=== PATIENT | male | born 1965 | race Two or more races ===

== ENCOUNTER 2020-05-10 09:08 | Outpatient (REF) | payer MEDICAID, SELFPAY ==
--- NOTE | 2020-05-10 | US_ITS ---
EXAMINATION: US COMPLETE ABDOMEN WITH LIVER ELASTOGRAPHY CLINICAL INFORMATION: Chronic hepatitis C COMPARISON: Ultrasound abdomen 09/09/2018, CT abdomen and pelvis 04/15/2014 TECHNIQUE: Real-time imaging of the abdominal viscera. Noninvasive ultrasound liver fibrosis assessment is performed using Andrew ElastPQ point quantification shear wave elastography (pSWE) with a 5 MHz transducer. Multiple elastography samples are obtained. FINDINGS: PANCREAS: The pancreas is normal in size and contour and echogenicity. No pancreatic ductal distention. ABDOMINAL AORTA: The proximal, middle, and distal aortic segments are normal in caliber. INFERIOR VENA CAVA: Visualized portions are normal. LIVER: The liver is normal in size. There is subtle nodular contour suggested. The hepatic parenchymal echogenicity is normal. There is no focal hepatic parenchymal lesion. No intrahepatic ductal dilatation. The right lobe measures 14.8 cm in length. The left lobe measures 11.1 cm in length. Doppler shows portal flow towards the liver. Shear wave elastography provides a median stiffness of 1.33 m/s (reference: normal median stiffness is 0.81 - 1.22 m/s). The IQR/median stiffness to assess sampling precision is 0.14 (reference: optimal IQR/median stiffness is under 0.3). GALLBLADDER: Normal. The gallbladder is physiologically distended without evidence of stones, sludge, polyps, wall thickening or pericholecystic fluid. COMMON BILE DUCT: Normal in caliber measuring 0.4 cm in diameter. RIGHT KIDNEY: Normal. No hydronephrosis. No renal calculi or focal parenchymal lesions. The kidney measures 11.6 cm in maximum dimension. LEFT KIDNEY: Normal. No hydronephrosis. No renal calculi or focal parenchymal lesions. The kidney measures 12.7 cm in maximum dimension. SPLEEN: Normal. The spleen measures 10.5 cm in maximum dimension. FREE FLUID: None. IMPRESSION: 1. Liver normal in size and homogeneous. No focal hepatic parenchymal lesion. 2. Suspect subtle nodular contour liver surface. Liver elastography measurements are consistent with a minimal risk for clinically significant liver fibrosis (METAVIR Stage F0-F1). 3. Portal flow towards the liver. Spleen normal in size. No ascites.
== END 2020-05-10 09:09 | disposition home or self-care (01) ==
LOC: HO.US 09:08
PROVIDERS: Visit Provider Student in an Organized Health Care Education/Training Program
DX: B18.2 Chronic viral hepatitis C (principal)
CPT/HCPCS: 76705; 76981

== ENCOUNTER 2020-05-22 08:56 | Outpatient (REF) | payer MEDICAID, SELFPAY ==
[2020-05-22 09:56] LABS: MANUAL DIFF FLAG NO
[2020-05-22 10:09] LABS: Basophils Percent Auto 0.2 % (0-2); Eosinophils Absolute Auto 0.1 X10*3/uL (0.0-0.4); Eosinophils Percent Auto 1.6 % (0-4); Hematocrit 45.6 % (42-52); Hemoglobin 14.8 g/dl (14.0-18.0); Imm Gran Abs Auto 0.01 X10*3/uL (0.00-0.03); Imm Gran Pct Auto 0.2 % (0.0-0.4); Lymphocytes Absolute Auto 2.1 X10*3/uL (1.2-4.9); Lymphocytes Percent Auto 48.3 % (20-40); Mean Corpuscular HGB Conc 32.5 g/dl (31.0-36.0); Mean Corpuscular Hemoglobin 27.1 pg (27.0-33.0); Mean Corpuscular Volume 83.4 fL (80-98); Monocytes Absolute Auto 0.4 X10*3/uL (0.1-1.2); Monocytes Percent Auto 8.2 % (2-11); Neutrophils Absolute Auto 1.8 X10*3/uL (2.0-8.3); Neutrophils Percent Auto 41.5 % (45-73); Platelet Count 165 X10*3/uL (160-400); Red Blood Count 5.47 X10*6/uL (4.60-5.80); Red Cell Distribution Width 13.8 % (11.0-16.0); White Blood Count 4.3 X10*3/uL (4.8-10.8)
[2020-05-22 10:19] LABS: INTERNATIONAL NORM RATIO 1.1 (0.9-1.1); Prothrombin Time 12.5 SEC (10.8-13.0)
[2020-05-22 10:38] LABS: Alanine Aminotransferase 93 U/L (0-40); Albumin Level 4.6 g/dL (3.5-5.0); Alkaline Phosphatase 85 U/L (39-117); Anion Gap 16 (12-20); Aspartate Amino Transferase 50 U/L (5-37); Bilirubin Total 0.7 mg/dL (0.0-1.0); Blood Urea Nitrogen 14 mg/dL (9-16); Calcium 9.3 mg/dL (8.4-10.2); Carbon Dioxide 22 mmol/L (22-29); Chloride 107 mmol/L (96-108); Estimated Glomerular Filt Rate > 60; Glucose Random 96 mg/dL (60-115); Potassium 4.2 mmol/l (3.3-5.1); Sodium 141 mmol/L (135-145); Total Protein 8.2 g/dL (6.5-8.0)
[2020-05-23 08:31] LABS: Hepatitis A Antibody IgG REACTIVE (Nonreactive); ~Hepatitis A Antibody IgG 10.46 S/CO (0.00-0.99)
[2020-05-23 08:45] LABS: HBsAGNum1 0.15 S/CO (0.00-0.99); HIV AB/AG Nonreactive (Nonreactive); HIV Num 1 0.13 S/CO (0.00-0.99); Hepatitis B Surface Antigen Negative (Negative)
[2020-05-23 09:22] LABS: ~HepC Num1 20.19 S/CO (0.00-0.79); ~Hepatitis C Antibody Reactive (Nonreactive)
[2020-05-23 11:02] LABS: HBS Num1 9.35 mIU/mL (0-7.99)
[2020-05-23 11:19] LABS: HBS Num2 9.35 mIU/mL (0-7.99); HBS Num3 9.01 mIU/mL (0-7.99); ~Hepatitis B Surface Antibody GRAYZONE (Nonreactive)
[2020-05-23 12:12] LABS: Hepatitis B Core Antibody Reactive (Nonreactive)
[2020-05-26 10:26] LABS: Hepatitis B Core Antibody IgM NON-REACTIVE (NON-REACTIVE)
[2020-05-26 15:27] LABS: FIB-ALT 79 U/L (9-46); FIB-Alpha-2-Macroglobulin 376 mg/dL (106-279); FIB-Apolipoprotein A1 123 mg/dL (94-176); FIB-GGT 28 U/L (3-95); FIB-Haptoglobin <8 mg/dL (43-212); FIB-Total Bilirubin 0.5 mg/dL (0.2-1.2); Liver Fibrosis Score 0.87; Liver Fibrosis Stage F4; Nec Inflam Act Grade A3; Nec Inflam Act Score 0.68
== END 2020-05-22 08:57 | disposition home or self-care (01) ==
LOC: HO.LAB 08:56
PROVIDERS: PCP Student in an Organized Health Care Education/Training Program; Visit Provider Student in an Organized Health Care Education/Training Program
DX: B18.2 Chronic viral hepatitis C (principal)
CPT/HCPCS: 36415; 80053; 81596; 85025; 85610; 86704; 86705; 86706; 86708; 86803; 87340; 87389; 87522

== ENCOUNTER 2020-07-10 08:56 | Outpatient (REF) | payer MEDICAID, SELFPAY ==
[2020-07-10 09:35] LABS: MANUAL DIFF FLAG NO
[2020-07-10 09:36] LABS: Basophils Percent Auto 0.2 % (0-2); Eosinophils Absolute Auto 0.1 X10*3/uL (0.0-0.4); Eosinophils Percent Auto 1.4 % (0-4); Hematocrit 41.5 % (42-52); Hemoglobin 13.8 g/dl (14.0-18.0); Imm Gran Abs Auto 0.01 X10*3/uL (0.00-0.03); Imm Gran Pct Auto 0.2 % (0.0-0.4); Lymphocytes Absolute Auto 2.2 X10*3/uL (1.2-4.9); Lymphocytes Percent Auto 51.9 % (20-40); Mean Corpuscular HGB Conc 33.3 g/dl (31.0-36.0); Mean Corpuscular Volume 81.2 fL (80-98); Monocytes Absolute Auto 0.4 X10*3/uL (0.1-1.2); Monocytes Percent Auto 8.6 % (2-11); Neutrophils Absolute Auto 1.6 X10*3/uL (2.0-8.3); Neutrophils Percent Auto 37.7 % (45-73); Platelet Count 164 X10*3/uL (160-400); Red Blood Count 5.11 X10*6/uL (4.60-5.80); Red Cell Distribution Width 13.9 % (11.0-16.0); White Blood Count 4.3 X10*3/uL (4.8-10.8)
[2020-07-10 09:42] LABS: INTERNATIONAL NORM RATIO 1.1 (0.9-1.1); Prothrombin Time 12.9 SEC (10.8-13.0)
[2020-07-10 10:08] LABS: Alanine Aminotransferase 125 U/L (0-40); Albumin Level 4.4 g/dL (3.5-5.0); Alkaline Phosphatase 98 U/L (39-117); Anion Gap 10 (12-20); Aspartate Amino Transferase 52 U/L (5-37); Bilirubin Total 0.6 mg/dL (0.0-1.0); Blood Urea Nitrogen 14 mg/dL (9-16); Calcium 9.3 mg/dL (8.4-10.2); Carbon Dioxide 28 mmol/L (22-29); Chloride 108 mmol/L (96-108); Estimated Glomerular Filt Rate > 60; Glucose Random 99 mg/dL (60-115); Potassium 4.4 mmol/l (3.3-5.1); Sodium 142 mmol/L (135-145); Total Protein 7.6 g/dL (6.5-8.0)
[2020-07-10 10:26] LABS: HIV AB/AG Nonreactive (Nonreactive); HIV Num 1 0.06 S/CO (0.00-0.99); Hepatitis B Surface Antigen Negative (Negative)
[2020-07-10 11:39] LABS: HBc Num1 11.16 S/CO (0.00-0.79)
[2020-07-10 11:41] LABS: HBS Num1 8.51 mIU/mL (0-7.99); HBc Num3 11.16 S/CO; Hepatitis B Core Antibody Reactive (Nonreactive)
[2020-07-10 11:42] LABS: HBS Num2 8.51 mIU/mL (0-7.99); HBS Num3 8.62 mIU/mL (0-7.99); ~Hepatitis B Surface Antibody GRAYZONE (Nonreactive)
[2020-07-11 09:21] LABS: Hepatitis A Antibody IgG REACTIVE (Nonreactive); ~Hepatitis A Antibody IgG 10.84 S/CO (0.00-0.99)
[2020-07-11 20:12] LABS: Hepatitis B Core Antibody IgM NON-REACTIVE (NON-REACTIVE)
[2020-07-14 00:42] LABS: FIB-ALT 109 U/L (9-46); FIB-Alpha-2-Macroglobulin 373 mg/dL (106-279); FIB-Apolipoprotein A1 125 mg/dL (94-176); FIB-GGT 33 U/L (3-95); FIB-Haptoglobin 8 mg/dL (43-212); FIB-Total Bilirubin 0.5 mg/dL (0.2-1.2); Liver Fibrosis Score 0.88; Liver Fibrosis Stage F4; Nec Inflam Act Grade A3; Nec Inflam Act Score 0.79
== END 2020-07-10 08:57 | disposition home or self-care (01) ==
LOC: HO.LAB 08:56
PROVIDERS: Visit Provider Student in an Organized Health Care Education/Training Program
DX: B18.2 Chronic viral hepatitis C (principal)
CPT/HCPCS: 36415; 80053; 81596; 85025; 85610; 86704; 86705; 86706; 86708; 87340; 87389; 87522

== ENCOUNTER → 2020-10-18 09:11 | Outpatient (BNVA) | payer MEDICAID, SELFPAY | PROVIDERS: PCP Student in an Organized Health Care Education/Training Program; Visit Provider Nurse Practitioner ==

== ENCOUNTER → 2020-11-29 09:19 | Outpatient (BNVA) | payer MEDICAID, SELFPAY | PROVIDERS: PCP Student in an Organized Health Care Education/Training Program; Visit Provider Nurse Practitioner ==

== ENCOUNTER 2020-11-30 08:22 | Outpatient (REF) | payer MEDICAID, SELFPAY ==
[2020-11-30 09:57] LABS: Alanine Aminotransferase 23 U/L (0-40); Albumin Level 4.3 g/dL (3.5-5.0); Alkaline Phosphatase 72 U/L (39-117); Anion Gap 12 (12-20); Aspartate Amino Transferase 19 U/L (5-37); Bilirubin Total 0.7 mg/dL (0.0-1.0); Blood Urea Nitrogen 13 mg/dL (9-16); Calcium 9.5 mg/dL (8.4-10.2); Carbon Dioxide 25 mmol/L (22-29); Chloride 109 mmol/L (96-108); Cholesterol 153 mg/dL; Estimated Glomerular Filt Rate > 60; Glucose Fasting 93 mg/dL (60-99); HDL Cholesterol 31 mg/dL; LDL Cholesterol Calculated 83 mg/dl; Potassium 3.7 mmol/L (3.3-5.1); Sodium 142 mmol/L (135-145); Total Protein 7.6 g/dL (6.5-8.0); Triglycerides 199 mg/dL
== END 2020-11-30 08:23 | disposition home or self-care (01) ==
LOC: HO.LAB 08:22
PROVIDERS: PCP Student in an Organized Health Care Education/Training Program; Visit Provider Nurse Practitioner
DX: B18.2 Chronic viral hepatitis C (principal); K74.60 Unspecified cirrhosis of liver; E78.00 Pure hypercholesterolemia, unspecified
CPT/HCPCS: 36415; 80053; 80061

== ENCOUNTER 2021-01-24 07:04 | Day surgery (SDC) | payer MEDICAID, SELFPAY ==
[2021-01-24 07:21] VITALS: BMI 28.1
[2021-01-24 07:25] VITALS: BP 128/77; PULSE 59; RESP 16; TEMP 36.4; O2SAT 97
--- NOTE | 2021-01-24 07:37 | P.CONAN_ITS ---
COUNTS INCLUDE 234 BEDS AT THE [facility] Active Problems Active Problems: All Active Problems (Updated 01/18/21 @ 12:46 by Jolie rivers) Chronic hepatitis C (Acute) Cirrhosis (Acute) HTN (hypertension), benign (Acute) High cholesterol (Acute) Past Medical History Medical History Asthma Cirrhosis Elevated cholesterol Hepatitis C History of ETOH abuse HTN (hypertension) On anticoagulant therapy Family History Family History Family/Other HTN (hypertension) Asthma Diabetes Surgical History Surgical History Hx of colonoscopy Social History Social History Household Members: None Alcohol intake: former Year quit: 10+ Patient Tobacco Use Status: Never used Tobacco Are you DNR?: No Advance Directives: No Advance Directives Information Provided: Yes Current occupational status: disabled Meds Allergies Allergy/AdvReac Type Severity Reaction Status Date / Time No Known Allergies Allergy Verified 01/24/21 07:17 Home Medications Medication Instructions Recorded Confirmed Last Taken Type albuterol sulfate [ProAir HFA] 2 puff INHALATION QID 01/18/21 01/18/21 01/24/21 05:00 History cetirizine 1 tab PO QAM 01/18/21 01/18/21 Unknown History dabigatran etexilate [Pradaxa] 1 cap PO BID 01/18/21 01/18/21 01/21/21 History ferrous sulfate [FeroSul] 1 tab PO QAM 01/18/21 01/18/21 Unknown History fluticasone propionate 1 - 2 spray INTRANASAL DAILY PRN 01/18/21 01/18/21 Unknown History fluticasone propionate [Flovent 2 puff INHALATION BID 01/18/21 01/18/21 Unknown History HFA] folic acid 1 tab PO QAM 01/18/21 01/18/21 Unknown History hydroxyzine HCl 2 tab PO BEDTIME 01/18/21 01/18/21 Unknown History levetiracetam 1 tab PO 01/18/21 Unknown History lisinopril 1 tab PO QAM 01/18/21 01/18/21 Unknown History multivitamin 1 tab PO QAM 01/18/21 01/18/21 Unknown History omeprazole 1 cap PO QAM 01/18/21 01/18/21 Unknown History simvastatin 1 tab PO QPM 01/18/21 01/18/21 Unknown History thiamine HCl (vitamin B1) 1 tab PO QAM 01/18/21 01/18/21 Unknown History topiramate 1 tab PO BEDTIME 01/18/21 01/18/21 Unknown History Exam Exam Date and Time: January 24, 2021 0737 Height,Weight and Vital Signs: Height 5 ft 7 in Weight 180 lb Airway Mallampati Class: I TM Dist: >3cm Neck ROM: Full Denture: Upper Loose/Missing/Broken Teeth: No Heart: RRRNL Assessment and Plan Assessment Anesthesia Assessment: Anesthesia Plan Discussed and Chart Reviewed Final Anesthetic Review NPO: Yes ASA Class: III Final Preanesthetic Review: No Changes in Pt Med Stat, Meds/Allgs Chart Reviewed, Consent Obtained/Reviewed and Anes Risks/Benef Reviewed Patient Risk: Low Procedure Risk: Low Anesthetic Plan Anesthetic Plan: MAC: Disposition: Standard PACU
[2021-01-24] MEDS: Lactated Ringers 1,000 ML 50 ML IVCONT (07:51)
--- NOTE | 2021-01-24 09:08 | MHC.SHP ---
Pre-Procedural Eval Section A Date of Service: 01/24/21 Section B Chief Complaint: Cirrhosis of Liver Relevant Family History (Specify if Yes): No Relevant Social History: None Present Medications: see Short Stay Collaborative assessment Medical History: Significant History (Asthma Cirrhosis Elevated cholesterol Hepatitis C History of ETOH abuse HTN (hypertension) On anticoagulant therapy) History of Previous Operations: Relevant previous surgery/procedure and date(s) (hx of colonoscopy) Allergies: Allergies Allergy/AdvReac Type Severity Reaction Status Date / Time No Known Allergies Allergy Verified 01/24/21 07:17 Review of Systems Sugical H&P ROS: Negative: Constitution, Cardiovascular, Respiratory, Neurological, Psychiatric, Hem-Onc, Allergic/Immunologic, Gastrointestinal, Genitourinary, Musculoskeletal, Integumentary, Endocrine and Eyes/Ears/Nose/Throat Exam Surgical H&P Exam: Normal: HEENT, Normal: Heart, Normal: Lungs, Normal: Extremities, Normal: Abdomen, Normal: Skin and Normal: Neurological Plan Diagnosis/Plan: Unchanged I have reviewed the history and physical and performed a pertinent physical examination on my patient. No changes have occurred unless specified.
--- NOTE | 2021-01-24 09:52 | P.BOP_ITS ---
Brief Operative Note Date of Service: 01/24/21 Pre-op diagnosis: screening for varices Post-op diagnosis: same Procedure: see op note Surgeon: Bryson Manrique MD Anesthesia: MAC Was an Medical Staff Assistant used for this Procedure?: No Estimated blood loss (mL): 0 Condition: stable Disposition: PACU
--- NOTE | 2021-01-24 09:53 | W.PM.OPN ---
Operative Note Operative Note Date of Service: 01/24/21 Narrative: Procedure Description: EGD FLEXIBLE TRANSORAL UPPER GASTROINTESTINAL ENDOSCOPY UPPER ENDOSCOPY Consent: Indications for the procedure and potential complications of bleeding, perforation, reaction to medications and missed diagnosis were discussed with the patient and informed consent was obtained. Instrument: Olympus GIF H 190 J mid size upper endoscope Monitoring: Vital signs and clinical assessment, continuous EKG monitoring, Pulse oximetry, Carbon Dioxide monitoring and blood pressure monitoring were done throughout the procedure. Procedure: The patient was placed in the left lateral decubitis position and pre-procedure medications were administered and a bite block was placed. The endoscope was inserted into the mouth and advanced under direct vision to the third part of duodenum. A careful inspection was made as the upper endoscope was withdrawn including a retroflexed examination of the proximal stomach; Findings and interventions are described below. Findings: Larynx:normal Esophagus: GE junction at 40 cm, diaphragm hiatus at 40 cm, no varices, mild esophagitis with islands of salmon pink tissue suspicious for barretts, bx taken Stomach: Patchy gastric erythema. Biopsies were obtained. Grade 2 flap valve on retroflexed examination of the cardia. 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
[2021-01-24 10:00] VITALS: BP 111/72; PULSE 52; RESP 16; TEMP 36.6; O2SAT 97
[2021-01-24 10:15] VITALS: BP 108/78; PULSE 46; RESP 16; TEMP 36.6; O2SAT 100
[2021-01-24 10:29] VITALS: BP 127/75; PULSE 45; RESP 16; TEMP 36.6; O2SAT 100
== END 2021-01-24 11:30 | disposition home or self-care (01) ==
PROVIDERS: PCP Student in an Organized Health Care Education/Training Program; Visit Provider Internal Medicine Gastroenterology
PROC: 0DJ08ZZ Inspection of Upper Intestinal Tract, Via Natural or Artificial Opening Endoscopic (ICD-10-PCS; CPT 43235; principal; 2021-01-24 09:10)
DX: K74.60 Unspecified cirrhosis of liver (principal); F10.10 Alcohol abuse, uncomplicated; K29.50 Unspecified chronic gastritis without bleeding; K20.80 Other esophagitis without bleeding; K44.9 Diaphragmatic hernia without obstruction or gangrene; J45.909 Unspecified asthma, uncomplicated; E78.00 Pure hypercholesterolemia, unspecified; B19.20 Unspecified viral hepatitis C without hepatic coma; I10 Essential (primary) hypertension; Z79.01 Long term (current) use of anticoagulants; Z79.51 Long term (current) use of inhaled steroids; Z79.899 Other long term (current) drug therapy
CPT/HCPCS: 43239; 88305; 88342

== ENCOUNTER → 2021-02-04 14:22 | Outpatient (BNVA) | payer MEDICAID, SELFPAY | PROVIDERS: Visit Provider Nurse Practitioner ==

== ENCOUNTER 2021-05-17 09:27 | Inpatient (IN) | payer MEDICAID, SELFPAY ==
--- NOTE | ~2021-05-17 | CT_ITS ---
EXAMINATION: CT ABDOMEN AND PELVIS WITH CONTRAST CLINICAL INFORMATION: Abdominal pain. Past medical history of cirrhosis. COMPARISON: Ultrasound of May 10, [address] scan of April 15, 2014 TECHNIQUE: Multidetector volumetric images were obtained from the superior aspect of the liver through the pubic symphysis following administration 85 mL of Omnipaque 350 intravenous contrast. Sagittal and coronal reformatted images were obtained on the technologist's workstation. Oral contrast: No This CT examination was performed using dose optimization techniques as appropriate, variously including the following: *Automated exposure control *Adjustment of mA and/or kV according to patient size (this includes techniques or standardized protocols for targeted exams where dose is matched to indication/reason for exam; i.e. extremities or head) *Use of iterative reconstruction technique DLP: 531 mGy-cm FINDINGS: LUNG BASES: There is basilar dependent atelectasis present. Heart normal size. No pericardial effusion or pleural effusion identified. LIVER, GALLBLADDER, AND BILIARY TREE: The liver has a nodular contour with the appearance of cirrhosis. No focal masses appreciated. No intrahepatic bile duct dilatation is seen. The gallbladder is unremarkable with no evidence of radiopaque gallstones, gallbladder wall thickening, or obvious pericholecystic inflammatory changes. PANCREAS: Unremarkable. SPLEEN: Unremarkable. ADRENAL GLANDS: Unremarkable. KIDNEYS AND URETERS: The kidneys are normal in size, shape, and attenuation. No hydronephrosis, hydroureter, or calculi seen. No perinephric stranding. BLADDER: Unremarkable. GASTROINTESTINAL TRACT: No dilated loops of large or small bowel are evident. No free air or free fluid. There is moderate sigmoid diverticular disease but without definite acute diverticulitis. The appendix is visualized and appears unremarkable. ABDOMINAL WALL: No significant hernia is appreciated. LYMPH NODES: There is a 1 cm celiac axis lymph node present. No other regions of lymphadenopathy appreciated. VASCULAR: Unremarkable. PELVIC VISCERA: No suspicious pelvic mass identified. OSSEOUS STRUCTURES: No suspicious destructive bony lesions. CT/CT abdomen pelvis w con IMPRESSION: Findings suggestive of hepatic cirrhosis without focal mass. No evidence of obstructive uropathy. No evidence of ileus or obstruction.
[2021-05-17 09:43] VITALS: BP 122/84; PULSE 68; RESP 16; TEMP 36.1; O2SAT 98; BMI 27.3
--- NOTE | 2021-05-17 11:12 | ECG_ITS ---
Test Reason : abdominal pain Blood Pressure : / mmHG Vent. Rate : 045 BPM Atrial Rate : 045 BPM P-R Int : 146 ms QRS Dur : 098 ms QT Int : 462 ms P-R-T Axes : 041 010 015 degrees QTc Int : 399 ms Sinus bradycardia Otherwise normal ECG When compared with ECG of 14-APR-2018 21:25, No significant change was found Referred By: Reji Burnett Electronically Signed By:JULIENNE SWANN MD
[2021-05-17] MEDS: Magnesium Hydrox/Alum Hydrox 30 ML ORAL.SUSP PO (11:35)
[2021-05-17] MEDS: Famotidine/PF 20 MG/2 ML VIAL IVPUSH (11:35)
[2021-05-17] MEDS: Lidocaine HCl Viscous 2 % 15 ML SOLUTION MUCOUS MEM (11:35)
[2021-05-17 11:36] LABS: MANUAL DIFF FLAG NO
[2021-05-17 11:46] LABS: Basophils Percent Auto 0.2 % (0-2); Eosinophils Percent Auto 0.8 % (0-4); Hemoglobin 14.5 g/dl (14.0-18.0); Lymphocytes Absolute Auto 2.4 X10*3/uL (1.2-4.9); Lymphocytes Percent Auto 50.5 % (20-40); Mean Corpuscular HGB Conc 33.7 g/dl (31.0-36.0); Mean Corpuscular Volume 80.1 fL (80-98); Mean Platelet Volume 11.4 fL (9.4-12.4); Monocytes Absolute Auto 0.3 X10*3/uL (0.1-1.2); Monocytes Percent Auto 6.6 % (2-11); Neutrophils Percent Auto 41.9 % (45-73); Platelet Count 132 X10*3/uL (160-400); Red Blood Count 5.37 X10*6/uL (4.60-5.80); White Blood Count 4.7 X10*3/uL (4.8-10.8)
[2021-05-17 11:47] LABS: INTERNATIONAL NORM RATIO 1.1 (0.9-1.1); Prothrombin Time 12.5 SEC (9.9-13.0)
[2021-05-17 11:50] LABS: Partial Thromboplastin Time 40.3 SEC (24.1-38.0)
--- NOTE | 2021-05-17 11:52 | ED_ITS ---
HPI - Abdominal Pain General Chief Complaint: Abdominal Pain Stated Complaint: leg & abd pain Time Seen by Provider: 05/17/21 10:45 Source: patient Mode of arrival: ambulatory Limitations: no limitations History of Present Illness HPI narrative: 52-year-old male history of cirrhosis, hepatitis-C, and high blood pressure presents to ED for 4 days of abdominal pain and also 6 days of lower extremity cramping pain. Patient denies any nausea vomiting. Patient states no chest pain or shortness of breath. Patient denies recent trauma to lower extremity, redness, swelling, calf min, ecchymosis, hotness, or coldness. Patient denies any rectal bleeding or vomiting blood. Related Data Home Medications Medication Instructions Recorded Confirmed albuterol sulfate 90 mcg/actuation 2 puff INHALATION QID PRN 01/18/21 05/17/21 aerosol inhaler (ProAir HFA) cetirizine 10 mg tablet 1 tab PO QAM 01/18/21 05/17/21 dabigatran etexilate 75 mg capsule 1 cap PO BID 01/18/21 05/17/21 (Pradaxa) ferrous sulfate 325 mg (65 mg 1 tab PO QAM 01/18/21 05/17/21 iron) tablet (FeroSul) fluticasone propionate 110 2 puff INHALATION BID 01/18/21 05/17/21 mcg/actuation HFA aerosol inhaler (Flovent HFA) fluticasone propionate 50 1 - 2 spray INTRANASAL DAILY PRN 01/18/21 05/17/21 mcg/actuation nasal spray,suspension folic acid 1 mg tablet 1 tab PO QAM 01/18/21 05/17/21 hydroxyzine HCl 50 mg tablet 2 tab PO BEDTIME 01/18/21 05/17/21 levetiracetam 500 mg tablet 1 tab PO BID 01/18/21 05/17/21 lisinopril 10 mg tablet 1 tab PO QAM 01/18/21 05/17/21 multivitamin 1 tab PO QAM 01/18/21 05/17/21 omeprazole 40 mg capsule,delayed 1 cap PO QAM 01/18/21 05/17/21 release simvastatin 10 mg tablet 1 tab PO QPM 01/18/21 05/17/21 thiamine HCl (vitamin B1) 100 mg 1 tab PO QAM 01/18/21 05/17/21 tablet topiramate 50 mg tablet 1 tab PO BEDTIME 01/18/21 05/17/21 carbamide peroxide 6.5 % ear drops 5 drp OTIC (EARS) BID 05/17/21 05/17/21 (Ear Drops (carbamide peroxide)) Allergies Allergy/AdvReac Type Severity Reaction Status Date / Time No Known Allergies Allergy Verified 01/24/21 07:17 Review of Systems Review of Systems Yes all other systems are reviewed and are negative Constitutional: Reports as per HPI and Reports no additional constitutional complaints Eyes: Reports as per HPI and Reports no additional eye complaints Reports system reviewed and no additional complaints, except as documented and Reports as per HPI Cardiovascular: Reports as per HPI and Reports no additional cardiovascular complaints Respiratory: Reports as per HPI and Reports no additional respiratory complaints Gastrointestinal: Reports as per HPI, Reports no additional gastrointestinal complaints and Reports abdominal pain (Abdominal pain) Genitourinary: Reports no additional male genitourinary complaints and Reports difficulty with ejaculations Musculoskeletal: Reports no additional musculoskeletal complaints and Reports limited range of motion Comments: Lower extremity cramping Reports system reviewed and no additional complaints, except as documented and Reports as per HPI Psychiatric: Reports no additional psychiatric complaints and Reports as per HPI Physical Exam Vital Signs: Vital Signs: Last Vital Signs Temp 97 F 05/17/21 09:43 Pulse 68 05/17/21 09:43 Resp 16 05/17/21 09:43 BP 122/84 05/17/21 09:43 Pulse Ox 98 05/17/21 09:43 Body Mass Index 27.3 Const: General: cooperative, healthy appearing, comfortable, no acute distress, well developed, alert, awake and Physically active Orientation/consciousness: patient oriented x3 HENMT: Head: Yes normal to inspection, Yes No palpable skull fracture present, Yes normocephalic, Yes atraumatic and Yes abrasion Eyes: General: appearance normal, both eyes and all related structures Neck: Neck: Yes normal visual inspection, Yes full ROM, Yes no lymphadenopathy, Yes no meningeal signs, Yes trachea midline, Yes supple and No tender Chest: Chest palpation & inspection: normal inspection of the chest and normal palpation of entire chest wall Resp: Effort & Inspection: normal respiratory effort and able to speak in co mplete sentences Cardio: Jugular venous distension: no JVD Heart sounds: S1 normal heart sound present and S2 normal heart sound present GI: Inspection: Yes normal to inspection and No abdominal wall ecchymosis Palpation (GI): Soft to palpation, not firm, Tenderness to palpation present (GI) (Diffuse), no guarding and not rigid : General: No CVA tenderness and Yes no CVA tenderness Back/Spine/Pelvis: Back: no CVA tenderness, No CVA tenderness and No back tenderness Skin: General skin exam: no rashes or lesions noted and elasticity normal Neuro: General: patient oriented x3, gait normal, no meningeal signs and CN's II-XI intact bilaterally Cranial nerves: Yes CN's II-XII intact bilaterally Extrem: Other: Bilateral lower extremity negative for any swelling, redness, ecchymosis, calf pain, skin tightness, landing hotness, coldness, or deformity. Bilateral lower extremity motor/nose/vascular exam intact General: Yes normal to inspection and Yes full ROM Psych: Appearance: grossly normal, well kempt and not disheveled Course Course Course Narrative: Patient have EKG, abdominal CT scan, and labs ordered Reevaluation(s) Reevaluation #1: EKG negative STEMI. Abdominal CT scan came negative for any acute etiology. labs are at baseline except CPK. CPK over 3000. Patient denies having trauma. Troponin negative. Patient to be admitted for rhabdomyolysis. Time: 17:55 MDM - Abdominal Pain MDM Narrative Medical decision making narrative: Rhabdomyolysis Lab Data Result diagrams: 05/17/21 11:32 05/17/21 11:32 Labs: Lab Results 05/17/21 05/17/21 05/17/21 Range/Units 11:32 11:32 11:32 WBC 4.7 L (4.8-10.8) X10*3/uL RBC 5.37 (4.60-5.80) X10*6/uL Hgb 14.5 (14.0-18.0) g/dl Hct 43.0 (42-52) % MCV 80.1 (80-98) fL MCH 27.0 (27.0-33.0) pg MCHC 33.7 (31.0-36.0) g/dl RDW 14.0 (11.0-16.0) % Plt Count 132 L (160-400) X10*3/uL MPV 11.4 (9.4-12.4) fL Immature Gran % (Auto) 0.0 (0.0-0.4) % Neut % (Auto) 41.9 L (45-73) % Lymph % (Auto) 50.5 H (20-40) % [place] % (Auto) 6.6 (2-11) % Eos % (Auto) 0.8 (0-4) % Baso % (Auto) 0.2 (0-2) % Lymph # (Auto) 2.4 (1.2-4.9) X10*3/uL [place] # (Auto) 0.3 (0.1-1.2) X10*3/uL Eos # (Auto) 0.0 (0.0-0.4) X10*3/uL Baso # (Auto) 0.0 (0.0-0.2) X10*3/uL Abs Immat Gran (auto) 0.00 (0.00-0.03) X10*3/uL Absolute Neuts (auto) 2.0 (2.0-8.3) X10*3/uL Absolute Nucleated RBC 0.000 (0.0-0.012) X10*3/uL Nucleated RBC % (auto) 0.0 (0.0-0.2) /100WBC PT 12.5 (9.9-13.0) SEC INR 1.1 (0.9-1.1) APTT 40.3 H (24.1-38.0) SEC Sodium 140 (135-145) mmol/L Potassium 4.6 D (3.3-5.1) mmol/L Chloride 109 H (96-108) mmol/L Carbon Dioxide 25 (22-29) mmol/L Anion Gap 11 L (12-20) BUN 9 (9-16) mg/dL Creatinine 0.95 (0.5-1.4) mg/dL Estim Creat Clear Calc 90.8 Estimated GFR > 60 Random Glucose 92 (60-115) mg/dL Calcium 9.5 (8.4-10.2) mg/dL Magnesium 2.1 (1.6-2.6) mg/dL Total Bilirubin 0.6 (0.0-1.0) mg/dL Direct Bilirubin 0.2 (0.0-0.5) mg/dL AST 55 H (5-37) U/L ALT 28 (0-40) U/L Alkaline Phosphatase 77 (39-117) U/L Total Creatine Kinase 3644 H (38-174) U/L Troponin I High Sens (<3.5-35.0) ng/L Total Protein 7.4 (6.5-8.0) g/dL Albumin 4.3 (3.5-5.0) g/dL Lipase 40 (8-78) U/L TSH 0.78 (0.32-4.0) uIU/mL 05/17/21 Range/Units 11:32 WBC (4.8-10.8) X10*3/uL RBC (4.60-5.80) X10*6/uL Hgb (14.0-18.0) g/dl Hct (42-52) % MCV (80-98) fL MCH (27.0-33.0) pg MCHC (31.0-36.0) g/dl RDW (11.0-16.0) % Plt Count (160-400) X10*3/uL MPV (9.4-12.4) fL Immature Gran % (Auto) (0.0-0.4) % Neut % (Auto) (45-73) % Lymph % (Auto) (20-40) % Living[place] % (Auto) (2-11) % Eos % (Auto) (0-4) % Baso % (Auto) (0-2) % Lymph # (Auto) (1.2-4.9) X10*3/uL [place] # (Auto) (0.1-1.2) X10*3/uL Eos # (Auto) (0.0-0.4) X10*3/uL Baso # (Auto) (0.0-0.2) X10*3/uL Abs Immat Gran (auto) (0.00-0.03) X10*3/uL Absolute Neuts (auto) (2.0-8.3) X10*3/uL Absolute Nucleated RBC (0.0-0.012) X10*3/uL Nucleated RBC % (auto) (0.0-0.2) /100WBC PT (9.9-13.0) SEC INR (0.9-1.1) APTT (24.1-38.0) SEC Sodium (135-145) mmol/L Potassium (3.3-5.1) mmol/L Chloride (96-108) mmol/L Carbon Dioxide (22-29) mmol/L Anion Gap (12-20) BUN (9-16) mg/dL Creatinine (0.5-1.4) mg/dL Estim Creat Clear Calc Estimated GFR Random Glucose (60-115) mg/dL Calcium (8.4-10.2) mg/dL Magnesium (1.6-2.6) mg/dL Total Bilirubin (0.0-1.0) mg/dL Direct Bilirubin (0.0-0.5) mg/dL AST (5-37) U/L ALT (0-40) U/L Alkaline Phosphatase (39-117) U/L Total Creatine Kinase (38-174) U/L Troponin I High Sens < 3.5 (<3.5-35.0) ng/L Total Protein (6.5-8.0) g/dL Albumin (3.5-5.0) g/dL Lipase (8-78) U/L TSH (0.32-4.0) uIU/mL ECG Data Interpretation: Sinus bradycardia. Meticulous 45. [place] interval 146. QRS 98. QTC 399. Negative STEMI Discharge Plan Discharge Clinical Impression: Rhabdomyolysis Patient Disposition: Admitted As Inpatient [facility] Past Medical History Medical History Asthma Cirrhosis Elevated cholesterol Hepatitis C History of ETOH abuse HTN (hypertension) On anticoagulant therapy Surgical History History of esophagogastroduodenoscopy (EGD) Hx of colonoscopy Family History Family History Family/Other HTN (hypertension) Asthma Diabetes Social History Social History Household Members: None Alcohol intake: never Patient Tobacco Use Status: Never used Tobacco Use of substances other than those prescribed or required for medical reasons: No Advance Directives: No service: No Current occupational status: unemployed and disabled
[2021-05-17 11:58] LABS: Troponin-I High Sensitivity < 3.5 ng/L (<3.5-35.0)
[2021-05-17 12:21] LABS: Alanine Aminotransferase 28 U/L (0-40); Albumin Level 4.3 g/dL (3.5-5.0); Alkaline Phosphatase 77 U/L (39-117); Anion Gap 11 (12-20); Aspartate Amino Transferase 55 U/L (5-37); Bilirubin Direct 0.2 mg/dL (0.0-0.5); Bilirubin Total 0.6 mg/dL (0.0-1.0); Blood Urea Nitrogen 9 mg/dL (9-16); Calcium 9.5 mg/dL (8.4-10.2); Carbon Dioxide 25 mmol/L (22-29); Chloride 109 mmol/L (96-108); Creatinine Clr Calc Pharmacy 90.8; Estimated Glomerular Filt Rate > 60; Glucose Random 92 mg/dL (60-115); Lipase 40 U/L (8-78); Magnesium 2.1 mg/dL (1.6-2.6); Potassium 4.6 mmol/L (3.3-5.1); Sodium 140 mmol/L (135-145); Total Protein 7.4 g/dL (6.5-8.0)
[2021-05-17] MEDS: 0.9 % Sodium Chloride 1,000 ML 999 ML IV (12:40)
[2021-05-17] MEDS: iohexoL 350 MG/ML 100 ML INFUS..BTL IV (13:07)
--- NOTE | 2021-05-17 14:52 | PHA.MEDREC ---
Pharmacy Consult ? Medication Reconciliation Pharmacy has completed the medication reconciliation. There are no remarkable issues for provider's attention. Patient was able to verify his inhalers and the eye drops. Reports he takes all medication from his [facility]. Called [facility] to confirm medications in the [facility]. Karlene Buck, BonyD
--- NOTE | 2021-05-17 15:30 | P.HPHOSP_ITS ---
History of Present Illness Date of Service: 05/17/21 Attending physician on admission: Meenu Rivera Chief Complaint: abd pain cramping 55 y/o M came to the hospital because having abdominal pain and cramping, abdominal pain is nonspecific right and left both side, 5/10 intensity, gets be tter with coffee with milk and walking, also small amount of stools but not significant diarrhea. Denies any nausea or vomiting. Also has leg cramping similar way. He said he was walking 10 miles on and off from last 2 weeks and was not eating or drinking well. Denies any recent travel sick contacts or any new medication use. Denies any new complaint of chest pain or shortness of breath or fever or chills or nausea or vomiting Denies any cough Denies any weakness or numbness. Asthma Cirrhosis Elevated cholesterol Hepatitis C History of ETOH abuse HTN (hypertension) On anticoagulant therapy Review of Systems Review of Systems: As above. Yes all other systems are reviewed and are negat irasema [facility] Medical History Asthma Cirrhosis Elevated cholesterol Hepatitis C History of ETOH abuse HTN (hypertension) On anticoagulant therapy Family History Family/Other HTN (hypertension) Asthma Diabetes Pertinent family history: Multiple family members has history of liver disease due to alcohol use. Surgical History History of esophagogastroduodenoscopy (EGD) Hx of colonoscopy Social History Household Members: None Alcohol intake: never Patient Tobacco Use Status: Never used Tobacco Use of substances other than those prescribed or required for medical reasons: No Advance Directives: No Current occupational status: disabled Meds Allergies Allergy/AdvReac Type Severity Reaction Status Date / Time No Known Allergies Allergy Verified 01/24/21 07:17 Active Medications: Current Medications Albuterol Sulfate (Albuterol Sulfate 90 Mcg 8 Gm Inhaler) 2 puff INHALE QID PRN PRN Reason: Wheezing Carbamide Peroxide (Carbamide Peroxide 6.5% Otic 15 Ml Drpbtl) 5 drop EAR-BOTH BID ELISE Dabigatran (Dabigatran Etexilate Mesylate 75 Mg Capsule) 75 mg PO BID ELISE Fluticasone Propionate (Fluticasone Propionate Nasal 16 Gm [place]) 1 - 2 spray NOSTRIL-B DAILY PRN PRN Reason: Nasal Congestion Folic Acid (Folic Acid 1 Mg Tablet) 1 mg PO QAM [facility] Hydroxyzine HCl (Hydroxyzine Hcl 50 Mg Tablet) 100 mg PO BEDTIME [facility] Lactated Ringer's (Lr) 1,000 mls @ 100 mls/hr IVCONT .Q10H [facility] Levetiracetam (Levetiracetam 500 Mg Tablet) 500 mg PO BID [facility] Lisinopril (Lisinopril 10 Mg Tablet) 10 mg PO QAM [facility]; Protocol Loratadine (Loratadine 10 Mg Tablet) 10 mg PO QAM [facility] Multivitamins/Vitamin C (Multivitamin Tablet) 1 tab PO QAM [facility] Non-Formulary Medication (Ferrous Sulfate [Ferosul]) 1 tab PO QAM [facility] Non-Formulary Medication (Fluticasone Propionate [Flovent Hfa]) 2 puff INHALE BID [facility] Omeprazole (Omeprazole 40 Mg Capsule.Dr) 40 mg PO QAM [facility] Pharmacy Consult (Consult Rx Perform Med Rec) 1 each MISCELLANE ONCE PRN PRN Reason: Consult order Sodium Chloride (0.9 % Sodium Chloride Flush 3 Ml Syringe) 3 ml IVFLUSH QSHIFT [facility] Thiamine HCl (Thiamine Hcl 100 Mg Tablet) 100 mg PO QAM [facility] Topiramate (Topiramate 25 Mg Tablet) 50 mg PO BEDTIME [facility] Home Medications Medication Instructions Recorded Confirmed Last Taken Type albuterol sulfate 90 mcg/actuation 2 puff INHALATION QID PRN 01/18/21 05/17/21 01/24/21 05:00 History aerosol inhaler (ProAir HFA) cetirizine 10 mg tablet 1 tab PO QAM 01/18/21 05/17/21 05/17/21 History dabigatran etexilate 75 mg capsule 1 cap PO BID 01/18/21 05/17/21 05/17/21 History (Pradaxa) ferrous sulfate 325 mg (65 mg 1 tab PO QAM 01/18/21 05/17/21 05/17/21 History iron) tablet (FeroSul) fluticasone propionate 110 2 puff INHALATION BID 01/18/21 05/17/21 05/17/21 History mcg/actuation HFA aerosol inhaler (Flovent HFA) fluticasone propionate 50 1 - 2 spray INTRANASAL DAILY PRN 01/18/21 05/17/21 05/17/21 History mcg/actuation nasal spray,suspension folic acid 1 mg tablet 1 tab PO QAM 01/18/21 05/17/21 05/17/21 History hydroxyzine HCl 50 mg tablet 2 tab PO BEDTIME 01/18/21 05/17/21 05/16/21 History levetiracetam 500 mg tablet 1 tab PO BID 01/18/21 05/17/21 05/17/21 History lisinopril 10 mg tablet 1 tab PO QAM 01/18/21 05/17/21 05/17/21 History multivitamin 1 tab PO QAM 01/18/21 05/17/21 05/17/21 History omeprazole 40 mg capsule,delayed 1 cap PO QAM 01/18/21 05/17/21 05/17/21 History release simvastatin 10 mg tablet 1 tab PO QPM 01/18/21 05/17/21 05/16/21 History thiamine HCl (vitamin B1) 100 mg 1 tab PO QAM 01/18/21 05/17/21 05/17/21 History tablet topiramate 50 mg tablet 1 tab PO BEDTIME 01/18/21 05/17/21 05/16/21 History carbamide peroxide 6.5 % ear drops 5 drp OTIC (EARS) BID 05/17/21 05/17/21 05/17/21 History (Ear Drops (carbamide peroxide)) Physical Exam Vital Signs and Narrative: Vital Signs: Last Vital Signs Temp 97 F 05/17/21 09:43 Pulse 68 05/17/21 09:43 Resp 16 05/17/21 09:43 BP 122/84 05/17/21 09:43 Pulse Ox 98 05/17/21 09:43 Body Mass Index 27.3 Physical exam: Appearance: Alert.? Oriented X3.? not in distress.? Eyes: Pupils equal, round and reactive to light.? Sclera nonicteric.? ENT: Pharynx normal.? Moist mucous membranes. cvs: rrr, [id number] , no murmur res: clear to auscultation ,no rhonchii or wheezing abd: no rebound or guarding ,nonspecific abd pain right/left both sides , bs present. ext pulses present , no cyanosis ,Gait well balanced well coordinated. neuro: axo3 , nonfocal. Results Labs CBC and Chem 7: 05/17/21 11:32 05/17/21 11:32 Labs: Laboratory Results - last 24 hr 05/17/21 05/17/21 05/17/21 11:32 11:32 11:32 MCV 80.1 MCH 27.0 MCHC 33.7 RDW 14.0 Plt Count 132 L MPV 11.4 Immature Gran % (Auto) 0.0 Neut % (Auto) 41.9 L Lymph % (Auto) 50.5 H [place] % (Auto) 6.6 Eos % (Auto) 0.8 Baso % (Auto) 0.2 Lymph # (Auto) 2.4 [place] # (Auto) 0.3 Eos # (Auto) 0.0 Baso # (Auto) 0.0 Abs Immat Gran (auto) 0.00 Absolute Neuts (auto) 2.0 Absolute Nucleated RBC 0.000 Nucleated RBC % (auto) 0.0 PT 12.5 INR 1.1 APTT 40.3 H Anion Gap 11 L Estim Creat Clear Calc 90.8 Estimated GFR > 60 Random Glucose 92 Calcium 9.5 Magnesium 2.1 Total Bilirubin 0.6 Direct Bilirubin 0.2 AST 55 H ALT 28 Alkaline Phosphatase 77 Total Creatine Kinase 3644 H Troponin I High Sens Total Protein 7.4 Albumin 4.3 Lipase 40 05/17/21 11:32 MCV MCH MCHC RDW Plt Count MPV Immature Gran % (Auto) Neut % (Auto) Lymph % (Auto) [place] % (Auto) Eos % (Auto) Baso % (Auto) Lymph # (Auto) [place] # (Auto) Eos # (Auto) Baso # (Auto) Abs Immat Gran (auto) Absolute Neuts (auto) Absolute Nucleated RBC Nucleated RBC % (auto) PT INR APTT Anion Gap Estim Creat Clear Calc Estimated GFR Random Glucose Calcium Magnesium Total Bilirubin Direct Bilirubin AST ALT Alkaline Phosphatase Total Creatine Kinase Troponin I High Sens < 3.5 Total Protein Albumin Lipase Imaging Radiologist's Impressions: Impressions Abdomen/Pelvis CT 05/17/21 12:39 IMPRESSION: Findings suggestive of hepatic cirrhosis without focal mass. No evidence of obstructive uropathy. No evidence of ileus or obstruction. Assessment and Plan (1) Cirrhosis: Status: Acute (2) HTN (hypertension), benign: Status: Acute (3) Rhabdomyolysis: Status: Acute 1. Rhabdomyolysis/ abd the and leg cramping: Lab imaging and EKG personally reviewed and interpreted. mild elevated ast wbc ch. low ekg -mild bradycardia Probably related to prolonged walking and dehydration,? Statin might be contributing. tele for bradycardia german bmp, cpk , tsh levels Given IV fluid, hold statin. 2.htn : Blood pressure acceptable range, hold lisinopril. 3. Asthma: Continue albuterol, fluticasone. 4. History of a alcohol cirrhosis, continue thiamine and folic acid. also has hpeatitis c hx follows up with GI Dr Manrique 5. abd pain /crampin: multifactorial poor oral inatke /prolonged walking with hydration bowel rest , cleear liquid diet stool studies 6. question of irregular heart rythem vs blood clot : he said he has both but unclear where he had clot , also says he has irregular heart rythem, he says his pcp given him pradaxa. 7.dvt prophylax: continue pradaxa. Patient management patient in detail length -including rhabdomyolysis and p.o. intake, code status-patient understand and in code status-full code, time spent 70 minutes. Quality Stroke Does the patient have a stroke diagnosis?: No VTE Prior VTE?: No VTE Risk Level:: Medical - moderate - high VTE Device Contraindication: N/A - Device Ordered VTE Drug Contraindication: N/A - Med Ordered
[2021-05-17 16:12] LABS: Thyroid Stimulating Hormone 0.78 uIU/mL (0.32-4.0)
[2021-05-17] MEDS: Morphine Sulfate 2 MG/ML CARTRIDGE 1 MG IVPUSH (16:39)
[2021-05-17] MEDS: Lactated Ringers 1,000 ML 100 ML IVCONT (16:39)
--- NOTE | 2021-05-17 17:46 | MHC.CM.PN ---
CM met with admitted pt with bed assignment 350. 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 IMM not needed. No HCP. Education provided and pt declined at this time. Contacts are Pastor Red ([phone]) and Abena Willoughby ([place]) ([phone]). Pt lives alone. Uses no DME or services. Feels safe. 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 Pt fully vaccinated with Moderna 11/15 and 12/13/20. D/C plan is home without services. Pt will work with PCP to complete paperwork for MESSAGE BROKER DEVELOPER. Pt states [place] [facility] CM to follow for d/c needs.
[2021-05-17 19:03] VITALS: BP 127/75; PULSE 53; RESP 13; TEMP 36.7; O2SAT 98
[2021-05-17] MEDS: levETIRAcetam 500 MG TABLET PO (20:41)
[2021-05-17] MEDS: Topiramate 25 MG TABLET 50 MG PO (20:41)
[2021-05-17] MEDS: hydrOXYzine HCL 50 MG TABLET 100 MG PO (20:41)
[2021-05-17 20:52] LABS: Appearance Urine CLEAR; Color Urine YELLOW; Glucose Urine UA NEG (NEG); Leukocyte Esterase Urine NEG (NEG); Nitrite Urine NEG (NEG); PH 6.5 (5.0-8.0); Urine Blood NEG (NEG); Urine Ketones NEG (NEG); Urine Protein NEG (NEG-TRACE)
[2021-05-17 21:02] LABS: COVID-19 Test Negative (Negative); IDNOW Serial# 9DD0AD1C
[2021-05-17 21:03] LABS: Amphetamine Screen Urine Not Detected (Not Detect); Barbiturates, Urine Not Detected (Not Detect); Benzodiazepines Screen Urine Not Detected (Not Detect); Cannabinoid Screen Urine Not Detected (Not Detect); Cocaine Screen Urine Not Detected (Not Detect); Fentanyl, urine Not Detected (Not Detect); Opiate Screen Urine POSITIVE (Not Detect); Phencyclidine Screen Urine Not Detected (Not Detect)
[2021-05-17 21:27] VITALS: BP 131/94; PULSE 57; RESP 17; TEMP 36.4; O2SAT 99
[2021-05-17 21:38] VITALS: BMI 28.3
[2021-05-18] VITALS (8 sets, daily range): BP systolic 108–138; BP diastolic 58–76; PULSE 42–76; RESP 16–19; TEMP 36.3–36.9; O2SAT 94–99
[2021-05-18] MEDS: Lactated Ringers 1,000 ML 100 ML IVCONT (00:28)
--- NOTE | 2021-05-18 03:29 | MHC.PIE ---
0111 p; p 42 tele shows sinus mary. note; pt asleep in bed i; dr lozoya notified e; will cont to monitor
[2021-05-18] MEDS: Omeprazole 40 MG CAPSULE.DR PO (05:23)
[2021-05-18 06:14] LABS: Hemoglobin 13.7 g/dl (14.0-18.0); PLT CLUMP 1
[2021-05-18 06:16] LABS: Hematocrit 41.5 % (42-52); Mean Corpuscular Hemoglobin 26.6 pg (27.0-33.0); Mean Corpuscular Volume 80.4 fL (80-98); Mean Platelet Volume 11.3 fL (9.4-12.4); Platelet Count 121 X10*3/uL (160-400); Red Blood Count 5.16 X10*6/uL (4.60-5.80); White Blood Count 5.3 X10*3/uL (4.8-10.8)
[2021-05-18 07:21] LABS: Anion Gap 9 (12-20); Blood Urea Nitrogen 10 mg/dL (9-16); Calcium 9.3 mg/dL (8.4-10.2); Carbon Dioxide 27 mmol/L (22-29); Chloride 107 mmol/L (96-108); Creatinine Clr Calc Pharmacy 99.5; Estimated Glomerular Filt Rate > 60; Glucose Random 91 mg/dL (60-115); Potassium 4.4 mmol/L (3.3-5.1); Sodium 139 mmol/L (135-145)
[2021-05-18 08:04] LABS: VBG Base Excess -2.6 mmol/L; VBG HCO3 23 mmol/L (22-26); VBG pCO2 44 mmHg; VBG pH 7.32 (7.32-7.43); VBG pO2 53 mmHg
[2021-05-18 08:07] LABS: Venous Blood Gas Refer to POC result
--- NOTE | 2021-05-18 08:48 | P.PNIM_ITS ---
Subjective Subjective Date of Service: 05/18/21 Interval History: ulceratice colitis flare Review of Systems Denies any new complaint of chest pain or shortness of breath or fever or chills or nausea or vomiting Denies any cough Denies any weakness or numbness. abdominal discomfort improving Physical Exam Vital Signs: Vital Signs: Last Vital Signs Temp 98.4 F 05/18/21 07:01 Pulse 50 05/18/21 07:01 Resp 18 05/18/21 07:01 BP 129/66 05/18/21 07:01 Pulse Ox 99 05/18/21 07:01 Body Mass Index 28.3 physical exam: Appearance: Alert.? Oriented X3.? not in distress.? Eyes: Pupils equal, round and reactive to light.? Sclera nonicteric.? ENT: Pharynx normal.? Moist mucous membranes. cvs: rrr, [id number] , no murmur res: clear to auscultation ,no rhonchii or wheezing abd: no rebound or guarding , , bs present. ext pulses present , no cyanosis ,Gait well balanced well coordinated. neuro: axo3 , nonfocal. Objective Data Active Medications Albuterol Sulfate (Albuterol Sulfate 90 Mcg 8 Gm Inhaler) 2 puff INHALE QID PRN PRN Reason: Wheezing Carbamide Peroxide (Carbamide Peroxide 6.5% Otic 15 Ml Drpbtl) 5 drop EAR-BOTH BID [facility] Last Admin: 05/17/21 22:07 Dose: Not Given Documented by: HELENA Non-Admin Reason: Med Not Available Dabigatran (Dabigatran Etexilate Mesylate 75 Mg Capsule) 75 mg PO BID [facility] Last Admin: 05/17/21 21:31 Dose: 75 mg Documented by: HELENA Ferrous Sulfate (Ferrous Sulfate 324 Mg Tablet.Dr) 324 mg PO DAILY [facility] Fluticasone Propionate (Fluticasone Propionate 100 Mcg Blst.W.Dev) 2 puff INHALE RBID [facility] Fluticasone Propionate (Fluticasone Propionate Nasal 16 Gm [place]) 1 - 2 spray NOSTRIL-B DAILY PRN PRN Reason: Nasal Congestion Folic Acid (Folic Acid 1 Mg Tablet) 1 mg PO DAILY [facility] Hydroxyzine HCl (Hydroxyzine Hcl 50 Mg Tablet) 100 mg PO BEDTIME [facility] Last Admin: 05/17/21 20:41 Dose: 100 mg Documented by: CECE Lactated Ringer's (Lr) 1,000 mls @ 200 mls/hr IVCONT .Q5H [facility] Last Admin: 05/18/21 00:28 Dose: 100 mls/hr Documented by: HELENA Levetiracetam (Levetiracetam 500 Mg Tablet) 500 mg PO BID [facility] Last Admin: 05/17/21 20:41 Dose: 500 mg Documented by: CECE Loratadine (Loratadine 10 Mg Tablet) 10 mg PO DAILY [facility] Morphine Sulfate (Morphine Sulfate 2 Mg/Ml Cartridge) 1 mg IVPUSH Q4H PRN; Protocol PRN Reason: Pain, Severe (Pain Scale 7-10) Multivitamins/Vitamin C (Multivitamin Tablet) 1 tab PO DAILY [facility] Omeprazole (Omeprazole 40 Mg Capsule.Dr) 40 mg PO DAILY@0630 [facility] Last Admin: 05/18/21 05:23 Dose: 40 mg Documented by: HELENA Pharmacy Consult (Consult Rx Perform Med Rec) 1 each MISCELLANE ONCE PRN PRN Reason: Consult order Sodium Chloride (0.9 % Sodium Chloride Flush 3 Ml Syringe) 3 ml IVFLUSH QSHIFT [facility] Last Admin: 05/18/21 00:31 Dose: Not Given Documented by: HELENA Non-Admin Reason: IV Running Thiamine HCl (Thiamine Hcl 100 Mg Tablet) 100 mg PO DAILY [facility] Topiramate (Topiramate 25 Mg Tablet) 50 mg PO BEDTIME [facility] Last Admin: 05/17/21 20:41 Dose: 50 mg Documented by: CECE Labs CBC & Chem 7: 05/18/21 05:44 05/18/21 05:44 Labs: Laboratory Results - last 24 hr 05/17/21 05/17/21 05/17/21 11:32 11:32 11:32 MCV 80.1 MCH 27.0 MCHC 33.7 RDW 14.0 Plt Count 132 L MPV 11.4 Immature Gran % (Auto) 0.0 Neut % (Auto) 41.9 L Lymph % (Auto) 50.5 H [place] % (Auto) 6.6 Eos % (Auto) 0.8 Baso % (Auto) 0.2 Lymph # (Auto) 2.4 [place] # (Auto) 0.3 Eos # (Auto) 0.0 Baso # (Auto) 0.0 Abs Immat Gran (auto) 0.00 Absolute Neuts (auto) 2.0 Absolute Nucleated RBC 0.000 Nucleated RBC % (auto) 0.0 PT 12.5 INR 1.1 APTT 40.3 H VBG pH VBG pCO2 VBG pO2 VBG HCO3 VBG O2 Saturation VBG Base Excess Anion Gap 11 L Estim Creat Clear Calc 90.8 Estimated GFR > 60 Random Glucose 92 Calcium 9.5 Magnesium 2.1 Total Bilirubin 0.6 Direct Bilirubin 0.2 AST 55 H ALT 28 Alkaline Phosphatase 77 Total Creatine Kinase 3644 H Troponin I High Sens Total Protein 7.4 Albumin 4.3 Lipase 40 TSH 0.78 Urine Color Urine Appearance Urine pH Ur Specific [place] Urine Protein Urine Glucose (UA) Urine Ketones Urine Blood Urine Nitrite Ur Leukocyte Esterase Urine Opiates Screen Urine Fentanyl Screen Ur Barbiturates Screen Ur Phencyclidine Scrn Ur Amphetamines Screen U Benzodiazepines Scrn Urine Cocaine Screen U Marijuana (THC) Screen COVID-19 (KATINA) COVID-19 [employer] 05/17/21 05/17/21 05/17/21 11:32 20:38 20:43 MCV MCH MCHC RDW Plt Count MPV Immature Gran % (Auto) Neut % (Auto) Lymph % (Auto) [place] % (Auto) Eos % (Auto) Baso % (Auto) Lymph # (Auto) [place] # (Auto) Eos # (Auto) Baso # (Auto) Abs Immat Gran (auto) Absolute Neuts (auto) Absolute Nucleated RBC Nucleated RBC % (auto) PT INR APTT VBG pH VBG pCO2 VBG pO2 VBG HCO3 VBG O2 Saturation VBG Base Excess Anion Gap Estim Creat Clear Calc Estimated GFR Random Glucose Calcium Magnesium Total Bilirubin Direct Bilirubin AST ALT Alkaline Phosphatase Total Creatine Kinase Troponin I High Sens < 3.5 Total Protein Albumin Lipase TSH Urine Color YELLOW Urine Appearance CLEAR Urine pH 6.5 Ur Specific [place] 1.010 Urine Protein NEG Urine Glucose (UA) NEG Urine Ketones NEG Urine Blood NEG Urine Nitrite NEG Ur Leukocyte Esterase NEG Urine Opiates Screen Urine Fentanyl Screen Ur Barbiturates Screen Ur Phencyclidine Scrn Ur Amphetamines Screen U Benzodiazepines Scrn Urine Cocaine Screen U Marijuana (THC) Screen COVID-19 (KATINA) Negative COVID-19 [employer] Com See Note 05/17/21 05/18/2105/18/21 20:43 05:44 05:44 MCV 80.4 MCH 26.6 L MCHC 33.0 RDW 14.0 Plt Count 121 L MPV 11.3 Immature Gran % (Auto) Neut % (Auto) Lymph % (Auto) [place] % (Auto) Eos % (Auto) Baso % (Auto) Lymph # (Auto) [place] # (Auto) Eos # (Auto) Baso # (Auto) Abs Immat Gran (auto) Absolute Neuts (auto) Absolute Nucleated RBC 0.000 Nucleated RBC % (auto) 0.0 PT INR APTT VBG pH VBG pCO2 VBG pO2 VBG HCO3 VBG O2 Saturation VBG Base Excess Anion Gap 9 L Estim Creat Clear Calc 99.5 Estimated GFR > 60 Random Glucose 91 Calcium 9.3 Magnesium Total Bilirubin Direct Bilirubin AST ALT Alkaline Phosphatase Total Creatine Kinase 6365 H D Troponin I High Sens Total Protein Albumin Lipase TSH Urine Color Urine Appearance Urine pH Ur Specific [place] Urine Protein Urine Glucose (UA) Urine Ketones Urine Blood Urine Nitrite Ur Leukocyte Esterase Urine Opiates Screen POSITIVE H Urine Fentanyl Screen Not Detected Ur Barbiturates Screen Not Detected Ur Phencyclidine Scrn Not Detected Ur Amphetamines Screen Not Detected U Benzodiazepines Scrn Not Detected Urine Cocaine Screen Not Detected U Marijuana (THC) Screen Not Detected COVID-19 (KATINA) COVID-19 Clin Com 05/18/21 07:58 MCV MCH MCHC RDW Plt Count MPV Immature Gran % (Auto) Neut % (Auto) Lymph % (Auto) [place] % (Auto) Eos % (Auto) Baso % (Auto) Lymph # (Auto) [place] # (Auto) Eos # (Auto) Baso # (Auto) Abs Immat Gran (auto) Absolute Neuts (auto) Absolute Nucleated RBC Nucleated RBC % (auto) PT INR APTT VBG pH 7.32 VBG pCO2 44 VBG pO2 53 VBG HCO3 23 VBG O2 Saturation 81.0 VBG Base Excess -2.6 Anion Gap Estim Creat Clear Calc Estimated GFR Random Glucose Calcium Magnesium Total Bilirubin Direct Bilirubin AST ALT Alkaline Phosphatase Total Creatine Kinase Troponin I High Sens Total Protein Albumin Lipase TSH Urine Color Urine Appearance Urine pH Ur Specific [place] Urine Protein Urine Glucose (UA) Urine Ketones Urine Blood Urine Nitrite Ur Leukocyte Esterase Urine Opiates Screen Urine Fentanyl Screen Ur Barbiturates Screen Ur Phencyclidine Scrn Ur Amphetamines Screen U Benzodiazepines Scrn Urine Cocaine Screen U Marijuana (THC) Screen COVID-19 (KATINA) COVID-19 Clin Com Assessment and Plan (1) Rhabdomyolysis: Status: Acute (2) Cirrhosis: Status: Acute (3) HTN (hypertension), benign: Status: Acute Assessment and Plan: 1. Rhabdomyolysis/ abd the and leg cramping: Lab imaging and EKG personally reviewed and interpreted. mild elevated ast wbc ch. low ekg -mild bradycardia , improving Probably related to prolonged walking and dehydration,?? Statin might be contributing. renal function seems improving, cpk worsening in 6000's range , tsh levels seems normal Given IV fluid, may need bicarb since worsening rhabdo , nephro eval , hold statin. need close monitering bmp , electrolytes 2.htn :? Blood pressure acceptable range, hold lisinopril. 3. Asthma:? Continue albuterol, fluticasone.? 4. History of a alcohol cirrhosis, continue thiamine and folic acid. also has hpeatitis c hx follows up with GI Dr Manrique 5. abd pain /crampin: multifactorial poor oral inatke /prolonged walking with hydration bowel rest , advanc diet stool studies when sample available. 6. question of irregular heart rythem vs blood clot : he said he has both but unclear where he had clot , also says he has irregular heart rythem, he says his pcp given him pradaxa. 7.dvt prophylax: continue pradaxa. Quality Stroke Does the patient have a stroke diagnosis?: No VTE Prior VTE?: No VTE Risk Level:: Medical - moderate - high VTE Device Contraindication: N/A - Device Ordered VTE Drug Contraindication: N/A - Med Ordered
[2021-05-18] MEDS: levETIRAcetam 500 MG TABLET PO ×2 (11:02→19:47)
[2021-05-18] MEDS: 0.9 % Sodium Chloride Flush 3 ML SYRINGE IVFLUSH (11:03)
[2021-05-18] MEDS: Multivitamin TABLET 1 TAB PO (11:03)
[2021-05-18] MEDS: Fluticasone Propionate Nasal 16 GM SPRAY NOSTRIL-B (11:03)
[2021-05-18] MEDS: Thiamine HCL 100 MG TABLET PO (11:03)
[2021-05-18] MEDS: Ferrous Sulfate 324 MG TABLET.DR PO (11:03)
[2021-05-18] MEDS: Loratadine 10 MG TABLET PO (11:03)
[2021-05-18] MEDS: Folic Acid 1 MG TABLET PO (11:03)
[2021-05-18] MEDS: Carbamide Peroxide 6.5% Otic 15 ML DRPBTL 5 DROP EAR-BOTH (11:07)
[2021-05-18] MEDS: Sodium Bicarbonate 8.4% 150 MEQ in Dextrose 5 % 850 ML 200 MEQ IV (11:08)
--- NOTE | 2021-05-18 13:35 | P.CONNP_ITS ---
History of Present Illness Reason for Consult Consult date: 05/18/21 Reason for consult: Rhabdomyolysis Chief Complaint Chief complaint: rhabdomyolysis History of Present Illness Narrative: 55 year old male presented to the hospital due to abdominal pain and cramping. He also had been having leg cramping. He was walking 10 miles on and off from last 2 weeks and was not eating or drinking well. Denies any recent t ravel sick contacts or any new medication/drug use. Denied chest pain , shortness of breath? , fever , chills , nausea , vomiting, cough or any weakness. He has been on statins. He was found to have Rhabdomyolysis. He was admitted for further management. Nephrology has been consulted to assist in his clinical care during his current hospital stay. Review of Systems Review of Systems Yes all other systems are reviewed and are negative PMFSH Past Medical History Medical History Asthma Cirrhosis Elevated cholesterol Hepatitis C History of ETOH abuse HTN (hypertension) On anticoagulant therapy Family History Family History Family/Other HTN (hypertension) Asthma Diabetes Family history: reviewed and not pertinent Surgical History Surgical History History of esophagogastroduodenoscopy (EGD) Hx of colonoscopy Social History Social History Household Members: None Alcohol intake: never Patient Tobacco Use Status: Never used Tobacco service: No Current occupational status: unemployed and disabled Meds Allergies Allergy/AdvReac Type Severity Reaction Status Date / Time No Known Allergies Allergy Verified 01/24/21 07:17 Active Medications: Current Medications Albuterol Sulfate (Albuterol Sulfate 90 Mcg 8 Gm Inhaler) 2 puff INHALE QID PRN PRN Reason: Wheezing Carbamide Peroxide (Carbamide Peroxide 6.5% Otic 15 Ml Drpbtl) 5 drop EAR-BOTH BID [facility] Last Admin: 05/18/21 11:07 Dose: 5 drop Documented by: Dabigatran (Dabigatran Etexilate Mesylate 75 Mg Capsule) 75 mg PO BID [facility] Last Admin: 05/18/21 11:02 Dose: 75 mg Documented by: Ferrous Sulfate (Ferrous Sulfate 324 Mg Tablet.Dr) 324 mg PO DAILY [facility] Last Admin: 05/18/21 11:03 Dose: 324 mg Documented by: Fluticasone Propionate (Fluticasone Propionate 100 Mcg Blst.W.Dev) 2 puff INHALE RBID [facility] Last Admin: 05/18/21 11:14 Dose: Not Given Documented by: Fluticasone Propionate (Fluticasone Propionate Nasal 16 Gm [place]) 1 - 2 spray NOSTRIL-B DAILY PRN PRN Reason: Nasal Congestion Last Admin: 05/18/21 11:03 Dose: 1 spray Documented by: Folic Acid (Folic Acid 1 Mg Tablet) 1 mg PO DAILY [facility] Last Admin: 05/18/21 11:03 Dose: 1 mg Documented by: Hydroxyzine HCl (Hydroxyzine Hcl 50 Mg Tablet) 100 mg PO BEDTIME [facility] Last Admin: 05/17/21 20:41 Dose: 100 mg Documented by: Sodium Bicarbonate 150 meq/ (Dextrose) 1,000 mls @ 200 mls/hr IV .Q5H [facility] Last Admin: 05/18/21 11:08 Dose: 200 mls/hr Documented by: Levetiracetam (Levetiracetam 500 Mg Tablet) 500 mg PO BID [facility] Last Admin: 05/18/21 11:02 Dose: 500 mg Documented by: Loratadine (Loratadine 10 Mg Tablet) 10 mg PO DAILY [facility] Last Admin: 05/18/21 11:03 Dose: 10 mg Documented by: Morphine Sulfate (Morphine Sulfate 2 Mg/Ml Cartridge) 1 mg IVPUSH Q4H PRN; Protocol PRN Reason: Pain, Severe (Pain Scale 7-10) Multivitamins/Vitamin C (Multivitamin Tablet) 1 tab PO DAILY [facility] Last Admin: 05/18/21 11:03 Dose: 1 tab Documented by: Omeprazole (Omeprazole 40 Mg Capsule.) 40 mg PO DAILY@0630 [facility] Last Admin: 05/18/21 05:23 Dose: 40 mg Documented by: Pharmacy Consult (Consult Rx Perform Med Rec) 1 each MISCELLANE ONCE PRN PRN Reason: Consult order Sodium Chloride (0.9 % Sodium Chloride Flush 3 Ml Syringe) 3 ml IVFLUSH QSHIFT [facility] Last Admin: 05/18/21 11:03 Dose: 3 ml Documented by: Thiamine HCl (Thiamine Hcl 100 Mg Tablet) 100 mg PO DAILY [facility] Last Admin: 05/18/21 11:03 Dose: 100 mg Documented by: Topiramate (Topiramate 25 Mg Tablet) 50 mg PO BEDTIME [facility] Last Admin: 05/17/21 20:41 Dose: 50 mg Documented by: Home Medications Medication Instructions Recorded Confirmed Last Taken Type albuterol sulfate 90 mcg/actuation 2 puff INHALATION QID PRN 01/18/21 05/17/21 01/24/21 05:00 History aerosol inhaler (ProAir HFA) cetirizine 10 mg tablet 1 tab PO QAM 01/18/21 05/17/21 05/17/21 History dabigatran etexilate 75 mg capsule 1 cap PO BID 01/18/21 05/17/21 05/17/21 History (Pradaxa) ferrous sulfate 325 mg (65 mg 1 tab PO QAM 01/18/21 05/17/21 05/17/21 History iron) tablet (FeroSul) fluticasone propionate 110 2 puff INHALATION BID 01/18/21 05/17/21 05/17/21 History mcg/actuation HFA aerosol inhaler (Flovent HFA) fluticasone propionate 50 1 - 2 spray INTRANASAL DAILY PRN 01/18/21 05/17/21 05/17/21 History mcg/actuation nasal spray,suspension folic acid 1 mg tablet 1 tab PO QAM 01/18/21 05/17/21 05/17/21 History hydroxyzine HCl 50 mg tablet 2 tab PO BEDTIME 01/18/21 05/17/21 05/16/21 History levetiracetam 500 mg tablet 1 tab PO BID 01/18/21 05/17/21 05/17/21 History lisinopril 10 mg tablet 1 tab PO QAM 01/18/21 05/17/21 05/17/21 History multivitamin 1 tab PO QAM 01/18/21 05/17/21 05/17/21 History omeprazole 40 mg capsule,delayed 1 cap PO QAM 01/18/21 05/17/21 05/17/21 History release simvastatin 10 mg tablet 1 tab PO QPM 01/18/21 05/17/21 05/16/21 History thiamine HCl (vitamin B1) 100 mg 1 tab PO QAM 01/18/21 05/17/21 05/17/21 History tablet topiramate 50 mg tablet 1 tab PO BEDTIME 01/18/21 05/17/21 05/16/21 History carbamide peroxide 6.5 % ear drops 5 drp OTIC (EARS) BID 05/17/21 05/17/21 05/17/21 History (Ear Drops (carbamide peroxide)) Physical Exam Vital Signs: Last Vital Signs Temp 98.0 F 05/18/21 11:42 Pulse 59 05/18/21 11:42 Resp 18 05/18/21 11:42 BP 115/59 L 05/18/21 11:42 Pulse Ox 96 05/18/21 11:42 Body Mass Index 28.3 Const General: no acute distress Eyes EOM: EOMs intact bilaterally Neck Neck: Yes supple Resp Auscultation: diminished lung sounds Cardio Jugular venous distension: no JVD Rate: regular rate GI Palpation (GI): Soft to palpation Neuro General: moves all extremities Results Lab Results Result Diagrams: 05/18/21 05:44 05/18/21 05:44 Lab results: Chemistry 05/17/21 05/18/21 11:32 05:44 Sodium 140 139 Potassium 4.6 D 4.4 Carbon Dioxide 25 27 BUN 9 10 Creatinine 0.95 0.88 Calcium 9.5 9.3 Hematology 05/17/21 05/18/21 11:32 05:44 WBC 4.7 L 5.3 Hgb 14.5 13.7 L Plt Count 132 L 121 L Urinalysis 05/17/21 20:43 Urine Color YELLOW Urine Appearance CLEAR Urine pH 6.5 Ur Specific [place] 1.010 Urine Protein NEG Urine Glucose (UA) NEG Urine Ketones NEG Urine Blood NEG Urine Nitrite NEG Ur Leukocyte Esterase NEG Assessment and Plan (1) Rhabdomyolysis: Status: Acute Has normal renal function at baseline Statin on hold. On IV NaHCO3, rate could be reduced to 150/hour Monitor serum K; ACEI on hold. C/W rest of current supportive care Shall monitor lytes, renal functions and CK. Thank you for getting us involved in the care of this gentle man Procedures Date of Service Date of Service: 05/18/21
[2021-05-18] MEDS: Sodium Bicarbonate 8.4% 150 MEQ in Dextrose 5 % 850 ML IV (17:45)
[2021-05-18] MEDS: hydrOXYzine HCL 50 MG TABLET 100 MG PO (19:47)
[2021-05-18] MEDS: Topiramate 25 MG TABLET 50 MG PO (19:49)
[2021-05-18] MEDS: Fluticasone Propionate 100 MCG BLST.W.DEV 2 PUFF INHALE (19:56)
[2021-05-19] VITALS (7 sets, daily range): BP systolic 118–143; BP diastolic 60–81; PULSE 50–58; RESP 16–19; TEMP 36.1–36.9; O2SAT 95–97
[2021-05-19] MEDS: Sodium Bicarbonate 8.4% 150 MEQ in Dextrose 5 % 850 ML IV ×2 (00:23→06:31)
[2021-05-19] MEDS: Acetaminophen 325 MG TABLET 650 MG PO ×3 (05:23→21:44)
[2021-05-19] MEDS: Omeprazole 40 MG CAPSULE.DR PO (05:23)
[2021-05-19] MEDS: Loratadine 10 MG TABLET PO (08:15)
[2021-05-19] MEDS: Carbamide Peroxide 6.5% Otic 15 ML DRPBTL 5 DROP EAR-BOTH (08:15)
[2021-05-19] MEDS: Multivitamin TABLET 1 TAB PO (08:15)
[2021-05-19] MEDS: Folic Acid 1 MG TABLET PO (08:15)
[2021-05-19] MEDS: levETIRAcetam 500 MG TABLET PO ×2 (08:15→20:56)
[2021-05-19] MEDS: Thiamine HCL 100 MG TABLET PO (08:15)
[2021-05-19] MEDS: Ferrous Sulfate 324 MG TABLET.DR PO (08:15)
[2021-05-19 08:25] LABS: Anion Gap 11 (12-20); Blood Urea Nitrogen 8 mg/dL (9-16); Calcium 8.8 mg/dL (8.4-10.2); Carbon Dioxide 27 mmol/L (22-29); Chloride 105 mmol/L (96-108); Estimated Glomerular Filt Rate > 60; Glucose Random 118 mg/dL (60-115); Potassium 3.6 mmol/L (3.3-5.1); Sodium 139 mmol/L (135-145)
--- NOTE | 2021-05-19 11:01 | HO.PM.IMPN ---
Subjective Subjective Date of Service: 05/19/21 Interval History: Rhabdomyolysis Review of Systems Abdominal pain seems to be resolved. Denies any nausea or vomiting Denies any chest pain or shortness of breath or abdominal pain or fever chills Physical Exam Vital Signs: Vital Signs: Last Vital Signs Temp 97.0 F 05/19/21 07:48 Pulse 50 05/19/21 07:48 Resp 18 05/19/21 07:48 BP 128/62 05/19/21 07:48 Pulse Ox 96 05/19/21 07:48 Body Mass Index 28.3 Physical exam: Appearance: Alert.? Oriented X3.? not in distress.? Eyes: Pupils equal, round and reactive to light.? Sclera nonicteric.? ENT: Pharynx normal.? Moist mucous membranes. cvs: rrr, [id number] , no murmur res: clear to auscultation ,no rhonchii or wheezing abd: no rebound or guarding ,nt, bs present. ext pulses present , no cyanosis ,Gait well balanced well coordinated. neuro: axo3 , nonfocal. Objective Data Active Medications Acetaminophen (Acetaminophen 325 Mg Tablet) 650 mg PO Q6H PRN PRN Reason: Pain, Mild (Pain Scale 1-3) Last Admin: 05/19/21 05:23 Dose: 650 mg Documented by: HELENA Albuterol Sulfate (Albuterol Sulfate 90 Mcg 8 Gm Inhaler) 2 puff INHALE QID PRN PRN Reason: Wheezing Carbamide Peroxide (Carbamide Peroxide 6.5% Otic 15 Ml Drpbtl) 5 drop EAR-BOTH BID [facility] Last Admin: 05/19/21 08:15 Dose: 5 drop Documented by: JOVITA Dabigatran (Dabigatran Etexilate Mesylate 75 Mg Capsule) 75 mg PO BID [facility] Last Admin: 05/19/21 08:15 Dose: 75 mg Documented by: JOVITA Ferrous Sulfate (Ferrous Sulfate 324 Mg Tablet.Dr) 324 mg PO DAILY [facility] Last Admin: 05/19/21 08:15 Dose: 324 mg Documented by: JOVITA Fluticasone Propionate (Fluticasone Propionate 100 Mcg Blst.W.Dev) 2 puff INHALE RBID [facility] Last Admin: 05/19/21 07:55 Dose: Not Given Documented by: SANDRA Non-Admin Reason: Patient Refused Fluticasone Propionate (Fluticasone Propionate Nasal 16 Gm [place]) 1 - 2 spray NOSTRIL-B DAILY PRN PRN Reason: Nasal Congestion Last Admin: 05/18/21 11:03 Dose: 1 spray Documented by: EFRAIN Folic Acid (Folic Acid 1 Mg Tablet) 1 mg PO DAILY [facility] Last Admin: 05/19/21 08:15 Dose: 1 mg Documented by: JOVITA Hydroxyzine HCl (Hydroxyzine Hcl 50 Mg Tablet) 100 mg PO BEDTIME [facility] Last Admin: 05/18/21 19:47 Dose: 100 mg Documented by: HELENA Sodium Bicarbonate 150 meq/ (Dextrose) 1,000 mls @ 150 mls/hr IV .Q6H40M [facility] Last Admin: 05/19/21 06:31 Dose: 150 mls/hr Documented by: HELENA Levetiracetam (Levetiracetam 500 Mg Tablet) 500 mg PO BID [facility] Last Admin: 05/19/21 08:15 Dose: 500 mg Documented by: JOVITA Loratadine (Loratadine 10 Mg Tablet) 10 mg PO DAILY [facility] Last Admin: 05/19/21 08:15 Dose: 10 mg Documented by: JOVITA Morphine Sulfate (Morphine Sulfate 2 Mg/Ml Cartridge) 1 mg IVPUSH Q4H PRN; Protocol PRN Reason: Pain, Severe (Pain Scale 7-10) Multivitamins/Vitamin C (Multivitamin Tablet) 1 tab PO DAILY [facility] Last Admin: 05/19/21 08:15 Dose: 1 tab Documented by: JOVITA Omeprazole (Omeprazole 40 Mg Capsule.Dr) 40 mg PO DAILY@0630 [facility] Last Admin: 05/19/21 05:23 Dose: 40 mg Documented by: HELENA Pharmacy Consult (Consult Rx Perform Med Rec) 1 each MISCELLANE ONCE PRN PRN Reason: Consult order Sodium Chloride (0.9 % Sodium Chloride Flush 3 Ml Syringe) 3 ml IVFLUSH QSHIFT [facility] Last Admin: 05/19/21 07:43 Dose: Not Given Documented by: JOVITA Non-Admin Reason: IV Running Thiamine HCl (Thiamine Hcl 100 Mg Tablet) 100 mg PO DAILY [facility] Last Admin: 05/19/21 08:15 Dose: 100 mg Documented by: JOVITA Topiramate (Topiramate 25 Mg Tablet) 50 mg PO BEDTIME [facility] Last Admin: 05/18/21 19:49 Dose: 50 mg Documented by: HELENA Labs CBC & Chem 7: 05/18/21 05:44 05/19/21 07:15 Labs: Laboratory Results - last 24 hr 05/19/21 07:15 Anion Gap 11 L Estim Creat Clear Calc 103.0 Estimated GFR > 60 Random Glucose 118 H Calcium 8.8 Total Creatine Kinase 5460 H Assessment and Plan (1) Rhabdomyolysis: Status: Acute Assessment and Plan: 1. Rhabdomyolysis/ abd the and leg cramping: Lab imaging and EKG personally reviewed and interpreted. mild elevated ast wbc ch. low ekg -mild bradycardia , improving Probably related to prolonged walking and dehydration,?? Statin might be contributing. renal function seems improving, cpk trending down in 5460''s range , tsh levels seems normal Given IV fluid, on bicarb since worsening rhabdo , nephro eval-noted , hold statin. need close monitering bmp , electrolytes 2.htn :? Blood pressure acceptable range, hold lisinopril. 3. Asthma:? Continue albuterol, fluticasone.? 4. History of a alcohol cirrhosis, continue thiamine and folic acid. also has hpeatitis c hx follows up with GI Dr Manrique 5. abd pain /crampin: multifactorial poor oral inatke /prolonged walking with hydration seems improved , no episode of any diarrahae in the hospital. bowel rest , advanc diet bad the 6. question of irregular heart rythem vs blood clot : he said he has both but unclear where he had clot , also says he has irregular heart rythem, he says his pcp given him pradaxa. 7.dvt prophylax: continue pradaxa. Quality Stroke Does the patient have a stroke diagnosis?: No VTE Prior VTE?: No VTE Risk Level:: Medical - moderate - high VTE Device Contraindication: N/A - Device Ordered VTE Drug Contraindication: N/A - Med Ordered
[2021-05-19 12:00] LABS: Leukocytes Stool Qualitative NEGATIVE (NEGATIVE)
--- NOTE | 2021-05-19 14:03 | PM.PNNEP ---
Subjective Subjective Date of Service: 05/19/21 Interval history: Events noted. All recent data reviewed Physical Exam Vital Signs: Vital Signs: Last Vital Signs Temp 97.1 F 05/19/21 11:54 Pulse 58 05/19/21 11:54 Resp 18 05/19/21 11:54 BP 128/71 05/19/21 11:54 Pulse Ox 97 05/19/21 11:54 Body Mass Index 28.3 Const: General: no acute distress Eyes: EOM: EOMs intact bilaterally Neck: Neck: Yes supple Resp: Auscultation: diminished lung sounds Cardio: Jugular venous distension: no JVD Rate: regular rate GI: Palpation (GI): Soft to palpation Neuro: General: moves all extremities Objective Data Labs CBC & Chem 7: 05/18/21 05:44 05/19/21 07:15 Labs: Laboratory Results - last 24 hr 05/19/21 05/19/21 07:15 10:00 Sodium 139 Potassium 3.6 Chloride 105 Carbon Dioxide 27 Anion Gap 11 L BUN 8 L Creatinine 0.85 Estim Creat Clear Calc 103.0 Estimated GFR > 60 Random Glucose 118 H Calcium 8.8 Total Creatine Kinase 5460 H Stool Leukocytes, Qual NEGATIVE Procedures Date of Service Date of Service: 05/19/21 Assessment & Plan Assessment and plan (1) Rhabdomyolysis: Status: Acute Assessment and Plan: Renal functions stable Urine output good Hemodynamics stable Could switch NaHCO3 to NS @ 150/hr Likely could be D/Jhon home tomorrow Time Spent With Patient Time: Total time spent is greater than 50% in coordination of care (as documented) at patient's floor/unit and/or counseling patient: Progress Note: Quality Stroke Does the patient have a stroke diagnosis?: No
[2021-05-19] MEDS: 0.9 % Sodium Chloride 1,000 ML 150 ML IVCONT ×2 (15:35→23:05)
[2021-05-19] MEDS: 0.9 % Sodium Chloride Flush 3 ML SYRINGE IVFLUSH (15:35)
[2021-05-19] MEDS: Fluticasone Propionate 100 MCG BLST.W.DEV 2 PUFF INHALE (20:03)
[2021-05-19] MEDS: hydrOXYzine HCL 50 MG TABLET 100 MG PO (20:55)
[2021-05-19] MEDS: Topiramate 25 MG TABLET 50 MG PO (20:56)
[2021-05-20] VITALS (7 sets, daily range): BP systolic 125–158; BP diastolic 64–87; PULSE 48–69; RESP 14–18; TEMP 35.8–37; O2SAT 94–100
[2021-05-20] MEDS: Omeprazole 40 MG CAPSULE.DR PO (05:25)
[2021-05-20] MEDS: 0.9 % Sodium Chloride 1,000 ML 150 ML IVCONT ×3 (05:25→23:33)
[2021-05-20 06:48] LABS: Anion Gap 8 (12-20); Blood Urea Nitrogen 10 mg/dL (9-16); Carbon Dioxide 26 mmol/L (22-29); Chloride 111 mmol/L (96-108); Creatinine Clr Calc Pharmacy 99.5; Estimated Glomerular Filt Rate > 60; Glucose Random 91 mg/dL (60-115); Potassium 4.2 mmol/L (3.3-5.1); Sodium 141 mmol/L (135-145)
[2021-05-20] MEDS: Multivitamin TABLET 1 TAB PO (07:34)
[2021-05-20] MEDS: Loratadine 10 MG TABLET PO (07:34)
[2021-05-20] MEDS: Thiamine HCL 100 MG TABLET PO (07:34)
[2021-05-20] MEDS: Folic Acid 1 MG TABLET PO (07:34)
[2021-05-20] MEDS: Ferrous Sulfate 324 MG TABLET.DR PO (07:34)
[2021-05-20] MEDS: levETIRAcetam 500 MG TABLET PO ×2 (07:34→22:01)
[2021-05-20] MEDS: 0.9 % Sodium Chloride Flush 3 ML SYRINGE IVFLUSH ×2 (07:35→22:02)
[2021-05-20 08:29] LABS: Alanine Aminotransferase 39 U/L (0-40); Albumin Level 3.6 g/dL (3.5-5.0); Alkaline Phosphatase 64 U/L (39-117); Aspartate Amino Transferase 69 U/L (5-37); Bilirubin Direct 0.2 mg/dL (0.0-0.5); Bilirubin Total 0.5 mg/dL (0.0-1.0); Total Protein 6.2 g/dL (6.5-8.0)
--- NOTE | 2021-05-20 09:26 | HO.PM.IMPN ---
Subjective Subjective Date of Service: 05/20/21 Interval History: Rhabdomyolysis as Review of Systems Abdominal pain seems to be resolved. Denies any nausea or vomitingor chest pain or shortness of breath or abdominal pain or fever chills Physical Exam Vital Signs: Vital Signs: Last Vital Signs Temp 97.2 F 05/20/21 07:34 Pulse 50 05/20/21 07:34 Resp 18 05/20/21 07:34 BP 125/64 05/20/21 07:34 Pulse Ox 98 05/20/21 07:34 Body Mass Index 28.3 Appearance: Alert.? Oriented X3.? not in distress.? Eyes: Pupils equal, round and reactive to light.? Sclera nonicteric.? ENT: Pharynx normal.? Moist mucous membranes. cvs: rrr, [id number] , no murmur res: clear to auscultation ,no rhonchii or wheezing abd: no rebound or guarding ,nt, bs present. ext pulses present , no cyanosis ,Gait well balanced well coordinated. neuro: axo3 , nonfocal. Objective Data Active Medications Acetaminophen (Acetaminophen 325 Mg Tablet) 650 mg PO Q6H PRN PRN Reason: Pain, Mild (Pain Scale 1-3) Last Admin: 05/19/21 21:44 Dose: 650 mg Documented by: MARTHA Albuterol Sulfate (Albuterol Sulfate 90 Mcg 8 Gm Inhaler) 2 puff INHALE QID PRN PRN Reason: Wheezing Carbamide Peroxide (Carbamide Peroxide 6.5% Otic 15 Ml Drpbtl) 5 drop EAR-BOTH BID [facility] Last Admin: 05/19/21 20:57 Dose: Not Given Documented by: MARTHA Non-Admin Reason: Patient Refused Dabigatran (Dabigatran Etexilate Mesylate 75 Mg Capsule) 75 mg PO BID [facility] Last Admin: 05/20/21 07:34 Dose: 75 mg Documented by: CATHY Ferrous Sulfate (Ferrous Sulfate 324 Mg Tablet.Dr) 324 mg PO DAILY [facility] Last Admin: 05/20/21 07:34 Dose: 324 mg Documented by: CATHY Fluticasone Propionate (Fluticasone Propionate 100 Mcg Blst.W.Dev) 2 puff INHALE RBID [facility] Last Admin: 05/20/21 07:48 Dose: Not Given Documented by: CATHY Non-Admin Reason: Patient Refused Fluticasone Propionate (Fluticasone Propionate Nasal 16 Gm [place]) 1 - 2 spray NOSTRIL-B DAILY PRN PRN Reason: Nasal Congestion Last Admin: 05/18/21 11:03 Dose: 1 spray Documented by: EFRAIN Folic Acid (Folic Acid 1 Mg Tablet) 1 mg PO DAILY [facility] Last Admin: 05/20/21 07:34 Dose: 1 mg Documented by: CATHY Hydroxyzine HCl (Hydroxyzine Hcl 50 Mg Tablet) 100 mg PO BEDTIME [facility] Last Admin: 05/19/21 20:55 Dose: 100 mg Documented by: MARTHA Sodium Chloride (Ns) 1,000 mls @ 150 mls/hr IVCONT .Q6H40M [facility] Last Admin: 05/20/21 05:25 Dose: 150 mls/hr Documented by: ROSETTA Levetiracetam (Levetiracetam 500 Mg Tablet) 500 mg PO BID [facility] Last Admin: 05/20/21 07:34 Dose: 500 mg Documented by: CATHY Loratadine (Loratadine 10 Mg Tablet) 10 mg PO DAILY [facility] Last Admin: 05/20/21 07:34 Dose: 10 mg Documented by: CATHY Morphine Sulfate (Morphine Sulfate 2 Mg/Ml Cartridge) 1 mg IVPUSH Q4H PRN; Protocol PRN Reason: Pain, Severe (Pain Scale 7-10) Multivitamins/Vitamin C (Multivitamin Tablet) 1 tab PO DAILY [facility] Last Admin: 05/20/21 07:34 Dose: 1 tab Documented by: CATHY Omeprazole (Omeprazole 40 Mg Capsule.Dr) 40 mg PO DAILY@0630 [facility] Last Admin: 05/20/21 05:25 Dose: 40 mg Documented by: ROSETTA Pharmacy Consult (Consult Rx Perform Med Rec) 1 each MISCELLANE ONCE PRN PRN Reason: Consult order Sodium Chloride (0.9 % Sodium Chloride Flush 3 Ml Syringe) 3 ml IVFLUSH QSHIFT [facility] Last Admin: 05/20/21 07:35 Dose: 3 ml Documented by: CATHY Thiamine HCl (Thiamine Hcl 100 Mg Tablet) 100 mg PO DAILY [facility] Last Admin: 05/20/21 07:34 Dose: 100 mg Documented by: CATHY Topiramate (Topiramate 25 Mg Tablet) 50 mg PO BEDTIME [facility] Last Admin: 05/19/21 20:56 Dose: 50 mg Documented by: MARTHA Labs CBC & Chem 7: 05/18/21 05:44 05/20/21 05:14 Labs: Laboratory Results - last 24 hr 05/19/21 05/19/21 05/20/21 10:00 10:00 05:14 Anion Gap 8 L Estim Creat Clear Calc 99.5 Estimated GFR > 60 Random Glucose 91 Calcium 9.0 Total Bilirubin 0.5 Direct Bilirubin 0.2 AST 69 H ALT 39 Alkaline Phosphatase 64 Total Creatine Kinase 4539 H Total Protein 6.2 L Albumin 3.6 Stool Leukocytes, Qual NEGATIVE C. difficile Tox B Gene TNP Assessment and Plan (1) Rhabdomyolysis: Status: Acute (2) Cirrhosis: Status: Acute Assessment and Plan: 1. Rhabdomyolysis/ abd the and leg cramping: Lab imaging and EKG personally reviewed and interpreted. mild elevated ast wbc ch. low ekg -mild bradycardia , improving Probably related to prolonged walking and dehydration,?? Statin might be contributing. renal function seems improving, cpk trending down in [phone]''s range , tsh levels seems normal Given IV fluid, on? bicarb since worsening rhabdo , nephro eval-noted , hold statin. need close monitering bmp , electrolytes 2.htn :? Blood pressure acceptable range, hold lisinopril. 3. Asthma:? Continue albuterol, fluticasone.? 4. History of a alcohol cirrhosis, continue thiamine and folic acid. also has hpeatitis c hx follows up with GI Dr Manrique 5. abd pain /crampin: multifactorial poor oral inatke /prolonged walking with hydration seems improved , no episode of any diarrahae in the hospital. bowel rest , advanc diet bad the 6. question of irregular heart rythem vs blood clot : he said he has both but unclear where he had clot , also says he has irregular heart rythem, he says his pcp given him pradaxa. will try to get information from pcp dr lawrence. 7.dvt prophylax: continue pradaxa. Quality Stroke Does the patient have a stroke diagnosis?: No VTE Prior VTE?: No VTE Risk Level:: Medical - moderate - high VTE Device Contraindication: N/A - Device Ordered VTE Drug Contraindication: N/A - Med Ordered
--- NOTE | 2021-05-20 11:59 | PM.PNNEP ---
Subjective Subjective Date of Service: 05/20/21 Interval history: Rhabdomyolysis as Physical Exam Vital Signs: Vital Signs: Last Vital Signs Temp 97.2 F 05/20/21 11:46 Pulse 69 05/20/21 11:46 Resp 18 05/20/21 11:46 BP 143/87 H 05/20/21 11:46 Pulse Ox 97 05/20/21 11:46 Body Mass Index 28.3 Const: General: no acute distress Eyes: EOM: EOMs intact bilaterally Neck: Neck: Yes supple Resp: Auscultation: diminished lung sounds Cardio: Jugular venous distension: no JVD Rate: regular rate GI: Palpation (GI): Soft to palpation Neuro: General: moves all extremities Objective Data Labs CBC & Chem 7: 05/18/21 05:44 05/20/21 05:14 Labs: Laboratory Results - last 24 hr 05/19/21 05/19/21 05/20/21 10:00 10:00 05:14 Sodium 141 Potassium 4.2 Chloride 111 H Carbon Dioxide 26 Anion Gap 8 L BUN 10 Creatinine 0.88 Estim Creat Clear Calc 99.5 Estimated GFR > 60 Random Glucose 91 Calcium 9.0 Total Bilirubin 0.5 Direct Bilirubin 0.2 AST 69 H ALT 39 Alkaline Phosphatase 64 Total Creatine Kinase 4539 H Total Protein 6.2 L Albumin 3.6 Stool Leukocytes, Qual NEGATIVE C. difficile Tox B Gene TNP Microbiology Microbiology Results: Microbiology 05/19/21 10:00 Stool Stool Culture - Preliminary Normal so far. Procedures Date of Service Date of Service: 05/20/21 Assessment & Plan Assessment and plan (1) Rhabdomyolysis: Start date: 05/20/21 Start time: 12:00 Status: Acute Assessment and Plan: Rhabdo with grad decr CPK on IVF and no evidence of CULLEN REC: d/c IVF and if CPK same or better tonorrow then d/c home; avoid NSAIDS, statins Time Spent With Patient Time: Total time spent is greater than 50% in coordination of care (as documented) at patient's floor/unit and/or counseling patient: Progress Note: Quality Stroke Does the patient have a stroke diagnosis?: No
[2021-05-20] MEDS: Fluticasone Propionate 100 MCG BLST.W.DEV 2 PUFF INHALE (20:19)
[2021-05-20] MEDS: Topiramate 25 MG TABLET 50 MG PO (22:01)
[2021-05-20] MEDS: hydrOXYzine HCL 50 MG TABLET 100 MG PO (22:01)
[2021-05-21 04:00] VITALS: BP 121/68; PULSE 50; RESP 14; TEMP 36.3; O2SAT 98
[2021-05-21] MEDS: Omeprazole 40 MG CAPSULE.DR PO (05:25)
[2021-05-21] MEDS: 0.9 % Sodium Chloride 1,000 ML 150 ML IVCONT (05:25)
[2021-05-21 05:56] LABS: Alanine Aminotransferase 40 U/L (0-40); Albumin Level 3.7 g/dL (3.5-5.0); Alkaline Phosphatase 78 U/L (39-117); Anion Gap 8 (12-20); Aspartate Amino Transferase 58 U/L (5-37); Bilirubin Direct 0.2 mg/dL (0.0-0.5); Bilirubin Total 0.4 mg/dL (0.0-1.0); Blood Urea Nitrogen 10 mg/dL (9-16); Calcium 9.1 mg/dL (8.4-10.2); Carbon Dioxide 25 mmol/L (22-29); Chloride 113 mmol/L (96-108); Creatinine Clr Calc Pharmacy 101.8; Estimated Glomerular Filt Rate > 60; Glucose Random 92 mg/dL (60-115); Potassium 4.3 mmol/L (3.3-5.1); Sodium 142 mmol/L (135-145); Total Protein 6.5 g/dL (6.5-8.0)
[2021-05-21 07:41] VITALS: BP 148/85; PULSE 53; RESP 18; TEMP 36.4; O2SAT 99
[2021-05-21] MEDS: Fluticasone Propionate 100 MCG BLST.W.DEV 2 PUFF INHALE (07:53)
[2021-05-21 07:55] VITALS: PULSE 59; O2SAT 99
[2021-05-21] MEDS: Thiamine HCL 100 MG TABLET PO (08:48)
[2021-05-21] MEDS: Multivitamin TABLET 1 TAB PO (08:49)
[2021-05-21] MEDS: Loratadine 10 MG TABLET PO (08:49)
[2021-05-21] MEDS: levETIRAcetam 500 MG TABLET PO (08:49)
[2021-05-21] MEDS: Folic Acid 1 MG TABLET PO (08:50)
[2021-05-21] MEDS: Ferrous Sulfate 324 MG TABLET.DR PO (08:50)
--- NOTE | 2021-05-21 10:45 | PC.NURSE ---
Skin assessment completed today. Patient has no skin issues or open areas at this time.
--- NOTE | 2021-05-21 11:11 | MHC.CM.PN ---
PATIENT IS DISCHARGED HOME - SELF CARE. RN AWARE OF PLAN
[2021-05-21 11:54] VITALS: BP 146/86; PULSE 61; RESP 18; TEMP 35.9; O2SAT 98
--- NOTE | 2021-05-21 13:58 | PM.DS ---
DS: Providers Provider Date of Service: 05/21/21 Date of admission: 05/17/21 15:21 Primary care physician: Isabella Tony MD Consults: 05/18/21 07:23 Consult to Nephrology Routine Consulting Provider: Edgar Hannah Reason for consultation: rhabomylysis worsening Has provider been notified: No DS: Diagnosis Discharge Diagnosis (1) Rhabdomyolysis: Status: Acute DS: Summary Hospital Course Hospital Course: History of presenting illness Chief Complaint: abd pain cramping 55 y/o M came to the hospital because having abdominal pain and cramping, abdominal pain is nonspecific right and left both side, 5/10 intensity, gets better with coffee with milk and walking, also small amount of stools but not significant diarrhea. Denies any nausea or vomiting. Also has leg cramping similar way. He said he was walking 10 miles on and off from last 2 weeks and was not eating or drinking well. Denies any recent travel sick contacts or any new medication use. Denies any new complaint of chest pain or shortness of breath? or fever or chills or nausea or vomiting Denies any cough Denies any weakness or numbness. Hospital course 55-year-old gentleman with past medical history of asthma, hypertension and cirrhosis presented to [facility] with a diagnosis of abdominal pain cramping as well as leg pain and cramping patient diagnosed to have acute rhabdomyolysis, patient also noted to have mildly elevated AST, patient treated with IV fluids, his renal function remains stable CPK trending down, since patient symptoms of abdominal pain and leg cramping has resolved and he is tolerating by mouth intake therefore he is being discharged home and recommended to limit strenuous activity, he has been continued on all home medications except recommended to hold statins for 1 week, Recommend outpatient BMP and CPK in 1 week time. Time Spent with Patient Time attestation: Total time spent providing and/or coordinating discharge services: Discharge coordination time: Greater than 30 minutes Quality: Stroke Does the patient have a stroke diagnosis?: No Physical Exam Vital Signs: Vital Signs: Last Vital Signs Temp 96.7 F L 05/21/21 11:54 Pulse 61 05/21/21 11:54 Resp 18 05/21/21 11:54 BP 146/86 H 05/21/21 11:54 Pulse Ox 98 05/21/21 11:54 Body Mass Index 28.3 General resting comfortably in no acute distress, alert oriented x3 Neck is supple no JVD. CVS regular rate rhythm, Respiratory lungs clear to auscultation, no respiratory distress, no wheeze, no rhonchi. Gastrointestinal abdomen soft, nontender, bowel sounds audible,no guarding , no rigidity. Extremities no edema. Neuro nonfocal ,speech clear. Skin no rash Psych appropriate affect DS: Data Data Completed and Pending Labs on day of discharge: Laboratory Results - last 24 hr 05/21/21 05:15 Sodium 142 Potassium 4.3 Chloride 113 H Carbon Dioxide 25 Anion Gap 8 L BUN 10 Creatinine 0.86 Estim Creat Clear Calc 101.8 Estimated GFR > 60 Random Glucose 92 Calcium 9.1 Total Bilirubin 0.4 Direct Bilirubin 0.2 AST 58 H ALT 40 Alkaline Phosphatase 78 D Total Creatine Kinase 2893 H D Total Protein 6.5 Albumin 3.7 Preliminary micro results at discharge 05/19/21 10:00 Stool Culture - Preliminary Stool Normal so far. Discharge Plan Discharge Patient Disposition: Home, Self-Care Discharge Diagnosis: Acute rhabdomyolysis Referrals: Isabella Tony MD [Primary Care Provider] - 1 Week Discharge Medications: Continued multivitamin Tablet 1 tab PO QAM RF: 0 cetirizine 10 mg tablet 1 tab PO QAM RF: 0 levetiracetam 500 mg tablet 1 tab PO BID RF: 0 thiamine HCl (vitamin B1) 100 mg tablet 1 tab PO QAM RF: 0 hydroxyzine HCl 50 mg tablet 2 tab PO BEDTIME RF: 0 omeprazole 40 mg capsule,delayed release(DR/EC) 1 cap PO QAM RF: 0 ferrous sulfate [FeroSul] 325 mg (65 mg iron) tablet 1 tab PO QAM RF: 0 lisinopril 10 mg tablet 1 tab PO QAM RF: 0 folic acid 1 mg tablet 1 tab PO QAM RF: 0 albuterol sulfate [ProAir HFA] 90 mcg/actuation HFA aerosol inhaler 2 puff inhalation QID PRN (Reason: Wheezing) RF: 0 fluticasone propionate 50 mcg/actuation spray,suspension 1 - 2 spray intranasal DAILY PRN (Reason: Nasal Congestion) RF: 0 Flovent HFA 110 mcg/actuation HFA aerosol inhaler 2 puff inhalation BID RF: 0 topiramate 50 mg tablet 1 tab PO BEDTIME RF: 0 Pradaxa 75 mg capsule 1 cap PO BID RF: 0 carbamide peroxide [Ear Drops (carbamide peroxide)] 6.5 % drops 5 drp otic (ears) BID RF: 0 Held simvastatin 10 mg tablet 1 tab PO QPM RF: 0 Hold Instructions: Resume on 05/28/21. Discharge Orders: Discharge Order (Routine); Ordered 05/21/21 Ordered By: Hill Small Diet: low fat, low cholesterol Activity on Discharge: As tolerated Stand Alone Forms: Patient Portal Discharge page Care Plan Goals: rhabdomyolysis drink plenty of fluids avoid prolong walks /stop walking if develop leg cramps Health Concerns: take all medicines as prescribed hold simvastatin for 1 week Plan of Treatment: follow up with pcp Assessment: as above Discharge Date/Time: 05/21/21 12:05
== END 2021-05-21 12:05 | disposition home or self-care (01) | DRG 280 ==
LOC: HO.ED 11:04 → HO.EDOVER 16:07 → HO.S3 16:16
PROVIDERS: Physician Assistant; Admitting Provider Internal Medicine; Emergency Provider Emergency Medicine; PCP Student in an Organized Health Care Education/Training Program; Visit Provider Hospitalist
DX: K70.30 Alcoholic cirrhosis of liver without ascites (principal); R00.1 Bradycardia, unspecified; M62.82 Rhabdomyolysis; I10 Essential (primary) hypertension; J45.909 Unspecified asthma, uncomplicated; Z20.822 Contact with and (suspected) exposure to COVID-19; Z23 Encounter for immunization; Z86.19 Personal history of other infectious and parasitic diseases; Z79.51 Long term (current) use of inhaled steroids; Z79.899 Other long term (current) drug therapy
CPT/HCPCS: 36415; 74177; 80048; 80053; 80076; 80307; 81003; 82248; 82550; 82803; 83690; 83735; 84443; 84484; 85025; 85027; 85610; 85730; 87045; 87046; 87493; 87635; 89055; 90686; 93005; 96361; 96374; 99285; J2270; Q9967

== ENCOUNTER → 2021-10-15 12:16 | Outpatient (BNVA) | payer MEDICAID, SELFPAY | PROVIDERS: PCP Student in an Organized Health Care Education/Training Program; Visit Provider Nurse Practitioner | DX: Z12.11 Encounter for screening for malignant neoplasm of colon (principal); K74.60 Unspecified cirrhosis of liver; I10 Essential (primary) hypertension; B18.2 Chronic viral hepatitis C; Z79.01 Long term (current) use of anticoagulants | CPT/HCPCS: 99212 ==

== ENCOUNTER 2022-03-11 07:35 | Day surgery (SDC) | payer MEDICAID, SELFPAY ==
--- NOTE | 2022-03-10 09:54 | HO.ANESPROP2 ---
HPI - Anesthesia Eval Consult details Narrative: 56yo M for Colonoscopy ETOH cirrhosis, no paracentesis on record s/p EGD 01/2021 with MAC (no varices noted) ? pradaxa PMFSH Active Problems Active Problems: All Active Problems (Updated 03/04/22 @ 14:32 by Jolie Vargas, RN) Chronic hepatitis C (Acute) High cholesterol (Acute) Rhabdomyolysis (Acute) Colon cancer screening (Acute) HTN (hypertension) (Acute) Cirrhosis (Acute) Asthma (Acute) On anticoagulant therapy (Acute) Past Medical History Medical History (Updated 03/04/22 @ 14:32 by Jolie Vargas, RN) Asthma Cirrhosis Elevated cholesterol Hepatitis C History of ETOH abuse HTN (hypertension) On anticoagulant therapy Family History Family History Family/Other HTN (hypertension) Asthma Diabetes Surgical History Surgical History History of esophagogastroduodenoscopy (EGD) Hx of colonoscopy Social History Social History Household Members: None Alcohol intake: never Patient Tobacco Use Status: Never used Tobacco service: No Current occupational status: unemployed and disabled Meds Allergies Allergy/AdvReac Type Severity Reaction Status Date / Time No Known Allergies Allergy Verified 03/04/22 14:30 Home Medications Medication Instructions Recorded Confirmed Last Taken Type albuterol sulfate 90 mcg/actuation 2 puff inhalation QID PRN Wheezing 01/18/21 03/04/22 01/24/21 05:00 History aerosol inhaler (ProAir HFA) cetirizine 10 mg tablet 1 tab PO QAM 01/18/21 03/04/22 05/17/21 History dabigatran etexilate 75 mg capsule 1 cap PO BID 01/18/21 03/04/22 05/17/21 History (Pradaxa) ferrous sulfate 325 mg (65 mg 1 tab PO QAM 01/18/21 03/04/22 05/17/21 History iron) tablet (FeroSul) fluticasone propionate 110 2 puff inhalation BID 01/18/21 03/04/22 05/17/21 History mcg/actuation HFA aerosol inhaler (Flovent HFA) fluticasone propionate 50 1 - 2 spray intranasal DAILY PRN 01/18/21 03/04/22 05/17/21 History mcg/actuation nasal Nasal Congestion spray,suspension folic acid 1 mg tablet 1 tab PO QAM 01/18/21 03/04/22 05/17/21 History hydroxyzine HCl 50 mg tablet 2 tab PO BEDTIME 01/18/21 03/04/22 05/16/21 History levetiracetam 500 mg tablet 1 tab PO BID 01/18/21 03/04/22 05/17/21 History lisinopril 10 mg tablet 1 tab PO QAM 01/18/21 03/04/22 05/17/21 History multivitamin 1 tab PO QAM 01/18/21 03/04/22 05/17/21 History omeprazole 40 mg capsule,delayed 1 cap PO QAM 01/18/21 03/04/22 05/17/21 History release simvastatin 10 mg tablet 1 tab PO QPM 01/18/21 05/17/21 05/16/21 History thiamine HCl (vitamin B1) 100 mg 1 tab PO QAM 01/18/21 03/04/22 05/17/21 History tablet topiramate 50 mg tablet 1 tab PO BEDTIME 01/18/21 03/04/22 05/16/21 History carbamide peroxide 6.5 % ear drops 5 drp otic (ears) BID 05/17/21 03/04/22 05/17/21 History (Ear Drops (carbamide peroxide)) Exam Exam Date and Time: March 10, 2022 0954 Narrative Narrative: EKG 04/2021 Vent. Rate : 045 BPM ? ? Atrial Rate : 045 BPM ?? P-R Int : 146 ms? QRS Dur : 098 ms ? ? QT Int : 462 ms ? ? ? P-R-T Axes : 041 010 015 degrees ?? QTc Int : 399 ms ? Sinus bradycardia Otherwise normal ECG When compared with ECG of 14-APR-2018 21:25, No significant change was found CT abdomen pelvis w con 04/2021 IMPRESSION: Findings suggestive of hepatic cirrhosis without focal mass. ? No evidence of obstructive uropathy. ? No evidence of ileus or obstruction.? Assessment and Plan Assessment Anesthesia Assessment: Chart Reviewed
--- NOTE | 2022-03-11 08:15 | PC.NURSE ---
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 also on pradaxa. explained the importance of the prep. sent home via hospital van.
== END 2022-03-11 18:03 | disposition home or self-care (01) ==
LOC: HO.SSS 07:36
PROVIDERS: PCP Student in an Organized Health Care Education/Training Program; Visit Provider Internal Medicine Gastroenterology
DX: Z12.11 Encounter for screening for malignant neoplasm of colon (principal); Z53.8 Procedure and treatment not carried out for other reasons; Z91.19 Patient's noncompliance with other medical treatment and regimen

== ENCOUNTER 2022-05-29 11:23 | Outpatient (REF) | payer MEDICAID, SELFPAY ==
--- NOTE | ~2022-05-29 | XR_ITS ---
EXAMINATION: XR ABDOMEN KUB CLINICAL INDICATION: Abdominal pain COMPARISON: Previous CT of the abdomen and pelvis April 2021 TECHNIQUE: AP view of the abdomen. FINDINGS: The bowel gas pattern is normal with no evidence of ileus or obstruction. No unusual soft tissue calcifications are noted. There are degenerative changes of the spine and right hip joint. XR/XR KUB IMPRESSION: Unremarkable examination.
== END 2022-05-29 11:24 | disposition home or self-care (01) ==
LOC: HO.XRAY 11:23
PROVIDERS: PCP Student in an Organized Health Care Education/Training Program; Visit Provider Internal Medicine
DX: R10.9 Unspecified abdominal pain (principal)
CPT/HCPCS: 74018

== ENCOUNTER 2022-09-03 08:31 | Outpatient (REF) | payer MEDICAID, SELFPAY ==
--- NOTE | ~2022-09-03 | MR_ITS ---
EXAMINATION: MR BRAIN WITHOUT CONTRAST CLINICAL INFORMATION: Dizziness. Gait disturbance. COMPARISON: CT head from 11/13/2017. TECHNIQUE: MRI of the brain was obtained using routine sequences without contrast. FINDINGS: No focal restricted diffusion is demonstrated to suggest acute or subacute cerebral ischemia. No evidence of acute hemorrhagic products on heme-sensitive imaging. Scattered periventricular and deep white matter T2 FLAIR hyperintensities consistent with mild underlying microangiopathy. Chronic region of encephalomalacia within the parasagittal aspect of the left frontoparietal lobes with hemosiderin staining. Proportional prominence of the ventricles and sulcal spaces without evidence of obstructive hydrocephalus. No abnormal mass effect. No midline shift. Normal appearance of the pituitary gland. Normal positioning of the cerebellar tonsils. Normal arterial and venous vascular flow voids are present. Normal, homogeneous marrow signal. Mild mucosal thickening of the paranasal sinuses. No signal abnormalities within the mastoids. No overt loss of normal T2 signal within the visualized labyrinthine structures. MR/MR head/brain wo con IMPRESSION: 1. No acute intracranial abnormalities. 2. Chronic region of encephalomalacia within the parasagittal aspect of the left frontoparietal lobes. Mild underlying microangiopathy and generalized cerebral volume loss.
== END 2022-09-03 08:32 | disposition home or self-care (01) ==
LOC: HO.MRI 08:31
PROVIDERS: Visit Provider Student in an Organized Health Care Education/Training Program
DX: G40.909 Epilepsy, unspecified, not intractable, without status epilepticus (principal); R26.9 Unspecified abnormalities of gait and mobility
CPT/HCPCS: 70551

== ENCOUNTER 2023-03-06 10:10 | Outpatient (REF) | payer MEDICAID, SELFPAY ==
[2023-03-06 15:40] LABS: Prostate Specific Antigen 1.82 ng/mL (<0.05-4.0)
== END 2023-03-06 10:11 | disposition home or self-care (01) ==
LOC: HO.CHCLDS 10:10
PROVIDERS: Visit Provider Student in an Organized Health Care Education/Training Program
DX: N52.9 Male erectile dysfunction, unspecified (principal)
CPT/HCPCS: 36415; 84153

== ENCOUNTER 2023-04-21 06:50 | Day surgery (SDC) | payer MEDICAID, SELFPAY ==
--- NOTE | 2023-04-20 10:59 | HO.ANESPROP2 ---
Documented by User: Charlotte Wang NP 04/20/23 11:03 HPI - Anesthesia Eval Consult details Narrative: 57yo M for Colonoscopy Pradaxa for ?? hx CVA Hep C / ETOH cirrhosis PMFSH Active Problems Active Problems: All Active Problems (Updated 03/11/22 @ 07:52 by Atiya Mills RN) Colon cancer screening (Acute) Rhabdomyolysis (Acute) High cholesterol (Acute) Chronic hepatitis C (Acute) HTN (hypertension) (Acute) Cirrhosis (Acute) Asthma (Acute) On anticoagulant therapy (Acute) Past Medical History Medical History History of blood clot in brain On anticoagulant therapy Elevated cholesterol HTN (hypertension) Hepatitis C History of ETOH abuse Asthma Cirrhosis Family History Family History Family/Other HTN (hypertension) Asthma Diabetes Surgical History Surgical History History of esophagogastroduodenoscopy (EGD) Hx of colonoscopy Social History Social History Household Members: None Alcohol intake: never Patient Tobacco Use Status: Never used Tobacco Advance Directives: No Advance Directives Information Provided: Yes service: No Current occupational status: unemployed and disabled Meds Allergies Allergy/AdvReac Type Severity Reaction Status Date / Time No Known Allergies Allergy Verified 03/04/22 14:30 Home Medications Medication Instructions Recorded Confirmed Last Taken Type albuterol sulfate 90 mcg/actuation 2 puff inhalation QID PRN Wheezing 01/18/21 03/04/22 01/24/21 05:00 History aerosol inhaler (ProAir HFA) cetirizine 10 mg tablet 1 tab PO QAM 01/18/21 03/04/22 05/17/21 History dabigatran etexilate 75 mg capsule 1 cap PO BID 01/18/21 03/04/22 05/17/21 History (Pradaxa) ferrous sulfate 325 mg (65 mg 1 tab PO QAM 01/18/21 03/04/22 05/17/21 History iron) tablet (FeroSul) fluticasone propionate 110 2 puff inhalation BID 01/18/21 03/04/22 05/17/21 History mcg/actuation HFA aerosol inhaler (Flovent HFA) fluticasone propionate 50 1 - 2 spray intranasal DAILY PRN 01/18/21 03/04/22 05/17/21 History mcg/actuation nasal Nasal Congestion spray,suspension folic acid 1 mg tablet 1 tab PO QAM 01/18/21 03/04/22 05/17/21 History hydroxyzine HCl 50 mg tablet 2 tab PO BEDTIME 01/18/21 03/04/22 05/16/21 History levetiracetam 500 mg tablet 1 tab PO BID 01/18/21 03/04/22 05/17/21 History lisinopril 10 mg tablet 1 tab PO QAM 01/18/21 03/04/22 05/17/21 History multivitamin 1 tab PO QAM 01/18/21 03/04/22 05/17/21 History omeprazole 40 mg capsule,delayed 1 cap PO QAM 01/18/21 03/04/22 05/17/21 History release simvastatin 10 mg tablet 1 tab PO QPM 01/18/21 05/17/21 05/16/21 History thiamine HCl (vitamin B1) 100 mg 1 tab PO QAM 01/18/21 03/04/22 05/17/21 History tablet topiramate 50 mg tablet 1 tab PO BEDTIME 01/18/21 03/04/22 05/16/21 History carbamide peroxide 6.5 % ear drops 5 drp otic (ears) BID 05/17/21 03/04/22 05/17/21 History (Ear Drops (carbamide peroxide)) Exam Exam Date and Time: April 20, 2023 105 Assessment and Plan Assessment Anesthesia Assessment: Chart Reviewed Documented by User: Suellen Coats MD 04/21/23 08:35 PMFSH Past Medical History Medical History History of blood clot in brain On anticoagulant therapy Elevated cholesterol HTN (hypertension) Hepatitis C History of ETOH abuse Asthma Cirrhosis Family History Family History Family/Other HTN (hypertension) Asthma Diabetes Family history of problems with anesthesia: No Surgical History Surgical History History of esophagogastroduodenoscopy (EGD) Hx of colonoscopy History of Problems with Anesthesia: No Social History Social History Household Members: None Alcohol intake: never Patient Tobacco Use Status: Never used Tobacco Advance Directives: No Advance Directives Information Provided: Yes service: No Current occupational status: unemployed and disabled Meds Allergies Allergy/AdvReac Type Severity Reaction Status Date / Time No Known Allergies Allergy Verified 03/04/22 14:30 Home Medications Medication Instructions Recorded Confirmed Last Taken Type albuterol sulfate 90 mcg/actuation 2 puff inhalation QID PRN Wheezing 01/18/21 03/04/22 01/24/21 05:00 History aerosol inhaler (ProAir HFA) cetirizine 10 mg tablet 1 tab PO QAM 01/18/21 03/04/22 05/17/21 History dabigatran etexilate 75 mg capsule 1 cap PO BID 01/18/21 03/04/22 05/17/21 History (Pradaxa) ferrous sulfate 325 mg (65 mg 1 tab PO QAM 01/18/21 03/04/22 05/17/21 History iron) tablet (FeroSul) fluticasone propionate 110 2 puff inhalation BID 01/18/21 03/04/22 05/17/21 History mcg/actuation HFA aerosol inhaler (Flovent HFA) fluticasone propionate 50 1 - 2 spray intranasal DAILY PRN 01/18/21 03/04/22 05/17/21 History mcg/actuation nasal Nasal Congestion spray,suspension folic acid 1 mg tablet 1 tab PO QAM 01/18/21 03/04/22 05/17/21 History hydroxyzine HCl 50 mg tablet 2 tab PO BEDTIME 01/18/21 03/04/22 05/16/21 History levetiracetam 500 mg tablet 1 tab PO BID 01/18/21 03/04/22 05/17/21 History lisinopril 10 mg tablet 1 tab PO QAM 01/18/21 03/04/22 05/17/21 History multivitamin 1 tab PO QAM 01/18/21 03/04/22 05/17/21 History omeprazole 40 mg capsule,delayed 1 cap PO QAM 01/18/21 03/04/22 05/17/21 History release simvastatin 10 mg tablet 1 tab PO QPM 01/18/21 05/17/21 05/16/21 History thiamine HCl (vitamin B1) 100 mg 1 tab PO QAM 01/18/21 03/04/22 05/17/21 History tablet topiramate 50 mg tablet 1 tab PO BEDTIME 01/18/21 03/04/22 05/16/21 History carbamide peroxide 6.5 % ear drops 5 drp otic (ears) BID 05/17/21 03/04/22 05/17/21 History (Ear Drops (carbamide peroxide)) Exam Airway Mallampati Class: II TM Dist: >3cm Neck ROM: Full Denture: Upper Heart: rrr Lungs: cta Assessment and Plan Assessment Anesthesia Assessment: Anesthesia Plan Discussed Final Anesthetic Review Family History of Problems with Anesthesia: No History of Problems with Anesthesia: No NPO: Yes ASA Class: III Final Preanesthetic Review: No Changes in Pt Med Stat, Meds/Allgs Chart Reviewed, Consent Obtained/Reviewed and Anes Risks/Benef Reviewed Patient Risk: Intermediate Procedure Risk: Low (pt states sober for 7 yrs) Anesthetic Plan Anesthetic Plan: MAC: Disposition: Standard PACU
[2023-04-21 08:29] VITALS: BP 127/60; PULSE 59; RESP 18; TEMP 36.1; O2SAT 99; BMI 28.2
[2023-04-21 08:50] LABS: Hematocrit 40.7 % (42.0-52.0); Hemoglobin 13.8 g/dl (14.0-18.0); Mean Corpuscular HGB Conc 33.9 g/dl (31.0-36.0); Mean Corpuscular Hemoglobin 26.8 pg (27.0-33.0); Mean Corpuscular Volume 79.2 fL (80.0-98.0); Mean Platelet Volume 11.5 fL (9.4-12.4); Platelet Count 123 X10*3/uL (160-400); Red Blood Count 5.14 X10*6/uL (4.60-5.80); Red Cell Distribution Width 13.9 % (11.0-16.0); White Blood Count 4.5 X10*3/uL (4.8-10.8)
--- NOTE | 2023-04-21 09:04 | MHC.SHP ---
Pre-Procedural Eval Section A Date of Service: 04/21/23 Section B Chief Complaint: Encounter for screening for malignant neoplasm Relevant Family History (Specify if Yes): No Relevant Social History: None Present Medications: see Short Stay Collaborative assessment Medical History: Significant History (History of blood clot in brain On anticoagulant therapy Elevated cholesterol HTN (hypertension) Hepatitis C History of ETOH abuse Asthma Cirrhosis) History of Previous Operations: Relevant previous surgery/procedure and date(s) (EGD,colo) Allergies: Allergies Allergy/AdvReac Type Severity Reaction Status Date / Time No Known Allergies Allergy Verified 03/04/22 14:30 Review of Systems Sugical H&P ROS: Negative: Constitution, Cardiovascular, Respiratory, Neurological, Psychiatric, Hem-Onc, Allergic/Immunologic, Gastrointestinal, Genitourinary, Musculoskeletal, Integumentary, Endocrine and Eyes/Ears/Nose/Throat Exam Surgical H&P Exam: Normal: HEENT, Normal: Heart, Normal: Lungs, Normal: Extremities, Normal: Abdomen, Normal: Skin and Normal: Neurological Plan Diagnosis/Plan: Unchanged I have reviewed the history and physical and performed a pertinent physical examination on my patient. No changes have occurred unless specified. Time Spent With Patient Time: Total time managing care of this patient today ____ minutes.
[2023-04-21 09:05] LABS: Alanine Aminotransferase 19 U/L (0-40); Albumin Level 4.2 g/dL (3.5-5.0); Alkaline Phosphatase 67 U/L (39-117); Anion Gap 13 (12-20); Aspartate Amino Transferase 20 U/L (5-37); Bilirubin Total 0.7 mg/dL (0.0-1.0); Blood Urea Nitrogen 10 mg/dL (9-16); Calcium 9.2 mg/dL (8.4-10.2); Carbon Dioxide 22 mmol/L (22-29); Chloride 112 mmol/L (96-108); Creatinine Clr Calc Pharmacy 102.8; Estimated Glomerular Filt Rate > 60; Glucose Fasting 102 mg/dL (60-99); Potassium 3.8 mmol/L (3.3-5.1); Sodium 143 mmol/L (135-145); Total Protein 7.2 g/dL (6.5-8.0)
--- NOTE | 2023-04-21 09:06 | P.OP_ITS ---
Operative Note Operative Note Date of Service: 04/21/23 Narrative: Operative Information Procedure Description: Colonoscopy Indication: screening Anesthesia: MAC COLONOSCOPY Instrument: Olympus variable stiffness pediatric scope 190L Colonoscopy Monitoring: Vital signs and clinical assessment, continuous EKG monitoring, Pulse oximetry, Carbon Dioxide monitoring and blood pressure monitoring were done throughout the procedure. Colon withdrawal time was 8 minutes. Procedure: The patient was placed in the left lateral decubitis position and pre-procedure medications were administered. After a digital rectal examination of the ano-rectum, the video colonoscope was inserted into the rectum and advanced through the colon to the cecum/TI. The colonoscope was slowly withdrawn in a retrograde panoramic fashion and the colon mucosa was carefully examined including a retroflexed view of the rectum. Findings and interventions are described below. Procedure Difficulty: easy Findings: Terminal Ileum-normal Cecum: 6-7 mm sessile polyp removed with cold forceps Ascending Colon: normal Transverse Colon -normal Descending Colon:normal Sigmoid Colon: moderate diverticulosis Rectum: Retroflexion with small internal hemorrhoids, grade I Anorectum - normal Colon preparation: Wittmann Bowel Preparation Scale Right colon; 2 Transverse colon: 2 Left colon; 2 (0 = Unprepared colon segment with mucosa not seen due to solid stool that cannot be cleared. 1 = Portion of mucosa of the colon segment seen, but other areas of the colon segment not well seen due to staining, residual stool and/or opaque liquid. 2 = Minor amount of residual staining, small fragments of stool and/or opaque liquid, but mucosa of colon segment seen well. 3 = Entire mucosa of colon segment seen well with no residual staining, small fragments of stool or opaque liquid) Impression and Post Procedure Diagnosis: polyp internal hemorrhoids diverticular disease Plan: High fiber diet leaflet Avoid straining at stool, epsom salts and sitz bath, anusol supps or cream Repeat Colonoscopy in 5-7 years due to polyp or earlier if clinically indicated Above findings were reviewed with the patient and relevant handouts were provided if indicated.
[2023-04-21 09:46] VITALS: BP 123/76; PULSE 66; RESP 16; TEMP 36.2; O2SAT 100
[2023-04-21 10:00] VITALS: BP 121/73; PULSE 50; RESP 16; O2SAT 100
[2023-04-21 10:15] VITALS: BP 130/74; PULSE 58; RESP 16; TEMP 36.3; O2SAT 96
== END 2023-04-21 10:26 | disposition home or self-care (01) ==
PROVIDERS: Nurse Practitioner; PCP Student in an Organized Health Care Education/Training Program; Visit Provider Internal Medicine Gastroenterology
PROC: 0DJD8ZZ Inspection of Lower Intestinal Tract, Via Natural or Artificial Opening Endoscopic (ICD-10-PCS; CPT 45378; principal; 2023-04-21 09:20)
DX: Z12.11 Encounter for screening for malignant neoplasm of colon (principal); K63.5 Polyp of colon; K57.30 Diverticulosis of large intestine without perforation or abscess without bleeding; K64.0 First degree hemorrhoids; K74.60 Unspecified cirrhosis of liver; I10 Essential (primary) hypertension; E78.00 Pure hypercholesterolemia, unspecified; J45.909 Unspecified asthma, uncomplicated; Z86.718 Personal history of other venous thrombosis and embolism; Z79.01 Long term (current) use of anticoagulants; F10.11 Alcohol abuse, in remission; Z79.51 Long term (current) use of inhaled steroids; Z79.899 Other long term (current) drug therapy
CPT/HCPCS: 45380; 36415; 80053; 85027; 88305

== ENCOUNTER → 2023-04-21 06:50 | Outpatient (BNV) | payer MEDICAID, SELFPAY | PROVIDERS: PCP Student in an Organized Health Care Education/Training Program; Visit Provider Internal Medicine Gastroenterology | DX: Z12.11 Encounter for screening for malignant neoplasm of colon (principal); D12.0 Benign neoplasm of cecum; K57.30 Diverticulosis of large intestine without perforation or abscess without bleeding; K64.0 First degree hemorrhoids | CPT/HCPCS: 45380 ==

== ENCOUNTER 2023-05-05 11:56 | Outpatient (AMB) | payer MEDICAID, SELFPAY ==
--- NOTE | 2023-05-05 12:16 | MHC.OFFVIS ---
Intake Vital Signs 05/05/23 12:21 Height 5 ft 7 in Weight 179 lb 0.246 oz BMI 28.0 BP 124/86 Blood Pressure Location Lt brachial Position Sitting Pulse 75 Intake Visit Reasons: S/p maia Manrique Intake Note: Patient presents to in office visit today in follow up of colonoscopy. Patient underwent colonoscopy on 04/21/[address] Manrique. CC: Patient reports doing well, denies other GI symptoms. 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 This will be his first colonoscopy. He denies any bowel or upper GI problems. There are no prior problems with anesthesia or sedation. He has Hep C that was treated by [facility], no other ID problems. He is unsure if he in on any anticoagulants therapy as this is listed in his chart -? he is not well acquainted with his medicines. He gets his medicines at [facility] We will attempt to call them to verify and see if he is on any anticoagulation therapy. He has asthma that is well controlled, he denies any cardiac problems. There is no known FHX of CRC or polyps. (2) Chronic hepatitis C: ?Comment: Treated by [facility] ?Code(s): B18.2 - Chronic viral hepatitis C (3) Cirrhosis: ?Comment: Being treated by [facility] currently on and anti-viral ?Code(s): K74.60 - Unspecified cirrhosis of liver (4) On anticoagulant therapy: ?Comment: ??? unable to verify via patient aeb ?Code(s): Z79.01 - buttermaker continuous churn (current) use of anticoagulants (5) HTN (hypertension): ?Code(s): I10 - Essential (primary) hypertension ? ? ? Medications: New peg 3350-electroly bradnan 236-22.74-6.74 -5.86 gram (Golyt loren) ?? until feca l effluent is rahat r; do not exceed a total volume of 2 ,000 mL 240 mL? PO Q10M 1 day 4,000 mL 0RF E Z12.11 - Encounter for screening for malignant neoplas m of colon ? COLONOSCOPY 04/21/23 Findings: Terminal Ileum-normal Cecum: 6-7 mm sessile polyp removed with cold forceps Ascending Colon: normal Transverse Colon -normal Descending Colon:normal Sigmoid Colon: moderate diverticulosis Rectum: Retroflexion with small internal hemorrhoids, grade I Anorectum - normal Impression and Post Procedure Diagnosis: polyp internal hemorrhoids diverticular disease Plan: High fiber diet leaflet Avoid straining at stool, epsom salts and sitz bath, anusol supps or cream Repeat Colonoscopy in 5-7 years due to polyp or earlier if clinically indicated BIOPSY ? Received: 04/21/23 Diagnosis Colon, cecal polyp: Consistent with hyperplastic polyp. TODAY'S VISIT American #Elio LIve The procedure should be repeated in 10 years since the polyp was hyperplastic. The procedure was well tolerated. The results were explained and the patient is agreeable to the follow-up interval as stated. The bowel pattern has returned to normal. Education was provided to tell any 1st degree relatives about their findings to be sure that they are screened by age 45. Educated that they will be put on a recall list when it is time for their repeat scope but should they move out of state or away from the hospital they will need to remember along with their primary to repeat the procedure in a timely fashion to avoid any adverse complications. He has had a tickle in the back of his throat helped with menthol cough drops, and has a productive cough with yellow sputum. He has had a low grade measured fevers at night. He has asthma and has been using his inhalers quite a lot. He is UTD on his COVID vaccines. He is encouraged to see his PCP and he says he is going there now to be seen, so I will leave further work up to them. prn. [facility] Medical History History of blood clot in brain On anticoagulant therapy Elevated cholesterol HTN (hypertension) Hepatitis C History of ETOH abuse Asthma Cirrhosis Surgical History History of esophagogastroduodenoscopy (EGD) Hx of colonoscopy Family History Family/Other HTN (hypertension) Asthma Diabetes Social History Household Members: None Alcohol intake: never Patient Tobacco Use Status: Never used Tobacco service: No Current occupational status: unemployed and disabled Review of Systems Const Denies fatigue, Reports fever(s), Reports malaise, Denies night sweats, Denies poor appetite and Denies weight loss ENT Reports Normal hearing present, Denies dysphagia, Denies odynophagia, Reports post nasal drip, Reports sore throat, Denies throat swelling and Denies tongue swelling Card Reports no additional complaints Resp Reports cough GI Denies abdominal pain, Denies melena, Denies bloating, Denies hematochezia, Denies constipation, Denies GI cramping, Denies dysphagia, Denies excessive flatus, Denies early satiety, Denies heartburn, Denies diarrhea, Denies nausea, Denies odynophagia, Denies vomiting and Denies hematemesis Skin/Breast Denies pruritus, Denies lesions, Denies rash and Denies jaundice Neuro Reports Normal hearing present and Denies Abnormal speech present Endo Denies fatigue Aller/Immun Denies throat swelling and Denies tongue swelling Physical Exam Vital Signs: Last Vital Signs Pulse 75 05/05/23 12:21 BP 124/86 05/05/23 12:21 BMI result Body Mass Index 28.0 Const General: cooperative, no acute distress, well developed and well groomed Nutritional Appearance: average body habitus and well nourished Orientation/consciousness: oriented to person, oriented to place and oriented to time Limitations: language barrier HEENT Head: Yes normocephalic and Yes atraumatic Eyes General: appearance normal, both eyes and all related structures Pupils: Equal, round and reactive pupils present Neck Neck: Yes normal visual inspection and Yes no lymphadenopathy Thyroid: Thyroid normal Resp Effort & Inspection: normal respiratory effort, able to speak in complete sentences and Actively coughing Quality: productive Auscultation: rhonchi (clears with cough) left lower Cardio Rate: regular rate Rhythm: regular rhythm Heart sounds: Normal, physiologic split S2 sound present Peripheral pulses: radial pulses present and posterior tibial pulses present GI Inspection: No distended and No Abdominal panniculus present Palpation (GI): Soft to palpation, nontender, no guarding, not rigid and No hepatosplenomegaly present Percussion: Yes normal to percussion Auscultation: normal bowel sounds Rectal Exam - Male: Yes deferred Skin General skin exam: no rashes or lesions noted, turgor normal, skin not dry, no jaundice, No spider nevi and no striae Rashes: no rashes Nails: normal Neuro General: oriented to person, oriented to place and oriented to time Cranial nerves: Yes Equal, round and reactive pupils present and Yes Normal hearing present Speech: No Abnormal speech present Extrem General: Yes normal to inspection, No clubbing, No cyanosis and No edema Psych Appearance: grossly normal and well kempt Mental Status: mental status grossly normal Speech and movement: Normal speech and movement present Affect: normal affect Attitude: cooperative Thought process: Normal thought process present and not confabulating Thought content: Normal thought content present Insight: Limited insight present (Psych) Judgement: Limited judgement present (Psych) Assessment & Plan Assessment & Plan (1) Colon cancer screening: Comment: 2022= hyperplastic polyp repeat in 10 years Code(s): Z12.11 - Encounter for screening for malignant neoplasm of colon Plan: American #Elio LIve The procedure should be repeated in 10 years since the polyp was hyperplastic. The procedure was well tolerated. The results were explained and the patient is agreeable to the follow-up interval as stated. The bowel pattern has returned to normal. Education was provided to tell any 1st degree relatives about their findings to be sure that they are screened by age 45. Educated that they will be put on a recall list when it is time for their repeat scope but should they move out of state or away from the hospital they will need to remember along with their primary to repeat the procedure in a timely fashion to avoid any adverse complications. He has had a tickle in the back of his throat helped with menthol cough drops, and has a productive cough with yellow sputum. He has had a low grade measured fevers at night. He has asthma and has been using his inhalers quite a lot. He is UTD on his COVID vaccines. He is encouraged to see his PCP and he says he is going there now to be seen, so I will leave further work up to them. prn. Coding Level of Care Code Est Pt Level 3 (48471) Diagnoses Colon cancer screening Z12.11
[2023-05-05 12:21] VITALS: BP 124/86; PULSE 75; BMI 28.0
== END 2023-05-05 13:04 | disposition home or self-care (01) ==
PROVIDERS: PCP Student in an Organized Health Care Education/Training Program; Visit Provider Nurse Practitioner
DX: Z12.11 Encounter for screening for malignant neoplasm of colon (principal); Z01.818 Encounter for other preprocedural examination
CPT/HCPCS: 99213

== ENCOUNTER → 2023-05-05 11:56 | Outpatient (BNVA) | payer MEDICAID, SELFPAY | PROVIDERS: PCP Student in an Organized Health Care Education/Training Program; Visit Provider Nurse Practitioner | DX: K57.30 Diverticulosis of large intestine without perforation or abscess without bleeding (principal); K63.5 Polyp of colon; K64.0 First degree hemorrhoids; Z98.890 Other specified postprocedural states | CPT/HCPCS: 99212 ==

== ENCOUNTER 2023-10-14 11:34 | Outpatient (REF) | payer MEDICAID, SELFPAY ==
[2023-10-14 14:54] LABS: Alanine Aminotransferase 21 U/L (0-40); Albumin Level 4.6 g/dL (3.5-5.0); Alkaline Phosphatase 69 U/L (39-117); Anion Gap 13 (12-20); Aspartate Amino Transferase 31 U/L (5-37); Bilirubin Direct 0.3 mg/dL (0.0-0.5); Bilirubin Total 0.9 mg/dL (0.0-1.0); Blood Urea Nitrogen 14 mg/dL (9-16); Calcium 9.5 mg/dL (8.4-10.2); Carbon Dioxide 23 mmol/L (22-29); Chloride 110 mmol/L (96-108); Cholesterol 128 mg/dL (<200); Estimated Glomerular Filt Rate > 60; Glucose Random 91 mg/dL (60-115); HDL Cholesterol 34 mg/dL (>40); LDL Cholesterol Calculated 63 mg/dL (<100); Potassium 4.9 mmol/L (3.3-5.1); Sodium 141 mmol/L (135-145); Total Protein 8.3 g/dL (6.5-8.0); Triglycerides 157 mg/dL (<150)
== END 2023-10-14 11:35 | disposition home or self-care (01) ==
LOC: HO.CHCLDS 11:34
PROVIDERS: Visit Provider Student in an Organized Health Care Education/Training Program
DX: I10 Essential (primary) hypertension (principal)
CPT/HCPCS: 36415; 80048; 80061; 80076

== ENCOUNTER 2024-02-09 08:01 | Outpatient (REF) | payer MEDICAID, SELFPAY ==
[2024-02-09 14:32] LABS: Alanine Aminotransferase 19 U/L (0-40); Albumin Level 4.4 g/dL (3.5-5.0); Alkaline Phosphatase 68 U/L (39-117); Anion Gap 13 (12-20); Aspartate Amino Transferase 20 U/L (5-37); Bilirubin Direct 0.2 mg/dL (0.0-0.5); Bilirubin Total 0.6 mg/dL (0.0-1.0); Blood Urea Nitrogen 10 mg/dL (9-16); Calcium 9.2 mg/dL (8.4-10.2); Carbon Dioxide 22 mmol/L (22-29); Chloride 109 mmol/L (96-108); Cholesterol 133 mg/dL (<200); Estimated Glomerular Filt Rate > 60; Glucose Random 90 mg/dL (60-115); HDL Cholesterol 28 mg/dL (>40); LDL Cholesterol Calculated 28 mg/dL (<100); Potassium 3.9 mmol/L (3.3-5.1); Sodium 140 mmol/L (135-145); Total Protein 7.4 g/dL (6.5-8.0); Triglycerides 386 mg/dL (<150)
== END 2024-02-09 08:02 | disposition home or self-care (01) ==
LOC: HO.CHCLDS 08:01
PROVIDERS: Visit Provider Student in an Organized Health Care Education/Training Program
DX: I10 Essential (primary) hypertension (principal); G40.909 Epilepsy, unspecified, not intractable, without status epilepticus
CPT/HCPCS: 36415; 80048; 80061; 80076

== ENCOUNTER 2024-03-31 14:53 | Emergency (ER) | payer MEDICAID, SELFPAY ==
--- NOTE | ~2024-03-31 | XR_ITS ---
EXAMINATION: XR CHEST CLINICAL INFORMATION: Chest pain COMPARISON: Chest x-ray April 14, 2018 TECHNIQUE: 2 views of the chest were obtained. FINDINGS: No significant abnormality is noted involving the heart, lungs, mediastinum, bony thorax or soft tissues. XR/XR chest 2V IMPRESSION: Unremarkable examination. Electronically signed by: Terrell Veliz MD 03/31/2024 03:47 PM EDT RP
--- NOTE | 2024-03-31 14:58 | ECG_ITS ---
Test Reason : cp Blood Pressure : / mmHG Vent. Rate : 054 BPM Atrial Rate : 054 BPM P-R Int : 148 ms QRS Dur : 088 ms QT Int : 430 ms P-R-T Axes : 020 -04 -19 degrees QTc Int : 407 ms Sinus bradycardia Inferior infarct , age undetermined Abnormal ECG When compared with ECG of 17-MAY-2021 13:10, Inferior infarct is now Present T wave inversion now evident in Inferior leads Referred By: Iwona Yuan Electronically Signed By:GOYO BEAR
[2024-03-31 15:02] VITALS: BP 127/60; BP 143/80; PULSE 56; PULSE 60; RESP 16; TEMP 36.8; O2SAT 98; O2SAT 99; BMI 28.7
[2024-03-31 15:57] LABS: MANUAL DIFF FLAG NO
[2024-03-31 16:10] LABS: Basophils Percent Auto 0.4 % (0-2); Eosinophils Percent Auto 0.8 % (0-4); Hematocrit 40.7 % (42.0-52.0); Hemoglobin 13.6 g/dl (14.0-18.0); Imm Gran Abs Auto 0.01 X10*3/uL (0.00-0.03); Imm Gran Pct Auto 0.2 % (0.0-0.4); Lymphocytes Absolute Auto 2.4 X10*3/uL (1.2-4.9); Lymphocytes Percent Auto 48.6 % (20-40); Mean Corpuscular HGB Conc 33.4 g/dl (31.0-36.0); Mean Corpuscular Hemoglobin 26.7 pg (27.0-33.0); Mean Corpuscular Volume 79.8 fL (80.0-98.0); Mean Platelet Volume 11.3 fL (9.4-12.4); Monocytes Absolute Auto 0.4 X10*3/uL (0.1-1.2); Monocytes Percent Auto 7.3 % (2-11); Neutrophils Absolute Auto 2.1 x10*3/uL (2.0-8.3); Neutrophils Percent Auto 42.7 % (45-73); Platelet Count 127 X10*3/uL (160-400); Red Cell Distribution Width 13.8 % (11.0-16.0); White Blood Count 4.9 X10*3/uL (4.8-10.8)
[2024-03-31 16:23] LABS: Alanine Aminotransferase 17 U/L (0-40); Albumin Level 4.3 g/dL (3.5-5.0); Alkaline Phosphatase 72 U/L (39-117); Anion Gap 12 (12-20); Aspartate Amino Transferase 21 U/L (5-37); Bilirubin Total 0.7 mg/dL (0.0-1.0); Blood Urea Nitrogen 13 mg/dL (9-16); Calcium 9.3 mg/dL (8.4-10.2); Carbon Dioxide 21 mmol/L (22-29); Chloride 114 mmol/L (96-108); Creatinine Clr Calc Pharmacy 107.5; Estimated Glomerular Filt Rate > 60; Glucose Random 92 mg/dL (60-115); Magnesium 2.3 mg/dL (1.6-2.6); Potassium 3.9 mmol/L (3.3-5.1); Sodium 143 mmol/L (135-145); Total Protein 7.2 g/dL (6.5-8.0)
[2024-03-31 16:25] LABS: Troponin-I High Sensitivity 24.7 ng/L (<3.5-35.0)
[2024-03-31 16:36] LABS: Influenza A PCR NEGATIVE (Negative); Influenza B PCR NEGATIVE (Negative); Resp Syncy Virus RNA Qual PCR NEGATIVE (Negative); SARS COV2 PCR INHOUSE NEGATIVE (Negative)
[2024-03-31 17:01] LABS: INTERNATIONAL NORM RATIO 1.1 (0.9-1.1); Prothrombin Time 13.4 SEC (11.1-13.3)
[2024-03-31 17:28] VITALS: BP 132/79; PULSE 50; RESP 17; TEMP 36.7; O2SAT 100
[2024-03-31 18:08] LABS: B Type Natriuretic Peptide 11 pg/mL (<100)
--- NOTE | 2024-03-31 19:05 | PC.NURSE ---
report received from Rebecca Moore RN, assume care of pt at this time
--- NOTE | 2024-03-31 19:08 | ECG_ITS ---
Test Reason : repeat Blood Pressure : / mmHG Vent. Rate : 047 BPM Atrial Rate : 047 BPM P-R Int : 152 ms QRS Dur : 098 ms QT Int : 454 ms P-R-T Axes : 034 -04 002 degrees QTc Int : 401 ms Sinus bradycardia Otherwise normal ECG When compared with ECG of 31-MAR-2024 15:12, Criteria for Inferior infarct are no longer Present Referred By: Iwona Yuan Electronically Signed By:GOYO BEAR
--- NOTE | 2024-03-31 19:09 | ED.CHESTPAIN ---
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 Patient states that he does not have pain at rest but when he gets up to walk or does any strenuous activities he develops burning substernal chest pain. Associated shortness of breath. Denies nausea or vomiting. Reports episodes last 10-15 minutes at a time and resolve with rest. Denies recent medication changes. Saw PCP today who referred patient to ED for symptoms and gave ASA prior to arrival. Denies fever cough. Denies palpitations. MD complaint: chest pain Pertinent past history: asthma and other Onset (ago): month(s) Timing of current episode: episodic Prior episodes: Yes Onset: during exertion Pain location: substernal Pain radiation: none Quality: burning Relieving factors: rest Exacerbating factors: exertion Associated symptoms: dyspnea Treatment prior to arrival: aspirin Related Data Home Medications ?Medication ?Instructions ?Recorded ?Confirmed albuterol sulfate 90 mcg/actuation 2 puff inhalation QID PRN Wheezing 01/18/21 03/04/22 aerosol inhaler (ProAir HFA) cetirizine 10 mg tablet 1 tab PO QAM 01/18/21 03/04/22 dabigatran etexilate 75 mg capsule 1 cap PO BID 01/18/21 03/04/22 (Pradaxa) ferrous sulfate 325 mg (65 mg 1 tab PO QAM 01/18/21 03/04/22 iron) tablet (FeroSul) fluticasone propionate 110 2 puff inhalation BID 01/18/21 03/04/22 mcg/actuation HFA aerosol inhaler (Flovent HFA) fluticasone propionate 50 1 - 2 spray intranasal DAILY PRN 01/18/21 03/04/22 mcg/actuation nasal Nasal Congestion spray,suspension folic acid 1 mg tablet 1 tab PO QAM 01/18/21 03/04/22 hydroxyzine HCl 50 mg tablet 2 tab PO BEDTIME 01/18/21 03/04/22 levetiracetam 500 mg tablet 1 tab PO BID 01/18/21 03/04/22 lisinopril 10 mg tablet 1 tab PO QAM 01/18/21 03/04/22 multivitamin 1 tab PO QAM 01/18/21 03/04/22 omeprazole 40 mg capsule,delayed 1 cap PO QAM 01/18/21 03/04/22 release simvastatin 10 mg tablet 1 tab PO QPM 01/18/21 05/17/21 thiamine HCl (vitamin B1) 100 mg 1 tab PO QAM 01/18/21 03/04/22 tablet topiramate 50 mg tablet 1 tab PO BEDTIME 01/18/21 03/04/22 cholecalciferol (vitamin D3) 125 125 mcg PO QWEEK 05/05/23 mcg (5,000 unit) capsule Allergies Allergy/AdvReac Type Severity Reaction Status Date / Time No Known Allergies Allergy Verified 03/31/24 15:04 Review of Systems Review of Systems: As per HPI Yes all other systems are reviewed and are negative Constitutional: Constitutional: Reports as per HPI PMFSH Past Medical History Medical History History of blood clot in brain On anticoagulant therapy Elevated cholesterol HTN (hypertension) Hepatitis C History of ETOH abuse Asthma Cirrhosis Surgical History History of esophagogastroduodenoscopy (EGD) Hx of colonoscopy Family History Family History Family/Other HTN (hypertension) Asthma Diabetes Social History Social History Household Members: None Alcohol intake: never Patient Tobacco Use Status: Never used Tobacco Smoked in Last 30 Days: No Use of substances other than those prescribed or required for medical reasons: No Advance Directives: No Advance Directives Information Provided: No Do you have a plan to hurt others: No Plan service: No Current occupational status: unemployed and disabled Physical Exam Vital Signs: Vital Signs: Last Vital Signs Temp 98.1 F 03/31/24 17:28 Pulse 50 03/31/24 17:28 Resp 17 03/31/24 17:28 BP 132/79 03/31/24 17:28 Pulse Ox 100 03/31/24 17:28 O2 Del Method Room Air 03/31/24 17:28 BMI result Body Mass Index 28.7 Vital signs have been reviewed and appear to be correct. Blood pressure normal. Heart rate bradycardic. Respiratory rate normal. Temperature normal. Oxygen saturation normal. Const: General: cooperative, healthy appearing and no acute distress Orientation/consciousness: oriented to person, oriented to place, oriented to time and patient oriented x3 Limitations: no limitations HEENT: Head: Yes normocephalic and Yes atraumatic Ears: external ears normal General nose exam: Normal external nose present Face and sinus: Yes face symmetric Mouth: oropharynx normal and moist mucous membranes Throat: Yes uvula midline Eyes: Pupils: Equal, round and reactive pupils present Neck: Neck: Yes normal visual inspection and Yes supple Resp: Effort & Inspection: normal respiratory effort and able to speak in complete sentences Auscultation: clear to auscultation bilaterally Cardio: Rate: regular rate Rhythm: regular rhythm Heart sounds: S1 normal heart sound present and S2 normal heart sound present GI: Palpation (GI): Soft to palpation and nontender Auscultation: normoactive bowel sounds : General: Yes no CVA tenderness Back/Spine/Pelvis: Back: no CVA tenderness Skin: General skin exam: elasticity normal and turgor normal Neuro: General: oriented to person, oriented to place, oriented to time, patient oriented x3, moves all extremities, no focal motor deficits and CN's II-XI intact bilaterally Cranial nerves: Yes Equal, round and reactive pupils present Cognition (Neuro): normal cognition Extrem: General: Yes full ROM, Yes no pedal edema and Yes no calf tenderness Psych: Mental Status: mental status grossly normal Affect: normal affect Thought process: Normal thought process present Medical Decision Making Medical Decision Making MDM Narrative: Patient is a 58-year-old Ghanaian-speaking male with history of HTN, hepatitis-C, asthma, cirrhosis, elevated cholesterol, history of alcohol abuse has been sober for several years presenting to the emergency department with complaint of intermittent chest pain for the past 2 months. On exam patient is awake, A+Ox3, bradycardic at 50bpm, VS otherwise WNL, afebrile, normal neurological exam without focal deficits, physical exam findings as above. Given reported symptoms and physical exam findings, initial differential includes ACS/NSTEMI, unstable angina, GERD, musculoskeletal pain. Less likely pneumonia, pneumothorax. Unlikely PE, Wells score 0. Do not suspect aortic dissection, esophageal rupture, tamponade, endocarditis or pericarditis. Labs notable for no leukocytosis, mild chronic appearing anemia, troponin of 24.7, will repeat. X-ray chest notable for no evidence of pneumonia or pneumothorax. My interpretation is in agreement with the radiologist's interpretation. Repeat troponin downtrending. HEART score of 5. Case discussed with Dr. Bowers who feels patient is stable for outpatient follow up and does not require admission. Patient has been pain free throughout ED stay. Results and plan discussed with patient and all questions answered. Will refer to cardiology for further evaluation of symptoms. Return precautions discussed at bedside. Patient verbalized understanding of and agreement with plan. In-person feller hand utilized. Differential Diagnosis Differential Diagnoses: The differential diagnosis associated with the presentation includes As per [facility] Admission/Observation Consideration of admission/observation: Escalation of care including admission/observation considered Patient would have been admitted to the hospital had their work up had any findings where hospital admission was appropriate and their clinical presentation warranted hospital admission. Consult Healthcare Provider Management of the patient was discussed with: Doll Surgeon (Dr. Bowers, cardiology) Lab Data [facility] Lab Attestation statement: I reviewed the patient's lab results. As per [facility] 03/31/24 15:51 03/31/24 15:52 Labs: Lab Results 03/31/24 03/31/24 03/31/24 Range/Units 15:51 15:52 16:34 WBC 4.9 (4.8-10.8) X10*3/uL RBC 5.10 (4.60-5.80) X10*6/uL Hgb 13.6 L (14.0-18.0) g/dl Hct 40.7 L (42.0-52.0) % MCV 79.8 L (80.0-98.0) fL MCH 26.7 L (27.0-33.0) pg MCHC 33.4 (31.0-36.0) g/dl RDW 13.8 (11.0-16.0) % Plt Count 127 L (160-400) X10*3/uL MPV 11.3 (9.4-12.4) fL Immature Gran % (Auto) 0.2 (0.0-0.4) % Neut % (Auto) 42.7 L (45-73) % Lymph % (Auto) 48.6 H (20-40) % Angelina % (Auto) 7.3 (2-11) % Eos % (Auto) 0.8 (0-4) % Baso % (Auto) 0.4 (0-2) % Lymph # (Auto) 2.4 (1.2-4.9) X10*3/uL Angelina # (Auto) 0.4 (0.1-1.2) X10*3/uL Eos # (Auto) 0.0 (0.0-0.4) X10*3/uL Baso # (Auto) 0.0 (0.0-0.2) X10*3/uL Abs Immat Gran (auto) 0.01 (0.00-0.03) X10*3/uL Absolute Neuts (auto) 2.1 (2.0-8.3) x10*3/uL Absolute Nucleated RBC 0.000 (0.0-0.012) X10*3/uL Nucleated RBC % (auto) 0.0 (0.0-0.2) /100WBC PT 13.4 H (11.1-13.3) SEC INR 1.1 (0.9-1.1) Sodium 143 (135-145) mmol/L Potassium 3.9 (3.3-5.1) mmol/L Chloride 114 H (96-108) mmol/L Carbon Dioxide 21 L (22-29) mmol/L Anion Gap 12 (12-20) BUN 13 (9-16) mg/dL Creatinine 0.79 (0.5-1.4) mg/dL Estim Creat Clear Calc 107.5 Estimated GFR > 60 Random Glucose 92 (60-115) mg/dL Calcium 9.3 (8.4-10.2) mg/dL Magnesium 2.3 (1.6-2.6) mg/dL Total Bilirubin 0.7 (0.0-1.0) mg/dL AST 21 (5-37) U/L ALT 17 (0-40) U/L Alkaline Phosphatase 72 (39-117) U/L Troponin I High Sens 24.7 (<3.5-35.0) ng/L B-Natriuretic Peptide 11 (<100) pg/mL Total Protein 7.2 (6.5-8.0) g/dL Albumin 4.3 (3.5-5.0) g/dL Influenza Type A (PCR) NEGATIVE (Negative) Influenza Type B (PCR) NEGATIVE (Negative) RSV RNA Qual (PCR) NEGATIVE (Negative) SARS-CoV-2 RNA (RT-PCR) NEGATIVE (Negative) 03/31/24 Range/Units 19:37 WBC (4.8-10.8) X10*3/uL RBC (4.60-5.80) X10*6/uL Hgb (14.0-18.0) g/dl Hct (42.0-52.0) % MCV (80.0-98.0) fL MCH (27.0-33.0) pg MCHC (31.0-36.0) g/dl RDW (11.0-16.0) % Plt Count (160-400) X10*3/uL MPV (9.4-12.4) fL Immature Gran % (Auto) (0.0-0.4) % Neut % (Auto) (45-73) % Lymph % (Auto) (20-40) % Angelina % (Auto) (2-11) % Eos % (Auto) (0-4) % Baso % (Auto) (0-2) % Lymph # (Auto) (1.2-4.9) X10*3/uL Angelina # (Auto) (0.1-1.2) X10*3/uL Eos # (Auto) (0.0-0.4) X10*3/uL Baso # (Auto) (0.0-0.2) X10*3/uL Abs Immat Gran (auto) (0.00-0.03) X10*3/uL Absolute Neuts (auto) (2.0-8.3) x10*3/uL Absolute Nucleated RBC (0.0-0.012) X10*3/uL Nucleated RBC % (auto) (0.0-0.2) /100WBC PT (11.1-13.3) SEC INR (0.9-1.1) Sodium (135-145) mmol/L Potassium (3.3-5.1) mmol/L Chloride (96-108) mmol/L Carbon Dioxide (22-29) mmol/L Anion Gap (12-20) BUN (9-16) mg/dL Creatinine (0.5-1.4) mg/dL Estim Creat Clear Calc Estimated GFR Random Glucose (60-115) mg/dL Calcium (8.4-10.2) mg/dL Magnesium (1.6-2.6) mg/dL Total Bilirubin (0.0-1.0) mg/dL AST (5-37) U/L ALT (0-40) U/L Alkaline Phosphatase (39-117) U/L Troponin I High Sens 21.2 (<3.5-35.0) ng/L B-Natriuretic Peptide (<100) pg/mL Total Protein (6.5-8.0) g/dL Albumin (3.5-5.0) g/dL Influenza Type A (PCR) (Negative) Influenza Type B (PCR) (Negative) RSV RNA Qual (PCR) (Negative) SARS-CoV-2 RNA (RT-PCR) (Negative) Independent Interpretation I performed an independent interpretation of an: EKG (Initial-sinus bradycardia, rate 55bpm, normal [place] interval and QTc, repeat sinus bradycardia, rate 47bpm, normal pr interval and QTc ) and Plain X-Ray Interpretation: No evidence of pneumonia, pneumothorax on cxr Radiology Impression Discussion of test interpretation with radiology: I have reviewed the radiologist's reading. Radiologist Impression: XR/XR chest 2V IMPRESSION: Unremarkable examination. External Record Review External record reviewed: Inpatient record, Office record and Outpatient record Chronic Conditions Patient?s care impacted by: Hypertension and Other Scores Heart Score History: -1- moderately suspicious ECG: -1- non specific repolarization disturbance Age: -1- >45 - <65 Risk factory: -1- 1 or 2 risk factors Troponin: -1- >1 - <3x normal limit Score: 5 Risk: 16.6% Discharge Plan Discharge Clinical Impression: Chest pain Patient Disposition: Home, Self-Care Instructions: Chest Pain (DC) Additional Instructions: You were evaluated in the emergency department today for chest pain. Your evaluation has shown no signs of medical conditions requiring emergent intervention at this time, however we recommend that you follow-up with your primary care physician as soon as possible. We are referring you to a manager data center for further evaluation of your symptoms. Call their office to schedule an appointment, they will not call you. Return to the emergency department if you experience worsening or uncontrolled chest pain, shortness of breath, lightheadedness, feeling faint, loss of consciousness, nausea, vomiting, or any other concerning symptoms. Prescriptions: No Action multivitamin Tablet 1 tab PO QAM cetirizine 10 mg tablet 1 tab PO QAM levetiracetam 500 mg tablet 1 tab PO BID simvastatin 10 mg tablet 1 tab PO QPM thiamine HCl (vitamin B1) 100 mg tablet 1 tab PO QAM hydroxyzine HCl 50 mg tablet 2 tab PO BEDTIME omeprazole 40 mg capsule,delayed release(DR/EC) 1 cap PO QAM ferrous sulfate [FeroSul] 325 mg (65 mg iron) tablet 1 tab PO QAM lisinopril 10 mg tablet 1 tab PO QAM folic acid 1 mg tablet 1 tab PO QAM albuterol sulfate [ProAir HFA] 90 mcg/actuation HFA aerosol inhaler 2 puff inhalation QID PRN (Reason: Wheezing) fluticasone propionate 50 mcg/actuation spray,suspension 1 - 2 spray intranasal DAILY PRN (Reason: Nasal Congestion) fluticasone propionate [Flovent HFA] 110 mcg/actuation HFA aerosol inhaler 2 puff inhalation BID topiramate 50 mg tablet 1 tab PO BEDTIME dabigatran etexilate [Pradaxa] 75 mg capsule 1 cap PO BID cholecalciferol (vitamin D3) 125 mcg (5,000 unit) capsule 125 mcg PO QWEEK Referrals: Eleno Bowers MD [Physician] - Print Language: Ghanaian
[2024-03-31 20:00] VITALS: BP 137/81; PULSE 48; RESP 13; TEMP 36.6; O2SAT 99
[2024-03-31 20:10] LABS: Troponin-I High Sensitivity 21.2 ng/L (<3.5-35.0)
[2024-03-31 20:58] VITALS: BP 137/81; PULSE 48; RESP 13; TEMP 36.6; O2SAT 99
== END 2024-03-31 20:58 | disposition home or self-care (01) ==
PROVIDERS: Registered Nurse Emergency; Emergency Provider Emergency Medicine; PCP Student in an Organized Health Care Education/Training Program
DX: R07.9 Chest pain, unspecified (principal); R06.02 Shortness of breath; Z03.818 Encounter for observation for suspected exposure to other biological agents ruled out; I10 Essential (primary) hypertension; E78.00 Pure hypercholesterolemia, unspecified; J45.909 Unspecified asthma, uncomplicated; K74.60 Unspecified cirrhosis of liver; B18.2 Chronic viral hepatitis C; Z79.01 Long term (current) use of anticoagulants; Z79.02 Long term (current) use of antithrombotics/antiplatelets; Z79.899 Other long term (current) drug therapy
CPT/HCPCS: 0241U; 36415; 71046; 80053; 83735; 83880; 84484; 85025; 85610; 93005; 99283; 99284

== ENCOUNTER 2024-04-11 11:54 | Outpatient (AMB) | payer MEDICAID, SELFPAY ==
--- NOTE | 2024-04-11 13:20 | A.OFFVIS_ITS ---
Vital Signs 04/11/24 13:21 Height 5 ft 7 in Weight 175 lb 14.862 oz BMI 27.6 BP 100/62 Blood Pressure Location Lt brachial Position Sitting Pulse 61 Pulse Source Pulse Oximeter Intake Visit Reasons: [facility] Ed f/u Drencher Required: Yes Drencher Language: Customer Care Professional Name: noah max [id number] Allergies No Known Allergies Allergy (Verified 04/11/24 13:24) Medication List - Last Reconciled 04/11/24 by Rossi Morales NP-C cetirizine 1 tab PO QAM cholecalciferol (vitamin D3) 125 mcg PO QWEEK dabigatran etexilate (Pradaxa) 1 cap PO BID ferrous sulfate (FeroSul) 1 tab PO QAM fluticasone propionate 110 mcg/actuation (Flovent HFA) 2 puffs inhalation BID folic acid 1 tab PO QAM hydroxyzine HCl 2 tabs PO BEDTIME levetiracetam 1 tab PO BID lisinopril 1 tab PO QAM magnesium gluconate (Mag-G) 27 mg PO multivitamin 1 tab PO QAM omeprazole 1 cap PO QAM simvastatin 1 tab PO QPM thiamine HCl (vitamin B1) 1 tab PO QAM topiramate 1 tab PO BEDTIME HPI HPI [facility] Ed f/u: Details: Trever is a 58-year-old male with past medical history of hypertension, hyperlipidemia, chronic hep C, cirrhosis, prior alcohol abuse, none in many years who was recently seen in the emergency room with report of chest discomfort. He ruled out for ACS and was referred to Cardiology in follow-up. Today he presents for cardiology consult. He reports that he has been getting a squeezing and burning sensation in his mid chest when he walks up hills or stairs for the last 2 months. He states this symptom has gotten worse in the last month and now occurs daily with activity. He says when he gets the discomfort he stops what he is doing and it will gradually go away. At times it will radiate up to his throat and feels hard to breathe. He says last night he was on the couch watching TV and he got his symptom. That was the 1st time he got his discomfort at rest. He has not had any discomfort wake him from sleep. He tells me he has no cardiac history. He was not getting symptoms like this prior to 2 months ago. No shortness of breath with normal ADLs. No PND, orthopnea or edema. No lightheadedness, presyncope, syncope, falls. He tells me that he is on disability because of all his health problems. He does not smoke and again tells me he has not used any alcohol in many years. He says his mother diabetes and heart problems. His father also had diabetes. Patient does not have a known diagnosis of diabetes. He denies any recent bleeding issues. He is not aware of his medications. Certified interpreter and translator used. [facility] Medical History History of blood clot in brain On anticoagulant therapy Elevated cholesterol HTN (hypertension) Hepatitis C History of ETOH abuse Asthma Cirrhosis Surgical History History of esophagogastroduodenoscopy (EGD) Hx of colonoscopy Family History Family/Other HTN (hypertension) Asthma Diabetes Social History Household Members: None Alcohol intake: never Patient Tobacco Use Status: Never used Tobacco service: No Current occupational status: unemployed and disabled Review of Systems Const All systems reviewed & are unremarkable except as noted in HPI and below ENT Denies dizziness Card Reports chest pain, Denies chest pain at rest, Reports chest pain with activity, Denies rapid heart rate, Denies pedal edema, Denies edema, Denies leg edema, Denies lightheadedness, Denies palpitations, Denies dyspnea, Denies dyspnea on exertion and Denies orthopnea Resp Denies cough, Denies dyspnea and Denies dyspnea on exertion GI Denies hematochezia and Denies change in stool character Musc Denies abnormal gait, Denies limited range of motion, Denies muscle cramps, Denies muscle weakness, Denies numbness, Denies radiating pain into limb, Denies stiffness and Denies tingling Neuro Denies abnormal gait, Denies dizziness, Denies numbness and Denies tingling Endo Denies palpitations Physical Exam Vital Signs: Last Vital Signs Pulse 61 04/11/24 13:21 BP 100/62 04/11/24 13:21 BMI result Body Mass Index 27.6 Const General: cooperative, healthy appearing, comfortable and no acute distress Orientation/consciousness: patient oriented x3 Neck Neck: Yes normal visual inspection and Yes no JVD Resp Effort & Inspection: normal respiratory effort Auscultation: clear to auscultation bilaterally, no crackles, no rales, no rhonchi and no wheezes Cardio Jugular venous distension: no JVD Rate: regular rate Rhythm: regular rhythm Heart sounds: S1 normal heart sound present, S2 normal heart sound present, no murmurs and no rubs Neuro General: patient oriented x3 Extrem General: Yes normal to inspection and No no pedal edema Psych Appearance: grossly normal Mental Status: mental status grossly normal Speech and movement: Normal speech and movement present Office Procedures EKG Details: Today, read by me, sinus bradycardia, no acute ST or T-wave abnormalities, rate 48, QTC 371 milliseconds [id number], Complete Assessment & Plan Assessment & Plan (1) Exertional angina: Code(s): I20.89 - Other forms of angina pectoris Category: Medical Plan: Report of exertional chest dicomfort which sounds like typical exertional angina, that is relieved with rest. Discomfort first started 2 months ago and in the last month has increased in frequency, now occurring daily. He had one episode of the discomfort last evening when watching TV. He has not been woken by this symptom. He denies any known cardiac history. Cardiac risks of HTN, HLD. He does have hx of cirrhosis and denies any recent bleeding issues. He recalls having bleeding years ago, when he was drinking alcohol. He has not been drinking for several years. EKG done today shows SB, rate 48, no acute ST/ T wave abn. Will check stat echo to assess for regional WMA. Will plan for cardiac cath to evaluated for obstructive CAD. Will check preprocedure labs including CBC, PT/INR, BMP. Pts med list includes Pradaxa, which he took today (confirmed with interpreter and translator, once he was home and looking at pill bottles). He is unsure why he is on this medication. He denies any history of atrial fibrillation. Cath will be scheduled as soon as able - holding Pradaxa for 3 days prior. Will avoid the use of Beta annette due to sinus bradycardia. Will start on Low dose Amlodipine as antianginal. He is not on statin, likely due to underlying cirrhosis. Instructed on only very light activity and to seek emergency care if he chest pains that wake he him sleep or not relieved with rest. Informed him that his symptom is likely true angina and he is at risk for MS. He states understanding of this. Will reach out to his PCP to get a better understanding of his health history and reason for Pradaxa use. (2) HTN (hypertension): Code(s): I10 - Essential (primary) hypertension Category: Medical Plan: On low side today, prior recent blood pressure was normal. Adding low-dose amlodipine. (3) Chronic hepatitis C: Comment: Treated by [facility] Code(s): B18.2 - Chronic viral hepatitis C Category: Medical Plan: Noted in history. Has been seen by Dr. Manrique (4) Cirrhosis: Comment: Being treated by [facility] currently on and anti-viral Code(s): K74.60 - Unspecified cirrhosis of liver Category: Medical Plan: As above Plan Time spent on chart review, documentation, interview, assessment Orders: Orders Basic Metabolic Panel 04/11/24 I20.89 - Other forms of angina pectoris Prothrombin Time INR 04/11/24 I20.89 - Other forms of angina pectoris Cardiac Cath LT w PCI 04/11/24 I20.89 - Other forms of angina pectoris Complete Blood Count Auto Diff 04/11/24 I20.89 - Other forms of angina pectoris Medications: New amlodipine 2.5 mg PO DAILY 30 tabs 2RF Coding Level of Care Code New Pt Level 5 (66269) Diagnoses Exertional angina I20.89 HTN (hypertension) I10 Chronic hepatitis C B18.2 Cirrhosis K74.60 CPT Codes EKG - CPT: 42176-[id number], Complete ([id number]) Time Spent (min) 50
[2024-04-11 13:21] VITALS: BP 100/62; PULSE 61; BMI 27.6
== END 2024-04-11 14:48 | disposition home or self-care (01) ==
PROVIDERS: PCP Student in an Organized Health Care Education/Training Program; Visit Provider Nurse Practitioner Family
DX: I20.89 Other forms of angina pectoris (principal); R93.1 Abnormal findings on diagnostic imaging of heart and coronary circulation; R00.1 Bradycardia, unspecified
CPT/HCPCS: 93010; 93306; 99205

== ENCOUNTER → 2024-04-11 11:54 | Outpatient (BNVA) | payer MEDICAID, SELFPAY | LOC: CF 14:37 | PROVIDERS: PCP Student in an Organized Health Care Education/Training Program; Visit Provider Nurse Practitioner Family ==

== ENCOUNTER → 2024-04-11 14:34 | Outpatient (REF) | payer MEDICAID, SELFPAY ==
--- NOTE | 2024-04-11 14:48 | CA_ITS ---
Transthoracic Echocardiogram Patient (Last, First, Middle): Trever Ledesma A Gender: Male Date of : 1965 Age: 58 Procedure Date: 04/11/2024 Procedure Type: Transthoracic Echocardiogram Location: OP Height: 170.18 cm Weight: 79.38 kg BSA: 1.91 m2 Heart Rate: 42 bpm BP: 110 / 60 mmHg Polysomnography Technician: BETHEL Referring MD: Rossi Morales PARTS ORDER AND STOCK CLERKIfeomaC Industrial Electrician Journeyman: Adithya Akbar MD Symptoms: I20.89 - Other forms of angina pectoris Study Quality: Adequate ECG Rhythm: Bradycardia Conclusions: - 1. Normal LV ejection fraction of 60 65% with impaired relaxation filling pattern 2. Cardiac valvular Dopplers within normal limits 3. Normal RV systolic pressure Findings Procedure Information Contrast agent, definity, is being given per protocol without apparent complications. Left Ventricle Normal left ventricular size, thickness, and systolic function. The visually estimated ejection fraction is between 60-65%. Spectral Doppler is indicative of an impaired relaxation filling pattern. E/E prime ratio is <8, consistent with normal filling pressures. Evidence suggests grade I (mild) diastolic dysfunction. There is possible basal inferoseptal and inferior hypokinesis. Right Ventricle Normal right ventricular cavity size and systolic function. Atria Both atria are normal in size. Interatrial shunt cannot be excluded. Aortic Valve The aortic valve structure and function is likely normal. Mitral Valve Normal mitral valve structure and function. There is trace mitral valve regurgitation. There is no mitral valve stenosis. Pulmonic Valve The pulmonic valve was not well visualized. Tricuspid Valve Likely normal tricuspid valve structure and function. There is trace tricuspid valve regurgitation. The right ventricular systolic pressure is normal. The right ventricular systolic pressure is 21 mmHg. Normal right atrial pressure. There is no evidence of pulmonary hypertension. Great Vessels All visible segments of the aorta are normal in size. The pulmonary artery was not well visualized. There is no dilatation of the ascending aorta measuring 3.30 cm. Venous The inferior vena cava is normal in size and collapses greater than 50% with inspiration. Pericardium/Pleural There is no evidence of pericardial effusion. Prior Study Comparison No prior study available for comparison. Measurements 2D Linear Measurements IVSd: 1.04 0.6-0.9/0.6-1.0 cm LVIDd: 5.52 3.9-5.3/4.2-5.9 cm LVIDd Index: 2.89 2.4-3.2/2.2-3.1 cm/m2 LVIDs: 3.43 2.0-3.6 cm LVPWd: 1.01 0.7-1.1 cm LA Diam: 3.40 2.7-3.8/3.0-4.0 cm LAIDs Index: 1.78 1.5-2.3 cm/m2 LV Mass: 276.23 67-162/88-224 g LV Mass Index: 144.62 43-95/49-115 g/m2 LVOT Diam: 2.30 3.0+(-)1.3 cm 2D Systolic Function EF 4C: 59.90 >55% EF 2C: 57.80 >55% EF BiP: 60.00 >55% Mitral Valve MV Pk E: 0.63 MV PK A: 0.43 MV Decel Time: 277.00 E/A: 1.40 E'Lateral: 5.44 E'Medial: 7.51 E/E' Med: 8.30 E/E' Lat: 11.50 PHT: 81.00 MVA PHT: 2.72 Decel [place]: 2.26 Aortic Valve AoV Pk Dwight: 1.21 AoV Pk Grad: 6.00 EVELYN: 2.90 LVOT LVOT Pk Dwight: 0.88 LVOT Mn Dwight: 0.53 LVOT VTI: 0.20 LVOT Pk Grad: 3.00 LVOT Mn Grad: 1.00 LVOT Diam: 2.30 LVOT Area: 4.15 Diastolic Function MV Pk E: 0.63 MV Pk A: 0.43 E/A: 1.40 E'Medial: 7.51 E/E' Med: 8.30 E' Laterial: 5.44 E/E' Lat: 11.50 Right Ventricle TAPSE (mm): 20.80 TVS' Dwight: 11.60 Tricuspid Valve TR Pk Dwight: 2.14 TR Pk Grad: 18.00 RA Press: 3.00 RVSP: 21.00 Great Vessels Aorta Sinus of Valsalva: 3.10 2.0-3.5 cm Ao Asc: 3.30 2.1-3.4 cm Pulmonary Veins Pulm Vein S/D 1.40 Pulmonary Valve PV Pk Dwight: 0.62 Peak PV Grad: 2.00 Updated in Other Vendor System with Status of Final Adithya Akbar MD electronically signed on 04/11/2024 3:59:46 PM with status of Final
[2024-04-11 16:33] LABS: MANUAL DIFF FLAG NO
[2024-04-11 18:19] LABS: Basophils Percent Auto 0.2 % (0-2); Eosinophils Absolute Auto 0.1 X10*3/uL (0.0-0.4); Eosinophils Percent Auto 1.6 % (0-4); Hematocrit 40.2 % (42.0-52.0); Hemoglobin 13.3 g/dl (14.0-18.0); Imm Gran Abs Auto 0.01 X10*3/uL (0.00-0.03); Imm Gran Pct Auto 0.2 % (0.0-0.4); Lymphocytes Absolute Auto 2.3 X10*3/uL (1.2-4.9); Lymphocytes Percent Auto 51.3 % (20-40); Mean Corpuscular HGB Conc 33.1 g/dl (31.0-36.0); Mean Corpuscular Hemoglobin 26.7 pg (27.0-33.0); Mean Corpuscular Volume 80.7 fL (80.0-98.0); Mean Platelet Volume 12.5 fL (9.4-12.4); Monocytes Absolute Auto 0.4 X10*3/uL (0.1-1.2); Monocytes Percent Auto 8.9 % (2-11); Neutrophils Absolute Auto 1.7 x10*3/uL (2.0-8.3); Neutrophils Percent Auto 37.8 % (45-73); Platelet Count 133 X10*3/uL (160-400); Red Blood Count 4.98 X10*6/uL (4.60-5.80); Red Cell Distribution Width 13.9 % (11.0-16.0); White Blood Count 4.5 X10*3/uL (4.8-10.8)
[2024-04-11 18:26] LABS: INTERNATIONAL NORM RATIO 1.1 (0.9-1.1); Prothrombin Time 12.8 SEC (11.1-13.3)
[2024-04-11 18:36] LABS: Anion Gap 11 (12-20); Blood Urea Nitrogen 12 mg/dL (9-16); Calcium 9.5 mg/dL (8.4-10.2); Carbon Dioxide 25 mmol/L (22-29); Chloride 112 mmol/L (96-108); Estimated Glomerular Filt Rate > 60; Glucose Random 87 mg/dL (60-115); Potassium 4.2 mmol/L (3.3-5.1); Sodium 144 mmol/L (135-145)
== END ==
LOC: HO.CARD 14:34
PROVIDERS: PCP Student in an Organized Health Care Education/Training Program; Visit Provider Nurse Practitioner Family
DX: I20.89 Other forms of angina pectoris (principal)
CPT/HCPCS: 36415; 80048; 85025; 85610; 93005; 93306; 99212; Q9957

== ENCOUNTER → 2024-04-20 23:59 | Outpatient (BNV) | payer MEDICAID, SELFPAY | PROVIDERS: PCP Student in an Organized Health Care Education/Training Program; Visit Provider Internal Medicine Cardiovascular Disease | DX: I25.110 Atherosclerotic heart disease of native coronary artery with unstable angina pectoris (principal) | CPT/HCPCS: 92928; 92978; 93458; 99152 ==

== ENCOUNTER 2024-05-02 14:45 | Outpatient (AMB) | payer MEDICAID, SELFPAY ==
[2024-05-02 14:48] VITALS: BP 100/60; PULSE 65; BMI 27.8
--- NOTE | 2024-05-02 14:48 | MHC.OFFVIS ---
Vital Signs 05/02/24 14:48 Height 5 ft 7 in Weight 177 lb 11.081 oz BMI 27.8 BP 100/60 Blood Pressure Location Lt brachial Position Sitting Pulse 65 Pulse Source Pulse Oximeter Intake Visit Reasons: f/u post cath Senior Agricultural Assistant Required: Yes Senior Agricultural Assistant Language: Skiver Hand Name: noah summers [id number] Allergies No Known Allergies Allergy (Verified 05/02/24 14:51) Medication List - Last Reconciled 05/02/24 by BENITEZ LassiterC amlodipine 2.5 mg PO DAILY aspirin 81 mg PO DAILY cetirizine 1 tab PO QAM cholecalciferol (vitamin D3) 125 mcg PO QWEEK ferrous sulfate (FeroSul) 1 tab PO QAM fluticasone propionate 110 mcg/actuation (Flovent HFA) 2 puffs inhalation BID folic acid 1 tab PO QAM hydroxyzine HCl 2 tabs PO BEDTIME levetiracetam 1 tab PO BID lisinopril 1 tab PO QAM magnesium gluconate (Mag-G) 27 mg PO multivitamin 1 tab PO QAM naproxen 500 mg PO BID omeprazole 1 cap PO QAM rosuvastatin 40 mg PO BEDTIME simvastatin 1 tab PO QPM thiamine HCl (vitamin B1) 1 tab PO QAM ticagrelor (Brilinta) 90 mg PO BID 90 days topiramate 1 tab PO BEDTIME HPI HPI f/u post cath: Details: Trever is a 58-year-old male with past medical history of hypertension, hyperlipidemia, chronic hep C, cirrhosis who was recently seen in cardiology consultation for report of exertional chest discomfort. His symptom was typical for exertional angina and he underwent cardiac catheterization showing 95% lad stenosis, stent was placed. He now presents for follow-up. Today he reports he is feeling much better since his stent placement. He has not had any recurrent exertional chest discomfort. He reports having a pain in his back on 1 day but that has not reoccurred. He initially did not start on his aspirin and Brilinta as directed. I spoke with him last week and sent his meds to his pharmacy and he now states he is taking them all as directed. No shortness of breath, PND, orthopnea or edema. No lightheadedness, presyncope, syncope. He is feeling some heart palpitations, racing heartbeats at night. Right radial catheterization site is well healed. Certified family welfare social work professor used. [facility] Medical History History of blood clot in brain On anticoagulant therapy Elevated cholesterol HTN (hypertension) Hepatitis C History of ETOH abuse Asthma Cirrhosis Surgical History History of cardiac cath History of esophagogastroduodenoscopy (EGD) Hx of colonoscopy Family History Family/Other HTN (hypertension) Asthma Diabetes Social History Household Members: None Alcohol intake: never Patient Tobacco Use Status: Never used Tobacco service: No Current occupational status: unemployed and disabled Review of Systems Const All systems reviewed & are unremarkable except as noted in HPI and below ENT Denies dizziness Card Denies chest pain, Denies chest pain at rest, Denies chest pain with activity, Reports rapid heart rate, Denies pedal edema, Denies edema, Denies leg edema, Denies lightheadedness, Denies palpitations, Denies dyspnea, Denies dyspnea on exertion and Denies orthopnea Resp Denies cough, Denies dyspnea and Denies dyspnea on exertion GI Denies hematochezia and Denies change in stool character Musc Denies abnormal gait, Denies limited range of motion, Denies muscle cramps, Denies muscle weakness, Denies numbness, Denies radiating pain into limb, Denies stiffness and Denies tingling Neuro Denies abnormal gait, Denies dizziness, Denies numbness and Denies tingling Endo Denies palpitations Physical Exam Vital Signs: Last Vital Signs Pulse 65 05/02/24 14:48 BP 100/60 05/02/24 14:48 BMI result Body Mass Index 27.8 Const General: cooperative, healthy appearing, comfortable and no acute distress Orientation/consciousness: patient oriented x3 Neck Neck: Yes normal visual inspection Resp Effort & Inspection: normal respiratory effort Auscultation: clear to auscultation bilaterally, no crackles, no rales, no rhonchi and no wheezes Cardio Rate: regular rate Rhythm: regular rhythm Heart sounds: S1 normal heart sound present, S2 normal heart sound present, no murmurs and no rubs Neuro General: patient oriented x3 Extrem Other: right radial cath site well healed, easily palpable radial pulse, right hand assessment normal General: Yes normal to inspection Psych Appearance: grossly normal Mental Status: mental status grossly normal Speech and movement: Normal speech and movement present Assessment & Plan Assessment & Plan (1) Exertional angina: Code(s): I20.89 - Other forms of angina pectoris Category: Medical Plan: On last visit he describes symptoms of typical exertional angina. An echocardiogram done that day showed EF 60-65%, normal valves, grade 1 diastolic dysfunction, possible basal inferior septal and inferior hypokinesis. EKG showed no acute ST or T-wave abnormalities. He was set up for cardiac catheterization however we were unable to perform an urgent catheterization as patient was on Pradaxa. It seems he has been taking Pradaxa for approximately the last 10 years due to a history of DVT.- we had him stop Pradaxa and start on daily aspirin as well as amlodipine. He had underlying sinus bradycardia and was unable to be started on beta-annette. He did undergo cardiac catheterization days later on 04/20/2024 showing proximal LAD 95% stenosis, KITTY was placed. Days following discharge Dr. Diamond was notified that patient did not supervisor opening and picking his aspirin and Brilinta from the [facility] pharmacy at time of discharge. I spoke with patient last week and he had no recurrent anginal symptoms. At that time he was instructed to start on aspirin and Brilinta as directed. They were sent to his local pharmacy. Today he reports that he has not had any recurrent chest discomfort since his cardiac catheterization procedure. He is very pleased with how he is feeling. Catheterization results reviewed with him in detail. The importance of risk factor modification and strict med compliance reviewed with him. Will continue on aspirin indefinitely. Continue Brilinta uninterrupted for 1 year. His blood pressure is low at 100/60. Will have him stop amlodipine. Will keep off of beta-annette due to resting heart rate in the 60s. Will have him start cardiac rehab. Instructed to notify this office seek emergency care if he has any recurrent chest discomfort. Cardiology follow-up 3 months, sooner if needed. (2) S/P cardiac catheterization: Comment: 04/20/2024, left main normal, lad proximal 95% stenosis, high risk, angioplasty and KITTY placed, left circumflex normal, RCA normal Code(s): Z98.890 - Other specified postprocedural states Category: Surgical Plan: Right radial catheterization site well healed (3) Coronary atherosclerosis: Code(s): I25.10 - Atherosclerotic heart disease of [place] coronary artery without angina pectoris Category: Medical Plan: As above (4) Stented coronary artery: Code(s): Z95.5 - Presence of coronary angioplasty implant and graft Category: Surgical Plan: As above (5) Palpitation: Code(s): R00.2 - Palpitations Category: Medical Plan: Patient reports having some heart palpitations, mostly in the evenings and night. He says it feels like his heart is speeding up like a race car. He says this is a new symptom for him. Will check a Holter monitor to assess for any arrhythmia. Plan Time spent on chart review, documentation, intravenous assessment Orders: Orders Cardiac Rehab Today I25.10 - Atherosclerotic heart disease of [place] coronary artery without angina pectoris, Z95.5 - Presence of coronary angioplasty implant and graft, Z98.890 - Other specified postprocedural states ECG 3 day holter monitor Today R00.2 - Palpitations Coding Level of Care Code Est Pt Level 4 (47397) Complex EM visit Add On G2211 Diagnoses Exertional angina I20.89 S/P cardiac catheterization Z98.890 Coronary atherosclerosis I25.10 Stented coronary artery Z95.5 Palpitation R00.2 Time Spent (min) 28
== END 2024-05-02 15:23 | disposition home or self-care (01) ==
PROVIDERS: PCP Student in an Organized Health Care Education/Training Program; Visit Provider Nurse Practitioner Family
DX: I20.89 Other forms of angina pectoris (principal); Z98.890 Other specified postprocedural states; I25.10 Atherosclerotic heart disease of native coronary artery without angina pectoris; Z95.5 Presence of coronary angioplasty implant and graft; R00.2 Palpitations
CPT/HCPCS: 99214

== ENCOUNTER → 2024-05-02 14:45 | Outpatient (BNVA) | payer MEDICAID, SELFPAY | PROVIDERS: PCP Student in an Organized Health Care Education/Training Program; Visit Provider Nurse Practitioner Family | DX: I20.89 Other forms of angina pectoris (principal); I10 Essential (primary) hypertension; R00.2 Palpitations; Z98.890 Other specified postprocedural states; Z95.5 Presence of coronary angioplasty implant and graft | CPT/HCPCS: 99212 ==

== ENCOUNTER → 2024-05-23 09:01 | Outpatient (REF) | payer MEDICAID, SELFPAY ==
--- NOTE | 2024-05-23 09:04 | HM_ITS ---
Conclusion: 1. Patient was monitored for total period of 2 days 2. Baseline was normal sinus rhythm with average heart of 66 beats per minute 3. Frequent sinus bradycardia noted with 50% of time heart rate below 60 beats per minute 4. No arrhythmias or significant pauses noted 5. No patient reported events MTDD
== END ==
LOC: HO.CARD 09:01
PROVIDERS: PCP Student in an Organized Health Care Education/Training Program; Visit Provider Nurse Practitioner Family
DX: R00.2 Palpitations (principal)
CPT/HCPCS: 93242

== ENCOUNTER → 2024-05-23 09:04 | Outpatient (BNV) | payer MEDICAID, SELFPAY | PROVIDERS: PCP Student in an Organized Health Care Education/Training Program; Visit Provider Internal Medicine Cardiovascular Disease | DX: R00.1 Bradycardia, unspecified (principal) | CPT/HCPCS: 93244 ==

== ENCOUNTER 2024-12-08 08:17 | Outpatient (REF) | payer MEDICAID, SELFPAY ==
--- OUTSIDE RECORDS SUMMARY | 2024-12-08 08:30 | XMS_ITS | Clinical Summary ---
Author Organization [facility] Facility Address [address] [address] Care Team Providers Care Equipment Service Engineer Name Role Phone Isabella Tony MD Primary Care Provider [phone] Social History Tobacco Use Types Packs/Day Years Used Date Smoking Tobacco: Never Assessed Sex and Gender Information Value Date Recorded Sex Assigned at Not on file Legal Sex Male 10:14 AM EDT Gender Identity Not on file Sexual Orientation Not on file Plan of Treatment Health Maintenance Due Date Last Done Comments Hepatitis B Vaccine (1 of 3 - 19+ 3-dose series) 06/04 Colorectal Cancer Screening: Annual FOBT 2016 Colorectal Cancer Screening: Colonoscopy 2016 Colorectal Cancer Screening: Sigmoidoscopy 2016 Pneumococcal Vaccine: 50+ Years (1 of 1 - PCV) 017 Influenza Vaccine (Season Ended) 2025 [place] [id number] [place] Care Teams Equipment Service Engineer Relationship Specialty Start Date End Date Isabella Tony MD [address] [place] [address] PCP - General Family Medicine 05/20/21
--- OUTSIDE RECORDS SUMMARY | 2024-12-08 08:30 | XMS_ITS | Encounter Summary ---
Author Organization [facility] Address [address] [place] [address] Care Team Providers Care Plant And Equipment Worker Name Role Phone Isabella Tony MD Primary Care Provider [phone] Reason for Visit * Reason Comments Med Refill Encounter Details Date Type Department Care Team ([facility] Contact Info) Description 04/06/2023 Refill [facility] MED & PEDS [address] [place], [place] [phone] Isabella Tony MD [address] [place], [place] [phone] Social History Tobacco Use Types Packs/Day Years Used Date Smoking Tobacco: Never Passive Smoke Exposure: Never Smokeless Tobacco: Never Alcohol Use Standard Drinks/Week Comments Not Currently 0 (1 standard drink = 0.6 oz pur e alcohol) Sex and Gender Information Value Date Recorded Sex Assigned at Male 05/26/2022 10:15 AM EDT Legal Sex Male 10:15 AM EDT Gender Identity Male 05/26/2022 10:15 AM EDT Sexual Orientation Choose not to disclose 2021 10:15 AM EDT documented as of this encounter Plan of Treatment Upcoming Encounters Date Type Department Care Team ([facility] Contact Info) Description 12/08/2024 9:00 AM EDT Office Visit [facility] ADULT DENTAL [address] [place], [place] [phone] Julia Roblero [address] [place], [place] [phone] Arrived documented as of this encounter Visit Diagnoses Not on filedocumented in this encounter Care Teams Plant And Equipment Worker Relationship Specialty Start Date End Date Isabella Tony MD [address] [place] [id number] PCP - General Family Medicine 07/12/12 documented as of this encounter
--- OUTSIDE RECORDS SUMMARY | 2024-12-08 08:30 | XMS_ITS | Clinical Summary ---
Author Organization [employer] Address [address] [facility] [address] [place] [address] Care Team Providers Care Supervisor [employer]ar [employer] Name Role Phone Isabella Tony MD Primary Care Provider Allergies No known active allergies Medications acetaminophen (Tylenol 8 Hour) 650 MG ER tabletIndicatio ns:Pain TAKE ONE TABLET EVERY 8 HOURS NEEDED FOR PAIN OR FOR FEVER 40 tablet 1 07/14/20 22 Active acetaminophen (Tylenol 8 Hour) 650 MG ER tablet take 1 Tablet by oral route every 8 hours as needed for Pain And/Or Fever 04/24/20 22 Active fluticasone (Flonase) 50 MCG/ACT nasal spray INHALE 1 - 2 SPRAYS IN EACH NOSTRIL ONCE DAILY NEEDED 07/03/20 22 Active ibuprofen 400 MG tabletIndicatio ns:Pain in other joint TAKE ONE TABLET EVERY 24 HOURS NEEDED 30 tablet 5 03/31/20 23 Active tadalafil (Cialis) 5 MG tablet TAKE ONE TABLET EVERY MORNING 15 tablet 04/07/20 23 Active albuterol (Ventolin HFA) 108 (90 Base) MCG/ACT inhalerIndicati ons:Mild persistent asthma, unspecified whether complicated INHALE TWO PUFFS EVERY 4 HOURS NEEDED FOR WHEEZING OR SHORTNESS OF BREATH 18 g 1 07/29/19 24 Active Pradaxa 75 MG capsuleIndicati ons: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 30 tablet 11 02/10/20 24 07/17/2 025 Active folic acid (Folvite) 1 MG tabletIndicatio ns:Alcoholism (CMS/HCC) TAKE ONE TABLET EVERY MORNING 90 tablet 2 04/26/20 24 Active lisinopril 5 MG tablet Take 1 tablet (5 mg) by mouth Once per day. 30 tablet 11 06/16/20 24 025 Active sertraline (Zoloft) 25 MG tablet Take 1 tablet (25 mg) by mouth Once per day. 30 tablet 11 06/16/20 24 025 Active Asmanex HFA 200 MCG/ACT aerosol INHALE ONE PUFF TWICE DAILY, RINSE MOUTH AFTER USE 13 g 11 08/02/19 25 Active Vaporizer miscIndications :Upper respiratory tract infection, unspecified type Use at night prn uri 1 each 08/17/19 25 Active omeprazole (PriLOSEC) [address] capsuleIndicati ons:Seizure disorder (CMS/HCC) TAKE ONE CAPSULE EVERY MORNING BEFORE BREAKFAST 90 capsule 1 09/28/19 25 Active topiramate 50 MG tabletIndicatio ns:Seizure disorder (CMS/HCC) TAKE ONE TABLET EVERY NIGHT AT BEDTIME 30 tablet 5 09/28/19 25 Active levETIRAcetam (Keppra) 500 MG tablet TAKE ONE TABLET TWICE DAILY IN THE MORNING AND AT BEDTIME 60 tablet 2 10/26/19 25 Active Magnesium Glycinate 100 MG capsule Take 1 capsule (100 mg) by mouth at bedtime. 30 capsule 11 10/28/19 25 026 Active Mag-G 500 (27 Mg) MG tablet TAKE ONE TABLET TWICE DAILY IN THE MORNING AND AT BEDTIME 60 tablet 11 11/03/19 25 Active Ferrous Sulfate (iron) 325 (65 Fe) MG tabletIndicatio ns:Iron deficiency anemia secondary to inadequate dietary iron intake TAKE ONE TABLET EVERY MORNING 90 tablet 11/03/19 25 Active cetirizine (ZyrTEC) 10 MG tabletIndicatio ns:Seasonal allergies TAKE ONE TABLET EVERY MORNING 90 tablet 11/03/19 25 Active hydrOXYzine HCl (Atarax) 50 MG tabletIndicatio ns:Anxiety TAKE ONE TABLET EVERY NIGHT AT BEDTIME 60 tablet 3 11/24/19 25 Active Multiple Vitamin (Multivitamin) tabletIndicatio ns:Seizure disorder (CMS/HCC) TAKE ONE TABLET EVERY MORNING 90 tablet 1 11/26/19 25 Active thiamine (Vitamin B-1) 100 MG tabletIndicatio ns:Seizure disorder (CMS/HCC) TAKE ONE TABLET EVERY MORNING 90 tablet 1 11/26/19 25 Active cholecalciferol (Vitamin D-3) 125 MCG (5000 UT) capsule TAKE ONE CAPSULE ONCE WEEKLY ON Thursday 12 capsule 12/07/19 25 Active hydrOXYzine HCl (Atarax) 50 MG tabletIndicatio ns:Anxiety Take 1 tablet (50 mg) by mouth every 8 (eight) hours if needed for itching. TAKE ONE TABLET EVERY NIGHT AT BEDTIME 60 tablet 3 03/29/20 24 025 Discontinued thiamine (Vitamin B-1) 100 MG tabletIndicatio ns:Seizure disorder (CMS/HCC) TAKE ONE TABLET EVERY MORNING 90 tablet 1 06/07/20 24 025 Discontinued Multiple Vitamin (Multivitamin) tabletIndicatio ns:Seizure disorder (CMS/HCC) TAKE ONE TABLET EVERY MORNING 90 tablet 1 06/07/20 24 025 Discontinued cholecalciferol (Vitamin D-3) 125 MCG (5000 UT) capsule TAKE ONE CAPSULE ONCE WEEKLY ON Thursday 12 capsule 09/02/19 25 025 Discontinued(Re order (will not trigger notification to Pharmacy)) ibuprofen 600 MG tablet Take 1 tablet (600 mg) by mouth 3 times daily. 90 tablet 10/28/19 25 025 Hospital, Clinic, or Other Facility Administered Medication Ordered Dose Route Frequency Start Date End Date Status aspirin chewable tablet 325 mgIndications:Other chest pain 325 mg PO Once 03/31/2024 Active Active Problems Problem Noted Date Diagnosed Date Alcohol-induced chronic pancreatitis 10/20/2024 Alcoholic cirrhosis of liver 10/20/2024 Portal hypertensive gastropathy (CMS/HCC) 2024 Chronic hepatitis C 10/20/2024 Asthma 10/20/2024 Upper respiratory tract infection 08/17/2024 History of DVT (deep vein thrombosis) 09/19/2022 Alcohol abuse, in remission 09/19/2022 Moderate asthma without complication 08/15/2022 Non-traumatic rhabdomyolysis 08/15/2022 Seizure disorder 08/15/2022 Viral hepatitis C 04/10/2014 Benign essential hypertension 03/20/2014 Hematemesis 03/04/2014 Encounters Date Type Department Care Team Description 12/06/2024 Refill [facility] [address] [place] [address] Isabella Tony MD 12/06/2024 Refill [facility] [address] [place] [address] Isabella Tony MD 11/24/2024 Refill [facility] [address] [place] [address] Isabella Tony MD Seizure disorder ([facility]) 11/22/2024 Refill [facility] [address] [place] [address] Isabella Tony MD Anxiety 11/01/2024 Refill [facility] [address] [place] [address] Macarena Gomez MD Seasonal allergies 11/01/2024 Refill [facility] MED & PEDS [address] [place] [address] Isabella oTny MD Iron deficiency anemia secondary to inadequate dietary iron intake 10/27/2024 9:30 AM EDT Office Visit [facility] MED & PEDS [address] [place] [address] Isabella Tony MD Sebaceous cyst (Primary Dx); Atypical chest pain; Frequent urination; Benign essential hypertension 10/27/2024 Travel 10/23/2024 Refill [facility] MED & PEDS [address] [place] [address] Isabella Tony MD 10/20/2024 10:30 AM EDT Office Visit [facility] ADULT DENTAL [address] [place] [address] Julia Roblero 10/19/2024 Patient Outreach [facility] [address] [place] [address] Isabella Tony MD Pre-visit Planning (SDOH screening negative and Tobacco screening negative) 10/07/2024 Population Health Risk Score [facility] () Department [address] [place] [id number] Provider, Population Health Generic 09/27/2024 9:00 AM EST Office Visit [facility] ADULT DENTAL [address] [place] [address] Julia Roblero 09/25/2024 Refill [facility] MED [facility] PEDS [address] [place] [address] Isabella Tony MD Seizure disorder ([facility]) 09/24/2024 Refill [facility] MED & PED[facility] [address] [place] [address] Isabella Tony MD Seizure disorder ([facility]) from Last 3 Months Immunizations Immunization Administration Dates Next Due Influenza injectable quadriv alent IIV4 with preservative 06/29/2019,05/20/2018,04/30/2017,2015 Influenza injectable quadriv alent preservative free 04/18/2022,05/17/2021 Influenza, Split (incl. mani fied surface antigen) 05/03/2013 Tdap 04/11/2016 Social History Tobacco Use Types Packs/Day Years Used Date Smoking Tobacco: Never Passive Smoke Exposure: Never Smokeless Tobacco: Never Tobacco Cessation:Counseling Given: Not Answered Alcohol Use Standard Drinks/Week Comments Not Currently 0 (1 standard drink = 0.6 oz pur e alcohol) Depression Answer Date Recorded Patient Health Questionnaire-9 Score 8 10/27/2024 Patient Health Questionnaire-9 Score 8 10/27/2024 Last PHQ-9: Questionnaire Data Not on file 0 10/27/2024 Housing Stability Answer Date Recorded What is your housing situation today? I have zenaida browne 10/19/[address] you li ve. Do you have problems with any of the following? None of the above 10/19/2024 Food Insecurity Answer Date Recorded Within the past 12 months, y ou worried that your food would run out before you got money to buy more: Never True 10/19/2024 Within the past 12 months,th e food you bought just didn't last and you didn't have enough money to get more: Never True Transportation Answer Date Recorded In the past 12 months, has l ack of transportation kept you from medical appts, meetings, work or from getting things needed for daily living? No 10/19/2024 Utilities Answer Date Recorded In the past 12 months, has t he electric, gas, oil or water company threatened to shut off services in your home? No 10/19/2024 Depression Answer Date Recorded Patient Health Questionnaire-2 Score 4 10/27/2024 Internet Access Answer Date Recorded Internet Access Q1 Yes 10/19/2024 Internet Access Q2 Not on file 10/19/2024 Sex and Gender Information Value Date Recorded Sex Assigned at Male 05/26/2022 10:15 AM EDT Legal Sex Male 10:15 AM EDT Gender Identity Male 05/26/2022 10:15 AM EDT Sexual Orientation Choose not to disclose 2021 10:15 AM EDT Last Filed Vital Signs Vital Sign Reading Time Taken Comments Blood Pressure 116/74 10/27/2024 9:11 AM EDT Pulse 72 10/27/2024 9:11 AM EDT Temperature 36.1 ??C (97 ??F) 10/27/2024 9:11 AM EDT Respiratory Rate 18 10/27/2024 9:11 AM EDT Oxygen Saturation 99% 08/17/2024 9:06 AM EST Inhaled Oxygen Concentration - - Weight 78 kg (172 lb) 10/27/2024 9:11 AM EDT Height 170.2 cm (5' 7 ) 10/27/2024 9:11 AM EDT Body Mass Index 26.94 10/27/2024 9:11 AM EDT Plan of Treatment Upcoming Encounters Date Type Department Care Team (Late st Contact Info) Description 12/08/2024 9:00 AM EDT Office Visit [facility] ADULT DENTAL [address] [place] [address] Julia Roblero [address] [place] [address] Arrived Health Maintenance Due Date Last Done Comments CT Colonography 1967 Colonoscopy 1967 FIT 1967 FOBT 1967 Sigmoidoscopy 1967 Alcohol/Substance Use Screening 1979 Hepatitis A Vaccines (1 of 2 - Risk 2-dose series) 1986 Hepatitis B Vaccines (1 of 3 - 19+ 3-dose series) 1986 Pneumococcal Vaccine: 50+ Years (1 of 2 - PCV) 1986 Zoster Vaccines (1 of 2) 2017 COVID-19 Vaccine (4 - season) 2024 08/07/2021, 12/13/2020, 11/15/2020 Influenza Vaccine (#1) 2024 , 05/17/2021, 06/29/2019, Additional history exists Dental Oral Exam 10/18/2024 04/19/2024, 12/2017, 04/21/2016 Dental Prophylaxis 10/18/2024 04/19/2024, 0 12/24/2016, 04/25/2016 Dental X-Ray: Bitewings 04/20/2025 04/19/20, 07/30/2023, 01/09/2023, Additional history exists SDOH Screening 10/19/2025 10/19/2024 Depression Screening 10/27/2025 10/27/2024, 10/28/19 Tobacco Screening 10/27/2025 10/27/2024 DTaP/Tdap/Td Vaccines (2 - Td or Tdap) 04/11/2026 04/11/2016 Colorectal Cancer Screening 02/15/2027 FIT DNA/Cologuard 02/15/2027 02/16/2024 Dental X-Ray: Full Mouth 04/20/2027 04/19/2024, 03/28 Lipid Panel 02/08/2029 02/09/2024, 09/25, 08/01/2022, Additional history exists RSV Patients and Patients Aged 60 years or older (1 - 1-dose 75+ series) 2042 HIV Screening Completed 07/10/2020, 06/26, 07/10/2020, Additional history exists HIB Vaccines Aged Out No longer eligi ble based on patient's age to complete this topic HPV Vaccines Aged Out No longer eligi ble based on patient's age to complete this topic IPV Vaccines Aged Out No longer eligi ble based on patient's age to complete this topic Meningococcal B Vaccine Aged Out No l onger eligible based on patient's age to complete this topic Meningococcal Vaccine Aged Out No gus jenny eligible based on patient's age to complete this topic RSV under 20 months Aged Out No longe r eligible based on patient's age to complete this topic Rotavirus Vaccines Aged Out No longer eligible based on patient's age to complete this topic Procedures Procedure Name Priority Date/Time Associated Diagnosis Comments CASE PRESENTATION, DETAILED AND EXTENSIVE TREATMENT PLANNING Routine 10/20/2024 10:30 AM EDT 28 PREFABRICATED POST AND CORE IN ADDITION TO CROWN Routine 10/20/2024 10:30 AM EDT 21 MO RESIN-BASED COMPOSITE - 2 SURF, POSTERIOR Routine 10/20/2024 10:30 AM EDT 22 MID RESIN-BASED COMPOSITE - 3 SURF, ANTERIOR Routine 10/20/2024 10:30 AM EDT CASE PRESENTATION, DETAILED AND EXTENSIVE TREATMENT PLANNING Routine 09/27/2024 9:00 AM EST 12 MO RESIN-BASED COMPOSITE - 2 SURF, POSTERIOR Routine 09/27/2024 9:00 AM EST 4 DO RESIN-BASED COMPOSITE - 2 SURF, POSTERIOR Routine 09/27/2024 9:00 AM EST PROPHYLAXIS - ADULT Routine 04/19/2024 9 :00 AM EDT INTRAORAL - COMPLETE SERIES OF RADIOGRAPHIC IMAGES Routine 04/19/2024 9:00 AM EDT PERIODIC ORAL EVALUATION - ESTABLISHED PATIENT Routine 04/19/2024 9:00 AM EDT LAB COLOGUARD?? COLON CANCER SCREEN Routine 02/16/2024 8:20 AM EDT Encounter for screening for malignant neoplasm of colon LIPID PANEL, STANDARD Routine 02/09/2024 8:07 AM EDT Benign essential hypertension ZZZ HISTORICAL HIV AB/AG Routine 07/10/2020 9:18 AM EST from Last 3 Months or Most Recently Relevant to Health Maintenance Results * Cologuard?? colon cancer screening (02/16/2024 8:20 AM EDT) Cologuard Result Negative Negative 02/22/20 5:40 PM EDT [facility] (CLIA #:[id number]) Comment: NEGATIVE TEST RESULT. A negative Cologuard result indicates a low likelihood that a colorectal cancer (CRC) or advanced adenoma (adenomatous polyps with more advanced pre-malignant features) ??is present. The chance that a person with a negative Cologuard test has a colorectal cancer is less than 1 in 1500 (negative predictive value >99.9%) or has an ??advanced adenoma is less than ??5.3% (negative predictive value 94.7%). These data are based on a prospective cross-sectional study of 10,000 individuals at average risk for colorectal cancer who were screened with both Cologuard and colonoscopy. (Carlos Sam et al, N Engl J Med 2014;370(14):1286- 1297) The normal value (reference range) for this assay is negative. COLOGUARD RE-SCREENING RECOMMENDATION: Periodic colorectal cancer screening is an important part of preventive healthcare for asymptomatic individuals at average risk for colorectal cancer. ??Following a negative Cologuard result, the [place] [employer] and U.S. Multi-Society Task Force screening guidelines recommend a Cologuard re-screening interval of 3 years. References: [place] [employer] Guideline for Colorectal Cancer Screening: https://www.cancer.org/cancer/kspsh-hhfeqe-stkajo/pbjbowefi-ncoymkdqz-vrgrszo/ac s-rec ommendations.html.; Salvador DK, Tania HIGUERA, Parker GarciaK, Colorectal Cancer Screening: Recommendations for Physicians and Patients from the U.S. Multi-Society Task Force on Colorectal Cancer Screening , Am J Gastroenterology 2017; 112:9948-9118. TEST DESCRIPTION: Composite algorithmic analysis of stool DNA-biomarkers with hemoglobin immunoassay. ?? Quantitative values of individual biomarkers are not reportable and are not associated with individual biomarker result reference ranges. Cologuard is intended for colorectal cancer screening of adults of either sex, 45 years or older, who are at average-risk for colorectal cancer (CRC). Cologuard has been approved for use by the U.S. FDA. The performance of Cologuard was established in a cross sectional study of average-risk adults aged 50-84. Cologuard performance in patients ages 45 to 49 years was estimated by sub-group analysis of near-age groups. Colonoscopies performed for a positive result may find as the most clinically significant lesion: colorectal cancer [4.0%], advanced adenoma (including sessile serrated polyps greater than or equal to 1cm diameter) [20%] or non- advanced adenoma [31%]; or no colorectal neoplasia [45%]. These estimates are derived from a prospective cross-sectional screening study of 10,000 individuals at average risk for colorectal cancer who were screened with both Cologuard and colonoscopy. (Carlos Gonzales al, N Engl J Med 2014;370(14):8962-9148.) Cologuard may produce a false negative or false positive result (no colorectal cancer or precancerous polyp present at colonoscopy follow up). A negative Cologuard test result does not guarantee the absence of CRC or advanced adenoma (pre-cancer). The current Cologuard screening interval is every 3 years. ([place] [employer] and U.S. Multi-Society Task Force). Cologuard performance data in a 10,000 patient pivotal study using colonoscopy as the reference method can be accessed at the following location: www.Bubbly/results. Additional description of the Cologuard test process, warnings and precautions can be found at www.DropThoughtrd.Panzura. Stool specimen (specimen) 02/16/2024 8:20 AM EDT 02/17/2024 1:43 PM EDT us Isabella Tony MD LAB MOLECULAR DIAGNOSTICS ORDERA BLES Final Result [facility] (CLIA #:[id number]) [place] [address], * (ABNORMAL) Lipid Panel, Standard (02/09/2024 8:07 AM EDT) Triglycerides 386(H) <150 mg/dL [facility] Comment:Desirable Triglyceri de: less than 150 mg/dLBorderline High Triglyceride 150-199 mg/dLHigh Triglyceride: 200-499 mg/dLVery High Triglyceride: greater than or equal to 5OO mg/dL Cholesterol 133 <200 mg/dL [facility] Comment:Desirable Cholestero l: less than 200 mg/dLBorderline High Cholesterol: 200-239 mg/dLHigh Cholesterol: greater than 239 mg/dL LDL Cholesterol Calculated 28 <100 mg/dL [facility] Comment:Desirable LDL: less than 100 mg/dLNear Optimal/Above Optimal LDL: 110- 129 mg/dLBorderline High LDL: 130-159 mg/dLHigh LDL: 160-189 mg/dLVery High LDL: greater than or equal to 190 mg/dL HDL Cholesterol 28(L) >40 mg/dL [facility] Comment:Desirable HDL: great er than 40 mg/dL Note: This HDL assay may give artificially low results in patients with liver disease. Blood Venous blood specimen / Unknown 02/09/2024 8:07 AM EDT 02/09/2024 1:57 PM EDT Isabella Tony MD LAB BLOOD ORDERABLES Final Resul t Performing Organization Address [facility] Co de Phone Number [facility] [address] [place] [address] [phone] * HIV AB/AG (07/10/2020 9:18 AM EST) [facility] HIV AB/AG Nonreactive Nonreactive [facility] Comment: HIV-1 p24 Ag and/or HIV-1/HIV-2 Ab not detected. ?? A test result that is nonreactive does not exclude the possibility of exposure to or infection with HIV-1 and/or HIV-2. Nonreactive results in this assay for individuals with prior exposure to HIV-1 and/or HIV-2 may be due to antigen and antibody levels that are below the limit of detection of this assay. ?? The [employer] [facility] Technician HIV Ag/Ab Combo assay result and supplemental assay results should be interpreted in conjunction with the patient's clinical presentation, history and other laboratory results. ??If the results are inconsistent with clinical evidence, additional testing is suggested to confirm the result. Hepatitis B Surface Antigen Negative Negative [facility] 07/10/2020 9:18 AM EST Isabella Tony MD HISTORICAL/NON ORDERABLE LABS Fi nal Result Performing Organization Address [facility]/ZIP Co de Phone Number [facility] [address] from Last 3 Months or Most Recently Relevant to Health Maintenance [place] [facility] ST[facility] ADULT * Guarantor: Trever Ledesma Account Type Relation to Patient Date of Phone Billing Address Personal/Family Self [address] Care Teams Supervisor [employer] Relationship Specialty Start Date End Date Isabella Tony MD [address] [place] [id number] PCP - General Family Medicine 07/12/12
--- OUTSIDE RECORDS SUMMARY | 2024-12-08 08:30 | XMS_ITS | Encounter Summary ---
Author Organization [employer] Address [address] [facility] [address] [place] [address] Care Team Providers Care Curb Builder Name Role Phone Isabella Tony MD Primary Care Provider [phone] Encounter Details Date Type Department Care Team (Late st Contact Info) Description 07/14/2022 Orders Only [facility] MED & PEDS [address] [place] [address] Miguelina Arvizu LPN Social History Tobacco Use Types Packs/Day Years [...] Description 12/08/2024 9:00 AM EDT Office Visit [facility] ADULT DENTAL [address] [place] [address] Julia Roblero [address] [place] [address] Arrived documented as of this encounter Visit Diagnoses Not on filedocumented in this encounter Care Teams Curb Builder Relationship Specialty Start Date End Date Isabella Tony MD [address] [place] [address] PCP - General Family Medicine 07/12/12 documented as of this encounter
--- OUTSIDE RECORDS SUMMARY | 2024-12-08 08:30 | XMS_ITS | Encounter Summary ---
Author Organization [employer] Address [address] [facility] [address] [place] [address] Care Team Providers Care Low Pressure Boiler Operator Name Role Phone Isabella Tony MD Primary Care Provider [phone] Encounter Details Date Type Department Care Team ([facility] st Contact Info) Description 08/05/2023 Orders Only [facility]S [address] [place], [place] [id number] Case Carrasco MD [address] [place], [place] [phone] Social History Tobacco Use Types Packs/Day Years Used Date Smoking Tobacco: Never Passive Smoke Exposure: Never Smokeless Tobacco: Never Alcohol Use Standard Drinks/Week Comments Not Currently 0 (1 standard drink = 0.6 oz pur e alcohol) Housing Stability Answer Date Recorded What is your housing situation today? I have zenaida browne 05/11/[address] you li ve. Do you have problems with any of the following? None of the above 05/11/2023 Food Insecurity Answer Date Recorded Within the past 12 months, y ou worried that your food would run out before you got money to buy more: Never True 05/11/2023 Within the past 12 months,th e food you bought just didn't last and you didn't have enough money to get more: Never True Transportation Answer Date Recorded In the past 12 months, has l ack of transportation kept you from medical appts, meetings, work or from getting things needed for daily living? No 05/11/2023 Utilities Answer Date Recorded In the past 12 months, has t he electric, gas, oil or water company threatened to shut off services in your home? No 05/11/2023 Sex and Gender Information Value Date Recorded [...] Description 12/08/2024 9:00 AM EDT Office Visit [facility] [address] [place] [address] [facility] [address] [place] [address] Arrived documented as of this encounter Visit Diagnoses Not on filedocumented in this encounter Care Teams Low Pressure Boiler Operator Relationship Specialty Start Date End Date Isabella Tony MD [address] [place] [address] PCP - General Family Medicine 07/12/12 documented as of this encounter
--- OUTSIDE RECORDS SUMMARY | 2024-12-08 08:30 | XMS_ITS | Encounter Summary ---
Author Organization [employer] Address [address] [facility] 7t [place] [address] Care Team Providers Care Lock And Dam Equipment Repairer Name Role Phone Isabelal Tony MD Primary Care Provider Reason for Visit * Reason Onset Date Comments Nurse Triage 07/21/2023 Encounter Details Date Type Department Care Team ([facility] st Contact Info) Description 07/21/2023 Telephone [facility] MEDICINE [address] [place] [address] Isabella Tony MD [address] [place], [place] [phone] Nurse Triage Social History Tobacco Use Types Packs/Day Years [...] AM EDT documented as of this encounter Miscellaneous Notes * Telephone Encounter - Nichelle Nicole RN - 07/21/2023 2:28 PM EST Called pt. He states that he came positive for Covid on 07/20/23 with covid rapid test. Pt has fever, headache, sore throat, taking Tylenol with little relief, body aches. Pt. Is putting Vicks on hischest and using Fluticasone spray. Pt. Has Asthma but does not have inhaler. Pt. Does not want to go to walk in at [facility] today ot tomorrow. Pt. Wants televisit. Pt. Is speaking in clear sentences and denies SOB or wheezing at present. Advised if develops SOB to go to walk in at [facility] until 730pm tonight. Protocol Used: COVID-19 - Diagnosed or Suspected (Adult) Protocol-Based Disposition: Discuss with PCP and Callback by Nurse within 1 Hour- pt. Has televisitscheduled for 07/22/23 at 830am Video visit not offered Positive Triage Questions: * Mild difficulty breathing (e.g., minimal/no SOB at rest, SOB with walking, pulse < 100) * COVID-19 diagnosed by positive lab test (e.g., PCR, rapid self-test kit) and mild symptoms (e.g.,cough, fever, others) and no complications or SOB * All higher-acuity triage questions were negative Care Advice Discussed: * Reassurance and Education - Positive COVID-19 Lab Test and Mild Symptoms * General Care Advice for COVID-19 Symptoms * Cough Medicines * Humidifier * Coughing Spells * Pain and Fever Medicines * COVID-19 - How It Is Spread * COVID-19 - How to Protect Others - When You Are Sick With COVID-19 * COVID-19 - How to Protect Others - When You Are Sick With COVID-19 * COVID-19 - Face Masks for Prevention * Keep Your Body Strong * Telephone Encounter - Paolo Jean-Baptiste - 07/21/2023 1:46 PM EST Symptom: COVID-19 positive tested on 07/20 Outcome: Schedule an urgent appointment (within 1 hour) or talk to a nurse or provider soon Reason: Any trouble breathing through the mouth The caller accepted this outcome documented in this encounter Plan of Treatment Upcoming Encounters Date Type Department Care Team (Late st Contact Info) Description 12/08/2024 9:00 AM EDT Office Visit [facility] ADULT DENTAL [address] [place] [address] RobleroJulia [address] [place] [address] Arrived documented as of this encounter Visit Diagnoses Diagnosis Mild persistent asthma, unspecified whether complicated documented in this encounter Care Teams Lock And Dam Equipment Repairer Relationship Specialty Start Date End Date Isabella Tony MD [address] [place] [address] PCP - General Family Medicine 07/12/12 documented as of this encounter
--- OUTSIDE RECORDS SUMMARY | 2024-12-08 08:30 | XMS_ITS | Encounter Summary ---
Author Organization [employer] Address [address] [facility] 7t [place] [address] Care Team Providers Care Prospecting Driller Name Role Phone Isabella Tony MD Primary Care Provider [phone] Encounter Details Date Type Department Care Team (Late st Contact Info) Description 07/30/2022 Orders Only [facility] MED & PEDS [address] [place] [address] Miguelina Arvizu LPN Social History Tobacco Use [...] Description 12/08/2024 9:00 AM EDT Office Visit [facility] ADULT DENTAL [address] [place] [address] Julia Roblero [address] [place] [address] Arrived documented as of this encounter Visit Diagnoses Not on filedocumented in this encounter Care Teams Prospecting Driller Relationship Specialty Start Date End Date Isabella Tony MD [address] [place] [address] PCP - General Family Medicine 07/12/12 documented as of this encounter
--- OUTSIDE RECORDS SUMMARY | 2024-12-08 08:30 | XMS_ITS | Encounter Summary ---
Author Organization [employer] Address [address] [facility] 7t [place] [address] Care Team Providers Care Pricer Name Role Phone Isabella Tony MD Primary Care Provider [phone] Reason for Visit * Reason Onset Date Comments Nurse Triage 05/04/2024 Encounter Details Date Type Department Care Team ([facility] Contact Info) Description 05/04/2024 Telephone [facility]EDS [address] [place], [place] [phone] Isabella Tony MD [address] [place], [place] [phone] Nurse Triage Social History Tobacco Use Types [...] encounter Miscellaneous Notes * Telephone Encounter - Lalitha Hwang RN - 05/04/2024 10:57 AM EDT Triage call with [employer] Blood Tester ID [id number] Pt reports some lumps on right arm where injections were given while at [facility] 05/02/24. Pt was seen asfollow up for cardiac cath, stent placement which was done 04/20/24 report of 05/02/24 apt is on the chart. Pt does have hx of blood clots and didn't start aspirin and Brilinta as directed after this procedure. Pt informs leader writer that Pt is on the way to [facility] at this time to be seen by provider. Pt hasno apt there and is advised to come to [facility] instead for provider to see Pt. Pt agrees and informs leader writer that Pt is heading to [facility] at this time. Pt is alert, oriented, no difficulty breathing. Triage is ended. Advised Pt will send this report to [facility] now. Pt agrees. Protocol Used: No Contact or Duplicate Contact Call (Adult) Protocol-Based Disposition: No Contact Call Positive Triage Question: * Patient already left for the hospital/clinic * All higher-acuity triage questions were negative * Telephone Encounter - Hayley Reaves - 05/04/2024 10:17 AM EDT Symptom: Skin Lump Outcome: Schedule an appointment to be seen within 3 days Reason: Caller denied all higher acuity questions The caller accepted this outcome. documented in this encounter Plan of Treatment Upcoming Encounters Date Type Department Care Team (Late st Contact Info) Description 12/08/2024 9:00 AM EDT Office Visit [facility] ADULT DENTAL [address] [place] [address] Edmundo Robleropredeisi [address] [place] [address] Arrived documented as of this encounter Visit Diagnoses Not on filedocumented in this encounter Care Teams Pricer Relationship Specialty Start Date End Date Isabella Tony MD [address] [place] [address] PCP - General Family Medicine 07/12/12 documented as of this encounter
--- OUTSIDE RECORDS SUMMARY | 2024-12-08 08:30 | XMS_ITS | Clinical Summary ---
Author Organization [facility] Address [address] [place] [address] Care Team Providers Care Diagnostic Technologist Name Role Phone Unavailable Primary Care Provider Unavailabl e Allergies No known active allergies Medications Medication Sig Dispensed Refills Start Date End Date Status calcium carbonate (TUMS) 500 MG chewable tablet Chew 1 tablet by mouth daily. 0 Active Social History Tobacco Use Types Packs/Day Years Used Date Smoking Tobacco: Never Alcohol Use Standard Drinks/Week Comments Yes 0 (1 standard drink = 0.6 oz pur e alcohol) daily Sex and Gender Information Value Date Recorded Sex Assigned at Not on file Gender Identity Not on file Sexual Orientation Not on file Last Filed Vital Signs Vital Sign Reading Time Taken Comments Blood Pressure 145/75 06/02/2015 6:20 AM EST Pulse 61 06/02/2015 6:20 AM EST Temperature 37.1 ??C (98.7 ??F) 06/02/2015 6:20 AM ES T Respiratory Rate 17 06/02/2015 6:20 AM EST Oxygen Saturation 99% 06/02/2015 6:20 AM EST Inhaled Oxygen Concentration - - Weight 72.6 kg (160 lb) 06/02/2015 12:52 AM EST Height 167.6 cm (5' 6 ) 06/02/2015 12:52 AM EST Body Mass Index 25.82 06/02/2015 12:52 AM EST Plan of Treatment Not on file Trever Ledesma Personal/Family Self [address] [address]
--- OUTSIDE RECORDS SUMMARY | 2024-12-08 08:30 | XMS_ITS | Encounter Summary ---
Author Organization [employer] Address [address] [facility] 7t [place] [address] Care Team Providers Care Captain Of Guards Name Role Phone Isabella Tony MD Primary Care Provider Reason for Visit * Reason Onset Date Comments FYI 04/13/2023 Encounter Details Date Type Department Care Team ([facility] Contact Info) Description 04/13/2023 Telephone [facility] CHC MED & PEDS [address] [place], [place] [phone] Isabella Tony MD [address] [place] [address] FYI Social History Tobacco Use Types Packs/Day Years [...] encounter Miscellaneous Notes * Telephone Encounter - Mike Aldridge RN - 04/13/2023 1:36 PM EDT Please see FYI below. Thanks. 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 documented in this encounter Plan of Treatment Upcoming Encounters Date Type Department Care Team (Late st Contact Info) Description 12/08/2024 9:00 AM EDT Office Visit [facility] ADULT DENTAL [address] [place], [place] [phone] Julia Roblero [address] [place] [address] Arrived documented as of this encounter Visit Diagnoses Not on filedocumented in this encounter Care Teams Captain Of Guards Relationship Specialty Start Date End Date Isabella Tony MD [address] [place] [address] PCP - General Family Medicine 07/12/12 documented as of this encounter
--- OUTSIDE RECORDS SUMMARY | 2024-12-08 08:30 | XMS_ITS | Encounter Summary ---
Author Organization [employer] Address [address] [facility] 7t [place] [address] Care Team Providers Care Railroad Carman Name Role Phone Isabella Tony MD Primary Care Provider [phone] Encounter Details Date Type Department Care Team ([facility] st Contact Info) Description 12/06/2024 Refill [facility] CHC MED & PEDS [address] [place], [place] [phone] Isabella Tony MD [address] [place], [place] [phone] Social History Tobacco Use Types Packs/Day Years [...] Upcoming Encounters Date Type Department Care Team ([facility] st Contact Info) Description 12/08/2024 9:00 AM EDT Office Visit [facility] ADULT DENTAL [address] [place] [address] Julia Roblero [address] [place] [address] Arrived documented as of this encounter Visit Diagnoses Not on filedocumented in this encounter Additional Health Concerns Assessment Noted Time PHQ-9 Depression Total Score: 8 10/28/19 25 9:13 AM EDT documented as of this encounter Care Teams Railroad Carman Relationship Specialty Start Date End Date Isabella Tony MD [address] [place] [address] PCP - General Family Medicine 07/12/12 documented as of this encounter
--- OUTSIDE RECORDS SUMMARY | 2024-12-08 08:30 | XMS_ITS | Encounter Summary ---
Author Organization [employer] Address [address] [facility] 7t [place] [address] Care Team Providers Care Housemaid Name Role Phone Isabella Tony MD Primary Care Provider Reason for Visit * Reason Comments Med Refill Encounter Details Date Type Department Care Team ([facility] st Contact Info) Description 09/10/2023 Refill [facility] MEDICINE [address] [place], [place] [phone] Isabella Tony MD [address] [place], [place] [phone] Seizure disorder (CMS/HCC) Social History Tobacco Use Types Packs/Day Years [...] Description 12/08/2024 9:00 AM EDT Office Visit [facility] ADULT DENTAL [address] [place] [address] Edmundo Robleropredeisi [address] [place] [address] Arrived documented as of this encounter Visit Diagnoses Diagnosis Seizure disorder (CMS/[facility]) Unspecified epilepsy without mention of intractable epilepsy documented in this encounter Care Teams Housemaid Relationship Specialty Start Date End Date Isabella Tony MD [address] [place] [address] PCP - General Family Medicine 07/12/12 documented as of this encounter
--- OUTSIDE RECORDS SUMMARY | 2024-12-08 08:30 | XMS_ITS | Encounter Summary ---
Author Organization [employer] Address [address] [facility] 7t [place] [address] Care Team Providers Care Technology Consultant Name Role Phone Isabella Tony MD Primary Care Provider [phone] Reason for Visit * Reason Onset Date Comments triage 09/30/2022 Encounter Details Date Type Department Care Team ([facility] st Contact Info) Description 09/30/2022 Telephone C [facility]EDS [address] [place], [place] [phone] Isabella Tony MD [address] [place], [place] [phone] triage Social History Tobacco Use Types Packs/Day Years Used Date Smoking Tobacco: Never Smokeless Tobacco: Never Sex and Gender Information Value Date Recorded Sex Assigned at Male 05/26/2022 10:15 AM EDT Legal Sex Male 10:15 AM EDT Gender Identity Male 05/26/2022 10:15 AM EDT Sexual Orientation Choose not to disclose 2021 10:15 AM EDT COVID-19 Exposure Response Date Recorded In the last 10 days, have yo u been in contact with someone who was confirmed or suspected to have Coronavirus/COVID-19? No / Unsure 10/02/2022 8:15 AM EST documented as of this encounter Miscellaneous Notes * Telephone Encounter - Jessica Bush - 10/06/2022 3:01 PM EDT Informed to patient to stop antibiotics per Dr. Stroud request . Negative for strep. Repeated instruction back. * Telephone Encounter - Kendal Pino RN - 10/01/2022 11:20 AM EST Incoming message from PCP Yes please keep the scheduled appointment Noted. * Telephone Encounter - Glo Ohara RN - 09/30/2022 4:14 PM EST Call to pt to clarify below. Requesting the zoster vaccine. Advised to discuss with provider duringscheduled visit. Pt agrees. Please see message below and advise if okay to keep visit on 10/02/22 as scheduled. Thank you. * Telephone Encounter - Nichelle Nicole RN - 09/30/2022 3:12 PM EST Called pt. Via [employer] oncology registrar [id number] Saleem. Pt. States that he has been having a sore throat, SOB left side of head pain, sweats, fatigue x 1 week ago. Pt. Did drink gatorade and took alysia andteas and is now feeling better. Pt. Did take a Covid test yesterday -negative. Pt. States at present he still has a sore throat and it hurts to swallow. No fever. Pt. States that someone called him from [facility] to come into the office for a Worm Vaccine . I asked him again to clarify and he said Yesthe pharmacy is giving free worm vaccines right now and they told me to come into the office on 10/02/22 or 10/03/22 to get the vaccine. I have no idea what pt. Is talking about but He is looking for medication for his persistent sore throat. I advised pt. That I can make appt. For Sore throat to makesure he does not have strep but I do not know what he is saying re: a Worm vaccine . FYI if you know what pt is talking about. Pt has scheduled appt. For 10/02/22 at 915am. PCP has a 915 am opening aswell but it is for procedure slot so I booked appt. In Provider Dr. Stroud slot if you want to have nurses in [facility] switch appt. At 915am on 10/02/22 to PCP. Please advise [facility] nurses if you want appt. Switched. Protocol Used: Sore Throat (Adult) Protocol-Based Disposition: Appt. Scheduled for 10/02/[address] Hall. Video visit not offered Positive Triage Questions: * Sore throat is main symptom and persists > 48 hours * Sore throat with cough/cold symptoms present > 5 days * All higher-acuity triage questions were negative Care Advice Discussed: * For Relief of Sore Throat Pain * Drink Plenty of Liquids * Telephone Encounter - Anna Murrieta - 09/30/2022 3:10 PM EST Symptoms: Fever, Sore Throat, Wheezing, Body Aches Outcome: Schedule an urgent appointment (within 1 hour) or talk to a nurse or provider soon Reason: Getting worse The caller accepted this outcome Please contact pt at [phone] documented in this encounter Plan of Treatment Upcoming Encounters Date Type Department Care Team (Late st Contact Info) Description 12/08/2024 9:00 AM EDT Office Visit [facility] ADULT DENTAL [address] [place] [address] Edmundo Roblerodorothydeisi [address] [place] [address] Arrived documented as of this encounter Visit Diagnoses Not on filedocumented in this encounter Care Teams Technology Consultant Relationship Specialty Start Date End Date Isabella Tony MD [address] [place] [address] PCP - General Family Medicine 07/12/12 documented as of this encounter
--- OUTSIDE RECORDS SUMMARY | 2024-12-08 08:30 | XMS_ITS | Encounter Summary ---
Author Organization [employer] Address [address] [facility] 7t [place] [address] Care Team Providers Care Contract Clerk Automobile Name Role Phone Isabella Tony MD Primary Care Provider [phone] Reason for Visit * Reason Comments Med Refill Encounter Details Date Type Department Care Team ([facility] Contact Info) Description 05/01/2023 Refill [facility] CHC MED & PEDS [address] [place], [place] [phone] Isabella Tony MD [address] [place], [place] [phone] Social History Tobacco Use Types Packs/Day Years Used Date Smoking Tobacco: Never Passive Smoke Exposure: Never Smokeless Tobacco: Never Alcohol Use Standard Drinks/Week Comments Not Currently 0 (1 standard drink = 0.6 oz pur e alcohol) Housing Stability Answer Date Recorded What is your housing situation today? I have zenaida browne 05/04/[address] you li ve. Do you have problems with any of the following? None of the above 05/04/2023 Food Insecurity Answer Date Recorded Within the past 12 months, y ou worried that your food would run out before you got money to buy more: Never True 05/04/2023 Within the past 12 months,th e food you bought just didn't last and you didn't have enough money to get more: Never True 03/2023 Transportation Answer Date Recorded In the past 12 months, has l ack of transportation kept you from medical appts, meetings, work or from getting things needed for daily living? No 05/04/2023 Utilities Answer Date Recorded In the past 12 months, has t he electric, gas, oil or water company threatened to shut off services in your home? No 05/04/2023 Sex and Gender Information Value Date Recorded [...] Description 12/08/2024 9:00 AM EDT Office Visit [facility] ADULT DENTAL [address] [place] [address] RobleroEdmundo tamayopreet [address] [place] [address] Arrived documented as of this encounter Visit Diagnoses Not on filedocumented in this encounter Care Teams Contract Clerk Automobile Relationship Specialty Start Date End Date Isabella Tony MD [address] [place] [address] PCP - General Family Medicine 07/12/12 documented as of this encounter
--- OUTSIDE RECORDS SUMMARY | 2024-12-08 08:30 | XMS_ITS | Encounter Summary ---
Author Organization [employer] Address [address] [facility] 7t [place] [address] Care Team Providers Care Brake Assembler Name Role Phone Isabella Tony MD Primary Care Provider [phone] Reason for Visit * Reason Comments Med Refill Encounter Details Date Type Department Care Team ([facility] Contact Info) Description 12/06/2024 Refill [facility] CHC MED & PEDS [address] [place], [place] [phone] Isabella Tony MD [address] [place], [place] [phone] Social History Tobacco Use Types Packs/Day Years [...] Description 12/08/2024 9:00 AM EDT Office Visit [facility] ADULT DENTAL [address] [place] [address] Julia Roblero [address] [place] [address] Arrived documented as of this encounter Visit Diagnoses Not on filedocumented in this encounter Additional Health Concerns Assessment Noted Time PHQ-9 Depression Total Score: 8 10/28/19 25 9:13 AM EDT documented as of this encounter Care Teams Brake Assembler Relationship Specialty Start Date End Date Isabella Tony MD [address] [place] [address] PCP - General Family Medicine 07/12/12 documented as of this encounter
--- OUTSIDE RECORDS SUMMARY | 2024-12-08 08:30 | XMS_ITS | Encounter Summary ---
Author Organization [employer] Address [address] [facility] 7t [place] [address] Care Team Providers Care Jigger Crown Pouncing Machine Operator Name Role Phone Isabella Tony MD Primary Care Provider [phone] Encounter Details Date Type Department Care Team ([facility] Contact Info) Description 01/13/2023 Orders Only [facility] MEDICINE [address] [place], [place] [phone] Rajwinder Taylor LPN Social History Tobacco Use Types Packs/Day [...] suspected to have Coronavirus/COVID-19? No / Unsure 01/09/2023 11:07 AM EDT documented as of this encounter Plan of Treatment Upcoming Encounters Date Type Department Care Team (Late Contact Info) Description 12/08/2024 9:00 AM EDT Office Visit [facility] CHC ADULT DENTAL [address] [place] [address] Julia Roblero [address] [place], [place] [phone] Arrived documented as of this encounter Visit Diagnoses Not on filedocumented in this encounter Care Teams Jigger Crown Pouncing Machine Operator Relationship Specialty Start Date End Date Isabella Tony MD [address] [place] [address] PCP - General Family Medicine 07/12/12 documented as of this encounter
--- OUTSIDE RECORDS SUMMARY | 2024-12-08 08:30 | XMS_ITS | Encounter Summary ---
Author Organization [employer] Address 75 [facility] 7t [place] [address] Care Team Providers Care Patient Scheduler Name Role Phone Isabella Tony MD Primary Care Provider [phone] Reason for Visit * Reason Comments Med Refill Encounter Details Date Type Department Care Team ([facility] Contact Info) Description 04/08/2023 Refill [facility] MED & PEDS [address] [place], [place] [phone] Isabella Tony MD [address] [place], [place] [phone] Seizure disorder (CMS/HCC) Social History Tobacco Use [...] Upcoming Encounters Date Type Department Care Team ([facility] Contact Info) Description 12/08/2024 9:00 AM EDT Office Visit [facility] ADULT DENTAL [address] [place], [place] [phone] Julia Roblero [address] [place], [place] [phone] Arrived documented as of this encounter Visit Diagnoses Diagnosis Seizure disorder (CMS/HCC) Unspecified epilepsy without mention of intractable epilepsy documented in this encounter Care Teams Patient Scheduler Relationship Specialty Start Date End Date Isabella Tony MD [address] [place] [address] PCP - General Family Medicine 07/12/12 documented as of this encounter
--- OUTSIDE RECORDS SUMMARY | 2024-12-08 08:30 | XMS_ITS | Encounter Summary ---
Author Organization [employer] Address [address] [facility] 7t [place] [address] Care Team Providers Care Leather Repairer Name Role Phone Isabella Tony MD Primary Care Provider [phone] Reason for Visit * Reason Onset Date Comments Dental Pain 09/03/2023 Encounter Details Date Type Department Care Team (Late st Contact Info) Description 09/03/2023 Telephone [facility] ADULT DENTAL [address] [place], [place] [id number] Roseanne Devries, VINCENT Dental Pain Social History Tobacco Use Types Packs/Day Years [...] encounter Miscellaneous Notes * Telephone Encounter - Radha Castaneda - 09/03/2023 12:42 PM EST Patient states he is having pain in the tooth that he had worked on even though he is taking the medication as scripted. He would like something stronger DR documented in this encounter Plan of Treatment Upcoming Encounters Date Type Department Care Team (Late st Contact Info) Description 12/08/2024 9:00 AM EDT Office Visit [facility] [address] [place] [address] Edmundo Roblerodorothyet [address] [place] [address] Arrived documented as of this encounter Visit Diagnoses Not on filedocumented in this encounter Care Teams Leather Repairer Relationship Specialty Start Date End Date Isabella Tony MD [address] [place] [id number] PCP - General Family Medicine 07/12/12 documented as of this encounter
[2024-12-08 12:08] LABS: Appearance Urine Cloudy; Color Urine Yellow; Glucose Urine UA Negative (Negative); Leukocyte Esterase Urine Negative (Negative); Nitrite Urine Negative (Negative); UMIC TRIGGER UACC YES; Urine Blood Trace (Negative); Urine Ketones Negative (Negative); Urine Protein 100 (2+) mg/dL (Neg-Trace)
[2024-12-08 12:12] LABS: Bacteria Urine None Seen (None Seen); Hyaline Casts Urine 0-2 /LPF (0-2); RBC Urine 0-2 /HPF (0-2); Squamous Epithelial Cell Urine 0-2 /HPF (0-2); WBC Urine 0-5 /HPF (0-5)
[2024-12-08 12:31] LABS: Alanine Aminotransferase 24 U/L (0-40); Albumin Level 4.2 g/dL (3.5-5.0); Alkaline Phosphatase 87 U/L (39-117); Anion Gap 10 (12-20); Aspartate Amino Transferase 35 U/L (5-37); Bilirubin Direct 0.2 mg/dL (0.0-0.5); Bilirubin Total 0.3 mg/dL (0.0-1.0); Blood Urea Nitrogen 15 mg/dL (9-16); Calcium 8.9 mg/dL (8.4-10.2); Carbon Dioxide 20 mmol/L (22-29); Chloride 116 mmol/L (96-108); Cholesterol 87 mg/dL (<200); Estimated Glomerular Filt Rate > 60; Glucose Random 93 mg/dL (60-115); HDL Cholesterol 31 mg/dL (>40); LDL Cholesterol Calculated 33 mg/dL (<100); Potassium 4.1 mmol/L (3.3-5.1); Sodium 142 mmol/L (135-145); Total Protein 6.8 g/dL (6.5-8.0); Triglycerides 117 mg/dL (<150)
== END 2024-12-08 08:18 | disposition home or self-care (01) ==
LOC: HO.CHCLDS 08:17
PROVIDERS: Visit Provider Student in an Organized Health Care Education/Training Program
DX: I10 Essential (primary) hypertension (principal); R35.0 Frequency of micturition
CPT/HCPCS: 36415; 80048; 80061; 80076; 81001

== ENCOUNTER 2024-12-26 13:43 | Outpatient (AMB) | payer MEDICAID, SELFPAY ==
--- NOTE | 2024-12-26 13:45 | A.OFFVIS_ITS ---
Vital Signs 12/26/24 13:52 Height 5 ft 7 in Weight 174 lb BMI 27.2 BP 126/71 Blood Pressure Location Rt brachial Position Sitting Pulse 75 Intake Visit Reasons: sebaceous cyst lower back Intake Note: Patient referred by pcp Isabella Kat for cyst on Mid back. Present for 2yrs. Patient c/o: enlarging, itchy. Straightening Machine Feeder Required: Yes Accompanied by: Self / Same As Patient Allergies No Known Allergies Allergy (Verified 12/26/24 13:49) Medication List - Last Reconciled 12/26/24 by Efraní Jones MD aspirin 81 mg PO DAILY cetirizine 1 tab PO QAM cholecalciferol (vitamin D3) 125 mcg PO QWEEK ferrous sulfate (FeroSul) 1 tab PO QAM fluticasone propionate 110 mcg/actuation (Flovent HFA) 2 puffs inhalation BID folic acid 1 tab PO QAM hydroxyzine HCl 2 tabs PO BEDTIME lisinopril 1 tab PO QAM magnesium gluconate (Mag-G) 27 mg PO multivitamin 1 tab PO QAM naproxen 500 mg PO BID omeprazole 1 cap PO QAM rosuvastatin 40 mg PO BEDTIME sertraline 25 mg PO QAM simvastatin 1 tab PO QPM thiamine HCl (vitamin B1) 1 tab PO QAM ticagrelor (Brilinta) 90 mg PO BID 90 days topiramate 1 tab PO BEDTIME HPI HPI sebaceous cyst lower back: Details: 59-year-old male referred for a cyst on the back. He says he has had this for years. He says that this has starting to get very itchy and has been bothersome to him. There is some increased in size. He wants this removed. He denies any drainage. [facility] Medical History (Updated 12/26/24 @ 14:03 by Efraín Jones MD) Epidermal cyst History of blood clot in brain On anticoagulant therapy Elevated cholesterol HTN (hypertension) Hepatitis C History of ETOH abuse Asthma Cirrhosis Surgical History History of cardiac cath History of esophagogastroduodenoscopy (EGD) Hx of colonoscopy Family History Family/Other HTN (hypertension) Asthma Diabetes Social History Household Members: None Alcohol intake: never Patient Tobacco Use Status: Never used Tobacco service: No Current occupational status: unemployed and disabled Review of Systems Const Denies chills and Denies fever(s) Card Denies chest pain, Denies dyspnea and Denies dyspnea on exertion Resp Denies cough, Denies dyspnea and Denies dyspnea on exertion GI Denies hematochezia and Denies change in bowel habits Denies hematuria and Denies difficulty urinating Musc Denies back pain and Denies limited range of motion Neuro Denies focal weakness and Denies convulsions Psych Denies depression and Denies mood swings Physical Exam Vital Signs: Last Vital Signs Pulse 75 12/26/24 13:52 BP 126/71 12/26/24 13:52 BMI result Body Mass Index 27.2 Const General: comfortable and no acute distress Orientation/consciousness: patient oriented x3 Neck Neck: Yes no lymphadenopathy Resp Auscultation: clear to auscultation bilaterally Cardio Rhythm: regular rhythm GI Palpation (GI): Soft to palpation, nontender and no guarding Back/Spine/Pelvis Other: Epidermal cyst on the mid back, about 1.3 cm in diameter, noninflamed Neuro General: patient oriented x3 Assessment & Plan Assessment & Plan (1) Epidermal cyst: Code(s): L72.0 - Epidermal cyst Category: Medical Plan: He wants this excised. I explained the technique of excision under local ane sthesia. I reviewed the risks including but not limited to bleeding and infections. He wants to proceed This will be done in the office under local anesthesia on his next visit. He does not need to stop his anticoagulation. Coding Level of Care Code New Pt Level 3 (24935) Diagnoses Epidermal cyst L72.0
[2024-12-26 13:52] VITALS: BP 126/71; PULSE 75; BMI 27.2
--- OUTSIDE RECORDS SUMMARY | 2024-12-26 14:56 | XMS_ITS | Encounter Summary ---
Author Organization [employer] Address [address] [facility] 7t [place] [address] Care Team Providers Care Religion Department Chair Name Role Phone Isabella Tony MD Primary Care Provider [phone] Reason for Visit * Reason Onset Date Comments Nurse Triage 07/21/2023 Encounter Details Date Type Department Care Team ([facility] st Contact Info) Description 07/21/2023 Telephone [facility] MEDICINE [address] [place] [address] Isabella Tony MD [address] [place], [place] [phone] Nurse Triage Social History Tobacco Use Types [...] want to go to walk in at [facility] today ot tomorrow. Pt. Wants televisit. Pt. Is speaking in clear sentences and denies SOB or wheezing at present. Advised if develops SOB to go to walk in at [facility] until 730pm tonight. Protocol Used: [...] Care Team (Late st Contact Info) Description 12/27/2024 8:00 AM EDT Office Visit [facility] ADULT DENTAL [address] [place] [address] Julia Roblero [address] [place] [address] documented as of this encounter Visit Diagnoses Diagnosis Mild persistent asthma, unspecified whether complicated documented in this encounter Care Teams Religion Department Chair Relationship Specialty Start Date End Date Isabella Tony MD [address] [place] [address] PCP - General Family Medicine 07/12/12 documented as of this encounter
== END 2024-12-26 14:03 | disposition home or self-care (01) ==
LOC: HO.HGS 13:44
PROVIDERS: PCP Student in an Organized Health Care Education/Training Program; Visit Provider Surgery
DX: L72.0 Epidermal cyst (principal)
CPT/HCPCS: 99203

== ENCOUNTER → 2024-12-26 13:43 | Outpatient (BNVA) | payer MEDICAID, SELFPAY | PROVIDERS: PCP Student in an Organized Health Care Education/Training Program; Visit Provider Surgery | DX: L72.0 Epidermal cyst (principal) | CPT/HCPCS: 99202 ==

== ENCOUNTER 2025-01-18 11:36 | Outpatient (AMB) | payer MEDICAID, SELFPAY ==
[2025-01-18 12:02] VITALS: BP 115/74; PULSE 74; BMI 26.8
--- NOTE | 2025-01-18 12:02 | A.OFFVIS_ITS ---
Vital Signs 01/18/25 12:02 Height 5 ft 7 in Weight 171 lb BMI 26.8 BP 115/74 Blood Pressure Location Rt brachial Position Sitting Pulse 74 Intake Visit Reasons: sebacous cyst back Intake Note: Patient here for cyst excision on mid back. Cycle Touring Guide Required: Yes Accompanied by: Self / Same As Patient Allergies No Known Allergies Allergy (Verified 01/18/25 12:03) HPI HPI sebacous cyst back: Details: He is here for excision of a cyst from the back. [facility] Medical History (Updated 12/26/24 @ 14:03 by Efraín Jones MD) Epidermal cyst History of blood clot in brain On anticoagulant therapy Elevated cholesterol HTN (hypertension) Hepatitis C History of ETOH abuse Asthma Cirrhosis Surgical History History of cardiac cath History of esophagogastroduodenoscopy (EGD) Hx of colonoscopy Family History Family/Other HTN (hypertension) Asthma Diabetes Social History Household Members: None Alcohol intake: never Patient Tobacco Use Status: Never used Tobacco service: No Current occupational status: unemployed and disabled Physical Exam Vital Signs: Last Vital Signs Pulse 74 01/18/25 12:02 BP 115/74 01/18/25 12:02 BMI result Body Mass Index 26.8 Office Procedures Excision Details: He was in prone position. The area of the cyst was prepped and draped. Lidocaine 1% was used for local anesthesia. I made an elliptical incision on the skin overlying this cyst with a blade 15. And this was carried down through the full-thickness of the skin and subcutaneous fat. I then proceeded to identify the cyst capsule. I sharply dissected this off of the rest of the subcutaneous layer until this was completely excised. This was sent as a specimen I closed the incision with full-thickness nylon 3-0 simple interrupted sutures. Dressings were applied. The procedure was completed. He tolerated the procedure well. There were no immediate complications. There was minimal blood loss. He was given wound care instructions. [id number]/arms/legs 1.1-2cm Procedure code (CPT) selection complete Assessment & Plan Assessment & Plan (1) Epidermal cyst: Code(s): L72.0 - Epidermal cyst Category: Medical Plan: Excision done in the office. I will see him in the office in about 2 weeks for removal sutures. Coding Level of Care Code Procedure Only Diagnoses Epidermal cyst L72.0 CPT Codes Trunk/Arms/Legs - CPT: [id number]/arms/legs 1.1-2cm ([id number])
--- OUTSIDE RECORDS SUMMARY | 2025-01-18 13:50 | XMS_ITS | Encounter Summary ---
Author Organization [employer] Address [address] [facility] [address] 7[address] [place] [address] Care Team Providers Care Jewel Hole Finish Opener Name Role Phone Isabella Tony MD Primary Care Provider [phone] Reason for Visit * Reason Onset Date Comments Nurse Triage 07/21/2023 Encounter Details Date Type Department Care Team ([facility] Contact Info) Description 07/21/2023 Telephone [facility] MEDICINE [address] [place] [address] Isabella Tony MD [facility] [address] [place], [place] [phone] Nurse Triage Social History Tobacco Use Types Packs/Day Years Used Date Smoking Tobacco: Never Passive Smoke Exposure: Never Smokeless Tobacco: Never Alcohol Use Standard Drinks/Week Comments Not Currently 0 (1 standard drink = 0.6 oz pur e alcohol) Housing Stability Answer Date Recorded What is your housing situation today? [place] have [place] 05/11/[address] you [...] want to go to walk in at [facility] today ot tomorrow. Pt. Wants televisit. Pt. Is speaking in clear sentences and denies SOB or wheezing at present. Advised if develops SOB to go to walk in at [facility] until 730pm tonight. Protocol Used: COVID-19 - [...] documented in this encounter Plan of Treatment Not on file documented as of this encounter Visit Diagnoses Diagnosis Mild persistent asthma, unspecified whether complicated documented in this encounter Care Teams Jewel Hole Finish Opener Relationship Specialty Start Date End Date Isabella Tony MD [address] [place] [address] PCP - General Family Medicine 07/12/12 documented as of this encounter
== END 2025-01-18 12:26 | disposition home or self-care (01) ==
PROVIDERS: PCP Student in an Organized Health Care Education/Training Program; Visit Provider Surgery
DX: L72.0 Epidermal cyst (principal)
CPT/HCPCS: 11402

== ENCOUNTER 2025-01-18 11:36 | Outpatient (REF) | payer MEDICAID, SELFPAY | END 2025-01-18 11:37 | disposition home or self-care (01) | LOC: HO.LNP 11:36 | PROVIDERS: PCP Student in an Organized Health Care Education/Training Program; Visit Provider Surgery | DX: L72.0 Epidermal cyst (principal) | CPT/HCPCS: 11402; 88304 ==

== ENCOUNTER 2025-02-01 12:53 | Outpatient (AMB) | payer MEDICAID, SELFPAY ==
--- NOTE | 2025-02-01 13:10 | A.OFFVIS_ITS ---
Vital Signs 02/01/25 13:12 Height 5 ft 7 in Weight 171 lb BMI 26.8 Intake Visit Reasons: s/p cyst exc~ mid back Intake Note: Pt states, I think they're going to take my stitches out. c/o itching Allergies No Known Allergies Allergy (Verified 02/01/25 13:14) HPI HPI s/p cyst exc~ mid back: Details: Patient returning to the office for removal of sutures following excision of an epidermal cyst in the mid back. His only complaint is that the area around is itchy. He denies fever, chills, pain. [facility] Medical History Epidermal cyst History of blood clot in brain On anticoagulant therapy Elevated cholesterol HTN (hypertension) Hepatitis C History of ETOH abuse Asthma Cirrhosis Surgical History History of cardiac cath History of esophagogastroduodenoscopy (EGD) Hx of colonoscopy Family History Family/Other HTN (hypertension) Asthma Diabetes Social History Household Members: None Alcohol intake: never Patient Tobacco Use Status: Never used Tobacco service: No Current occupational status: unemployed and disabled Review of Systems Const All systems reviewed & are unremarkable except as noted in HPI and below Physical Exam Vital Signs: BMI result Body Mass Index 26.8 Const General: comfortable and no acute distress Orientation/consciousness: patient oriented x3 Resp Effort & Inspection: normal respiratory effort and able to speak in complete sentences Skin Other: Mid back: Excision site appears to be healing well, sutures were removed. There was some scabbing and some blood after removal of the sutures. No palpable fluid collection no surrounding erythema. Some dry skin Neuro General: patient oriented x3 Assessment & Plan Assessment & Plan (1) H/O excision of epidermal inclusion cyst: Code(s): Z98.890 - Other specified postprocedural states; Z87.2 - Personal history of diseases of the skin and subcutaneous tissue Category: Medical Plan 59-year-old male presents to the office for suture removal following excision of a epidermal inclusion cyst of the midback. Patient is doing well reporting some itching of the area in his bothersome because it is a hard area to scratch. He denies fevers chills, pain at the site. Denies additional discharge. To sutures removed in office, the incision site appears to be healing well no surrounding erythema or fluid collection. There is some dry skin surrounding the area. I applied some bacitracin jelly to try and help with this and covered with a Band-Aid. Recommended that he can use other moisturizers as needed if this remains itchy. Patient tolerated suture removal well. Surgical pathology as follows, epidermal inclusion cyst, I discussed this with the patient. At this point he is a local requiring follow up, he can return with any concerns in the future Coding Level of Care Code Est Pt Level 3 (20624) Diagnoses H/O excision of epidermal inclusion cyst Z98.890; Z87.2
[2025-02-01 13:12] VITALS: BMI 26.8
--- OUTSIDE RECORDS SUMMARY | 2025-02-01 13:44 | XMS_ITS | Encounter Summary ---
Author Organization [employer] Address [address] [facility] [address] [place] [address] Care Team Providers Care Brineyard Supervisor Name Role Phone Isabella Tony MD Primary Care Provider [phone] Reason for Visit * Reason Onset Date Comments Nurse Triage 07/21/2023 Encounter Details Date Type Department Care Team ([facility] Contact Info) Description 07/21/[address] [facility] MEDICINE [address] [place] [address] Isabella Tony MD [facility] [place] [address] Nurse Triage Social History Tobacco Use Types [...] want to go to walk in at [facility] today ot tomorrow. Pt. Wants televisit. Pt. Is speaking in clear sentences and denies SOB or wheezing at present. Advised if develops SOB to go to walk in at [facility] until 730pm tonight. Protocol Used: [...] complicated documented in this encounter Care Teams Brineyard Supervisor Relationship Specialty Start Date End Date Isabella Tony MD [address] [place] [address] PCP - General Family Medicine 07/12/12 documented as of this encounter
--- OUTSIDE RECORDS SUMMARY | 2025-02-01 13:44 | XMS_ITS | Clinical Summary ---
Author Organization [facility] Address [address] [address] Care Team Providers Care Holiday Detector Operator Name Role Phone Isabella Tony MD Primary Care Provider [phone] Social History Tobacco Use Types Packs/Day Years [...] of 1 - PCV) 017 Influenza Vaccine (#1) 2025 [place] [id number] [place] Care Teams Holiday Detector Operator Relationship Specialty Start Date End Date Isabella Tony MD [address] [place] [address] PCP - General Family Medicine 05/20/21
--- OUTSIDE RECORDS SUMMARY | 2025-02-01 13:44 | XMS_ITS | Clinical Summary ---
Author Organization [facility] Address [address] [place] [address] Care Team Providers Care Front Desk Monitor Name Role Phone Unavailable Primary Care Provider [...] 63 06/02/2015 6:20 AM EST Temperature 37.1 C (98.7 F) 06/02/2015 6:20 AM EST Respiratory Rate 17 06/02/2015 6:20 AM EST Oxygen Saturation 99% 06/02/2015 6:20 AM EST Inhaled Oxygen Concentration - - Weight 72.6 kg (160 lb) 06/02/2015 12:52 AM EST Height 167.6 cm (5' 6 ) 06/02/2015 12:52 AM EST Body Mass Index 25.82 06/02/2015 12:52 AM EST Plan of Treatment Not on file Trever Ledesma Personal/Family Self 1965 [address] [address] [place] [address]
== END 2025-02-01 13:54 | disposition home or self-care (01) ==
LOC: HO.HGS 12:54
PROVIDERS: PCP Student in an Organized Health Care Education/Training Program
DX: Z98.890 Other specified postprocedural states (principal); Z87.2 Personal history of diseases of the skin and subcutaneous tissue
CPT/HCPCS: 99213

== ENCOUNTER → 2025-02-01 12:53 | Outpatient (BNVA) | payer MEDICAID, SELFPAY | PROVIDERS: PCP Student in an Organized Health Care Education/Training Program | DX: Z98.890 Other specified postprocedural states (principal); Z87.2 Personal history of diseases of the skin and subcutaneous tissue | CPT/HCPCS: 99212 ==

== ENCOUNTER → 2025-02-14 06:47 | Outpatient (BNV) | payer MEDICAID, SELFPAY | PROVIDERS: Emergency Provider Emergency Medicine; PCP Student in an Organized Health Care Education/Training Program; Visit Provider Radiology Diagnostic Radiology | DX: M25.511 Pain in right shoulder (principal) | CPT/HCPCS: 73030 ==

== ENCOUNTER 2025-02-14 07:08 | Emergency (ER) | payer MEDICAID, SELFPAY ==
--- NOTE | ~2025-02-14 | XR_ITS ---
EXAMINATION: XR SHOULDER, RIGHT CLINICAL INFORMATION: right shoulder pain COMPARISON: None available. TECHNIQUE: AP external rotation, Grashey, scapular Y, and axillary views of the right shoulder. FINDINGS: Subchondral cyst formation and sclerotic margins along the articular surface of the inferior anterior glenoid right scapula. Mild degenerative changes in the acromioclavicular joint. No acute cortical disruption or malalignment. No lytic or blastic lesions. XR/XR shoulder RT min 2V IMPRESSION: Mild degenerative changes, glenohumeral joint and acromioclavicular joint. Electronically signed by: Richmond James MD 02/14/2025 07:57 AM EDT
[2025-02-14 07:12] VITALS: BP 121/64; PULSE 78; RESP 18; TEMP 36.9; O2SAT 100; BMI 26.9
--- OUTSIDE RECORDS SUMMARY | 2025-02-14 07:39 | XMS_ITS | Clinical Summary ---
Author Organization [facility] Facility Address [address] [address] Care Team Providers Care Sap Security Consultant Name Role Phone Isabella Tony MD Primary Care Provider [phone] Social History Tobacco Use Types Packs/Day Years [...] Vaccine (#1) 2025 [place] [id number] [place] Care Teams Sap Security Consultant Relationship Specialty Start Date End Date Isabella Tony MD [address] [place] [address] PCP - General Family Medicine 05/20/21
--- OUTSIDE RECORDS SUMMARY | 2025-02-14 07:39 | XMS_ITS | Clinical Summary ---
Author Organization [facility] Address [address] [place] [address] Care Team Providers Care Master Scheduler Name Role Phone Unavailable Primary Care Provider [...] file Trever Ledesma Personal/Family Self 1965 [address] [address] [place] [address]
--- NOTE | 2025-02-14 07:54 | ECG_ITS ---
Test Reason : CHEST PAIN Blood Pressure : */* mmHG Vent. Rate : 64 BPM Atrial Rate : 64 BPM P-R Int : 160 ms QRS Dur : 100 ms QT Int : 412 ms P-R-T Axes : 56 8 6 degrees QTcB Int : 425 ms Poor data quality, interpretation may be adversely affected Normal sinus rhythm Normal ECG When compared with ECG of 31-Mar-2024 19:11, No significant change was found Referred By: Ronaldo Hicks Electronically Signed By: Carson Diamond
--- NOTE | 2025-02-14 07:54 | ED.EXTPRO ---
HPI - Extremity Problem General Chief complaint: Extremity Injury, Upper Stated complaint: left shoulder, back pain Time Seen by Provider: 02/14/25 07:46 Source: patient Mode of arrival: ambulatory Limitations: no limitations History of Present Illness HPI Narrative: This is 59 years old male presented to the emergency department complaining of right shoulder pain pain is worse with movement of the shoulder he denies any injury he has no chest pain no exertional symptoms. MD Complaint: extremity pain Onset (ago): day(s) (2) Pain Consistency: constant Location: right and other (shoulder) Quality: aching Radiation: proximal Relieving factors: rest Exacerbating factors: range of motion Associated symptoms: denies other symptoms Related Data Home Medications ?Medication ?Instructions ?Recorded ?Confirmed cetirizine 10 mg tablet 1 tab PO QAM 01/18/21 12/26/24 ferrous sulfate 325 mg (65 mg 1 tab PO QAM 01/18/21 12/26/24 iron) tablet (FeroSul) fluticasone propionate 110 2 puff inhalation BID 01/18/21 12/26/24 mcg/actuation HFA aerosol inhaler (Flovent HFA) folic acid 1 mg tablet 1 tab PO QAM 01/18/21 12/26/24 hydroxyzine HCl 50 mg tablet 2 tab PO BEDTIME 01/18/21 12/26/24 lisinopril 10 mg tablet 1 tab PO QAM 01/18/21 12/26/24 multivitamin 1 tab PO QAM 01/18/21 12/26/24 omeprazole 40 mg capsule,delayed 1 cap PO QAM 01/18/21 12/26/24 release simvastatin 10 mg tablet 1 tab PO QPM 01/18/21 12/26/24 Held on 05/21/21. Instructions: Resume on 05/28/21. thiamine HCl (vitamin B1) 100 mg 1 tab PO QAM 01/18/21 12/26/24 tablet topiramate 50 mg tablet 1 tab PO BEDTIME 01/18/21 12/26/24 cholecalciferol (vitamin D3) 125 125 mcg PO QWEEK 05/05/23 12/26/24 mcg (5,000 unit) capsule magnesium gluconate 27 mg 27 mg PO 04/11/24 12/26/24 magnesium (500 mg) tablet (Mag-G) naproxen 500 mg tablet 500 mg PO BID 05/02/24 12/26/24 rosuvastatin 40 mg tablet 40 mg PO BEDTIME 05/02/24 12/26/24 sertraline 25 mg tablet 25 mg PO QAM 12/26/24 12/26/24 Previous Rx's ?Medication ?Instructions ?Recorded aspirin 81 mg tablet,delayed 81 mg PO DAILY to keep heart stent 04/26/24 release open #90 tabs ticagrelor 90 mg tablet (Brilinta) 90 mg PO BID To keep heart stent 04/26/24 open 90 days #180 tabs oxycodone 5 mg tablet 5 mg PO Q6H PRN pain #15 tabs 02/14/25 Allergies Allergy/AdvReac Type Severity Reaction Status Date / Time No Known Allergies Allergy Verified 02/14/25 07:17 Review of Systems Constitutional: Constitutional: Reports no additional constitutional complaints ENT: Reports system reviewed and no additional complaints, except as documented Musculoskeletal: Musculoskeletal: Reports as per [facility] Past Medical History Attestation statement: The following information was validated with the patient. Medical History Epidermal cyst History of blood clot in brain On anticoagulant therapy Elevated cholesterol HTN (hypertension) Hepatitis C History of ETOH abuse Asthma Cirrhosis Surgical History History of cardiac cath History of esophagogastroduodenoscopy (EGD) Hx of colonoscopy Family History Family History Family/Other HTN (hypertension) Asthma Diabetes Social History Social History Household Members: None Alcohol intake: never Patient Tobacco Use Status: Never used Tobacco Advance Directives: No Advance Directives Information Provided: Yes service: No Current occupational status: unemployed and disabled Physical Exam Exam: Exam: No acute distress Vital Signs: Vital Signs: Last Vital Signs Temp 97.2 F 02/14/25 08:09 Pulse 65 02/14/25 08:09 Resp 16 02/14/25 08:09 BP 107/57 L 02/14/25 08:09 Pulse Ox 100 02/14/25 08:09 O2 Del Method Room Air 02/14/25 08:09 BMI result Body Mass Index 26.9 Const: General: cooperative, comfortable and no acute distress Nutritional Appearance: average body habitus Orientation/consciousness: patient oriented x3 Limitations: no limitations HEENT: Head: Yes normal to inspection General nose exam: Normal external nose present Face and sinus: Yes normal facial exam Mouth: Normal oral and palatal mucosa present Throat: Yes posterior oropharynx normal Neck: Neck: Yes normal visual inspection Chest: Chest palpation & inspection: normal inspection of the chest Resp: Effort & Inspection: normal respiratory effort Auscultation: clear to auscultation bilaterally Cardio: Jugular venous distension: no JVD Rate: regular rate Rhythm: regular rhythm GI: Other: Soft nontender Inspection: Yes normal to inspection Palpation (GI): Soft to palpation Auscultation: normal bowel sounds Skin: General skin exam: no rashes or lesions noted Neuro: General: patient oriented x3 Course Reevaluation(s) Reevaluation #1: X-ray no fracture electrocardiogram okay I think he can be discharged home the pain is clearly musculoskeletal worse with movement he will follow-up with the his primary care physician Time: 08:48 Medical Decision Making Medical Decision Making MDM Narrative: Patient presented complaining of shoulder pain, we will obtain x-ray and EKG the pain is musculoskeletal is worse with movement 08:50 a.m. x-ray and showed DJD electrocardiogram no acute ischemia pain is clearly musculoskeletal was movement I think he can be discharged home follow-up with his primary care physician he is comfortable with the plan of care Differential Diagnosis Differential Diagnoses: The differential diagnosis associated with the presentation includes Differential diagnosis/ ACS musculoskeletal pain /impingement syndrome Admission/Observation Consideration of admission/observation: Escalation of care including admission/observation considered Independent Interpretation I performed an independent interpretation of an: EKG Interpretation: Normal sinus rhythm rate [address]-T changes normal EKG Radiology Impression Discussion of test interpretation with radiology: I have reviewed the radiologist's reading. Radiologist Impression: None available. TECHNIQUE: AP external rotation, Grashey, scapular Y, and axillary views of the right shoulder. FINDINGS: Subchondral cyst formation and sclerotic margins along the articular surface of the inferior anterior glenoid right scapula. Mild degenerative changes in the acromioclavicular joint. No acute cortical disruption or malalignment. No lytic or blastic lesions. XR/XR shoulder RT min 2V IMPRESSION: Mild degenerative changes, glenohumeral joint and acromioclavicular joint. Electronically signed by: Richmond James MD 02/14/2025 07:57 AM EDT RP Dictated By: Richmond Soni MD Signed By: <Electronically signed by Richmond Nobles MD in OV> 02/14/25 0757 DD/ 0647 Discharge Plan Discharge Clinical Impression: Acute shoulder pain Qualifiers: Laterality: right Qualified Code(s): M25.511 - Pain in right shoulder Patient Disposition: Home, Self-Care Instructions: Shoulder Pain (ED) Additional Instructions: Please follow-up with your primary care physician call and make an appointment return if worse Prescriptions: New oxycodone 5 mg tablet 5 mg PO Q6H PRN (Reason: pain) Qty: 15 0RF Rx Instructions: partial filing upon pt request; Partial Fill upon patient request. No Action aspirin 81 mg tablet,delayed release (DR/EC) 81 mg PO DAILY Qty: 90 3RF Rx Instructions: 1 tablet daily Brilinta 90 mg tablet 90 mg PO BID 90 Days Qty: 180 3RF Rx Instructions: Take 2 tablets on first dose only. Then take 1 tablet in the am and 1 tablet in the pm multivitamin Tablet 1 tab PO QAM cetirizine 10 mg tablet 1 tab PO QAM simvastatin 10 mg tablet 1 tab PO QPM thiamine HCl (vitamin B1) 100 mg tablet 1 tab PO QAM hydroxyzine HCl 50 mg tablet 2 tab PO BEDTIME omeprazole 40 mg capsule,delayed release(DR/EC) 1 cap PO QAM ferrous sulfate [FeroSul] 325 mg (65 mg iron) tablet 1 tab PO QAM lisinopril 10 mg tablet 1 tab PO QAM folic acid 1 mg tablet 1 tab PO QAM fluticasone propionate [Flovent HFA] 110 mcg/actuation HFA aerosol inhaler 2 puff inhalation BID topiramate 50 mg tablet 1 tab PO BEDTIME magnesium gluconate [Mag-G] 27 mg magnesium (500 mg) tablet 27 mg PO cholecalciferol (vitamin D3) 125 mcg (5,000 unit) capsule 125 mcg PO QWEEK rosuvastatin 40 mg tablet 40 mg PO BEDTIME naproxen 500 mg tablet 500 mg PO BID sertraline 25 mg tablet 25 mg PO QAM Referrals: Isabella Tony MD [Primary Care Provider, Internal Medicine] - 02/16/25 Print Language: Algerian
[2025-02-14 08:09] VITALS: BP 107/57; PULSE 65; RESP 16; TEMP 36.2; O2SAT 100
[2025-02-14 09:18] VITALS: BP 144/80; PULSE 59; RESP 16; TEMP 36.6; O2SAT 99
== END 2025-02-14 09:18 | disposition home or self-care (01) ==
PROVIDERS: Emergency Provider Emergency Medicine; PCP Student in an Organized Health Care Education/Training Program
DX: M25.511 Pain in right shoulder (principal); I10 Essential (primary) hypertension; E78.5 Hyperlipidemia, unspecified; Z79.82 Long term (current) use of aspirin; Z79.02 Long term (current) use of antithrombotics/antiplatelets; Z79.899 Other long term (current) drug therapy
CPT/HCPCS: 73030; 93005; 99283; 99284

== ENCOUNTER → 2025-02-14 07:54 | Outpatient (BNV) | payer MEDICAID, SELFPAY | PROVIDERS: Emergency Provider Emergency Medicine; PCP Student in an Organized Health Care Education/Training Program; Visit Provider Internal Medicine Cardiovascular Disease | DX: R07.9 Chest pain, unspecified (principal) | CPT/HCPCS: 93010 ==

== ENCOUNTER 2025-02-20 08:04 | Outpatient (RCR) | payer MEDICAID, SELFPAY ==
[2025-02-20 08:12] VITALS: BP 116/65; PULSE 70; O2SAT 100
== END 2025-02-27 08:52 | disposition home or self-care (01) ==
LOC: HO.PT 08:04
PROVIDERS: PCP Student in an Organized Health Care Education/Training Program; Visit Provider Nurse Practitioner Family
DX: M79.671 Pain in right foot (principal)
CPT/HCPCS: 97162

== ENCOUNTER 2025-03-13 09:55 | Outpatient (AMB) | payer MEDICAID, SELFPAY ==
[2025-03-13 10:19] VITALS: BP 100/62; PULSE 68; BMI 27.1
--- NOTE | 2025-03-13 10:19 | MHC.OFFVIS ---
Vital Signs 03/13/25 10:19 Height 5 ft 7 in Weight 172 lb 13.478 oz BMI 27.1 BP 100/62 Blood Pressure Location Lt brachial Position Sitting Pulse 68 Pulse Source Pulse Oximeter Intake Visit Reasons: r/s 08/11/24 3 mos followup Winding Department Supervisor Required: Yes Winding Department Supervisor Language: Mold Shifter Name: voice [id number] Allergies No Known Allergies Allergy (Verified 03/13/25 10:22) Medication List - Last Reconciled 03/13/25 by BENITEZ LassiterC aspirin 81 mg PO DAILY cetirizine 1 tab PO QAM cholecalciferol (vitamin D3) 125 mcg PO QWEEK ferrous sulfate (FeroSul) 1 tab PO QAM fluticasone propionate 110 mcg/actuation (Flovent HFA) 2 puffs inhalation BID folic acid 1 tab PO QAM hydroxyzine HCl 2 tabs PO BEDTIME lisinopril 1 tab PO QAM magnesium gluconate (Mag-G) 27 mg PO multivitamin 1 tab PO QAM naproxen 500 mg PO BID omeprazole 1 cap PO QAM oxycodone 5 mg PO Q6H PRN rosuvastatin 40 mg PO BEDTIME sertraline 25 mg PO QAM simvastatin 1 tab PO QPM Held on 05/21/21. Instructions: Resume on 05/28/21. thiamine HCl (vitamin B1) 1 tab PO QAM ticagrelor (Brilinta) 90 mg PO BID 90 days topiramate 1 tab PO BEDTIME HPI HPI r/s 08/11/24 3 mos followup: Details: Trever is a 58-year-old male with past medical history of hypertension, hyperlipidemia, chronic hep C, cirrhosis, CAD with LAD stent 04/20/2024 who presents for follow-up. His last prior visit was 05/02/2024. Today he reports that for the last month he has noticed increased fatigue and shortness of breath. He will get stabbing pains in his legs and arms as well as his chest with ambulation. No lightheadedness, presyncope, syncope, falls. No chest discomfort or shortness of breath at rest. No PND, orthopnea or edema. Taking all meds as directed. No bleeding issues reported. Certified spanish medical interpreter used. [facility] Medical History Epidermal cyst History of blood clot in brain On anticoagulant therapy Elevated cholesterol HTN (hypertension) Hepatitis C History of ETOH abuse Asthma Cirrhosis Surgical History History of cardiac cath History of esophagogastroduodenoscopy (EGD) Hx of colonoscopy Family History Family/Other HTN (hypertension) Asthma Diabetes Social History Household Members: None Unable to assess alcohol history related to: Unknown Alcohol intake: never Patient Tobacco Use Status: Never used Tobacco service: No Current occupational status: unemployed and disabled Review of Systems Const All systems reviewed & are unremarkable except as noted in HPI and below Reports fatigue ENT Denies dizziness Card Reports chest pain, Denies chest pain at rest, Reports chest pain with activity, Denies rapid heart rate, Denies pedal edema, Denies edema, Denies leg edema, Denies lightheadedness, Denies palpitations, Denies dyspnea, Reports dyspnea on exertion and Denies orthopnea Resp Denies cough, Denies dyspnea and Reports dyspnea on exertion GI Denies hematochezia and Denies change in stool character Musc Denies abnormal gait, Denies limited range of motion, Denies muscle cramps, Denies muscle weakness, Denies numbness, Denies radiating pain into limb, Denies stiffness and Denies tingling Neuro Denies abnormal gait, Denies dizziness, Denies numbness and Denies tingling Endo Reports fatigue and Denies palpitations Physical Exam Vital Signs: Last Vital Signs Pulse 68 03/13/25 10:19 BP 80/42 L 03/13/25 10:19 BMI result Body Mass Index 27.1 Const Other: Pale lips, nail beds, hands and gums noted General: cooperative, comfortable and no acute distress Orientation/consciousness: patient oriented x3 Neck Neck: Yes normal visual inspection Resp Effort & Inspection: normal respiratory effort Auscultation: clear to auscultation bilaterally, no crackles, no rales, no rhonchi and no wheezes Cardio Rate: regular rate Rhythm: regular rhythm Heart sounds: S1 normal heart sound present, S2 normal heart sound present, no murmurs and no rubs Neuro General: patient oriented x3 Extrem General: Yes normal to inspection Psych Appearance: grossly normal Mental Status: mental status grossly normal Speech and movement: Normal speech and movement present Office Procedures EKG Details: Today, read by me, normal sinus rhythm, with sinus arrythmia, rate 62, Qtc 420ms [id number], Complete Assessment & Plan Assessment & Plan (1) Coronary atherosclerosis: Code(s): I25.10 - Atherosclerotic heart disease of [place] coronary artery without angina pectoris Category: Medical Plan: CAD with LAD stent 04/20/2024. Catheterization had shown proximal LAD 95% stenosis, KITTY was placed, other vessels normal. He has been on aspirin 81 mg daily and Brilinta 90 mg b.i.d.. He is not on beta-annette. He is on lisinopril 10 mg daily. EKG today showing normal sinus rhythm with sinus arrhythmia, rate 62. Symptoms of increased fatigue, shortness of breath and stabbing pains in arms, legs and chest with walking. Will check labs today including CBC, CMP and TSH.- if results are abnormal then will consider nuclear stress test to evaluate for ischemia. Cardiology office visit 3 months, sooner if needed. (2) S/P cardiac catheterization: Comment: 04/20/2024, left main normal, lad proximal 95% stenosis, high risk, angioplasty and KITTY placed, left circumflex normal, RCA normal Code(s): Z98.890 - Other specified postprocedural states Category: Surgical (3) Stented coronary artery: Comment: LAD sent 04/20/24 Code(s): Z95.5 - Presence of coronary angioplasty implant and graft Category: Surgical Plan: As above (4) Fatigue: Code(s): R53.83 - Other fatigue Category: Medical Plan: Report of fatigue in last month. No signs of bleeding. Pale lips, gums - he does take iron tablet and is on asa and brilinta - checking labs. Plan I discussed with the patient the need for an EKG to evaluate his chest pain and fatigue. We reviewed the importance of continuing his current medication and dietary regimen. I explained that further actions will be based on the EKG, lab tests results, and we will consider additional interventions if necessary. Orders: Orders Complete Blood Count Auto Diff Today R53.83 - Other fatigue Comprehensive Met. Panel Today R53.83 - Other fatigue TSH reflex Free T4 Today R53.83 - Other fatigue Patient Instructions: - Continue taking prescribed medications as directed. - Maintain current dietary habits, including vegetables, rice, and fluids. - Obtain labs today - following this visit - plan of care based on results. Patient was informed and verbally consented to the use of an ambient scribe for clinic note documentation during this visit. Visit time spent on chart review, interview, assessment, orders, documentation. Coding Level of Care Code Est Pt Level 4 (54028) Complex EM visit Add On G2211 Diagnoses Coronary atherosclerosis I25.10 S/P cardiac catheterization Z98.890 Stented coronary artery Z95.5 Fatigue R53.83 CPT Codes EKG - CPT: [id number], Complete ([id number]) Time Spent (min) 32
--- OUTSIDE RECORDS SUMMARY | 2025-03-13 10:47 | XMS_ITS ---
Author Organization [employer] Address [address] [place] [address] Care Team Providers Care Gastrointestinal Technician Name Role Phone Isabella Tony MD Primary Care Provider [phone] Mike Aldridge RN Unavailable Chikis Lucero Unavailable [facility] Status:Enrolled (Active) Start date:02/15/2025 Enrollment date:02/15/2025 Enrollment reason:ADT Feed Overview ADT-[facility] ED 02/14/25 Case Team Name Relationship Phone Chikis Lucero(Responsible Staff) Continued Care and Services Coordination
--- OUTSIDE RECORDS SUMMARY | 2025-03-13 10:47 | XMS_ITS | Clinical Summary ---
Author Organization [facility] Facility Address [address] [address] Care Team Providers Care Director Of Materials Name Role Phone Isabella Tony MD Primary Care Provider [phone] Social History Tobacco Use Types Packs/Day Years [...] Vaccine (#1) 2025 [id number] [place] Care Teams Director Of Materials Relationship Specialty Start Date End Date Isabella Tony MD [address] [place] [address] PCP - General Family Medicine 05/20/21
--- OUTSIDE RECORDS SUMMARY | 2025-03-13 10:47 | XMS_ITS | Clinical Summary ---
Author Organization [facility] Address [address] [place] [address] Care Team Providers Care Paper Steamer Name Role Phone Unavailable Primary Care Provider [...] file Trever Ledesma Personal/Family Self 1965 [address] [address] [place] [address]
== END 2025-03-13 11:04 | disposition home or self-care (01) ==
LOC: HO.HCS 09:55
PROVIDERS: PCP Student in an Organized Health Care Education/Training Program; Visit Provider Nurse Practitioner Family
DX: I25.10 Atherosclerotic heart disease of native coronary artery without angina pectoris (principal); Z98.890 Other specified postprocedural states; Z95.5 Presence of coronary angioplasty implant and graft; R53.83 Other fatigue
CPT/HCPCS: 93010; 99214

== ENCOUNTER 2025-03-13 09:55 | Outpatient (REF) | payer MEDICAID, SELFPAY ==
[2025-03-13 11:25] LABS: MANUAL DIFF FLAG NO
[2025-03-13 11:46] LABS: Imm Gran Abs Auto 0.01 X10*3/uL (0.00-0.03); Imm Gran Pct Auto 0.3 % (0.0-0.4); Lymphocytes Absolute Auto 1.2 X10*3/uL (1.2-4.9); Mean Corpuscular HGB Conc 27.5 g/dl (31.0-36.0); Mean Corpuscular Hemoglobin 21.7 pg (27.0-33.0); Mean Corpuscular Volume 79.1 fL (80.0-98.0); NRBC Abs Auto 0.020 X10*3/uL (0.0-0.012); NRBC Pct Auto 0.6 /100WBC (0.0-0.2); Platelet Count 212 X10*3/uL (160-400); Red Blood Count 2.58 X10*6/uL (4.60-5.80); White Blood Count 3.5 X10*3/uL (4.8-10.8)
[2025-03-13 11:51] LABS: Hematocrit 20.4 % (42.0-52.0); Hemoglobin 5.6 g/dl (14.0-18.0)
[2025-03-13 12:25] LABS: Alanine Aminotransferase 18 U/L (0-40); Albumin Level 3.8 g/dL (3.5-5.0); Alkaline Phosphatase 82 U/L (39-117); Anion Gap 8 (12-20); Aspartate Amino Transferase 30 U/L (5-37); Blood Urea Nitrogen 10 mg/dL (9-16); Calcium 8.0 mg/dL (8.4-10.2); Carbon Dioxide 20 mmol/L (22-29); Chloride 117 mmol/L (96-108); Estimated Glomerular Filt Rate > 60; Potassium 3.6 mmol/L (3.3-5.1); Sodium 141 mmol/L (135-145); Total Protein 6.0 g/dL (6.5-8.0)
== END 2025-03-13 09:56 | disposition home or self-care (01) ==
LOC: HO.LAB 09:55
PROVIDERS: PCP Student in an Organized Health Care Education/Training Program; Visit Provider Nurse Practitioner Family
DX: Z98.890 Other specified postprocedural states (principal); I25.10 Atherosclerotic heart disease of native coronary artery without angina pectoris; D64.9 Anemia, unspecified; R06.02 Shortness of breath; R53.83 Other fatigue; Z95.5 Presence of coronary angioplasty implant and graft
CPT/HCPCS: 36415; 80053; 84443; 85025; 93005; 99212

== ENCOUNTER 2025-03-13 13:06 | Inpatient (IN) | payer MEDICAID, SELFPAY ==
[2025-03-13] VITALS (7 sets, daily range): BP systolic 115–134; BP diastolic 53–76; PULSE 57–72; RESP 12–20; TEMP 36.5–37; O2SAT 100; BMI 26.9; BMI 27.1
--- NOTE | ~2025-03-13 | US_ITS ---
EXAMINATION: US DOPPLER LIVER LIMITED CLINICAL INFORMATION: Cirrhosis. COMPARISON: None available. TECHNIQUE: Ultrasound along with color Doppler imaging and spectral analysis was performed of the main portal vein and hepatic veins.. FINDINGS: The main portal veins are patent with normal hepatopedal flow direction. The main hepatic veins are patent with normal hepatofugal flow direction. US/US duplex arterial venous comp IMPRESSION: Normal patency and flow direction of the interrogated hepatic vessels Electronically signed by: Richmond James MD 03/15/2025 12:35 PM EDT
--- NOTE | 2025-03-13 13:37 | ED.RECABL ---
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 Patient states over the last month he has been symptomatic with fatigue, with stabbing pains in his legs, arms, chest with ambulation or exertion. Patient denies chest pain or SOB at rest. When asking the patient about having dark or tarry, bloody stool patient reports that he never looks at his stool and truly does not know the characteristics of his stool. Patient denies lightheadedness, dizziness, syncope, nausea, vomiting Related Data Home Medications ?Medication ?Instructions ?Recorded ?Confirmed cetirizine 10 mg tablet 1 tab PO QAM 01/18/21 03/13/25 ferrous sulfate 325 mg (65 mg 1 tab PO QAM 01/18/21 03/13/25 iron) tablet (FeroSul) fluticasone propionate 110 2 puff inhalation BID 01/18/21 03/13/25 mcg/actuation HFA aerosol inhaler (Flovent HFA) folic acid 1 mg tablet 1 tab PO QAM 01/18/21 03/13/25 hydroxyzine HCl 50 mg tablet 2 tab PO BEDTIME 01/18/21 03/13/25 lisinopril 10 mg tablet 1 tab PO QAM 01/18/21 03/13/25 multivitamin 1 tab PO QAM 01/18/21 03/13/25 omeprazole 40 mg capsule,delayed 1 cap PO QAM 01/18/21 03/13/25 release simvastatin 10 mg tablet 1 tab PO QPM 01/18/21 03/13/25 Held on 05/21/21. Instructions: Resume on 05/28/21. thiamine HCl (vitamin B1) 100 mg 1 tab PO QAM 01/18/21 03/13/25 tablet topiramate 50 mg tablet 1 tab PO BEDTIME 01/18/21 03/13/25 cholecalciferol (vitamin D3) 125 125 mcg PO QWEEK 05/05/23 03/13/25 mcg (5,000 unit) capsule magnesium gluconate 27 mg 27 mg PO 04/11/24 03/13/25 magnesium (500 mg) tablet (Mag-G) naproxen 500 mg tablet 500 mg PO BID 05/02/24 03/13/25 rosuvastatin 40 mg tablet 40 mg PO BEDTIME 05/02/24 03/13/25 sertraline 25 mg tablet 25 mg PO QAM 12/26/24 03/13/25 Previous Rx's ?Medication ?Instructions ?Recorded aspirin 81 mg tablet,delayed 81 mg PO DAILY to keep heart stent 04/26/24 release open #90 tabs ticagrelor 90 mg tablet (Brilinta) 90 mg PO BID To keep heart stent 04/26/24 open 90 days #180 tabs oxycodone 5 mg tablet 5 mg PO Q6H PRN pain #15 tabs 02/14/25 Allergies Allergy/AdvReac Type Severity Reaction Status Date / Time No Known Allergies Allergy Verified 03/13/25 13:33 Review of Systems Review of Systems: CONST: Negative for fever, body aches and chills. POS fatigue HENT: Negative for neck pain/stiffness, headache, congestion, sore throat, swelling. EYES: Negative for discharge/pain or vision changes. RESP: Negative for cough/hemoptysis and shortness of breath. CV: Negative chest pain, difficulty breathing, palpitations. ABD: Negative pain, nausea, vomiting. : Negative increase frequency, dysuria, blood in urine or stool. MUSC: Negative for muscle aches, edema. SKIN: Negative rash, lesions/sores. NEURO: Negative headache, dizziness, weakness. Yes all other systems are reviewed and are negative PMFSH Past Medical History Attestation statement: The following information was validated with the patient. Source: old records reviewed and nursing notes reviewed Medical History Epidermal cyst History of blood clot in brain On anticoagulant therapy Elevated cholesterol HTN (hypertension) Hepatitis C History of ETOH abuse Asthma Cirrhosis Surgical History History of cardiac cath History of esophagogastroduodenoscopy (EGD) Hx of colonoscopy Family History Family History Family/Other HTN (hypertension) Asthma Diabetes Social History Social History Household Members: None Unable to assess alcohol history related to: Unknown Alcohol intake: never Patient Tobacco Use Status: Never used Tobacco Smoked in Last 30 Days: No Use of substances other than those prescribed or required for medical reasons: No Advance Directives: No Advance Directives Information Provided: Yes service: No Current occupational status: unemployed and disabled Physical Exam Vital Signs: Vital Signs: Last Vital Signs Temp 98.3 F 03/13/25 16:19 Pulse 66 03/13/25 16:19 Resp 12 03/13/25 16:19 BP 121/68 03/13/25 16:19 Pulse Ox 100 03/13/25 14:24 O2 Del Method Room Air 03/13/25 14:24 BMI result Body Mass Index 26.9 GENERAL APPEARANCE: ?AxOx4, pale appearing, no acute distress. HEENT: ?NC, AT. MMM. EOMI, conjunctival pallor, oropharynx clear. NECK: ?Supple without lymphadenopathy.? No stiffness or restricted ROM. HEART:? Normal rate and regular rhythm, normal S1/S2, no m/r/g LUNGS:? CTAB, moving air well. No crackles or wheezes are heard. ABDOMEN: ?Soft, nontender, nondistended with good bowel sounds heard. BACK: No CVAT, no obvious deformity. EXTREMITIES: ?Without cyanosis, clubbing or edema. NEUROLOGICAL: ?Grossly nonfocal. Alert and oriented, moving all 4 extremities. Observed to ambulate with normal gait. Skin: ?Warm and dry without any rash. Course Course Course Narrative: This is a Rapid Medical Examination (RME) performed by Duane Chacon PA-C in triage. Full HPI, ROS, assessment and treatment plan per primary provider in the Main ED. Hx: 59 yo M here after receiving critical call from cardiology office for an H&H of 5.6/20.4. Sent here for blood transfusion. He is being evaluated for fatigue x1 month. Denies melena, hematochezia. He is currently on aspirin and Brilinta. History CAD, status post LAD stent 2023. PE/vitals: well appearing Plan: Repeat labs, type and screen Medications Administered Discontinued Medications Generic Name Dose Route Start Last Admin Trade Name Carmita PRN Reason Stop Dose Admin Pantoprazole Sodium 40 mg 03/13/25 14:23 03/13/25 14:31 Pantoprazole Sodium 40 Mg/10 Ml Vial IVPUSH 03/13/25 14:24 40 mg ONCE ONE Administration Medical Decision Making Medical Decision Making MDM Narrative: 59-year-old male with medical history of CAD s/p LAD stent 04/20/2024, HTN, hepatitis-C, asthma, cirrhosis, elevated cholesterol, history of alcohol abuse has been sober for several years presents to the ED by recommendation of his hyperbaric technician due to profound anemia on his lab results today. Patient states over the last month he has been symptomatic with fatigue, with stabbing pains in his legs, arms, chest with ambulation or exertion. Patient denies chest pain or SOB at rest. When asking the patient about having dark or tarry, bloody stool patient reports that he never looks at his stool and truly does not know the characteristics of his stool. VS on initial observation-BP 133/75, pulse rate 72, respiratory rate of 18, afebrile with oral temp of 98.6?, O2 saturation 100% on room air. On physical examination patient in no acute distress, nontoxic appearing however is pale, with conjunctival pallor, lungs clear to auscultation bilaterally without rales, crackles, rhonchi. Cardiac exam with normal rate and rhythm no murmurs/rubs/gallops, no JVD. Abdomen soft, nondistended, nontender, extremities without pitting edema or hydrostatic bullae. Patient had labs drawn today at 11:23 a.m. in hyperbaric technician's office which revealed a microcytic anemia with a hemoglobin of 5.6, and hematocrit of 20.4, lab redraw done when patient arrived to department microcytic anemia has worsened hemoglobin now 5.3, hematocrit now 18.7. Hyperchloremia of 118, however this seems to be around patient's baseline. Occult stool blood positive Course 14:58- I reviewed consent form for transfusion, patient signed. Patient to receive blood transfusion with 1 unit, we will recheck CBC after transfusion. Patient with history of CAD s/p LAD stent 04/20/2024 is at risk for TACO we will monitor for signs of fluid overload while being transfused. Patient medicated with 40 mg IV Protonix for possible upper GI bleed. Patient being signed out to my colleague Dr. Gooden who will resume care of patient. Patient is aware of this change. I received sign-out from my colleague BAYLEE Steiner. This time of sign-out, patient's workup is complete. I discussed the patient with Dr. Ortiz from the Medicine team, patient being admitted. Patient tolerating well he is transfusion Differential Diagnosis Differential Diagnoses: The differential diagnosis associated with the presentation includes Anemia Electrolyte abnormality GI bleed Admission/Observation Consideration of admission/observation: Escalation of care including admission/observation considered Lab Data MDM Lab Attestation statement: I reviewed the patient's lab results. 03/13/25 14:21 03/13/25 14:21 Labs: Lab Results 03/13/25 03/13/25 03/13/25 Range/Units 14:21 14:27 14:35 WBC 3.4 L (4.8-10.8) X10*3/uL RBC 2.40 L (4.60-5.80) X10*6/uL Hgb 5.3 L* (14.0-18.0) g/dl Hct 18.7 L* (42.0-52.0) % MCV 77.9 L (80.0-98.0) fL MCH 22.1 L (27.0-33.0) pg MCHC 28.3 L (31.0-36.0) g/dl RDW 14.7 (11.0-16.0) % Plt Count 187 (160-400) X10*3/uL MPV 11.4 (9.4-12.4) fL Immature Gran % (Auto) 0.3 (0.0-0.4) % Neut % (Auto) 53.1 (45-73) % Lymph % (Auto) 34.7 (20-40) % [place] % (Auto) 11.0 (2-11) % Eos % (Auto) 0.9 (0-4) % Baso % (Auto) 0.0 (0-2) % Lymph # (Auto) 1.2 (1.2-4.9) X10*3/uL [place] # (Auto) 0.4 (0.1-1.2) X10*3/uL Eos # (Auto) 0.0 (0.0-0.4) X10*3/uL Baso # (Auto) 0.0 (0.0-0.2) X10*3/uL Abs Immat Gran (auto) 0.01 (0.00-0.03) X10*3/uL Absolute Neuts (auto) 1.8 L (2.0-8.3) x10*3/uL Absolute Nucleated RBC 0.000 (0.0-0.012) X10*3/uL Nucleated RBC % (auto) 0.0 (0.0-0.2) /100WBC PT 12.6 H (10.9-12.4) SEC INR 1.1 (0.9-1.1) APTT 28.0 (26.7-34.1) SEC Sodium 142 (135-145) mmol/L Potassium 3.6 (3.3-5.1) mmol/L Chloride 118 H (96-108) mmol/L Carbon Dioxide 18 L (22-29) mmol/L Anion Gap 10 L (12-20) BUN 10 (9-16) mg/dL Creatinine 1.10 (0.5-1.4) mg/dL Estim Creat Clear Calc 69.2 Estimated GFR > 60 Random Glucose 133 H (60-115) mg/dL Calcium 8.0 L (8.4-10.2) mg/dL Magnesium 2.3 (1.6-2.6) mg/dL Total Bilirubin 0.3 (0.0-1.0) mg/dL AST 33 (5-37) U/L ALT 21 (0-40) U/L Alkaline Phosphatase 86 (39-117) U/L Total Protein 5.8 L (6.5-8.0) g/dL Albumin 3.7 (3.5-5.0) g/dL Stool Occult Blood POSITIVE (NEGATIVE) Blood Type B Positive Antibody Screen NEGATIVE Crossmatch See Detail External Record Review External record reviewed: Inpatient record, Office record and Outpatient record Chronic Conditions Patient?s care impacted by: Hypertension and Other (CAD s/p LAD stent 04/20/2024, HTN, hepatitis-C, asthma, cirrhosis, HLD,) Critical Care Time Critical Care Time Critical Care Time: Yes Total Critical Care Time: 60 Attestation: I have personally provided critical care time. Time includes review of lab data, radiology results, discussion with consultants, and monitoring for potential decompensation. Intervention performed as documented. Discharge Plan Discharge Clinical Impression: Anemia, GI bleed Patient Disposition: Admitted As Inpatient Print Language: [place]an
[2025-03-13 14:26] LABS: MANUAL DIFF FLAG NO
--- NOTE | 2025-03-13 14:26 | PC.NURSE ---
59 M presents to ED with low h&h from pcp appointment. Pt denies any pain, sob, or weakness. A+OX4, calm, cooperative. Pt ambulates indepedently. RR even and unlabored.
[2025-03-13 14:28] LABS: Imm Gran Abs Auto 0.01 X10*3/uL (0.00-0.03); Imm Gran Pct Auto 0.3 % (0.0-0.4); Lymphocytes Absolute Auto 1.2 X10*3/uL (1.2-4.9); Mean Corpuscular HGB Conc 28.3 g/dl (31.0-36.0); Mean Corpuscular Hemoglobin 22.1 pg (27.0-33.0); Mean Corpuscular Volume 77.9 fL (80.0-98.0); NRBC Abs Auto 0.000 X10*3/uL (0.0-0.012); NRBC Pct Auto 0.0 /100WBC (0.0-0.2); Platelet Count 187 X10*3/uL (160-400); Red Blood Count 2.40 X10*6/uL (4.60-5.80); White Blood Count 3.4 X10*3/uL (4.8-10.8)
[2025-03-13 14:30] LABS: Hematocrit 18.7 % (42.0-52.0); Hemoglobin 5.3 g/dl (14.0-18.0)
[2025-03-13 14:42] LABS: OBS Int Ctl Valid YES; OBS1 POSITIVE (NEGATIVE)
[2025-03-13 14:43] LABS: INTERNATIONAL NORM RATIO 1.1 (0.9-1.1); Prothrombin Time 12.6 SEC (10.9-12.4)
[2025-03-13 14:45] LABS: Partial Thromboplastin Time 28.0 SEC (26.7-34.1)
[2025-03-13 14:47] LABS: Alanine Aminotransferase 21 U/L (0-40); Albumin Level 3.7 g/dL (3.5-5.0); Alkaline Phosphatase 86 U/L (39-117); Anion Gap 10 (12-20); Aspartate Amino Transferase 33 U/L (5-37); Blood Urea Nitrogen 10 mg/dL (9-16); Calcium 8.0 mg/dL (8.4-10.2); Carbon Dioxide 18 mmol/L (22-29); Chloride 118 mmol/L (96-108); Creatinine Clr Calc Pharmacy 69.2; Estimated Glomerular Filt Rate > 60; Magnesium 2.3 mg/dL (1.6-2.6); Potassium 3.6 mmol/L (3.3-5.1); Sodium 142 mmol/L (135-145); Total Protein 5.8 g/dL (6.5-8.0)
--- NOTE | 2025-03-13 17:07 | PM.IMHP ---
History of Present Illness Date of Service: 03/13/25 Chief Complaint: anemia 59 year old male with history of HTN, h/o etoh use, HTN, hep C, cirrhosis, CAD on ASA, brilanta and Naproxen. He has been experiencing fatigue and dyspnea with exertion for near 1 month. He had routine lab done today and was called in due very low hemoglobin and hematocrit. Hemoglobin is 5.3, hematocrit 18.7; prior to this hemoglobin was 13 and hamatocrit was 40 back in March 2024. He had colonoscopy March 2024 with finding of polyp, internal hemorrhoids and diverticular disease. A remote EGD in 2021 showed gastritis and possible morgan. Occult blood is positive. He is being transfused 2 units of RBC and given IV protonix. He denies melana or hematochezia and has hasn't drank alcohol in years. Review of Systems Review of Systems: Gen: no fever Resp: no sob, no cough CV: no chest, no KHAN, no leg edema GI: No n/v, no abd pain Neuro: No confusion Yes all other systems are reviewed and are negative [facility] Medical History Epidermal cyst History of blood clot in brain On anticoagulant therapy Elevated cholesterol HTN (hypertension) Hepatitis C History of ETOH abuse Asthma Cirrhosis Family History Family/Other HTN (hypertension) Asthma Diabetes Surgical History History of cardiac cath History of esophagogastroduodenoscopy (EGD) Hx of colonoscopy Social History Household Members: None Housing: Apartment Do you presently have visiting nurse or other home services: Yes Unable to assess alcohol history related to: Unknown Alcohol intake: never Patient Tobacco Use Status: Never used Tobacco Smoked in Last 30 Days: No e-Cigarette/Vaping Use: Never Used Second Hand Smoke Exposure: No Use of substances other than those prescribed or required for medical reasons: No Currently Displaying Signs/Symptoms of Drug Intoxication Withdrawal: No Have you been hit, kicked, punched, or otherwise hurt by someone within the past year? If so, by whom?: No Do you feel safe in your current relationship?: No Current Relationship Is there a partner from a previous relationship who is making you feel unsafe now?: No Are you made to feel afraid or neglected: No Advance Directives: No Advance Directives Information Provided: Yes Do you have a plan to hurt others: No Plan Recently lost weight without trying: No Eating poorly because of decreased appetite: No Nutrition Risks: No Nutritional Risk Poor oral hygiene: No service: No Current occupational status: unemployed and disabled Meds Allergies Allergy/AdvReac Type Severity Reaction Status Date / Time No Known Allergies Allergy Verified 03/13/25 13:33 Home Medications ?Medication ?Instructions ?Recorded ?Confirmed ?Last Taken ?Type cetirizine 10 mg tablet 1 tab PO DAILY 01/18/21 03/13/25 05/17/21 History ferrous sulfate 325 mg (65 mg 1 tab PO DAILY 01/18/21 03/13/25 05/17/21 History iron) tablet (FeroSul) folic acid 1 mg tablet 1 tab PO DAILY 01/18/21 03/13/25 05/17/21 History hydroxyzine HCl 50 mg tablet 50 mg PO BEDTIME 01/18/21 03/13/25 05/16/21 History multivitamin 1 tab PO DAILY 01/18/21 03/13/25 03/13/25 History omeprazole 40 mg capsule,delayed 1 cap PO DAILY@0630 01/18/21 03/13/25 05/17/21 History release thiamine HCl (vitamin B1) 100 mg 1 tab PO DAILY 01/18/21 03/13/25 05/17/21 History tablet topiramate 50 mg tablet 1 tab PO BEDTIME 01/18/21 03/13/25 03/12/25 History magnesium gluconate 27 mg 27 mg PO DAILY 04/11/24 03/13/25 Unknown History magnesium (500 mg) tablet (Mag-G) rosuvastatin 40 mg tablet 40 mg PO BEDTIME 05/02/24 03/13/25 Unknown History sertraline 25 mg tablet 25 mg PO DAILY 12/26/24 03/13/25 03/13/25 History acetaminophen 500 mg tablet 1,000 mg PO BEDTIME PRN Pain 03/13/25 03/13/25 Unknown History albuterol sulfate 90 mcg/actuation 2 puff inhalation Q4H PRN wheezing 03/13/25 03/13/25 Unknown History aerosol inhaler (Ventolin HFA) cholecalciferol (vitamin D3) 125 125 mcg PO TU@0900 03/13/25 03/13/25 Unknown History mcg (5,000 unit) capsule fluticasone 100 mcg-salmeterol 50 1 ea inhalation BID 03/13/25 03/13/25 Unknown History mcg/dose blistr powdr for inhalation (Advair Diskus) levetiracetam 500 mg tablet 500 mg PO BID 03/13/25 03/13/25 03/13/25 History lisinopril 5 mg tablet 5 mg PO DAILY 03/13/25 03/13/25 Unknown History Physical Exam Vital Signs and Narrative: Vital Signs: Last Vital Signs Temp 98.3 F 03/13/25 16:19 Pulse 66 03/13/25 16:19 Resp 12 03/13/25 16:19 BP 121/68 03/13/25 16:19 Pulse Ox 100 03/13/25 14:24 O2 Del Method Room Air 03/13/25 14:24 BMI result Body Mass Index 26.9 Const: Other: General: AO X 3, no acute distress Resp: CTA bilateral CVS: S1,S2,RRR GI: +BS, NT, no distention Skin: No rash Neuro: motor grossly intact Psych: appropriate affect Results Labs 03/14/25 05:59 03/14/25 05:59 Labs: Laboratory Results - last 24 hr 03/13/25 03/13/25 03/13/25 14:21 14:27 14:35 MCV 77.9 L MCH 22.1 L MCHC 28.3 L RDW 14.7 Plt Count 187 MPV 11.4 Immature Gran % (Auto) 0.3 Neut % (Auto) 53.1 Lymph % (Auto) 34.7 [place] % (Auto) 11.0 Eos % (Auto) 0.9 Baso % (Auto) 0.0 Lymph # (Auto) 1.2 [place] # (Auto) 0.4 Eos # (Auto) 0.0 Baso # (Auto) 0.0 Abs Immat Gran (auto) 0.01 Absolute Neuts (auto) 1.8 L Absolute Nucleated RBC 0.000 Nucleated RBC % (auto) 0.0 PT 12.6 H INR 1.1 APTT 28.0 Anion Gap 10 L Estim Creat Clear Calc 69.2 Estimated GFR > 60 Random Glucose 133 H Calcium 8.0 L Magnesium 2.3 Total Bilirubin 0.3 AST 33 ALT 21 Alkaline Phosphatase 86 Total Protein 5.8 L Albumin 3.7 Stool Occult Blood POSITIVE Blood Type B Positive Antibody Screen NEGATIVE Crossmatch See Detail Assessment and Plan (1) GI bleed: Status: Acute (2) Acute blood loss anemia: Status: Acute Plan 59 year old male with history of HTN, h/o etoh use, HTN, hep C, cirrhosis, CAD on ASA, brilanta and naproxen here with acute GIB and severe acute blood loss anemia GIB, likely upper GIB, DDx: PUD, gastritis, esophagitis Transfused 2 units stop ASA, Brilanta Monitor H/H IV PPI GI consult and likely EGD tomorrow Liquid diet, NPO after midnight Chronic issues (HTN, HLD, CAD, Anxiety) resume home med per med rec Hyperchloremic metabolic acidosis likely DVT prophylaxis: compression device Full code Quality Stroke Does the patient have a stroke diagnosis?: No VTE Prior VTE?: No VTE Risk Level:: Medical - moderate - high VTE Device Contraindication: Treatment Not Tolerated VTE Drug Contraindication: N/A - Med Ordered
[2025-03-13] MEDS: Lactated Ringers 1,000 ML 80 ML IVCONT (18:32)
--- NOTE | 2025-03-13 18:44 | PHA.MEDREC ---
Addendum entered by Dilcia Paiz [facility] 03/13/25 19:26: [facility] REVIEWED Original Note: Pharmacy Consult ? Medication Reconciliation Pharmacy has completed the medication reconciliation. Spoke with pt and he was a poor historian about his medications and knew some meds but states he gets them in a med box from [facility]. Pt stated there was no other family to call; I contacted Mike (put in as pt son but is actually nephew according to him) and was not sure what pt takes at this time either and stated he is the only family pt has here. I utilized claims to confirm what the pt could not.
[2025-03-13] MEDS: 0.9 % Sodium Chloride Flush 3 ML SYRINGE IVFLUSH (22:31)
[2025-03-14] VITALS (11 sets, daily range): BP systolic 116–149; BP diastolic 59–92; PULSE 55–81; RESP 16–18; TEMP 36.1–37; O2SAT 97–100
[2025-03-14] MEDS: Lactated Ringers 1,000 ML 80 ML IVCONT ×2 (06:26→19:07)
[2025-03-14 06:51] LABS: Hematocrit 21.6 % (42.0-52.0); Mean Corpuscular HGB Conc 30.1 g/dl (31.0-36.0); Mean Corpuscular Hemoglobin 24.3 pg (27.0-33.0); Mean Corpuscular Volume 80.9 fL (80.0-98.0); NRBC Abs Auto 0.000 X10*3/uL (0.0-0.012); NRBC Pct Auto 0.0 /100WBC (0.0-0.2); Platelet Count 179 X10*3/uL (160-400); Red Blood Count 2.67 X10*6/uL (4.60-5.80); White Blood Count 3.9 X10*3/uL (4.8-10.8)
[2025-03-14 07:08] LABS: Anion Gap 9 (12-20); Blood Urea Nitrogen 9 mg/dL (9-16); Calcium 8.0 mg/dL (8.4-10.2); Carbon Dioxide 20 mmol/L (22-29); Chloride 118 mmol/L (96-108); Creatinine Clr Calc Pharmacy 72.5; Estimated Glomerular Filt Rate > 60; Potassium 3.7 mmol/L (3.3-5.1); Sodium 143 mmol/L (135-145)
[2025-03-14 07:36] LABS: Hemoglobin 6.5 g/dl (14.0-18.0)
[2025-03-14] MEDS: 0.9 % Sodium Chloride Flush 3 ML SYRINGE IVFLUSH ×2 (08:38→21:38)
--- NOTE | 2025-03-14 10:45 | HO.ANESPROP2 ---
HPI - Anesthesia Eval Consult details Narrative: 59 yr old male for upper endoscopy No recent illness +fatigue, SOB, CP with walking x1 month, requiring rest with walking. Acute blood loss anemia: received 2 units PRBCs for Hgb 6.5 today; last Brilinta dose 03/12/25 Atherosclerotic heart disease of [place] coronary artery without angina pectoris: follows with [facility] cards, last visit 03/13/25, labs ordered and were abnormal so he was referred to ED. S/P CAD with LAD stent 04/20/2024; Catheterization had shown proximal LAD 95% stenosis, KITTY was placed, other vessels normal. Has been taking aspirin 81 mg daily and Brilinta 90 mg b.i.d. Hep C/cirrhosis: platelets 179, INR 1.1, LFTs WNL PMFSH Active Problems Active Problems: All Active Problems Acute blood loss anemia (Acute) GI bleed (Acute) Anemia (Acute) Fatigue (Acute) H/O excision of epidermal inclusion cyst (Acute) Epidermal cyst (Acute) Palpitation (Acute) Stented coronary artery (Acute) Coronary atherosclerosis (Acute) S/P cardiac catheterization (Acute) Exertional angina (Acute) Colon cancer screening (Acute) Rhabdomyolysis (Acute) High cholesterol (Acute) Chronic hepatitis C (Acute) HTN (hypertension) (Acute) Cirrhosis (Acute) Asthma (Acute) On anticoagulant therapy (Acute) Past Medical History Medical History Epidermal cyst History of blood clot in brain On anticoagulant therapy Elevated cholesterol HTN (hypertension) Hepatitis C History of ETOH abuse Asthma Cirrhosis Family History Family History Family/Other HTN (hypertension) Asthma Diabetes Family history of problems with anesthesia: No Surgical History Surgical History History of cardiac cath History of esophagogastroduodenoscopy (EGD) Hx of colonoscopy History of Problems with Anesthesia: No Social History Social History Household Members: None Housing: Apartment Do you presently have visiting nurse or other home services: Yes Unable to assess alcohol history related to: Unknown Alcohol intake: never Patient Tobacco Use Status: Never used Tobacco Smoked in Last 30 Days: No e-Cigarette/Vaping Use: Never Used Second Hand Smoke Exposure: No Use of substances other than those prescribed or required for medical reasons: No Currently Displaying Signs/Symptoms of Drug Intoxication Withdrawal: No Have you been hit, kicked, punched, or otherwise hurt by someone within the past year? If so, by whom?: No Do you feel safe in your current relationship?: No Current Relationship Is there a partner from a previous relationship who is making you feel unsafe now?: No Are you made to feel afraid or neglected: No Advance Directives: No Advance Directives Information Provided: Yes Do you have a plan to hurt others: No Plan Recently lost weight without trying: No Eating poorly because of decreased appetite: No Nutrition Risks: No Nutritional Risk Poor oral hygiene: No service: No Current occupational status: unemployed and disabled Meds Allergies Allergy/AdvReac Type Severity Reaction Status Date / Time No Known Allergies Allergy Verified 03/13/25 13:33 Active Medications: Current Medications Acetaminophen (Acetaminophen 325 Mg Tablet) 650 mg PO Q6H PRN PRN Reason: Pain, Mild 1-3,fever,headache Last Admin: 03/13/25 22:43 Dose: 650 mg Calcium Carbonate (Calcium Carbonate 750 Mg Tab.Chew) 750 mg PO Q4H PRN PRN Reason: Heartburn Lactated Ringer's (Lr) 1,000 mls @ 80 mls/hr IVCONT .[id number] [facility] Last Admin: 03/14/25 06:26 Dose: 80 mls/hr Magnesium Hydroxide (Milk Of Magnesia 30 Ml Oral.Susp) 30 ml PO DAILY PRN PRN Reason: Constipation Melatonin (Melatonin 3 Mg Tablet) 6 mg PO BEDTIME PRN PRN Reason: Insomnia Pantoprazole Sodium (Pantoprazole Sodium 40 Mg/10 Ml Vial) 40 mg IVPUSH DAILY@0630 [facility] Last Admin: 03/14/25 06:23 Dose: 40 mg Sodium Chloride (0.9 % Sodium Chloride Flush 3 Ml Syringe) 3 ml IVFLUSH QSHIFT [facility] Last Admin: 03/14/25 08:38 Dose: 3 ml Home Medications ?Medication ?Instructions ?Recorded ?Confirmed ?Last Taken ?Type cetirizine 10 mg tablet 1 tab PO DAILY 01/18/21 03/13/25 05/17/21 History ferrous sulfate 325 mg (65 mg 1 tab PO DAILY 01/18/21 03/13/25 05/17/21 History iron) tablet (FeroSul) folic acid 1 mg tablet 1 tab PO DAILY 01/18/21 03/13/25 05/17/21 History hydroxyzine HCl 50 mg tablet 50 mg PO BEDTIME 01/18/21 03/13/25 05/16/21 History multivitamin 1 tab PO DAILY 01/18/21 03/13/25 03/13/25 History omeprazole 40 mg capsule,delayed 1 cap PO DAILY@0630 01/18/21 03/13/25 05/17/21 History release thiamine HCl (vitamin B1) 100 mg 1 tab PO DAILY 01/18/21 03/13/25 05/17/21 History tablet topiramate 50 mg tablet 1 tab PO BEDTIME 01/18/21 03/13/25 03/12/25 History magnesium gluconate 27 mg 27 mg PO DAILY 04/11/24 03/13/25 Unknown History magnesium (500 mg) tablet (Mag-G) rosuvastatin 40 mg tablet 40 mg PO BEDTIME 05/02/24 03/13/25 Unknown History sertraline 25 mg tablet 25 mg PO DAILY 12/26/24 03/13/25 03/13/25 History acetaminophen 500 mg tablet 1,000 mg PO BEDTIME PRN Pain 03/13/25 03/13/25 Unknown History albuterol sulfate 90 mcg/actuation 2 puff inhalation Q4H PRN wheezing 03/13/25 03/13/25 Unknown History aerosol inhaler (Ventolin HFA) cholecalciferol (vitamin D3) 125 125 mcg PO TU@0900 03/13/25 03/13/25 Unknown History mcg (5,000 unit) capsule fluticasone 100 mcg-salmeterol 50 1 ea inhalation BID 03/13/25 03/13/25 Unknown History mcg/dose blistr powdr for inhalation (Advair Diskus) levetiracetam 500 mg tablet 500 mg PO BID 03/13/25 03/13/25 03/13/25 History lisinopril 5 mg tablet 5 mg PO DAILY 03/13/25 03/13/25 Unknown History Exam Height,Weight and Vital Signs: Height 5 ft 7 in Weight 78.5 kg Last Vital Signs Temp 97.6 F 03/14/25 09:43 Pulse 60 03/14/25 09:43 Resp 16 03/14/25 09:43 BP 121/64 03/14/25 09:43 Pulse Ox 100 03/14/25 07:47 O2 Del Method Room Air 03/14/25 07:47 Pertinent Lab Results Pertinent Lab Results: Laboratory Tests 03/13/25 03/13/25 03/13/25 14:21 14:27 14:35 WBC 3.4 L RBC 2.40 L Hgb 5.3 L* Hct 18.7 L* MCV 77.9 L MCH 22.1 L MCHC 28.3 L RDW 14.7 Plt Count 187 MPV 11.4 Immature Gran % (Auto) 0.3 Neut % (Auto) 53.1 Lymph % (Auto) 34.7 [place] % (Auto) 11.0 Eos % (Auto) 0.9 Baso % (Auto) 0.0 Lymph # (Auto) 1.2 [place] # (Auto) 0.4 Eos # (Auto) 0.0 Baso # (Auto) 0.0 Abs Immat Gran (auto) 0.01 Absolute Neuts (auto) 1.8 L Absolute Nucleated RBC 0.000 Nucleated RBC % (auto) 0.0 PT 12.6 H INR 1.1 APTT 28.0 Sodium 142 Potassium 3.6 Chloride 118 H Carbon Dioxide 18 L Anion Gap 10 L BUN 10 Creatinine 1.10 Estim Creat Clear Calc 69.2 Estimated GFR > 60 Random Glucose 133 H Calcium 8.0 L Magnesium 2.3 Total Bilirubin 0.3 AST 33 ALT 21 Alkaline Phosphatase 86 Total Protein 5.8 L Albumin 3.7 Stool Occult Blood POSITIVE Blood Type B Positive Antibody Screen NEGATIVE Crossmatch See Detail 03/14/25 05:59 WBC 3.9 L RBC 2.67 L Hgb 6.5 L* D Hct 21.6 L MCV 80.9 MCH 24.3 L MCHC 30.1 L RDW 15.7 Plt Count 179 MPV 12.4 Immature Gran % (Auto) Neut % (Auto) Lymph % (Auto) [place] % (Auto) Eos % (Auto) Baso % (Auto) Lymph # (Auto) [place] # (Auto) Eos # (Auto) Baso # (Auto) Abs Immat Gran (auto) Absolute Neuts (auto) Absolute Nucleated RBC 0.000 Nucleated RBC % (auto) 0.0 PT INR APTT Sodium 143 Potassium 3.7 Chloride 118 H Carbon Dioxide 20 L Anion Gap 9 L BUN 9 Creatinine 1.05 Estim Creat Clear Calc 72.5 Estimated GFR > 60 Random Glucose 89 Calcium 8.0 L Magnesium Total Bilirubin AST ALT Alkaline Phosphatase Total Protein Albumin Stool Occult Blood Blood Type Antibody Screen Crossmatch Narrative Narrative: EKG 03/13/25 Vent. Rate : 64 BPM Atrial Rate : 64 BPM P-R Int : 160 ms QRS Dur : 100 ms QT Int : 412 ms P-R-T Axes : 56 8 6 degrees QTcB Int : 425 ms Poor data quality, interpretation may be adversely affected Normal sinus rhythm Normal ECG When compared with ECG of 31-Mar-2024 19:11, No significant change was found Airway Mallampati Class: II TM Dist: >3cm Neck ROM: Full Partial: Upper Loose/Missing/Broken Teeth: No Heart: RRR Lungs: CTAB Assessment and Plan Final Anesthetic Review Family History of Problems with Anesthesia: No History of Problems with Anesthesia: No
--- NOTE | 2025-03-14 11:13 | P.PNIM_ITS ---
Subjective Subjective Date of Service: 03/14/25 Interval History: f/u gib, acute blood loss anemia no active bleed, H/H remains low despite 1 unit of RBC Physical Exam 2 Vital Signs: Vital Signs: Last Vital Signs Temp 97.6 F 03/14/25 09:43 Pulse 60 03/14/25 09:43 Resp 16 03/14/25 09:43 BP 121/64 03/14/25 09:43 Pulse Ox 100 03/14/25 07:47 O2 Del Method Room Air 03/14/25 07:47 BMI result Body Mass Index 27.1 Const: Other: General: AO X 3, no acute distress Resp: CTA bilateral CVS: S1,S2,RRR GI: +BS, NT, no distention Skin: No rash Neuro: motor grossly intact Psych: appropriate affect Objective Data Active Medications Acetaminophen (Acetaminophen 325 Mg Tablet) 650 mg PO Q6H PRN PRN Reason: Pain, Mild 1-3,fever,headache Last Admin: 03/13/25 22:43 Dose: 650 mg Documented By: STUART Calcium Carbonate (Calcium Carbonate 750 Mg Tab.Chew) 750 mg PO Q4H PRN PRN Reason: Heartburn Lactated Ringer's (Lr) 1,000 mls @ 80 mls/hr IVCONT .[id number] [facility] Last Admin: 03/14/25 06:26 Dose: 80 mls/hr Documented By: STUART Magnesium Hydroxide (Milk Of Magnesia 30 Ml Oral.Susp) 30 ml PO DAILY PRN PRN Reason: Constipation Melatonin (Melatonin 3 Mg Tablet) 6 mg PO BEDTIME PRN PRN Reason: Insomnia Pantoprazole Sodium (Pantoprazole Sodium 40 Mg/10 Ml Vial) 40 mg IVPUSH DAILY@0630 [facility] Last Admin: 03/14/25 06:23 Dose: 40 mg Documented By: STUART Sodium Chloride (0.9 % Sodium Chloride Flush 3 Ml Syringe) 3 ml IVFLUSH QSHIFT [facility] Last Admin: 03/14/25 08:38 Dose: 3 ml Documented By: KASIA Labs 03/14/25 05:59 03/14/25 05:59 Labs: Laboratory Results - last 24 hr 03/13/25 03/13/25 03/13/25 14:21 14:27 14:35 MCV 77.9 L MCH 22.1 L MCHC 28.3 L RDW 14.7 Plt Count 187 MPV 11.4 Immature Gran % (Auto) 0.3 Neut % (Auto) 53.1 Lymph % (Auto) 34.7 [place] % (Auto) 11.0 Eos % (Auto) 0.9 Baso % (Auto) 0.0 Lymph # (Auto) 1.2 [place] # (Auto) 0.4 Eos # (Auto) 0.0 Baso # (Auto) 0.0 Abs Immat Gran (auto) 0.01 Absolute Neuts (auto) 1.8 L Absolute Nucleated RBC 0.000 Nucleated RBC % (auto) 0.0 PT 12.6 H INR 1.1 APTT 28.0 Anion Gap 10 L Estim Creat Clear Calc 69.2 Estimated GFR > 60 Random Glucose 133 H Calcium 8.0 L Magnesium 2.3 Total Bilirubin 0.3 AST 33 ALT 21 Alkaline Phosphatase 86 Total Protein 5.8 L Albumin 3.7 Stool Occult Blood POSITIVE Blood Type B Positive Antibody Screen NEGATIVE Crossmatch See Detail 03/14/25 05:59 MCV 80.9 MCH 24.3 L MCHC 30.1 L RDW 15.7 Plt Count 179 MPV 12.4 Immature Gran % (Auto) Neut % (Auto) Lymph % (Auto) [place] % (Auto) Eos % (Auto) Baso % (Auto) Lymph # (Auto) [place] # (Auto) Eos # (Auto) Baso # (Auto) Abs Immat Gran (auto) Absolute Neuts (auto) Absolute Nucleated RBC 0.000 Nucleated RBC % (auto) 0.0 PT INR APTT Anion Gap 9 L Estim Creat Clear Calc 72.5 Estimated GFR > 60 Random Glucose 89 Calcium 8.0 L Magnesium Total Bilirubin AST ALT Alkaline Phosphatase Total Protein Albumin Stool Occult Blood Blood Type Antibody Screen Crossmatch Assessment and Plan (1) GI bleed: Status: Acute (2) Acute blood loss anemia: Status: Acute Plan 59 year old male with history of HTN, h/o etoh use, HTN, hep C, cirrhosis, CAD on ASA, brilanta and naproxen here with acute GIB and severe acute blood loss anemia GIB, likely upper GIB, DDx: PUD, gastritis, esophagitis Transfused 2 units, Hgb 5.5--> 6.5 stopped ASA, Brilanta Monitor H/H Transfuse 1 more unit IV PPI For EGD today NPO Chronic issues (HTN, HLD, CAD, Anxiety) resume home med per med rec seizure d/o keppra Hyperchloremic metabolic acidosis likely DVT prophylaxis: compression device Full code Quality Stroke Does the patient have a stroke diagnosis?: No VTE Prior VTE?: No VTE Risk Level:: Medical - moderate - high VTE Device Contraindication: Treatment Not Tolerated VTE Drug Contraindication: N/A - Med Ordered
--- NOTE | 2025-03-14 12:17 | MHC.CM.PN ---
pt lives alone has a manager group home 6 days a week pt has trans[portaion home when dcd his pcp is dr soriano dc plan home n/s
--- NOTE | 2025-03-14 12:34 | P.CNGI_ITS ---
History of Present Illness Data of Consult Service Date: 03/14/25 Requesting physician: Aquilino Murphy Primary Care Provider: [facility] Reason for consult: Anemia This is a 59-year-old gentleman with past medical history of chronic hepatitis- C that has led to cirrhosis, coronary disease with PCI March 2024 on dual anti-platelet therapy who presented to the hospital on behest of his principal secretary for shortness of breath and anemia. He was seen by his principal secretary for worsening shortness of breath and fatigue with chest pain ongoing x week on 03/13. Labs were ordered that showed profound anemia with hemoglobin of 5.6 MCV of 79. Creatinine at baseline. Patient reports no abdominal pain, nausea, vomiting. No change in bowel habits. He had not been noting his stool, but reports that he was told in the emergency room that it was black on rectal exam. Patient reports last dose of aspirin and Brilinta on Thursday. Does not report taking any NSAIDs. Does not smoke. Has been sober from alcohol. Recent endoscopy: 2022-colonoscopy: hyperplasticcecal polyp. Diverticulosis. Hemorrhoids. 2020 -EGD: No varices. Esophagitis. Gastritis. No H pylori. No Flores's. Review of Systems 2 Review of Systems: Yes all other systems are reviewed and are negative PMFSH Past Medical History Medical History Epidermal cyst History of blood clot in brain On anticoagulant therapy Elevated cholesterol HTN (hypertension) Hepatitis C History of ETOH abuse Asthma Cirrhosis Family History Family History Family/Other HTN (hypertension) Asthma Diabetes Surgical History Surgical History History of cardiac cath History of esophagogastroduodenoscopy (EGD) Hx of colonoscopy Social History Social History Household Members: None Housing: Apartment Do you presently have visiting nurse or other home services: Yes Unable to assess alcohol history related to: Unknown Alcohol intake: never Patient Tobacco Use Status: Never used Tobacco Smoked in Last 30 Days: No e-Cigarette/Vaping Use: Never Used Second Hand Smoke Exposure: No Use of substances other than those prescribed or required for medical reasons: No Currently Displaying Signs/Symptoms of Drug Intoxication Withdrawal: No Have you been hit, kicked, punched, or otherwise hurt by someone within the past year? If so, by whom?: No Do you feel safe in your current relationship?: No Current Relationship Is there a partner from a previous relationship who is making you feel unsafe now?: No Are you made to feel afraid or neglected: No Advance Directives: No Advance Directives Information Provided: Yes Do you have a plan to hurt others: No Plan Recently lost weight without trying: No Eating poorly because of decreased appetite: No Nutrition Risks: No Nutritional Risk Poor oral hygiene: No service: No Current occupational status: unemployed and disabled Meds Allergies Allergy/AdvReac Type Severity Reaction Status Date / Time No Known Allergies Allergy Verified 03/13/25 13:33 Active Medications: Current Medications Acetaminophen (Acetaminophen 325 Mg Tablet) 650 mg PO Q6H PRN PRN Reason: Pain, Mild 1-3,fever,headache Last Admin: 03/13/25 22:43 Dose: 650 mg Acetaminophen (Acetaminophen 325 Mg Tablet) 975 mg PO BEDTIME PRN PRN Reason: Pain Albuterol Sulfate (Albuterol Sulfate 90 Mcg 8 Gm Inhaler) 2 puff INHALE Q4H PRN PRN Reason: Wheezing Atorvastatin Calcium (Atorvastatin Calcium 80 Mg Tablet) 80 mg PO BEDTIME [facility] Calcium Carbonate (Calcium Carbonate 750 Mg Tab.Chew) 750 mg PO Q4H PRN PRN Reason: Heartburn Ferrous Sulfate (Ferrous Sulfate 324 Mg Tablet.Dr) 324 mg PO DAILY [facility] Fluticasone/Vilanterol (Fluticasone/Vilanterol 100/25 Blst.W.Dev) 1 puff INHALE RDAILY [facility] Last Admin: 03/14/25 11:54 Dose: Not Given Folic Acid (Folic Acid 1 Mg Tablet) 1 mg PO DAILY [facility] Hydroxyzine HCl (Hydroxyzine Hcl 50 Mg Tablet) 50 mg PO BEDTIME [facility] Lactated Ringer's (Lr) 1,000 mls @ 80 mls/hr IVCONT .[id number] [facility] Last Admin: 03/14/25 06:26 Dose: 80 mls/hr Levetiracetam (Levetiracetam 500 Mg Tablet) 500 mg PO BID [facility] Lisinopril (Lisinopril 5 Mg Tablet) 5 mg PO DAILY [facility]; Protocol Loratadine (Loratadine 10 Mg Tablet) 10 mg PO DAILY [facility] Magnesium Hydroxide (Milk Of Magnesia 30 Ml Oral.Susp) 30 ml PO DAILY PRN PRN Reason: Constipation Melatonin (Melatonin 3 Mg Tablet) 6 mg PO BEDTIME PRN PRN Reason: Insomnia Multivitamins/Vitamin C (Multivitamin Tablet) 1 tab PO DAILY [facility] Pantoprazole Sodium (Pantoprazole Sodium 40 Mg/10 Ml Vial) 40 mg IVPUSH DAILY@0630 [facility] Last Admin: 03/14/25 06:23 Dose: 40 mg Sertraline HCl (Sertraline Hcl 25 Mg Tablet) 25 mg PO DAILY [facility] Sodium Chloride (0.9 % Sodium Chloride Flush 3 Ml Syringe) 3 ml IVFLUSH QSHIFT [facility] Last Admin: 03/14/25 08:38 Dose: 3 ml Thiamine HCl (Thiamine Hcl 100 Mg Tablet) 100 mg PO DAILY [facility] Topiramate (Topiramate 25 Mg Tablet) 50 mg PO BEDTIME [facility] Vitamin D (Cholecalciferol (Vitamin D3) 25 Mcg Tablet) 125 mcg PO TU@0900 [facility] Home Medications ?Medication ?Instructions ?Recorded ?Confirmed ?Last Taken ?Type cetirizine 10 mg tablet 1 tab PO DAILY 01/18/2102/2405/17/21 History ferrous sulfate 325 mg (65 mg 1 tab PO DAILY 01/18/21 03/13/25 05/17/21 History iron) tablet (FeroSul) folic acid 1 mg tablet 1 tab PO DAILY 01/18/2102/2405/17/21 History hydroxyzine HCl 50 mg tablet 50 mg PO BEDTIME 01/18/21 03/13/25 05/16/21 History multivitamin 1 tab PO DAILY 01/18/2102/2403/13/25 History omeprazole 40 mg capsule,delayed 1 cap PO DAILY@0630 0 01/18/21 03/13/25 05/17/21 History release thiamine HCl (vitamin B1) 100 mg 1 tab PO DAILY 03/13/25 05/17/21 History tablet topiramate 50 mg tablet 1 tab PO BEDTIME 01/18/2103/12/25 History magnesium gluconate 27 mg 27 mg PO DAILY 04/11/2402/24 Unknown History magnesium (500 mg) tablet (Mag-G) rosuvastatin 40 mg tablet 40 mg PO BEDTIME 05/02/24 Unknown History sertraline 25 mg tablet 25 mg PO DAILY 12/26/2402/2403/13/25 History acetaminophen 500 mg tablet 1,000 mg PO BEDTIME PRN Pa in 03/13/25 03/13/25 Unknown History albuterol sulfate 90 mcg/actuation 2 puff inhalation Q 4H PRN wheezing 03/13/25 03/13/25 Unknown History aerosol inhaler (Ventolin HFA) cholecalciferol (vitamin D3) 125 125 mcg PO TU@0900 03/13/25 Unknown History mcg (5,000 unit) capsule fluticasone 100 mcg-salmeterol 50 1 ea inhalation BID 03/13/25 03/13/25 Unknown History mcg/dose blistr powdr for inhalation (Advair Diskus) levetiracetam 500 mg tablet 500 mg PO BID 03/13/2503/13/25 History lisinopril 5 mg tablet 5 mg PO DAILY 03/13/2503/13 Unknown History Physical Exam 2 Exam: Exam: Middle-aged gentleman No acute distress Nonicteric Abdomen soft, mildly distended, nontender No lower extremity edema Vital Signs: Vital Signs: Last Vital Signs Temp 97.6 F 03/14/25 09:43 Pulse 60 03/14/25 09:43 Resp 16 03/14/25 09:43 BP 121/64 03/14/25 09:43 Pulse Ox 100 03/14/25 07:47 O2 Del Method Room Air 03/14/25 07:47 BMI result Body Mass Index 27.1 Results Labs 03/14/25 14:15 03/14/25 05:59 Labs: Short CBC 03/13/25 03/14/25 Range/Units 14:21 05:59 WBC 3.4 L 3.9 L (4.8-10.8) X10*3/uL Hgb 5.3 L* 6.5 L* D (14.0-18.0) g/dl Hct 18.7 L* 21.6 L (42.0-52.0) % Plt Count 187 179 (160-400) X10*3/uL BMP 03/13/25 03/14/25 14:21 05:59 Sodium 142 143 Potassium 3.6 3.7 Chloride 118 H 118 H Carbon Dioxide 18 L 20 L BUN 10 9 Creatinine 1.10 1.05 Calcium 8.0 L 8.0 L Liver Function 03/13/25 Range/Units 14:21 Total Bilirubin 0.3 (0.0-1.0) mg/dL AST 33 (5-37) U/L ALT 21 (0-40) U/L Alkaline Phosphatase 86 (39-117) U/L Albumin 3.7 (3.5-5.0) g/dL Assessment and Plan (1) Anemia: Status: Acute (2) GI bleed: Status: Acute (3) Chronic hepatitis C: Status: Acute (4) Cirrhosis: Status: Acute Plan Patient presenting with profound anemia with hemoglobin of 5 on arrival. Sx onset almost a week ago, i.e subacute onset. Witnessed melena in ER. Getting transfused with a 2nd unit. Will arrange for urgent upper endoscopy for evaluation. Differentials include esophagitis, PUD, varices, AVM. In terms of chronic hepatitis-C, no documented SVR in the system. Labs ordered. He will also need ultrasound of his abdomen during this hospitalization to screen for HCC. Plan: - x2 IV access at all times - Transfuse PRBC for Hb <7. Avoid over-transfusing as that can worsen portal pressures. - IV PPI, octreotide drip, Ceftriaxone IV - Keep NPO for EGD today - HCV viral load ordered - US abd to be done this admission Thank you for allowing me to participate in his care. Please do not hesitate to reach out for any questions or concerns. Procedures Date of Service Date of Service: 03/14/25
[2025-03-14] MEDS: levETIRAcetam in NaCl (iso-os) 500 MG/100 ML PIGGYBACK 400 MG IV (12:50)
[2025-03-14 14:23] LABS: Hematocrit 26.0 % (42.0-52.0); Hemoglobin 7.9 g/dl (14.0-18.0)
--- NOTE | 2025-03-14 15:12 | HO.ANESPROP2 ---
[facility] Active Problems Active Problems: All Active Problems (Updated 03/13/25 @ 17:22 by Aquilino Murphy MD) Acute blood loss anemia (Acute) GI bleed (Acute) Anemia (Acute) Fatigue (Acute) H/O excision of epidermal inclusion cyst (Acute) Epidermal cyst (Acute) Palpitation (Acute) Stented coronary artery (Acute) Coronary atherosclerosis (Acute) S/P cardiac catheterization (Acute) Exertional angina (Acute) Colon cancer screening (Acute) Rhabdomyolysis (Acute) High cholesterol (Acute) Chronic hepatitis C (Acute) HTN (hypertension) (Acute) Cirrhosis (Acute) Asthma (Acute) On anticoagulant therapy (Acute) Past Medical History Medical History Epidermal cyst History of blood clot in brain On anticoagulant therapy Elevated cholesterol HTN (hypertension) Hepatitis C History of ETOH abuse Asthma Cirrhosis Functional capacity: independent ambulation Family History Family History Family/Other HTN (hypertension) Asthma Diabetes Family history of problems with anesthesia: No Surgical History Surgical History History of cardiac cath History of esophagogastroduodenoscopy (EGD) Hx of colonoscopy History of Problems with Anesthesia: No Social History Social History Household Members: None Housing: Apartment Do you presently have visiting nurse or other home services: Yes Unable to assess alcohol history related to: Unknown Alcohol intake: never Patient Tobacco Use Status: Never used Tobacco Smoked in Last 30 Days: No e-Cigarette/Vaping Use: Never Used Second Hand Smoke Exposure: No Use of substances other than those prescribed or required for medical reasons: No Currently Displaying Signs/Symptoms of Drug Intoxication Withdrawal: No Have you been hit, kicked, punched, or otherwise hurt by someone within the past year? If so, by whom?: No Do you feel safe in your current relationship?: No Current Relationship Is there a partner from a previous relationship who is making you feel unsafe now?: No Are you made to feel afraid or neglected: No Advance Directives: No Advance Directives Information Provided: Yes Do you have a plan to hurt others: No Plan Recently lost weight without trying: No Eating poorly because of decreased appetite: No Nutrition Risks: No Nutritional Risk Poor oral hygiene: No service: No Current occupational status: unemployed and disabled Meds Allergies Allergy/AdvReac Type Severity Reaction Status Date / Time No Known Allergies Allergy Verified 03/13/25 13:33 Active Medications: Current Medications Acetaminophen (Acetaminophen 325 Mg Tablet) 650 mg PO Q6H PRN PRN Reason: Pain, Mild 1-3,fever,headache Last Admin: 03/13/25 22:43 Dose: 650 mg Acetaminophen (Acetaminophen 325 Mg Tablet) 975 mg PO BEDTIME PRN PRN Reason: Pain Albuterol Sulfate (Albuterol Sulfate 90 Mcg 8 Gm Inhaler) 2 puff INHALE Q4H PRN PRN Reason: Wheezing Atorvastatin Calcium (Atorvastatin Calcium 80 Mg Tablet) 80 mg PO BEDTIME [facility] Calcium Carbonate (Calcium Carbonate 750 Mg Tab.Chew) 750 mg PO Q4H PRN PRN Reason: Heartburn Ferrous Sulfate (Ferrous Sulfate 324 Mg Tablet.Dr) 324 mg PO DAILY [facility] Fluticasone/Vilanterol (Fluticasone/Vilanterol 100/25 Blst.W.Dev) 1 puff INHALE RDAILY [facility] Last Admin: 03/14/25 11:54 Dose: Not Given Folic Acid (Folic Acid 1 Mg Tablet) 1 mg PO DAILY [facility] Hydroxyzine HCl (Hydroxyzine Hcl 50 Mg Tablet) 50 mg PO BEDTIME [facility] Lactated Ringer's (Lr) 1,000 mls @ 80 mls/hr IVCONT .[id number] [facility] Last Admin: 03/14/25 06:26 Dose: 80 mls/hr Octreotide Acetate 500 mcg/ (Sodium Chloride) 501 mls @ 50.1 mls/hr IVCONT .Q10H [facility] Last Admin: 03/14/25 14:57 Dose: 50 mcg/hr, 50.1 mls/hr Levetiracetam (Levetiracetam 500 Mg Tablet) 500 mg PO BID [facility] Lisinopril (Lisinopril 5 Mg Tablet) 5 mg PO DAILY [facility]; Protocol Loratadine (Loratadine 10 Mg Tablet) 10 mg PO DAILY [facility] Magnesium Hydroxide (Milk Of Magnesia 30 Ml Oral.Susp) 30 ml PO DAILY PRN PRN Reason: Constipation Melatonin (Melatonin 3 Mg Tablet) 6 mg PO BEDTIME PRN PRN Reason: Insomnia Multivitamins/Vitamin C (Multivitamin Tablet) 1 tab PO DAILY [facility] Pantoprazole Sodium (Pantoprazole Sodium 40 Mg/10 Ml Vial) 40 mg IVPUSH BID@0630,1630 [facility] Sertraline HCl (Sertraline Hcl 25 Mg Tablet) 25 mg PO DAILY [facility] Sodium Chloride (0.9 % Sodium Chloride Flush 3 Ml Syringe) 3 ml IVFLUSH QSHIFT [facility] Last Admin: 03/14/25 08:38 Dose: 3 ml Thiamine HCl (Thiamine Hcl 100 Mg Tablet) 100 mg PO DAILY [facility] Topiramate (Topiramate 25 Mg Tablet) 50 mg PO BEDTIME [facility] Vitamin D (Cholecalciferol (Vitamin D3) 25 Mcg Tablet) 125 mcg PO TU@0900 [facility] Home Medications ?Medication ?Instructions ?Recorded ?Confirmed ?Last Taken ?Type cetirizine 10 mg tablet 1 tab PO DAILY 01/18/21 03/13/25 05/17/21 History ferrous sulfate 325 mg (65 mg 1 tab PO DAILY 01/18/21 03/13/25 05/17/21 History iron) tablet (FeroSul) folic acid 1 mg tablet 1 tab PO DAILY 01/18/21 03/13/25 05/17/21 History hydroxyzine HCl 50 mg tablet 50 mg PO BEDTIME 01/18/21 03/13/25 05/16/21 History multivitamin 1 tab PO DAILY 01/18/21 03/13/25 03/13/25 History omeprazole 40 mg capsule,delayed 1 cap PO DAILY@0630 01/18/21 03/13/25 05/17/21 History release thiamine HCl (vitamin B1) 100 mg 1 tab PO DAILY 01/18/21 03/13/25 05/17/21 History tablet topiramate 50 mg tablet 1 tab PO BEDTIME 01/18/21 03/13/25 03/12/25 History magnesium gluconate 27 mg 27 mg PO DAILY 04/11/24 03/13/25 Unknown History magnesium (500 mg) tablet (Mag-G) rosuvastatin 40 mg tablet 40 mg PO BEDTIME 05/02/24 03/13/25 Unknown History sertraline 25 mg tablet 25 mg PO DAILY 12/26/24 03/13/25 03/13/25 History acetaminophen 500 mg tablet 1,000 mg PO BEDTIME PRN Pain 03/13/25 03/13/25 Unknown History albuterol sulfate 90 mcg/actuation 2 puff inhalation Q4H PRN wheezing 03/13/25 03/13/25 Unknown History aerosol inhaler (Ventolin HFA) cholecalciferol (vitamin D3) 125 125 mcg PO TU@0900 03/13/25 03/13/25 Unknown History mcg (5,000 unit) capsule fluticasone 100 mcg-salmeterol 50 1 ea inhalation BID 03/13/25 03/13/25 Unknown History mcg/dose blistr powdr for inhalation (Advair Diskus) levetiracetam 500 mg tablet 500 mg PO BID 03/13/25 03/13/25 03/13/25 History lisinopril 5 mg tablet 5 mg PO DAILY 03/13/25 03/13/25 Unknown History Exam Height,Weight and Vital Signs: Height 5 ft 7 in Weight 78.5 kg Last Vital Signs Temp 97.9 F 03/14/25 12:57 Pulse 55 03/14/25 12:57 Resp 16 03/14/25 12:57 BP 134/75 03/14/25 12:57 Pulse Ox 100 03/14/25 07:47 O2 Del Method Room Air 03/14/25 07:47 Pertinent Lab Results Pertinent Lab Results: Laboratory Tests 03/13/25 03/13/25 03/13/25 14:21 14:27 14:35 WBC 3.4 L RBC 2.40 L Hgb 5.3 L* Hct 18.7 L* MCV 77.9 L MCH 22.1 L MCHC 28.3 L RDW 14.7 Plt Count 187 MPV 11.4 Immature Gran % (Auto) 0.3 Neut % (Auto) 53.1 Lymph % (Auto) 34.7 [place] % (Auto) 11.0 Eos % (Auto) 0.9 Baso % (Auto) 0.0 Lymph # (Auto) 1.2 [place] # (Auto) 0.4 Eos # (Auto) 0.0 Baso # (Auto) 0.0 Abs Immat Gran (auto) 0.01 Absolute Neuts (auto) 1.8 L Absolute Nucleated RBC 0.000 Nucleated RBC % (auto) 0.0 PT 12.6 H INR 1.1 APTT 28.0 Sodium 142 Potassium 3.6 Chloride 118 H Carbon Dioxide 18 L Anion Gap 10 L BUN 10 Creatinine 1.10 Estim Creat Clear Calc 69.2 Estimated GFR > 60 Random Glucose 133 H Calcium 8.0 L Magnesium 2.3 Total Bilirubin 0.3 AST 33 ALT 21 Alkaline Phosphatase 86 Total Protein 5.8 L Albumin 3.7 Stool Occult Blood POSITIVE Blood Type B Positive Antibody Screen NEGATIVE Crossmatch See Detail 03/14/25 03/14/25 05:59 14:15 WBC 3.9 L RBC 2.67 L Hgb 6.5 L* D 7.9 L D Hct 21.6 L 26.0 L D MCV 80.9 MCH 24.3 L MCHC 30.1 L RDW 15.7 Plt Count 179 MPV 12.4 Immature Gran % (Auto) Neut % (Auto) Lymph % (Auto) [place] % (Auto) Eos % (Auto) Baso % (Auto) Lymph # (Auto) [place] # (Auto) Eos # (Auto) Baso # (Auto) Abs Immat Gran (auto) Absolute Neuts (auto) Absolute Nucleated RBC 0.000 Nucleated RBC % (auto) 0.0 PT INR APTT Sodium 143 Potassium 3.7 Chloride 118 H Carbon Dioxide 20 L Anion Gap 9 L BUN 9 Creatinine 1.05 Estim Creat Clear Calc 72.5 Estimated GFR > 60 Random Glucose 89 Calcium 8.0 L Magnesium Total Bilirubin AST ALT Alkaline Phosphatase Total Protein Albumin Stool Occult Blood Blood Type Antibody Screen Crossmatch Airway Mallampati Class: III TM Dist: >3cm Neck ROM: Full Heart: RRR Lungs: CTA Assessment and Plan Assessment Anesthesia Assessment: Anesthesia Plan Discussed Final Anesthetic Review Family History of Problems with Anesthesia: No History of Problems with Anesthesia: No NPO: Yes ASA Class: III Final Preanesthetic Review: Meds/Allgs Chart Reviewed, Consent Obtained/Reviewed and Anes Risks/Benef Reviewed Patient Risk: Intermediate Procedure Risk: Low Anesthetic Plan Anesthetic Plan: MAC: Disposition: Standard PACU
--- NOTE | 2025-03-14 17:24 | HO.ANESPROP2 ---
[facility] Active Problems Active Problems: All Active Problems (Updated 03/13/25 @ 17:22 by Aquilino Murphy MD) Acute blood loss anemia (Acute) GI bleed (Acute) Anemia (Acute) Fatigue (Acute) H/O excision of epidermal inclusion cyst (Acute) Epidermal cyst (Acute) Palpitation (Acute) Stented coronary artery (Acute) Coronary atherosclerosis (Acute) S/P cardiac catheterization (Acute) Exertional angina (Acute) Colon cancer screening (Acute) Rhabdomyolysis (Acute) High cholesterol (Acute) Chronic hepatitis C (Acute) HTN (hypertension) (Acute) Cirrhosis (Acute) Asthma (Acute) On anticoagulant therapy (Acute) Past Medical History Medical History Epidermal cyst History of blood clot in brain On anticoagulant therapy Elevated cholesterol HTN (hypertension) Hepatitis C History of ETOH abuse Asthma Cirrhosis Functional capacity: independent ambulation Family History Family History Family/Other HTN (hypertension) Asthma Diabetes Family history of problems with anesthesia: No Surgical History Surgical History History of cardiac cath History of esophagogastroduodenoscopy (EGD) Hx of colonoscopy History of Problems with Anesthesia: No Social History Social History Household Members: None Housing: Apartment Do you presently have visiting nurse or other home services: Yes Unable to assess alcohol history related to: Unknown Alcohol intake: never Patient Tobacco Use Status: Never used Tobacco Smoked in Last 30 Days: No e-Cigarette/Vaping Use: Never Used Second Hand Smoke Exposure: No Use of substances other than those prescribed or required for medical reasons: No Currently Displaying Signs/Symptoms of Drug Intoxication Withdrawal: No Have you been hit, kicked, punched, or otherwise hurt by someone within the past year? If so, by whom?: No Do you feel safe in your current relationship?: No Current Relationship Is there a partner from a previous relationship who is making you feel unsafe now?: No Are you made to feel afraid or neglected: No Advance Directives: No Advance Directives Information Provided: Yes Do you have a plan to hurt others: No Plan Recently lost weight without trying: No Eating poorly because of decreased appetite: No Nutrition Risks: No Nutritional Risk Poor oral hygiene: No service: No Current occupational status: unemployed and disabled Meds Allergies Allergy/AdvReac Type Severity Reaction Status Date / Time No Known Allergies Allergy Verified 03/13/25 13:33 Active Medications: Current Medications Acetaminophen (Acetaminophen 325 Mg Tablet) 650 mg PO Q6H PRN PRN Reason: Pain, Mild 1-3,fever,headache Last Admin: 03/13/25 22:43 Dose: 650 mg Acetaminophen (Acetaminophen 325 Mg Tablet) 975 mg PO BEDTIME PRN PRN Reason: Pain Albuterol Sulfate (Albuterol Sulfate 90 Mcg 8 Gm Inhaler) 2 puff INHALE Q4H PRN PRN Reason: Wheezing Atorvastatin Calcium (Atorvastatin Calcium 80 Mg Tablet) 80 mg PO BEDTIME [facility] Calcium Carbonate (Calcium Carbonate 750 Mg Tab.Chew) 750 mg PO Q4H PRN PRN Reason: Heartburn Ferrous Sulfate (Ferrous Sulfate 324 Mg Tablet.Dr) 324 mg PO DAILY [facility] Fluticasone/Vilanterol (Fluticasone/Vilanterol 100/25 Blst.W.Dev) 1 puff INHALE RDAILY [facility] Last Admin: 03/14/25 11:54 Dose: Not Given Folic Acid (Folic Acid 1 Mg Tablet) 1 mg PO DAILY [facility] Hydroxyzine HCl (Hydroxyzine Hcl 50 Mg Tablet) 50 mg PO BEDTIME [facility] Lactated Ringer's (Lr) 1,000 mls @ 80 mls/hr IVCONT .[id number] [facility] Last Admin: 03/14/25 06:26 Dose: 80 mls/hr Octreotide Acetate 500 mcg/ (Sodium Chloride) 501 mls @ 50.1 mls/hr IVCONT .Q10H [facility] Last Admin: 03/14/25 14:57 Dose: 50 mcg/hr, 50.1 mls/hr Levetiracetam (Levetiracetam 500 Mg Tablet) 500 mg PO BID [facility] Lisinopril (Lisinopril 5 Mg Tablet) 5 mg PO DAILY [facility]; Protocol Loratadine (Loratadine 10 Mg Tablet) 10 mg PO DAILY [facility] Magnesium Hydroxide (Milk Of Magnesia 30 Ml Oral.Susp) 30 ml PO DAILY PRN PRN Reason: Constipation Melatonin (Melatonin 3 Mg Tablet) 6 mg PO BEDTIME PRN PRN Reason: Insomnia Multivitamins/Vitamin C (Multivitamin Tablet) 1 tab PO DAILY [facility] Pantoprazole Sodium (Pantoprazole Sodium 40 Mg/10 Ml Vial) 40 mg IVPUSH BID@0630,1630 [facility] Last Admin: 03/14/25 16:32 Dose: 40 mg Sertraline HCl (Sertraline Hcl 25 Mg Tablet) 25 mg PO DAILY [facility] Sodium Chloride (0.9 % Sodium Chloride Flush 3 Ml Syringe) 3 ml IVFLUSH QSHIFT [facility] Last Admin: 03/14/25 16:22 Dose: Not Given Thiamine HCl (Thiamine Hcl 100 Mg Tablet) 100 mg PO DAILY [facility] Topiramate (Topiramate 25 Mg Tablet) 50 mg PO BEDTIME [facility] Vitamin D (Cholecalciferol (Vitamin D3) 25 Mcg Tablet) 125 mcg PO TU@0900 [facility] Home Medications ?Medication ?Instructions ?Recorded ?Confirmed ?Last Taken ?Type cetirizine 10 mg tablet 1 tab PO DAILY 01/18/21 03/13/25 05/17/21 History ferrous sulfate 325 mg (65 mg 1 tab PO DAILY 01/18/21 03/13/25 05/17/21 History iron) tablet (FeroSul) folic acid 1 mg tablet 1 tab PO DAILY 01/18/21 03/13/25 05/17/21 History hydroxyzine HCl 50 mg tablet 50 mg PO BEDTIME 01/18/21 03/13/25 05/16/21 History multivitamin 1 tab PO DAILY 01/18/21 03/13/25 03/13/25 History omeprazole 40 mg capsule,delayed 1 cap PO DAILY@0630 01/18/21 03/13/25 05/17/21 History release thiamine HCl (vitamin B1) 100 mg 1 tab PO DAILY 01/18/21 03/13/25 05/17/21 History tablet topiramate 50 mg tablet 1 tab PO BEDTIME 01/18/21 03/13/25 03/12/25 History magnesium gluconate 27 mg 27 mg PO DAILY 04/11/24 03/13/25 Unknown History magnesium (500 mg) tablet (Mag-G) rosuvastatin 40 mg tablet 40 mg PO BEDTIME 05/02/24 03/13/25 Unknown History sertraline 25 mg tablet 25 mg PO DAILY 12/26/24 03/13/25 03/13/25 History acetaminophen 500 mg tablet 1,000 mg PO BEDTIME PRN Pain 03/13/25 03/13/25 Unknown History albuterol sulfate 90 mcg/actuation 2 puff inhalation Q4H PRN wheezing 03/13/25 03/13/25 Unknown History aerosol inhaler (Ventolin HFA) cholecalciferol (vitamin D3) 125 125 mcg PO TU@0900 03/13/25 03/13/25 Unknown History mcg (5,000 unit) capsule fluticasone 100 mcg-salmeterol 50 1 ea inhalation BID 03/13/25 03/13/25 Unknown History mcg/dose blistr powdr for inhalation (Advair Diskus) levetiracetam 500 mg tablet 500 mg PO BID 03/13/25 03/13/25 03/13/25 History lisinopril 5 mg tablet 5 mg PO DAILY 03/13/25 03/13/25 Unknown History Exam Height,Weight and Vital Signs: Height 5 ft 7 in Weight 78.5 kg Last Vital Signs Temp 96.9 F 03/14/25 15:44 Pulse 60 03/14/25 15:44 Resp 18 03/14/25 15:44 BP 149/92 H 03/14/25 15:44 Pulse Ox 100 03/14/25 15:44 O2 Del Method Room Air 03/14/25 15:44 Pertinent Lab Results Pertinent Lab Results: Laboratory Tests 03/13/25 03/13/25 03/13/25 14:21 14:27 14:35 WBC 3.4 L RBC 2.40 L Hgb 5.3 L* Hct 18.7 L* MCV 77.9 L MCH 22.1 L MCHC 28.3 L RDW 14.7 Plt Count 187 MPV 11.4 Immature Gran % (Auto) 0.3 Neut % (Auto) 53.1 Lymph % (Auto) 34.7 [place] % (Auto) 11.0 Eos % (Auto) 0.9 Baso % (Auto) 0.0 Lymph # (Auto) 1.2 [place] # (Auto) 0.4 Eos # (Auto) 0.0 Baso # (Auto) 0.0 Abs Immat Gran (auto) 0.01 Absolute Neuts (auto) 1.8 L Absolute Nucleated RBC 0.000 Nucleated RBC % (auto) 0.0 PT 12.6 H INR 1.1 APTT 28.0 Sodium 142 Potassium 3.6 Chloride 118 H Carbon Dioxide 18 L Anion Gap 10 L BUN 10 Creatinine 1.10 Estim Creat Clear Calc 69.2 Estimated GFR > 60 Random Glucose 133 H Calcium 8.0 L Magnesium 2.3 Total Bilirubin 0.3 AST 33 ALT 21 Alkaline Phosphatase 86 Total Protein 5.8 L Albumin 3.7 Stool Occult Blood POSITIVE Blood Type B Positive Antibody Screen NEGATIVE Crossmatch See Detail 03/14/25 03/14/25 05:59 14:15 WBC 3.9 L RBC 2.67 L Hgb 6.5 L* D 7.9 L D Hct 21.6 L 26.0 L D MCV 80.9 MCH 24.3 L MCHC 30.1 L RDW 15.7 Plt Count 179 MPV 12.4 Immature Gran % (Auto) Neut % (Auto) Lymph % (Auto) [place] % (Auto) Eos % (Auto) Baso % (Auto) Lymph # (Auto) [place] # (Auto) Eos # (Auto) Baso # (Auto) Abs Immat Gran (auto) Absolute Neuts (auto) Absolute Nucleated RBC 0.000 Nucleated RBC % (auto) 0.0 PT INR APTT Sodium 143 Potassium 3.7 Chloride 118 H Carbon Dioxide 20 L Anion Gap 9 L BUN 9 Creatinine 1.05 Estim Creat Clear Calc 72.5 Estimated GFR > 60 Random Glucose 89 Calcium 8.0 L Magnesium Total Bilirubin AST ALT Alkaline Phosphatase Total Protein Albumin Stool Occult Blood Blood Type Antibody Screen Crossmatch Airway Mallampati Class: II TM Dist: >3cm Neck ROM: Full Partial: Upper Heart: RRR Lungs: CTA Assessment and Plan Assessment Anesthesia Assessment: Anesthesia Plan Discussed Final Anesthetic Review Family History of Problems with Anesthesia: No History of Problems with Anesthesia: No NPO: Yes Final Preanesthetic Review: Meds/Allgs Chart Reviewed, Consent Obtained/Reviewed and Anes Risks/Benef Reviewed Patient Risk: Intermediate Anesthetic Plan Anesthetic Plan: MAC: Disposition: Standard PACU
--- NOTE | 2025-03-14 17:58 | P.OP_ITS ---
Operative Note Operative Note Date of Service: 03/14/25 Narrative: Procedure: Esophagogastroduodenoscopy Endoscopist: Felipa Krishna MD Indication: Anemia Anesthesia Provider: Dr Ines Rivers Anesthesia Type: MAC ?? EGD Procedure:?? The procedure, indications, preparation and potential complications were reviewed with the patient, who indicated understanding and gave written informed consent to proceed. A physical exam was performed. The endoscope was introduced through the mouth, and advanced to the second part of duodenum. The mucosa was carefully examined on slow withdrawal of the endoscope. The patient tolerated the procedure well. There were no immediate complications.? ? EGD Findings:? * Esophagus:? Normal mucosa noted in the entire esophagus. The Z line was at 40 cm. No esophageal varices were appreciated. * Stomach:? Normal mucosa was noted in the stomach. Retroflexion was performed in the cardia. No fundal varices were noted. Random cold forceps gastric biopsies were taken to rule out H Pylori infection. * Duodenum:? Normal mucosa was noted in the whole of the examined duodenum. Cold forceps biopsies were taken from duodenal bulb and second portion of the duodenum to rule out celiac sprue. ? EGD Impressions:?noted. * Normal esophagus * Normal stomach (biopsy) * Normal duodenum (biopsy) ?? Recommendations:?? * Follow biopsy results. * Can discontinue octreotide. * Switch pantoprazole to oral. * Monitor CBC daily. * Will need colonoscopy - tentatively sapna for 03/16. Can have regular diet today. Clears tmrw.
--- NOTE | 2025-03-14 18:22 | HO.POSTANES ---
Post Anesthesia Evaluation Post Anesthesia Evaluation Date of Service: 03/14/25 Vital Signs: Vital Signs Temp Pulse Resp BP Pulse Ox O2 Del Method 03/14/25 18:10 97.3 F 64 18 126/75 99 Room Air 03/14/25 18:00 97.5 F 81 16 123/68 97 Room Air 03/14/25 17:25 98.2 F 61 18 123/68 100 Room Air 03/14/25 15:44 96.9 F 60 18 149/92 H 100 Room Air 03/14/25 12:57 97.9 F 55 16 134/75 03/14/25 09:43 97.6 F 60 16 121/64 03/14/25 09:18 98.3 F 60 16 123/69 03/14/25 07:47 97.5 F 64 16 116/68 100 Room Air Anesthesia: Monitored Mental Status: Awake Pain Control: Satisfactory Nausea/Vomiting: None Hydration: Adequate Anesthesia-Related Issues: No Anes. Related Issues
[2025-03-15 03:34] VITALS: BP 122/65; PULSE 55; RESP 18; TEMP 36.7; O2SAT 96
[2025-03-15] MEDS: Lactated Ringers 1,000 ML 80 ML IVCONT ×2 (05:46→16:57)
[2025-03-15 06:36] LABS: Hematocrit 26.0 % (42.0-52.0); Hemoglobin 7.8 g/dl (14.0-18.0); Mean Corpuscular HGB Conc 30.0 g/dl (31.0-36.0); Mean Corpuscular Hemoglobin 24.3 pg (27.0-33.0); Mean Corpuscular Volume 81.0 fL (80.0-98.0); NRBC Abs Auto 0.000 X10*3/uL (0.0-0.012); NRBC Pct Auto 0.0 /100WBC (0.0-0.2); Platelet Count 167 X10*3/uL (160-400); Red Blood Count 3.21 X10*6/uL (4.60-5.80); White Blood Count 3.8 X10*3/uL (4.8-10.8)
[2025-03-15 07:44] VITALS: BP 126/72; PULSE 59; RESP 16; TEMP 36; O2SAT 99
[2025-03-15] MEDS: Ferrous Sulfate 324 MG TABLET.DR PO (08:02)
--- NOTE | 2025-03-15 08:05 | HO.PM.IMPN ---
Subjective Subjective Date of Service: 03/15/25 Interval History: f/u gib, acute blood loss anemia no active bleed, H/H is better after transfusion EGD 03/14 normal, colonosopy tommorrow Physical Exam Vital Signs: Vital Signs: Last Vital Signs Temp 96.8 F 03/15/25 07:44 Pulse 59 03/15/25 07:44 Resp 16 03/15/25 07:44 BP 126/72 03/15/25 07:44 Pulse Ox 99 03/15/25 07:44 O2 Del Method Room Air 03/15/25 07:44 BMI result Body Mass Index 27.1 Const: Other: General: AO X 3, no acute distress Resp: CTA bilateral CVS: S1,S2,RRR GI: +BS, NT, no distention Skin: No rash Neuro: motor grossly intact Psych: appropriate affect Objective Data Active Medications Acetaminophen (Acetaminophen 325 Mg Tablet) 650 mg PO Q6H PRN PRN Reason: Pain, Mild 1-3,fever,headache Last Admin: 03/14/25 21:44 Dose: 650 mg Documented By: STUART Acetaminophen (Acetaminophen 325 Mg Tablet) 975 mg PO BEDTIME PRN PRN Reason: Pain Albuterol Sulfate (Albuterol Sulfate 90 Mcg 8 Gm Inhaler) 2 puff INHALE Q4H PRN PRN Reason: Wheezing Atorvastatin Calcium (Atorvastatin Calcium 80 Mg Tablet) 80 mg PO BEDTIME [facility] Last Admin: 03/14/25 21:36 Dose: 80 mg Documented By: STUART Calcium Carbonate (Calcium Carbonate 750 Mg Tab.Chew) 750 mg PO Q4H PRN PRN Reason: Heartburn Ferrous Sulfate (Ferrous Sulfate 324 Mg Tablet.Dr) 324 mg PO DAILY [facility] Last Admin: 03/15/25 08:02 Dose: 324 mg Documented By: ROLAND Fluticasone/Vilanterol (Fluticasone/Vilanterol 100/25 Blst.W.Dev) 1 puff INHALE RDAILY [facility] Last Admin: 03/14/25 11:54 Dose: Not Given Documented By: GIANLUCA Non-Admin Reason: Med Not Available Folic Acid (Folic Acid 1 Mg Tablet) 1 mg PO DAILY [facility] Last Admin: 03/15/25 08:01 Dose: 1 mg Documented By: ROLAND Hydroxyzine HCl (Hydroxyzine Hcl 50 Mg Tablet) 50 mg PO BEDTIME [facility] Last Admin: 03/14/25 21:36 Dose: 50 mg Documented By: STUART Lactated Ringer's (Lr) 1,000 mls @ 80 mls/hr IVCONT .[id number] [facility] Last Admin: 03/15/25 05:46 Dose: 80 mls/hr Documented By: STUART Levetiracetam (Levetiracetam 500 Mg Tablet) 500 mg PO BID [facility] Last Admin: 03/15/25 08:01 Dose: 500 mg Documented By: ROLAND Lisinopril (Lisinopril 5 Mg Tablet) 5 mg PO DAILY [facility]; Protocol Last Admin: 03/15/25 08:01 Dose: 5 mg Documented By: ROLAND Loratadine (Loratadine 10 Mg Tablet) 10 mg PO DAILY [facility] Last Admin: 03/15/25 08:01 Dose: 10 mg Documented By: ROLAND Magnesium Hydroxide (Milk Of Magnesia 30 Ml Oral.Susp) 30 ml PO DAILY PRN PRN Reason: Constipation Melatonin (Melatonin 3 Mg Tablet) 6 mg PO BEDTIME PRN PRN Reason: Insomnia Multivitamins/Vitamin C (Multivitamin Tablet) 1 tab PO DAILY [facility] Last Admin: 03/15/25 08:01 Dose: 1 tab Documented By: ROLAND Naloxone HCl (Naloxone Hcl 0.4 Mg/Ml Vial) 0.04 mg IVPUSH Q5M PRN PRN Reason: Excessive sedation or RR < 8 Omeprazole (Omeprazole 20 Mg Capsule.Dr) 20 mg PO DAILY@0630 [facility] Last Admin: 03/15/25 05:45 Dose: 20 mg Documented By: STUART Sertraline HCl (Sertraline Hcl 25 Mg Tablet) 25 mg PO DAILY [facility] Last Admin: 03/15/25 08:01 Dose: 25 mg Documented By: ROLAND Sodium Chloride (0.9 % Sodium Chloride Flush 3 Ml Syringe) 3 ml IVFLUSH QSHIFT [facility] Last Admin: 03/15/25 08:03 Dose: Not Given Documented By: ROLAND Non-Admin Reason: IV Running Thiamine HCl (Thiamine Hcl 100 Mg Tablet) 100 mg PO DAILY [facility] Last Admin: 03/15/25 08:01 Dose: 100 mg Documented By: ROLAND Topiramate (Topiramate 25 Mg Tablet) 50 mg PO BEDTIME [facility] Last Admin: 03/14/25 21:36 Dose: 50 mg Documented By: STUART Vitamin D (Cholecalciferol (Vitamin D3) 25 Mcg Tablet) 125 mcg PO TU@0900 [facility] Labs 03/15/25 06:03 03/14/25 05:59 Labs: Laboratory Results - last 24 hr 03/13/25 03/15/25 14:35 06:03 MCV 81.0 MCH 24.3 L MCHC 30.0 L RDW 15.6 Plt Count 167 MPV 12.5 H Absolute Nucleated RBC 0.000 Nucleated RBC % (auto) 0.0 Blood Type B Positive Antibody Screen NEGATIVE Crossmatch See Detail Assessment and Plan (1) GI bleed: Status: Acute (2) Acute blood loss anemia: Status: Acute Plan 59 year old male with history of HTN, h/o etoh use, HTN, hep C, cirrhosis, CAD on ASA, brilanta and naproxen here with acute GIB and severe acute blood loss anemia GIB, likely upper GIB, DDx: PUD, gastritis, esophagitis vs lower gib Transfused 3 units, Hgb 5.5--> 6.5-->7.8 stopped ASA, Brilanta Monitor H/H EGD 03/14 normal Oral PPI Colonoscopy tommorrow 03/16 NPO after midnight Chronic issues (HTN, HLD, CAD, Anxiety) resume home med per med rec seizure d/o, no seizures in years continue keppra Hyperchloremic metabolic acidosis likely, resolved DVT prophylaxis: compression device Full code Quality Stroke Does the patient have a stroke diagnosis?: No VTE Prior VTE?: No VTE Risk Level:: Medical - moderate - high VTE Device Contraindication: Treatment Not Tolerated VTE Drug Contraindication: N/A - Med Ordered
[2025-03-15 08:42] VITALS: PULSE 60; RESP 16
[2025-03-15] MEDS: Fluticasone/Vilanterol 100/25 BLST.W.DEV 1 PUFF INHALE (08:42)
--- NOTE | 2025-03-15 08:43 | HO.POSTANES ---
Post Anesthesia Evaluation Post Anesthesia Evaluation Date of Service: 03/15/25 Vital Signs: Vital Signs Temp Pulse Resp BP Pulse Ox O2 Del Method 03/15/25 07:44 96.8 F 59 16 126/72 99 Room Air 03/15/25 03:34 98.0 F 55 18 122/65 96 Room Air Anesthesia: Monitored Mental Status: Awake Pain Control: Satisfactory Nausea/Vomiting: None Hydration: Adequate Anesthesia-Related Issues: No Anes. Related Issues
[2025-03-15 10:18] LABS: Anion Gap 10 (12-20); Carbon Dioxide 19 mmol/L (22-29); Chloride 116 mmol/L (96-108); Potassium 4.2 mmol/L (3.3-5.1); Sodium 141 mmol/L (135-145)
--- NOTE | 2025-03-15 12:52 | MHC.CM.PN ---
per rounds pt to have colonoscopy possible dc tomorrow dc plan remains home n/s
[2025-03-15 15:56] VITALS: BP 113/56; PULSE 61; RESP 12; TEMP 36.3; O2SAT 99
--- NOTE | 2025-03-15 16:21 | P.PNGI_ITS ---
Subjective Subjective Date of Service: 03/15/25 Interval History: Seen at bedside. No acute concerns. Has been ambulating without any difficulty or shortness of breath. Critical Care Time (minutes): 0 Physical Exam 2 Exam: Exam: Pale-appearing gentleman Abdomen soft, nontender, nondistended Vital Signs: Vital Signs: Last Vital Signs Temp 97.3 F 03/15/25 15:56 Pulse 61 03/15/25 15:56 Resp 12 03/15/25 15:56 BP 113/56 L 03/15/25 15:56 Pulse Ox 99 03/15/25 15:56 O2 Del Method Room Air 03/15/25 15:56 BMI result Body Mass Index 27.1 Objective Data Labs 03/15/25 06:03 03/15/25 09:08 Labs: Laboratory Results - last 24 hr 03/15/25 03/15/25 06:03 09:08 WBC 3.8 L RBC 3.21 L D Hgb 7.8 L Hct 26.0 L MCV 81.0 MCH 24.3 L MCHC 30.0 L RDW 15.6 Plt Count 167 MPV 12.5 H Absolute Nucleated RBC 0.000 Nucleated RBC % (auto) 0.0 Sodium 141 Potassium 4.2 Chloride 116 H Carbon Dioxide 19 L Anion Gap 10 L Procedures Date of Service Date of Service: 03/15/25 Progress Note: A&P Assessment and plan (1) Anemia: Status: Acute (2) Cirrhosis: Status: Acute (3) Chronic hepatitis C: Status: Acute (4) S/P cardiac catheterization: Status: Acute Plan Patient presenting with profound anemia. EGD 03/14 normal. Differentials include proximal right bleed versus small bowel bleed. Will proceed with diagnostic colonoscopy. Plan: -clear liquids today -PEG prep ordered -NPO after midnight for colonoscopy tomorrow Time Spent With Patient Time: Total time managing care of this patient today ____ minutes. Quality Stroke Does the patient have a stroke diagnosis?: No VTE Prior VTE?: No VTE Risk Level:: Medical - moderate - high VTE Device Contraindication: Treatment Not Tolerated VTE Drug Contraindication: N/A - Med Ordered
[2025-03-15] MEDS: PEG 3350/Na Sulf,Bicarb,Cl/KCL 4,000 ML SOLN.RECON 4000 ML PO (18:22)
--- NOTE | 2025-03-15 19:21 | PC.NURSE ---
Pt denies pain, n/v. Tolerating clear liquid diet. Aware of NPO status at midnight
[2025-03-15 20:00] VITALS: BP 150/66; PULSE 47; RESP 16; TEMP 36.1; O2SAT 100
--- NOTE | 2025-03-15 20:19 | PC.NURSE ---
MD Morris made aware IVF reached renew stop date, per MD IVF do not need to be renewed. Made aware Pt HR 43-47, and BP 150/66, no new orders at this time. Pt asymptomatic.
[2025-03-15] MEDS: 0.9 % Sodium Chloride Flush 3 ML SYRINGE IVFLUSH (22:15)
[2025-03-16] VITALS (7 sets, daily range): BP systolic 94–136; BP diastolic 54–75; PULSE 50–62; RESP 14–20; TEMP 36.2–36.8; O2SAT 96–99
[2025-03-16] MEDS: Fluticasone/Vilanterol 100/25 BLST.W.DEV 1 PUFF INHALE (08:31)
[2025-03-16] MEDS: Lactated Ringers 1,000 ML 80 ML IVCONT (10:37)
--- NOTE | 2025-03-16 10:47 | HO.ANESPROP2 ---
HPI - Anesthesia Eval Consult details Narrative: for colonoscopy PMFSH Active Problems Active Problems: All Active Problems Acute blood loss anemia (Acute) GI bleed (Acute) Anemia (Acute) Fatigue (Acute) H/O excision of epidermal inclusion cyst (Acute) Epidermal cyst (Acute) Palpitation (Acute) Stented coronary artery (Acute) Coronary atherosclerosis (Acute) S/P cardiac catheterization (Acute) Exertional angina (Acute) Colon cancer screening (Acute) Rhabdomyolysis (Acute) High cholesterol (Acute) Chronic hepatitis C (Acute) HTN (hypertension) (Acute) Cirrhosis (Acute) Asthma (Acute) On anticoagulant therapy (Acute) Past Medical History Medical History Epidermal cyst History of blood clot in brain On anticoagulant therapy Elevated cholesterol HTN (hypertension) Hepatitis C History of ETOH abuse Asthma Cirrhosis Functional capacity: independent ambulation Family History Family History Family/Other HTN (hypertension) Asthma Diabetes Family history of problems with anesthesia: No Surgical History Surgical History History of cardiac cath History of esophagogastroduodenoscopy (EGD) Hx of colonoscopy History of Problems with Anesthesia: No Social History Social History Household Members: None Housing: Apartment Are you a primary healthcare account manager to a significant other at home: No Do you presently have visiting nurse or other home services: No Unable to assess alcohol history related to: Unknown Alcohol intake: never Patient Tobacco Use Status: Never used Tobacco Smoked in Last 30 Days: No e-Cigarette/Vaping Use: Never Used Second Hand Smoke Exposure: No Use of substances other than those prescribed or required for medical reasons: No Currently Displaying Signs/Symptoms of Drug Intoxication Withdrawal: No Have you been hit, kicked, punched, or otherwise hurt by someone within the past year? If so, by whom?: No Do you feel safe in your current relationship?: No Current Relationship Is there a partner from a previous relationship who is making you feel unsafe now?: No Are you made to feel afraid or neglected: No Are you DNR?: No Advance Directives: No Advance Directives Information Provided: Yes Do you have a plan to hurt others: No Plan Recently lost weight without trying: No Eating poorly because of decreased appetite: No Nutrition Risks: No Nutritional Risk Poor oral hygiene: Yes service: No Current occupational status: unemployed and disabled Meds Allergies Allergy/AdvReac Type Severity Reaction Status Date / Time No Known Allergies Allergy Verified 03/13/25 13:33 Active Medications: Current Medications Acetaminophen (Acetaminophen 325 Mg Tablet) 650 mg PO Q6H PRN PRN Reason: Pain, Mild 1-3,fever,headache Last Admin: 03/14/25 21:44 Dose: 650 mg Acetaminophen (Acetaminophen 325 Mg Tablet) 975 mg PO BEDTIME PRN PRN Reason: Pain Albuterol Sulfate (Albuterol Sulfate 90 Mcg 8 Gm Inhaler) 2 puff INHALE Q4H PRN PRN Reason: Wheezing Atorvastatin Calcium (Atorvastatin Calcium 80 Mg Tablet) 80 mg PO BEDTIME [facility] Last Admin: 03/15/25 19:46 Dose: 80 mg Calcium Carbonate (Calcium Carbonate 750 Mg Tab.Chew) 750 mg PO Q4H PRN PRN Reason: Heartburn Ferrous Sulfate (Ferrous Sulfate 324 Mg Tablet.Dr) 324 mg PO DAILY [facility] Last Admin: 03/15/25 08:02 Dose: 324 mg Fluticasone/Vilanterol (Fluticasone/Vilanterol 100/25 Blst.W.Dev) 1 puff INHALE RDAILY [facility] Last Admin: 03/16/25 08:31 Dose: 1 puff Folic Acid (Folic Acid 1 Mg Tablet) 1 mg PO DAILY [facility] Last Admin: 03/15/25 08:01 Dose: 1 mg Hydroxyzine HCl (Hydroxyzine Hcl 50 Mg Tablet) 50 mg PO BEDTIME [facility] Last Admin: 03/15/25 19:46 Dose: 50 mg Lactated Ringer's (Lr) 1,000 mls @ 80 mls/hr IVCONT .[id number] [facility] Last Admin: 03/16/25 10:37 Dose: 80 mls/hr Levetiracetam (Levetiracetam 500 Mg Tablet) 500 mg PO BID [facility] Last Admin: 03/15/25 19:46 Dose: 500 mg Lisinopril (Lisinopril 5 Mg Tablet) 5 mg PO DAILY [facility]; Protocol Last Admin: 03/15/25 08:01 Dose: 5 mg Loratadine (Loratadine 10 Mg Tablet) 10 mg PO DAILY [facility] Last Admin: 03/15/25 08:01 Dose: 10 mg Magnesium Hydroxide (Milk Of Magnesia 30 Ml Oral.Susp) 30 ml PO DAILY PRN PRN Reason: Constipation Melatonin (Melatonin 3 Mg Tablet) 6 mg PO BEDTIME PRN PRN Reason: Insomnia Multivitamins/Vitamin C (Multivitamin Tablet) 1 tab PO DAILY [facility] Last Admin: 03/15/25 08:01 Dose: 1 tab Naloxone HCl (Naloxone Hcl 0.4 Mg/Ml Vial) 0.04 mg IVPUSH Q5M PRN PRN Reason: Excessive sedation or RR < 8 Omeprazole (Omeprazole 20 Mg Capsule.Dr) 20 mg PO DAILY@06 [facility] Last Admin: 03/16/25 05:40 Dose: Not Given Sertraline HCl (Sertraline Hcl 25 Mg Tablet) 25 mg PO DAILY [facility] Last Admin: 03/15/25 08:01 Dose: 25 mg Sodium Chloride (0.9 % Sodium Chloride Flush 3 Ml Syringe) 3 ml IVFLUSH QSHIFT [facility] Last Admin: 03/15/25 22:15 Dose: 3 ml Thiamine HCl (Thiamine Hcl 100 Mg Tablet) 100 mg PO DAILY [facility] Last Admin: 03/15/25 08:01 Dose: 100 mg Topiramate (Topiramate 25 Mg Tablet) 50 mg PO BEDTIME [facility] Last Admin: 03/15/25 19:46 Dose: 50 mg Vitamin D (Cholecalciferol (Vitamin D3) 25 Mcg Tablet) 125 mcg PO TU@0900 [facility] Home Medications ?Medication ?Instructions ?Recorded ?Confirmed ?Last Taken ?Type cetirizine 10 mg tablet 1 tab PO DAILY 01/18/21 03/13/25 05/17/21 History ferrous sulfate 325 mg (65 mg 1 tab PO DAILY 01/18/21 03/13/25 05/17/21 History iron) tablet (FeroSul) folic acid 1 mg tablet 1 tab PO DAILY 01/18/21 03/13/25 05/17/21 History hydroxyzine HCl 50 mg tablet 50 mg PO BEDTIME 01/18/21 03/13/25 05/16/21 History multivitamin 1 tab PO DAILY 01/18/21 03/13/25 03/13/25 History omeprazole 40 mg capsule,delayed 1 cap PO DAILY@0630 01/18/21 03/13/25 05/17/21 History release thiamine HCl (vitamin B1) 100 mg 1 tab PO DAILY 01/18/21 03/13/25 05/17/21 History tablet topiramate 50 mg tablet 1 tab PO BEDTIME 01/18/21 03/13/25 03/12/25 History magnesium gluconate 27 mg 27 mg PO DAILY 04/11/24 03/13/25 Unknown History magnesium (500 mg) tablet (Mag-G) rosuvastatin 40 mg tablet 40 mg PO BEDTIME 05/02/24 03/13/25 Unknown History sertraline 25 mg tablet 25 mg PO DAILY 12/26/24 03/13/25 03/13/25 History acetaminophen 500 mg tablet 1,000 mg PO BEDTIME PRN Pain 03/13/25 03/13/25 Unknown History albuterol sulfate 90 mcg/actuation 2 puff inhalation Q4H PRN wheezing 03/13/25 03/13/25 Unknown History aerosol inhaler (Ventolin HFA) cholecalciferol (vitamin D3) 125 125 mcg PO TU@0900 03/13/25 03/13/25 Unknown History mcg (5,000 unit) capsule fluticasone 100 mcg-salmeterol 50 1 ea inhalation BID 03/13/25 03/13/25 Unknown History mcg/dose blistr powdr for inhalation (Advair Diskus) levetiracetam 500 mg tablet 500 mg PO BID 03/13/25 03/13/25 03/13/25 History lisinopril 5 mg tablet 5 mg PO DAILY 03/13/25 03/13/25 Unknown History Exam Height,Weight and Vital Signs: Height 5 ft 7 in Weight 78.5 kg Last Vital Signs Temp 97.6 F 03/16/25 10:28 Pulse 55 03/16/25 10:28 Resp 14 03/16/25 10:28 BP 123/68 03/16/25 10:28 Pulse Ox 99 03/16/25 10:28 O2 Del Method Room Air 03/16/25 10:28 Pertinent Lab Results Pertinent Lab Results: Laboratory Tests 03/13/25 03/13/25 03/13/25 14:21 14:27 14:35 WBC 3.4 L RBC 2.40 L Hgb 5.3 L* Hct 18.7 L* MCV 77.9 L MCH 22.1 L MCHC 28.3 L RDW 14.7 Plt Count 187 MPV 11.4 Immature Gran % (Auto) 0.3 Neut % (Auto) 53.1 Lymph % (Auto) 34.7 Sawyer % (Auto) 11.0 Eos % (Auto) 0.9 Baso % (Auto) 0.0 Lymph # (Auto) 1.2 Sawyer # (Auto) 0.4 Eos # (Auto) 0.0 Baso # (Auto) 0.0 Abs Immat Gran (auto) 0.01 Absolute Neuts (auto) 1.8 L Absolute Nucleated RBC 0.000 Nucleated RBC % (auto) 0.0 PT 12.6 H INR 1.1 APTT 28.0 Sodium 142 Potassium 3.6 Chloride 118 H Carbon Dioxide 18 L Anion Gap 10 L BUN 10 Creatinine 1.10 Estim Creat Clear Calc 69.2 Estimated GFR > 60 Random Glucose 133 H Calcium 8.0 L Magnesium 2.3 Total Bilirubin 0.3 AST 33 ALT 21 Alkaline Phosphatase 86 Total Protein 5.8 L Albumin 3.7 Stool Occult Blood POSITIVE Blood Type B Positive Antibody Screen NEGATIVE Crossmatch See Detail 03/14/25 03/14/25 03/15/25 05:59 14:15 06:03 WBC 3.9 L 3.8 L RBC 2.67 L 3.21 L D Hgb 6.5 L* D 7.9 L D 7.8 L Hct 21.6 L 26.0 L D 26.0 L MCV 80.9 81.0 MCH 24.3 L 24.3 L MCHC 30.1 L 30.0 L RDW 15.7 15.6 Plt Count 179 167 MPV 12.4 12.5 H Immature Gran % (Auto) Neut % (Auto) Lymph % (Auto) Sawyer % (Auto) Eos % (Auto) Baso % (Auto) Lymph # (Auto) Sawyer # (Auto) Eos # (Auto) Baso # (Auto) Abs Immat Gran (auto) Absolute Neuts (auto) Absolute Nucleated RBC 0.000 0.000 Nucleated RBC % (auto) 0.0 0.0 PT INR APTT Sodium 143 Potassium 3.7 Chloride 118 H Carbon Dioxide 20 L Anion Gap 9 L BUN 9 Creatinine 1.05 Estim Creat Clear Calc 72.5 Estimated GFR > 60 Random Glucose 89 Calcium 8.0 L Magnesium Total Bilirubin AST ALT Alkaline Phosphatase Total Protein Albumin Stool Occult Blood Blood Type Antibody Screen Crossmatch 03/15/25 09:08 WBC RBC Hgb Hct MCV MCH MCHC RDW Plt Count MPV Immature Gran % (Auto) Neut % (Auto) Lymph % (Auto) Sawyer % (Auto) Eos % (Auto) Baso % (Auto) Lymph # (Auto) Sawyer # (Auto) Eos # (Auto) Baso # (Auto) Abs Immat Gran (auto) Absolute Neuts (auto) Absolute Nucleated RBC Nucleated RBC % (auto) PT INR APTT Sodium 141 Potassium 4.2 Chloride 116 H Carbon Dioxide 19 L Anion Gap 10 L BUN Creatinine Estim Creat Clear Calc Estimated GFR Random Glucose Calcium Magnesium Total Bilirubin AST ALT Alkaline Phosphatase Total Protein Albumin Stool Occult Blood Blood Type Antibody Screen Crossmatch Airway Mallampati Class: II TM Dist: >3cm Neck ROM: Full Partial: Upper Loose/Missing/Broken Teeth: No Heart: ok Lungs: ok Assessment and Plan Assessment Anesthesia Assessment: Anesthesia Plan Discussed and Chart Reviewed Final Anesthetic Review Family History of Problems with Anesthesia: No History of Problems with Anesthesia: No NPO: Yes ASA Class: II Final Preanesthetic Review: No Changes in Pt Med Stat, Meds/Allgs Chart Reviewed, Consent Obtained/Reviewed and Anes Risks/Benef Reviewed Patient Risk: Intermediate Procedure Risk: Low Anesthetic Plan Anesthetic Plan: MAC: and Agree w/ Assess. and Plan Disposition: Standard PACU
--- NOTE | 2025-03-16 11:16 | MHC.SHP ---
Pre-Procedural Eval Section A - 24 Hr Update-Section A only Date of Service: 03/16/25 The patient is an INPATIENT: Yes The patient has been examined within 24 hours of the surgical procedure. The History & Physical has been completed within 30 days and I have reviewed it.: Yes Section B - Complete if H&P > 30 days Chief Complaint: acute blood loss anemia Allergies: Allergies Allergy/AdvReac Type Severity Reaction Status Date / Time No Known Allergies Allergy Verified 03/13/25 13:33 Plan Diagnosis/Plan: Unchanged I have reviewed the history and physical and performed a pertinent physical examination on my patient. No changes have occurred unless specified. Time Spent With Patient Time: Total time managing care of this patient today ____ minutes.
--- NOTE | 2025-03-16 12:37 | P.OPN-COLO_ITS ---
Colonoscopy Operative Note Operative Note Date of Service: 03/16/25 Narrative: Procedure: Colonoscopy Indication: Anemia Endoscopist: Felipa Krishna MD Anesthesia Provider: Dr Josr Meyer Anesthesia type: MAC Instrument: Olympus [id number]-[id number] Consent: Indication, risks vs benefits, and alternatives were discussed with the patient who gave written informed consent to proceed. EKG, pulse, pulse oximetry and blood pressure were monitored throughout the procedure. Please see anesthesia flowsheet. Procedure: The patient was brought to the procedure room and placed in the left lateral decubitus position. IV medications were administered by the anesthesia provider in attendance. A digital rectal exam was performed which was normal. A distal attachment cap was affixed to the tip of the colonoscope which was then inserted through the anus and advanced through the colon to the cecum at 75 cm,and terminal ileum. Appendiceal orifice and ileocecal valve were identified. Mucosa was carefully examined under high definition white light as the instrument was slowly withdrawn in a retrograde panoramic fashion. Retroflexion was performed in rectum. The procedure was not difficult. There were no immediate obvious complications. The quality of the prep was BBPS: 2+2+3 = adequate Withdrawal time 11 minutes. Limitations: No limitations. Findings: Mucosa: Normal to cecum and terminal ileum. Fecal effluent was green/brown. No active or old blood noted during the procedure. Protruding lesions: * 1 sessile polyp of size 4 mm in sigmoid colon. Cold snare polypectomy was performed. The polyp was completely removed and retrieved. * Medium internal hemorrhoids without stigmata of recent bleeding. Excavated lesions: * Moderate diverticulosis of sigmoid colon. Impression: 1. Normal colon mucosa 2. Polyp removed 3. Hemorrhoids 4. Diverticulosis Recommendations: - no active bleeding or stigmata of recent bleeding noted during the procedure. - recommend recheck CBC and iron studies today. - if continues to have iron deficiency, can set him up for iron infusions as outpatient. - indication for VCE contingent on response to iron repletion
[2025-03-16 13:10] LABS: Hematocrit 27.4 % (42.0-52.0); Hemoglobin 8.5 g/dl (14.0-18.0); Mean Corpuscular HGB Conc 31.0 g/dl (31.0-36.0); Mean Corpuscular Hemoglobin 24.3 pg (27.0-33.0); Mean Corpuscular Volume 78.3 fL (80.0-98.0); NRBC Abs Auto 0.000 X10*3/uL (0.0-0.012); NRBC Pct Auto 0.0 /100WBC (0.0-0.2); Platelet Count 189 X10*3/uL (160-400); Red Blood Count 3.50 X10*6/uL (4.60-5.80); White Blood Count 3.9 X10*3/uL (4.8-10.8)
[2025-03-16 13:44] LABS: Iron 14 mcg/dL (45-160); Percent Iron Saturation 4 % (15-50); Total Iron Binding Capacity 361 mcg/dL (228-428); Unsaturated Iron Binding 347 ug/dL
[2025-03-16 13:48] LABS: Ferritin 18 ng/mL (20-250)
--- NOTE | 2025-03-16 15:27 | PM.DS ---
DS: Providers Provider Date of Service: 03/16/25 Date of admission: 03/13/25 16:48 Date of discharge: 03/16/25 Primary care physician: [facility] Consults: 03/13/25 17:32 Consult to Gastroenterology Routine Consulting Provider: [facility] Reason for consultation: Acute blood loss anemia, likely upper GIB Attending physician on discharge: Meenu Rivera Discharging clinician: Meenu Rivera DS: Diagnosis Discharge Diagnosis (1) Anemia: Status: Acute (2) Cirrhosis: Status: Acute (3) Chronic hepatitis C: Status: Acute (4) S/P cardiac catheterization: Status: Acute DS: Summary Hospital Course Hospital Course: HPI:59 year old male with history of HTN, h/o etoh use, HTN, hep C, cirrhosis, CAD on ASA, brilanta and Naproxen. He has been experiencing fatigue and dyspnea with exertion for near 1 month. He had routine lab done today and was called in due very low hemoglobin and hematocrit. Hemoglobin is 5.3, hematocrit 18.7; prior to this hemoglobin was 13 and hamatocrit was 40 back in March 2024. He had colonoscopy March 2024 with finding of polyp, internal hemorrhoids and diverticular disease. A remote EGD in 2021 showed gastritis and possible morgan. Occult blood is positive. He is being transfused 2 units of RBC and given IV protonix. He denies melana or hematochezia and has hasn't drank alcohol in years. Hospital course: Patient came with acute blood loss anemia possible GI loss: Patient received 3 units of PRBC ,H&H is stable in 8.5 range, Patient has EGD-seems fine, as well as colonoscopy polyp was removed and has some hemorrhoids:Discussed with GI patient will be going home with oral ppi, continue oral iron, further management out patiently with GI. Monitor CBC outpatient, follow up biopsy results with GI also. hx of cad s/p stent -he has almost near 1 year of dapt -discussed with cardiology : continue brilanta ,stop aspirin. Hyperchloremic metabolic acidosislikely, resolved. encouraged for po intake and hydration.moniter bmp outpatient. moniter cbc ,bmp outpatient in 1 week. follow up outpatient with pcp and Gi Dr Krishna's office. plan: continue ppi/iron supplements. moniter cbc ,bmp outpatient in 1 week. follow up outpatient with pcp and Gi Dr Krishna's office. Above management discussed with the patient with the help of brush cutter he understand and in agreement with the above plan, time spent 45 minute, all questions answered. Time Attestation Total time managing care of this patient today: 45 mintues. Discharge Coordination Time (in mins): 45 min Quality: Safe Use of Opioids Does Pt have an Active Cancer Diagnosis on the Problem List?: No Quality: Stroke Does the patient have a stroke diagnosis?: No Physical Exam Exam: Exam: General: AO X 3, no acute distress Resp: CTA bilateral CVS: S1,S2,RRR GI: +BS, NT, no distention Skin: No rash Neuro: motor grossly intact Psych: appropriate affect Vital Signs: Vital Signs: Last Vital Signs Temp 97.6 F 03/16/25 13:13 Pulse 52 03/16/25 13:13 Resp 20 03/16/25 13:13 BP 134/63 03/16/25 13:13 Pulse Ox 98 03/16/25 13:13 O2 Del Method Room Air 03/16/25 13:13 BMI result Body Mass Index 27.1 DS: Data Data Completed and Pending Completed studies during hospitalization [Text1]: Pending at discharge 03/14/25 17:57 Surgical [PTH] Routine Pending studies at discharge: Pending at discharge 03/16/25 11:55 Surgical [PTH] Routine Labs on day of discharge: Laboratory Results - last 24 hr 03/16/25 13:03 WBC 3.9 L RBC 3.50 L Hgb 8.5 L Hct 27.4 L MCV 78.3 L MCH 24.3 L MCHC 31.0 RDW 15.5 Plt Count 189 MPV 11.0 Absolute Nucleated RBC 0.000 Nucleated RBC % (auto) 0.0 Iron 14 L TIBC 361 % Saturation 4 L Unsat Iron Binding 347 Ferritin 18 L Imaging Chest x-ray: Radiologist's impression: ITS Impressions Doppler Study Ultrasound 03/15/25 12:16 IMPRESSION: Normal patency and flow direction of the interrogated hepatic vessels Discharge Plan Discharge Anticipated Discharge Date/Time: 03/16/25 15:08 Patient Disposition: Home, Self-Care Discharge Diagnosis: Anemia of acute blood loss. Referrals: [facility] [Primary Care Provider, Medical] - 1 Week Felipa Krishna MD [Physician, Gastroenterology] - 1 Week Discharge Medications: New hydrocortisone acetate [Anusol-HC] 25 mg suppository 25 mg ME DAILY Qty: 12 0RF Continued Brilinta 90 mg tablet 90 mg PO BID 90 Days Qty: 180 3RF Rx Instructions: Take 2 tablets on first dose only. Then take 1 tablet in the am and 1 tablet in the pm multivitamin Tablet 1 tab PO DAILY cetirizine 10 mg tablet 1 tab PO DAILY thiamine HCl (vitamin B1) 100 mg tablet 1 tab PO DAILY hydroxyzine HCl 50 mg tablet 50 mg PO BEDTIME omeprazole 40 mg capsule,delayed release(DR/EC) 1 cap PO DAILY@0630 ferrous sulfate [FeroSul] 325 mg (65 mg iron) tablet 1 tab PO DAILY folic acid 1 mg tablet 1 tab PO DAILY topiramate 50 mg tablet 1 tab PO BEDTIME levetiracetam 500 mg tablet 500 mg PO BID fluticasone propion-salmeterol [Advair Diskus] 100-50 mcg/dose blister with device 1 ea inhalation BID albuterol sulfate [Ventolin HFA] 90 mcg/actuation HFA aerosol inhaler 2 puff inhalation Q4H PRN (Reason: wheezing) acetaminophen 500 mg Tablet 1,000 mg PO BEDTIME PRN (Reason: Pain) lisinopril 5 mg tablet 5 mg PO DAILY cholecalciferol (vitamin D3) 125 mcg (5,000 unit) capsule 125 mcg PO TU@0900 magnesium gluconate [Mag-G] 27 mg magnesium (500 mg) tablet 27 mg PO DAILY rosuvastatin 40 mg tablet 40 mg PO BEDTIME sertraline 25 mg tablet 25 mg PO DAILY Discontinued aspirin 81 mg tablet,delayed release (DR/EC) 81 mg PO DAILY Qty: 90 3RF Rx Instructions: 1 tablet daily Discharge Orders: Discharge Order (Routine); Ordered 03/16/25 Ordered By: Meenu Rivera Diet: Advance to usual diet Activity on Discharge: As tolerated Stand Alone Forms: Patient Portal Discharge page Print Language: Kinyarwanda Other Ambulatory Orders: Basic Metabolic Panel (Routine) Timeframe: 1 Week Facility: [facility] - Location: Laboratory Ordered By: Meenu Rivera Complete Blood Count no Diff (Routine) Timeframe: 1 Week Facility: [facility] - Location: Laboratory Ordered By: Meenu Rivera Care Plan Goals: Patient came with acute blood loss anemia possible GI loss: Patient received 3 units of PRBC ,H&H is stable in 8.5 range, Patient has EGD-seems fine, as well as colonoscopy polyp was removed and has some hemorrhoids:Discussed with GI patient will be going home with oral ppi, continue oral iron, further management out patiently with GI. Monitor CBC outpatient, follow up biopsy results with GI also. hx of cad s/p stent -he has almost near 1 year of dapt -discussed with cardiology : continue brilanta ,stop aspirin. moniter cbc ,bmp outpatient in 1 week. follow up outpatient with pcp and Gi Dr Krishna's office. Health Concerns: as above. Plan of Treatment: continue ppi/iron follow moniter cbc ,bmp outpatient in 1 week & also biopsy results outpatient with GI. Assessment: as above. Discharge Date/Time: 03/16/25 16:32
--- NOTE | 2025-03-16 16:20 | MHC.CM.PN ---
DP: PT HAS BEEN MEDICALLY CLEARED FOR DC HOME, NO SERVICES. PT HAS OWN RIDE HOME.
[2025-03-17 13:04] LABS: HCV Log PCR <1.18 NOT DETECTED Log IU/mL (NOT DETECTED); HepC Viral Load <15 NOT DETECTED IU/mL (NOT DETECTED)
== END 2025-03-16 16:32 | disposition home or self-care (01) | DRG 244 ==
LOC: HO.ED 16:54 → HO.EDOVER 17:01 → HO.S3 19:28
PROVIDERS: Internal Medicine; Physician Assistant Medical; Admitting Provider Internal Medicine; Emergency Provider Emergency Medicine; Visit Provider Internal Medicine
PROC: 0DJ08ZZ Inspection of Upper Intestinal Tract, Via Natural or Artificial Opening Endoscopic (ICD-10-PCS; CPT 43235; principal; 2025-03-14 17:00)
PROC: 0DJD8ZZ Inspection of Lower Intestinal Tract, Via Natural or Artificial Opening Endoscopic (ICD-10-PCS; CPT 45378; principal; 2025-03-16 12:30)
DX: K57.31 Diverticulosis of large intestine without perforation or abscess with bleeding (principal); E87.8 Other disorders of electrolyte and fluid balance, not elsewhere classified; D62 Acute posthemorrhagic anemia; E87.20 Acidosis, unspecified; K74.69 Other cirrhosis of liver; B18.2 Chronic viral hepatitis C; K63.5 Polyp of colon; K64.8 Other hemorrhoids; J45.909 Unspecified asthma, uncomplicated; I25.10 Atherosclerotic heart disease of native coronary artery without angina pectoris; I10 Essential (primary) hypertension; Z95.5 Presence of coronary angioplasty implant and graft; E78.5 Hyperlipidemia, unspecified; F41.9 Anxiety disorder, unspecified; G40.909 Epilepsy, unspecified, not intractable, without status epilepticus; Z79.51 Long term (current) use of inhaled steroids; Z79.899 Other long term (current) drug therapy
CPT/HCPCS: 36415; 80048; 80051; 80053; 82272; 82728; 83540; 83735; 85014; 85018; 85025; 85027; 85610; 85730; 86850; 86900; 86901; 86923; 87522; 88305; 88313; 88342; 93975; 94640; 99285; J1953; J2003; J2354; J2470; J2704; J7120; P9016

== ENCOUNTER 2025-03-13 16:48 | Outpatient (BNV) | payer MEDICAID, SELFPAY | END 2025-03-15 07:00 | PROVIDERS: Admitting Provider Internal Medicine; Emergency Provider Emergency Medicine; Visit Provider Radiology Diagnostic Radiology | DX: K74.69 Other cirrhosis of liver (principal) | CPT/HCPCS: 93975 ==

== ENCOUNTER → 2025-03-13 16:48 | Outpatient (BNV) | payer MEDICAID, SELFPAY | PROVIDERS: Admitting Provider Internal Medicine; Emergency Provider Emergency Medicine; Visit Provider Internal Medicine | DX: K92.2 Gastrointestinal hemorrhage, unspecified (principal); D62 Acute posthemorrhagic anemia | CPT/HCPCS: 99223; 99232; 99239 ==

== ENCOUNTER → 2025-03-13 16:48 | Outpatient (BNV) | payer MEDICAID, SELFPAY | PROVIDERS: Admitting Provider Internal Medicine; Emergency Provider Emergency Medicine; Visit Provider Internal Medicine | DX: B18.2 Chronic viral hepatitis C (principal); K74.60 Unspecified cirrhosis of liver; D64.9 Anemia, unspecified; K92.2 Gastrointestinal hemorrhage, unspecified | CPT/HCPCS: 43239; 99232 ==

== ENCOUNTER 2025-04-03 09:51 | Outpatient (REF) | payer MEDICAID, SELFPAY ==
--- OUTSIDE RECORDS SUMMARY | 2025-04-03 09:30 | XMS_ITS | Encounter Summary ---
Author Organization [employer] Address [address] [place] [address] Care Team Providers Care Cook Helper Meat Name Role Phone Isabella Tony MD Primary Care Provider Mike Aldridge RN Unavailable [phone] Chikis Lucero Unavailable Reason for Visit * Reason Comments [facility] [place]. Discharge dx: anemi a, cirrhosis, chron Encounter Details Date Type Department Care Team ([facility] st Contact Info) Description 04/03/2025 9:30 AM EDT Office Visit [facility] PEDS [address] [place], [place] [id number] Isabella Tony MD [address] [place] [address] Bleeding hemorrhoids (Primary Dx); Anemia, unspecified type; Benign essential hypertension Social History Tobacco Use Types Packs/Day Years Used Date Smoking Tobacco: Never Passive Smoke Exposure: Never Smokeless Tobacco: Never Alcohol Use Standard Drinks/Week Comments Not Currently 0 (1 standard drink = 0.6 oz pur e alcohol) Depression Answer Date Recorded Patient Health Questionnaire-9 Score 5 03/01/2025 Patient Health Questionnaire-9 Score 5 03/01/2025 Last PHQ-9: Questionnaire Data Not on file 0 03/01/2025 Housing Stability Answer Date Recorded What is your housing situation today? I have zenaida browne 10/19/[address] you li ve. Do you have problems with any of the following? None of the above 10/19/2024 Food Insecurity Answer Date Recorded Within the past 12 months, y ou worried that your food would run out before you got money to buy more: Sometimes True 2024 Within the past 12 months,th e food you bought just didn't last and you didn't have enough money to get more: Sometimes True 02/15/2025 Transportation Answer Date Recorded In the past 12 months, has l ack of transportation kept you from medical appts, meetings, work or from getting things needed for daily living? Yes, it has kept me from medical appointments or getting medications. 02/15/2025 Intimate Partner Violence Answer Date R ecorded Within the last year, have y ou been afraid of your partner or ex-partner? 2 03/01/2025 Within the last year, have y ou been humiliated or emotionally abused in other ways by your partner or ex-partner? 2 Within the last year, have y ou been kicked, hit, slapped, or otherwise physically hurt by your partner or ex-partner? 2 03/01/2025 Within the last year, have y ou been raped or forced to have any kind of sexual activity by your partner or ex-partner? 2 03/01/2025 Utilities Answer Date Recorded In the past 12 months, has t he electric, gas, oil or water company threatened to shut off services in your home? No 10/19/2024 Depression Answer Date Recorded Patient Health Questionnaire-2 Score 2 03/01/2025 Internet Access Answer Date Recorded Internet Access Q1 Yes 10/19/2024 Internet Access Q2 Not on file 10/19/2024 Sex and Gender Information Value Date Recorded Sex Assigned at Male 05/26/2022 10:15 AM EDT Legal Sex Male 10:15 AM EDT Gender Identity Male 05/26/2022 10:15 AM EDT Sexual Orientation Choose not to disclose 2021 10:15 AM EDT documented as of this encounter Last Filed Vital Signs Vital Sign Reading Time Taken Comments Blood Pressure 115/73 04/03/2025 9:27 AM EDT Pulse 68 04/03/2025 9:27 AM EDT Temperature 36.2 C (97.1 F) 04/03/2025 9:27 AM EDT Respiratory Rate 18 04/03/2025 9:27 AM EDT Oxygen Saturation - - Inhaled Oxygen Concentration - - Weight 75.3 kg (166 lb) 04/03/2025 9:27 AM EDT Height 170.2 cm (5' 7 ) 04/03/2025 9:27 AM EDT Body Mass Index 26 04/03/2025 9:27 AM EDT documented in this encounter Progress Notes * Isabella Tony MD - 04/03/2025 9:30 AM EDT Subjective Patient ID: Trever Ledesma is a 59 y.o. male who presents for [facility] 03/13[place]- 03/16/25. Discharge dx: anemia, cirrhosis, chron. Pt was seen and treated fro Acute blood loss from bleeding Hemorrhoids patient received 3 units of PRBC ,H H is stable in 8.5 range, Patient has EGD-seems fine, as well as colonoscopy polyp was removed and has some hemorrhoids Anemia Presents for follow-up visit. Symptoms include malaise/fatigue and pallor. There has been no abdominal pain, anorexia, bruising/bleeding easily, confusion, fever, leg swelling or light-headedness. Signs of blood loss that are present include melena. (rectal bleeding) There are no compliance problems. Review of Systems Constitutional: Positive for malaise/fatigue. Negative for fever. Respiratory: Negative. Cardiovascular: Negative. Gastrointestinal: Positive for melena. Negative for abdominal pain and anorexia. Genitourinary: Negative. Skin: Positive for pallor. Neurological: Negative for light-headedness. Hematological: Does not bruise/bleed easily. Psychiatric/Behavioral: Negative for confusion. Objective Physical Exam Constitutional: Appearance: Normal appearance. Cardiovascular: Rate and Rhythm: Normal rate and regular rhythm. Pulmonary: Effort: Pulmonary effort is normal. Breath sounds: Normal breath sounds. Neurological: General: No focal deficit present. Mental Status: He is alert. Psychiatric: Mood and Affect: Mood normal. Behavior: Behavior normal. Assessment/Plan Diagnoses and all orders for this visit: Bleeding hemorrhoids Comments: Hold aspirin Cont Brilinta Has follow up with GI on Jun 05 Anemia, unspecified type Comments: Labs ordered today started on daily Iron Orders: - CBC auto differential; Future Benign essential hypertension Comments: Well controlled No changes in meds Advised Low sugar and Low carb diet. Counseled regarding self-monitoring of blood glucose. Counseled re: potential co-morbidities including cardiovascular disease. Counseled re: potential co-morbidities include neuropathy and retinopathy. Counseled re: potential co-morbidities include nephropathy. Other orders - polyethylene glycol, PEG, 3350 (MiraLax) 17 GM/SCOOP powder; Take 17 g by mouth Once per day for 3 days. - ferrous gluconate (Fergon) 324 (38 Fe) MG tablet; Take 1 tablet (324 mg) by mouth with breakfast. documented in this encounter Plan of Treatment Upcoming Encounters Date Type Department Care Team (Late st Contact Info) Description 08/10/2025 10:00 AM EST Office Visit [facility] ADULT DENTAL [address] [place] [address] Kristyn Martinez Scheduled Orders Name Type Priority Associated Diagnoses Orde r Schedule CBC auto differential Lab Routine Anemia, unspecified type Expected: 04/03/2025 (Approximate), Expires: 04/03/2026 documented as of this encounter Visit Diagnoses Diagnosis Bleeding hemorrhoids- Primary Unspecified hemorrhoids with other complication Anemia, unspecified type Benign essential hypertension Essential hypertension, benign documented in this encounter Additional Health Concerns Assessment Noted Time PHQ-9 Depression Total Score: 5 03/01/20 25 9:25 AM EDT documented as of this encounter Care Teams Cook Helper Meat Relationship Specialty Start Date End Date Isabella Tony MD [address] [place] [address] PCP - General Family Medicine 07/12/12 Mike Aldridge, RN [address] [place] [address] Registered Nurse Family Medicine 02/15/25 Chikis Lucero 02/15/25 documented as of this encounter
--- OUTSIDE RECORDS SUMMARY | 2025-04-03 11:28 | XMS_ITS | Encounter Summary ---
Author Organization [employer] Address [address] [place] [address] Care Team Providers Care Wealth Management Director Name Role Phone Isabella Tony MD Primary Care Provider [phone] Mike Aldridge RN Unavailable [phone] Chikis Lucero Unavailable Reason for Visit * Reason Onset Date Comments Nurse Triage 07/21/2023 Encounter Details Date Type Department Care Team ([facility] st Contact Info) Description 07/21/2023 Telephone [facility] MEDICINE [address] [place] [address] Isabella Tony MD [address] [place], [place] [phone] Nurse Triage Social History Tobacco Use Types [...] want to go to walk in at [facility] today ot tomorrow. Pt. Wants televisit. Pt. Is speaking in clear sentences and denies SOB or wheezing at present. Advised if develops SOB to go to walk in at [facility] until 730pm tonight. Protocol Used: COVID-19 - [...] Upcoming Encounters Date Type Department Care Team ([facility] st Contact Info) Description 08/10/2025 10:00 AM EST Office Visit [facility] ADULT DENTAL [address] [place] [address] Kristyn Martinez documented as of this encounter Visit Diagnoses Diagnosis Mild persistent asthma, unspecified whether complicated documented in this encounter Care Teams Wealth Management Director Relationship Specialty Start Date End Date Isabella Tony MD [address] [place] [address] PCP - General Family Medicine 07/12/12 Mike Aldridge, RN [address] [place] [address] Registered Nurse Family Medicine 02/15/25 Chikis Lucero 02/15/25 documented as of this encounter
--- OUTSIDE RECORDS SUMMARY | 2025-04-03 11:28 | XMS_ITS | Encounter Summary ---
Author Organization [employer] Address [address] [place] [address] Care Team Providers Care Lead Person Name Role Phone Isabella Tony MD Primary Care Provider [phone] Mike Aldridge RN Unavailable [phone] Chikis Lucero Unavailable Reason for Visit * Reason Onset Date Comments Dental Pain 09/03/2023 Encounter Details Date Type Department Care Team ([facility] st Contact Info) Description 09/03/2023 Telephone [facility] ADULT DENTAL [address] [place] [address] Roseanne Devries, VINCENT Dental Pain Social History [...] as scripted. He would like something stronger documented in this encounter Plan of Treatment Upcoming Encounters Date Type Department Care Team (Late st Contact Info) Description 08/10/2025 10:00 AM EST Office Visit [facility] ADULT DENTAL [address] [place] [address] Kristyn Martinez documented as of this encounter Visit Diagnoses Not on filedocumented in this encounter Care Teams Lead Person Relationship Specialty Start Date End Date Isabella Tony MD [address] [place] [address] PCP - General Family Medicine 07/12/12 Mike Aldridge, RN [address] [place] [address] Registered Nurse Family Medicine 02/15/25 Chikis Lucero 02/15/25 documented as of this encounter
--- OUTSIDE RECORDS SUMMARY | 2025-04-03 11:28 | XMS_ITS | Encounter Summary ---
Author Organization [employer] Address [address] [place] [address] Care Team Providers Care Postdoctoral Research Associate Name Role Phone Isabella Tony MD Primary Care Provider Mike Aldridge RN Unavailable [phone] Chikis Lucero Unavailable Encounter Details Date Type Department Care Team (Late Contact Info) Description 07/30/2022 Orders Only [facility] [address] [place] [address] Miguelina Arvizu LPN Social History Tobacco Use [...] 10:00 AM EST Office Visit [facility] ADULT D[facility]AL [address] [place] [address] Kristyn Martinez documented as of this encounter Visit Diagnoses Not on filedocumented in this encounter Care Teams Postdoctoral Research Associate Relationship Specialty Start Date End Date Isabella Tony MD [address] [place] [address] PCP - General Family Medicine 07/12/12 Mike Aldridge, RN [address] [place] [address] [place] [address] Registered Nurse Family Medicine 02/15/25 Chikis Lucero 02/15/25 documented as of this encounter
--- OUTSIDE RECORDS SUMMARY | 2025-04-03 11:28 | XMS_ITS | Encounter Summary ---
Author Organization [employer] Address [address] [facility] [address] [place] [address] Care Team Providers Care Temp Recruiter Name Role Phone Isabella Tony MD Primary Care Provider [phone] Mike Aldridge RN Unavailable Chikis Lucero Unavailable Reason for Visit * Reason Comments Med Refill Encounter Details Date Type Department Care Team (Late st Contact Info) Description 09/10/2023 Refill [facility] MEDICINE [address] [place] [address] Isabella Tony MD [address] [place] [address] Seizure disorder (CMS/HCC) Social History Tobacco Use [...] Description 08/10/2025 10:00 AM EST Office Visit [facility] ADULT DENTAL [address] [place] [address] Kristyn Martinez documented as of this encounter Visit Diagnoses Diagnosis Seizure disorder (CMS/HCC) Unspecified epilepsy without mention of intractable epilepsy documented in this encounter Care Teams Temp Recruiter Relationship Specialty Start Date End Date Isabella Tony MD [address] [place] [address] PCP - General Family Medicine 07/12/12 Mike Aldridge, RN [address] [place] [address] Registered Nurse Family Medicine 02/15/25 Chikis Lucero 02/15/25 documented as of this encounter
--- OUTSIDE RECORDS SUMMARY | 2025-04-03 11:28 | XMS_ITS | Clinical Summary ---
Author Organization [facility] Address [address] [place] [address] Care Team Providers Care Traveling Phlebotomist Name Role Phone Unavailable Primary Care Provider [...] file Trever Ledesma Personal/Family Self 1965 [address] [address] [place] [address]
--- OUTSIDE RECORDS SUMMARY | 2025-04-03 11:28 | XMS_ITS ---
Author Organization [employer] Address [address] [place] [address] Care Team Providers Care Compressed Gas Plant Worker Name Role Phone Isabella Tony MD Primary Care Provider [phone] Mike Aldridge RN Unavailable [phone] Chikis Lucero Unavailable CM Complex Status:Enrolled (Active) Start date:02/15/2025 Enrollment date:02/28/2025 Enrollment reason:ADT Feed Overview ADT-[facility] ED 02/14/25 Case Team Name Relationship Phone Mike Aldridge RN(Responsible Staff) Registered [facility] [phone] Continued Care and Services Coordination
--- OUTSIDE RECORDS SUMMARY | 2025-04-03 11:28 | XMS_ITS | Encounter Summary ---
Author Organization [employer] Address [address] [facility] [address] [place] [address] Care Team Providers Care Country Manager Name Role Phone Isabella Tony MD Primary Care Provider [phone] Mike Aldridge RN Unavailable [phone] Chikis Lucero Unavailable Reason for Visit * Reason Comments Care Management C3CM- F/U call # 1 Encounter Details Date Type Department Care Team ([facility] st Contact Info) Description 03/29/2025 Patient Outreach [facility] [address] [place] [address] Isabella Tony MD [address] [place] [address] Care Management (C3CM- F/U call # 1) Social History Tobacco Use Types Packs/Day Years [...] got money to buy more: Sometimes True 07/23/ 2025 Within the past 12 months,th e food [...] AM EDT documented as of this encounter Progress Notes * Mike Aldridge RN - 03/29/2025 11:12 AM EDT ANTOINETTE Aldridge RN placed outbound call to patient. Patient's name, and address confirmed. Patient reports that he was admitted to [facility] from 03/13/25- 03/16/25. Per reports discharge diagnosis: anemia, cirrhosis, chronic hepatitis c, s/p cardiac catherization. Patient reports feeling a little bit better post discharge. Patient reports that he is no longer having chest pain or feeling SOB. Patient denies feeling weak and fatigue. Patient reports that he was prescribed a suppository but it's notbeing covered by his insurance and the out of pocked cost is $35 which patient is not willing to pay, states he will discuss further with PCP. Patient reports compliance to his med box medications. Patient agreed to schedule an HDF appointment with PCP Cecily on 04/03/25 @ 9:30 AM. CM informed patient that follow up appointment with PCP on 04/05/25 will be cancelled. Patient reports that he was scheduled for [facility] GI appointment on 06/05/25 @ 10 AM. No further questions or concerns. CM reinforced direct contact information for any additional questions or concerns. Education provided on [facility] located in [facility]. Patient provided with after-hours line for [facility], , which offer night time triage service and option to transfer to reconciliation analyst provider if needed. Patient verbalizes understanding, and able to r epeat back to service writer. A follow up call will be placed within 10 days, patient agrees with plan. documented in this encounter Plan of Treatment Upcoming Encounters Date Type Department Care Team (Late st Contact Info) Description 08/10/2025 10:00 AM EST Office Visit [facility] [address] [place] [address] Kristyn Martinez documented as of this encounter Visit Diagnoses Not on filedocumented in this encounter Additional Health Concerns Assessment Noted Time PHQ-9 Depression Total Score: 5 03/01/20 25 9:25 AM EDT documented as of this encounter Care Teams Country Manager Relationship Specialty Start Date End Date Isabella Tony MD [address] [place] [address] PCP - General Family Medicine 07/12/12 Mike Aldridge, RN [address] [place] [address] Registered Nurse Family Medicine 02/15/25 Chikis Lucero 02/15/25 documented as of this encounter
--- OUTSIDE RECORDS SUMMARY | 2025-04-03 11:28 | XMS_ITS | Encounter Summary ---
Author Organization [employer] Address [address] [facility] [address] [place] [address] Care Team Providers Care Central Office Operator Supervisor Name Role Phone Isabella Tony MD Primary Care Provider [phone] Mike Aldridge RN Unavailable [phone] Chikis Lucero Unavailable Reason for Visit * Reason Comments Med Refill Encounter Details Date Type Department Care Team (Late Contact Info) Description 04/08/2023 Refill [facility] [address] [place] [address] Isabella Tony MD [address] [place] [address] Seizure disorder (CMS/HCC) Social History Tobacco Use [...] Department Care Team (Late Contact Info) Description 08/10/2025 10:00 AM EST Office Visit [facility] [address] [place] [address] Kristyn Martinez documented as of this encounter Visit Diagnoses Diagnosis Seizure disorder (CMS/HCC) Unspecified epilepsy without mention of intractable epilepsy documented in this encounter Care Teams Central Office Operator Supervisor Relationship Specialty Start Date End Date Isabella Tony MD [address] [place] [address] PCP - General Family Medicine 07/12/12 Mike Aldridge RN [address] [place] [address] Registered Nurse Family Medicine 02/15/25 Chikis Lucero 02/15/25 documented as of this encounter
--- OUTSIDE RECORDS SUMMARY | 2025-04-03 11:28 | XMS_ITS | Clinical Summary ---
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 Name Role Phone Isabella Tony MD Primary Care Provider [phone] Mike Aldridge RN Unavailable Chikis Lucero Unavailable Allergies No known active allergies Medications acetaminophen (Tylenol 8 Hour) 650 MG ER tabletIndicati ons:Pain TAKE ONE TABLET EVERY 8 HOURS NEEDED [...] NOSTRIL ONCE DAILY NEEDED 07/03/20 22 Active tadalafil (Cialis) 5 MG tablet TAKE ONE TABLET EVERY MORNING 15 tablet 04/07/20 23 Active lisinopril 5 MG tablet Take 1 [...] 13 g 11 08/02/19 25 Active Vaporizer miscIndication s:Upper respiratory tract infection, unspecified type Use at night prn uri 1 each 08/17/19 25 Active Magnesium Glycinate 100 MG capsule Take 1 capsule (100 mg) by mouth at bedtime. 30 capsule 11 10/28/19 25 026 Active Mag-G 500 (27 Mg) MG tablet TAKE ONE TABLET TWICE DAILY IN THE MORNING AND AT BEDTIME 60 tablet 11 11/03/19 25 Active hydrOXYzine HCl (Atarax) 50 MG tabletIndicati ons:Anxiety TAKE ONE TABLET EVERY NIGHT AT BEDTIME 60 tablet 3 11/24/19 25 Active Multiple Vitamin (Multivitamin) tabletIndicati ons:Seizure disorder (CMS/HCC) TAKE ONE TABLET EVERY MORNING 90 tablet 1 11/26/19 25 Active thiamine (Vitamin B-1) 100 MG tabletIndicati ons:Seizure disorder (CMS/HCC) TAKE ONE TABLET EVERY MORNING 90 tablet 1 11/26/19 25 Active albuterol 108 (90 Base) MCG/ACT inhaler Inhale 2 puffs every 4 (four) hours if needed for wheezing. 18 g 01/10/20 25 026 Active albuterol (Ventolin HFA) 108 (90 Base) MCG/ACT inhalerIndicat ions:Mild persistent asthma, unspecified whether complicated INHALE TWO PUFFS EVERY 4 HOURS NEEDED FOR WHEEZING OR SHORTNESS OF BREATH 18 g 1 01/10/20 25 Active folic acid (Folvite) 1 MG tabletIndicati ons:Alcoholism (CMS/HCC) TAKE ONE TABLET EVERY MORNING 90 tablet 2 01/26/20 25 Active cetirizine (ZyrTEC) 10 MG tabletIndicati ons:Seasonal allergies TAKE ONE TABLET EVERY MORNING 90 tablet 01/27/20 25 Active Ferrous Sulfate (iron) 325 (65 Fe) MG tabletIndicati ons:Iron deficiency anemia secondary to inadequate dietary iron intake TAKE ONE TABLET EVERY MORNING 90 tablet 01/27/20 25 Active levETIRAcetam (Keppra) 500 MG tablet TAKE ONE TABLET TWICE DAILY IN THE MORNING AND AT BEDTIME 60 tablet 2 01/27/20 25 Active cholecalcifero l (Vitamin D-3) 125 MCG (5000 UT) capsule TAKE ONE CAPSULE BY MOUTH ONCE WEEKLY ON THURSDAY MORNING 12 capsule 03/02/20 25 Active topiramate 50 MG tabletIndicati ons:Seizure disorder (CMS/HCC) TAKE ONE TABLET EVERY NIGHT AT BEDTIME 30 tablet 5 03/28/20 25 Active Fluticasone-Sa lmeterol (Wixela Inhub) 100-50 MCG/ACT aerosol powder Inhale 1 puff 2 times daily. INHALE 1 PUFF BY MOUTH TWICE DAILY, RINSE MOUTH AFTER USE. 1 each 03/28/20 25 Active omeprazole (PriLOSEC) [address] capsuleIndicat ions:Seizure disorder (CMS/HCC) TAKE ONE CAPSULE EVERY MORNING BEFORE BREAKFAST 90 capsule 1 03/28/20 25 Active rosuvastatin (Crestor) 40 MG tablet take one tablet every night at bedtime 01/27/20 25 Active Brilinta 90 MG tablet TAKE ONE TABLET IN THE MORNING AND EVENING Active polyethylene glycol, PEG, 3350 (MiraLax) 17 GM/SCOOP powder Take 17 g by mouth Once per day for 3 days. 527 g 04/03/20 025 Active ferrous gluconate (Fergon) 324 (38 Fe) MG tablet Take 1 tablet (324 mg) by mouth with breakfast. 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 30 tablet 02/10/20 24 025 Discontinued(Me d list cleanup (will not trigger notification to Pharmacy)) omeprazole (PriLOSEC) [address] capsuleIndicat ions:Seizure disorder (CMS/HCC) TAKE ONE CAPSULE EVERY MORNING BEFORE BREAKFAST 90 capsule 1 09/28/19 25 025 Discontinued(Re order (will not trigger notification to Pharmacy)) topiramate 50 MG tabletIndicati ons:Seizure disorder (CMS/HCC) TAKE ONE TABLET EVERY NIGHT AT BEDTIME 30 tablet 5 09/28/19 25 025 Discontinued Fluticasone-Sa lmeterol (Wixela Inhub) 100-50 MCG/ACT aerosol powder Inhale 1 Inhalation 2 times daily. 1 each 01/10/20 25 025 Discontinued(Re order (will not trigger notification to Pharmacy)) Hospital, Clinic, or Other Facility Administered Medication Ordered Dose Route Frequency Start Date End Date Status aspirin chewable tablet 325 mgIndications:Other chest pain 325 mg PO Once 03/31/2024 Active Active Problems Problem Noted Date Diagnosed Date Right foot pain 01/09/2025 Alcohol-induced chronic pancreatitis 10/20/2024 Alcoholic cirrhosis of [...] Encounters Date Type Department Care Team Description 04/03/2025 9:30 AM EDT Office Visit [facility] MED & PEDS [address] [place] [address] Isabella Tony MD Bleeding hemorrhoids (Primary Dx); Anemia, unspecified type; Benign essential hypertension 04/03/2025 Travel 03/31/2025 Patient Outreach [facility] [address] [place] [phone] Isabella Tony MD Care Coordination (C3 CM-CHW Chikis Lucero telephone call outreach/) 03/31/2025 Telephone [facility] PED[facility] [address] [place] [address] Isabella Tony MD chart prep 03/29/2025 Patient Outreach [facility] [address] [place] [phone] Isabella Tony MD Care Management (C3CM- F/U call # 1) 03/28/2025 Refill [facility] [address] [place] [address] Isabella Tony MD Seizure disorder (CMS/HCC) 03/27/2025 Refill [facility] [address] [place] [address] Isabella Tony MD Seizure disorder (CMS/[facility]) 03/22/2025 Telephone [facility] [address] [place] [address] Isabella Tony MD ER Follow-up 03/13/2025 Telephone [facility] [address] [place] [address] Isabella Tony MD Results 03/13/2025 Orders Only GENERIC EXTERNAL DATA DEPARTMENT Provider, Generic External Data 03/08/2025 Patient Outreach [address] [address] Isabella Tony MD Care Coordination (C3 CM-W Chikis Lucero telephone call outreach) 03/02/2025 Plan of Care Documentation [address] [address] 03/02/2025 Refill [facility] [address] [place] [address] Isabella Tony MD 02/28/2025 Patient Outreach [address] [address] Isabella Tony MD Care Management (C3CM- Initial assessment/enrollme nt) 02/27/2025 Patient Outreach [address] [address] Isabella Tony MD Care Coordination (C3 CM-[facility] Chikis Lucero telephone call outreach) 02/21/2025 9:30 AM EDT Office Visit [facility] ADULT DENTAL [address] [place] [address] Taniya Munoz DDS 02/16/2025 Patient Outreach [address] [address] Isabella Tony MD 02/15/2025 Patient Outreach [address] [address] Isabella Tony MD Care Coordination 02/15/2025 Patient Outreach [address] [phone] Isabella Tony MD Care Coordination (C3 CM-CHW Chikis Lucero telephone call outreach/) 02/15/2025 Patient Outreach [facility] [address] [place] [phone] Isabella Tony MD 02/15/2025 Patient Outreach [facility] [address] [place] [phone] Isabella Tony MD 02/15/2025 Patient Outreach [address] [address] Isabella Tony MD Care Coordination ([facility]- chart review) 02/15/2025 Patient Outreach [address] [address] Isabella Tony MD 02/01/2025 Telephone [facility] [address] [place] [address] Isabella Tony MD Nurse Triage 01/30/2025 11:00 AM EDT Office Visit [facility] ADULT DENTAL [address] [place] [address] Kristyn Martinez Dental calculus (Primary Dx); Dental plaque 01/26/[address] [address] Isabella Tony MD Nurse Triage 01/26/[address] [address] Isabella Tony MD Seasonal allergies; Iron deficiency anemia secondary to inadequate dietary iron intake 01/25/2025 Refill [facility] [address] [place] [address] Isabella Tony MD Alcoholism ([facility]) 01/18/2025 Orders Only GENERIC EXTERNAL DATA DEPARTMENT Provider, Generic External Data 01/09/2025 11:15 AM EDT Office Visit [facility]ED[facility] [address] [place] [address] Macarena Gomez MD Right foot pain (Primary Dx); Mild persistent asthma, unspecified whether complicated 01/09/2025 Travel 01/06/2025 Telephone [facility] [address] [place] [address] Isabella Tony MD Chart Prep 01/06/2025 Telephone [facility] [address] [place] [address] Isabella Tony MD Nurse Triage from Last 3 Months Immunizations Immunization Administration [...] housing situation today? I have [place] 10/19/[address] you [...] 18 04/03/2025 9:27 AM EDT Oxygen Saturation 99% 01/09/2025 10:50 AM EDT Inhaled Oxygen Concentration - - Weight 75.3 kg (166 lb) 04/03/2025 9:27 AM EDT Height 170.2 cm (5' 7 ) 04/03/2025 9:27 AM EDT Body Mass Index 26 04/03/2025 9:27 AM EDT Plan of Treatment Upcoming Encounters Date Type Department Care Team (Late st Contact Info) Description 08/10/2025 10:00 AM EST Office Visit [facility] ADULT DENTAL [address] [place] [address] Kristyn Martinez Health Maintenance Due Date Last Done Comments CT Colonography 1965 Colonoscopy 1965 FIT 1965 Sigmoidoscopy 1965 Hepatitis A Vaccines (1 of 2 - Risk 2-dose series) 1986 Hepatitis B Vaccines (1 of 3 - 19+ 3-dose series) 1986 Pneumococcal Vaccine: 50+ Years (1 of 2 - PCV) 1986 Zoster Vaccines (1 of 2) 2017 FOBT 02/15/2025 02/16/2024 COVID-19 Vaccine (4 - season) 2025 08/07/2021, 12/13/2020, 11/15/2020 Influenza Vaccine (#1) 2025 , 05/17/2021, 06/29/2019, Additional history exists Dental Oral Exam 06/29/2025 12/27/2024, , 12/30/2017, Additional history exists Dental Prophylaxis 08/03/2025 01/30/2025, 0 04/19/2024, 12/24/2016, Additional history exists Disability Screening 10/27/2025 10/27/2024 Dental X-Ray: Bitewings 12/28/2025 12/28/19 25, 04/19/2024, 07/30/2023, Additional history exists Tobacco Screening 01/30/2026 01/30/2025 SDOH Screening 02/15/2026 02/15/2025 Alcohol/Substance Use Screening 03/01/2026 03/01/2025 Depression Screening 03/01/2026 03/01/2025, 03/01/20 25 DTaP/Tdap/Td Vaccines (2 - Td or Tdap) 04/11/2026 04/11/2016 Colorectal Cancer Screening 02/15/2027 FIT DNA/Cologuard 02/15/2027 02/16/2024 Dental X-Ray: Full Mouth 04/20/2027 04/19/2024, 03/28 Lipid Panel 12/08/2029 12/08/2024, 01/24, 10/14/2023, Additional history exists RSV Patients and Patients [...] Procedure Name Priority Date/Time Associated Diagnosis Comments US DUPLEX ARTERIAL VENOUS COMP Routine 03/15/2025 12:16 PM EDT RED BLOOD COUNT Routine 03/13/2025 2:35 PM EDT TYPE AND SCREEN Routine 03/13/2025 2:35 PM EDT OBSX1 Routine 03/13/2025 2:27 PM EDT MAGNESIUM Routine 03/13/2025 2:21 PM EDT COMPREHENSIVE METABOLIC PANEL Routine 03/13/2025 2:21 PM EDT APTT Routine 03/13/2025 2:21 PM EDT PROTHROMBIN TIME-INR Routine 03/13/2025 2:21 PM EDT CBC WITH AUTO DIFFERENTIAL Routine 03/13/2025 2:21 PM EDT PATHOLOGIST REVIEW - CBC Routine 03/13/2025 11:23 AM EDT TSH W/REFLEX TO FT4 Routine 03/13/2025 1 1:23 AM EDT COMPREHENSIVE METABOLIC PANEL Routine 03/13/2025 11:23 AM EDT CBC WITH AUTO DIFFERENTIAL Routine 03/13/2025 11:23 AM EDT CASE PRESENTATION, DETAILED AND EXTENSIVE TREATMENT PLANNING Routine 02/21/2025 9:30 AM EDT 26 DFL RESIN-BASED COMPOSITE - 3 SURF, ANTERIOR Routine 02/21/2025 9:30 AM EDT XR SHOULDER 2+ VIEWS RIGHT Routine 02/14/2025 6:47 AM EDT ORAL HYGIENE INSTRUCTIONS Routine 01/30/2025 11:00 AM EDT CASE PRESENTATION, DETAILED AND EXTENSIVE TREATMENT PLANNING Routine 01/30/2025 11:00 AM EDT PROPHYLAXIS - ADULT Routine 01/30/2025 1 1:00 AM EDT GROSS AND MICROSCOPIC LEVEL 3 Routine 01/18/2025 12:20 PM EDT POCT RAPID COVID ANTIGEN Routine 01/09/2025 12:18 PM EDT Mild persistent asthma, unspecified whether complicated POCT INFLUENZA B (ID NOW RAPID MOLECULAR) Routine 01/09/2025 12:17 PM EDT Mild persistent asthma, unspecified whether complicated POCT INFLUENZA A (ID NOW RAPID MOLECULAR) Routine 01/09/2025 12:17 PM EDT Mild persistent asthma, unspecified whether complicated BITEWINGS - 4 RADIOGRAPHIC IMAGES Routine 12/27/2024 8:00 AM EDT PERIODIC ORAL EVALUATION - ESTABLISHED PATIENT Routine 12/27/2024 8:00 AM EDT LIPID PANEL, STANDARD Routine 12/08/2024 8:19 AM EDT Benign essential hypertension INTRAORAL - COMPLETE SERIES OF RADIOGRAPHIC IMAGES Routine 04/19/2024 9:00 AM EDT LAB COLOGUARD COLON CANCER SCREEN Routine 02/16/2024 8:20 AM EDT Encounter for screening for malignant neoplasm of colon ZZZ HISTORICAL HIV AB/AG Routine 07/10/2020 9:18 AM EST from Last 3 Months or Most Recently Relevant to Health Maintenance Results * US DUPLEX ARTERIAL VENOUS COMP (03/15/2025 12:16 PM EDT) Anatomical Region Laterality Modality Abdomen Ultrasound 03/15/2025 12:1 6 PM EDT Narrative 03/15/2025 12:38 PM EDT [address] [address] Ultrasound Report Signed Patient: Trever Ledesma MR#: [id number] 048 : 1965 Acct:[id number] Age/Sex: 59 / M ADM Date: 03/13/25 Loc: HO.S3 352-[address]: Aquilino Murphy MD Ordering Physician: Felipa Krishna MD Date of Service: 03/15/25 Procedure(s): US duplex arterial venous comp Accession Number(s): [id number] cc: [facility]; Felipa Krishna MD EXAMINATION: US DOPPLER LIVER LIMITED CLINICAL INFORMATION: Cirrhosis. COMPARISON: None available. TECHNIQUE: Ultrasound along with color Doppler imaging and spectral analysis was performed of the main portal vein and hepatic veins.. FINDINGS: The main portal veins are patent with normal hepatopedal flow direction. The main hepatic veins are patent with normal hepatofugal flow direction. US/US duplex arterial venous comp IMPRESSION: Normal patency and flow direction of the interrogated hepatic vessels Electronically signed by: Richmond James MD 03/15/2025 12:35 PM EDT Dictated By: Richmond Soni MD Signed By: <Electronically signed by Richmond Nobles MD in OV> 03/15/25 1235 DD/ 1216 TD/TT: 03/15/25 1219 Enterprise Application Developer: Procedure Note Donotuseinterpreter, Image - 03/15/[address] [address] Ultrasound Report Signed Patient: Trever Ledesma AMR#: [id number] [id number] : 1965Acct:[id number] Age/Sex: 59 / MADM Date: 03/13/25 Loc: HO.S3 352-[address]: Aquilino Murphy MD Ordering Physician: Felipa Krishan MD Date of Service: 03/15/25 Procedure(s): US duplex arterial venous comp Accession Number(s): [id number] cc: [facility]; Felipa Krishna MD EXAMINATION: US DOPPLER LIVER LIMITED CLINICAL INFORMATION: Cirrhosis. COMPARISON: None available. TECHNIQUE: Ultrasound along with color Doppler imaging and spectral analysis was performed of the main portal vein and hepatic veins.. FINDINGS: The main portal veins are patent with normal hepatopedal flow direction. The main hepatic veins are patent with normal hepatofugal flow direction. US/US duplex arterial venous comp IMPRESSION: Normal patency and flow direction of the interrogated hepatic vessels Electronically signed by: Richmond James MD 03/15/2025 12:35 PM EDT RP Dictated By: Richmond Soni MD Signed By: <Electronically signed by Richmond Nobles MDin OV> 03/15/25 1235 DD/ 1216 TD/TT: 03/15/25 1219 Enterprise Application Developer: us [facility] External Provider IMG US PROCEDURES Final Result * Red blood count (03/13/2025 2:35 PM EDT) Red Blood Cells: [id number] OP RC TRANSFUSED 03/13/25 1556 [facility] 03/13/2025 2:35 PM EDT 03/13/2025 2:40 PM EDT us Generic External Data Provider LAB BLOOD ORDERAB LES Final Result [facility] [address] [place] [phone] * Type and screen (03/13/2025 2:35 PM EDT) Blood Type BP [facility] Antibody Screen NEGATIVE [facility] 03/13/2025 2:35 PM EDT 03/13/2025 2:40 PM EDT Narrative [facility] - 03/13/2025 4:19 PM EDT Results at Issue Units as of 03/13/25 1557 ...Test View Group: Most Recent HGB HCT Results LABORATORYDate Time Test Result Flag Normal Range03/13/25 1421 HGB 5.3 *L 14.0-18.0 g/dlResults of HGB called to and read back by Mele 03/13/25 at 1430 by ALENA.03/13/25 1421 HCT 18.7 *L 42.0-52.0 %Results of HCT called to and read back by Mele 03/13/25 at 1430 by ALENA. Hgb < 7 gmYes Generic External Data Provider LAB BLOOD BANK TE ST ORDERABLES Final Result Performing Organization Address [facility] de Phone Number [facility] [address] [place] [phone] * OBSX1 (03/13/2025 2:27 PM EDT) [facility] OBS1 POSITIVE NEGATIVE [facility] 03/13/2025 2:27 PM EDT 03/13/2025 2:39 PM EDT Generic External Data Provider LAB BLOOD ORDERAB LES Final Result Performing Organization Address [facility] de Phone Number [facility] [address] [place] [phone] * (ABNORMAL) CBC auto differential (03/13/2025 2:21 PM EDT) Only the most recent of2 resultswithin the time period is included. [facility] White Blood Count 3.4(L) 4.8 - 10.8 X10*3/uL [facility] Red Blood Count 2.40(L) 4.60 - 5.80 X10*6/uL [facility] Hemoglobin 5.3(LL) 14.0 - 18.0 g/dl [facility] Comment:Results of HGB truong d to and read back by Mele 03/13/25 at 1430 by ALENA. Hematocrit 18.7(LL) 42.0 - 52.0 % [facility] Comment:Results of HCT truong d to and read back by Mele 03/13/25 at 1430 by ALENA. Mean Corpuscular Volume 77.9(L) 80.0 - 98.0 fL [facility] Mean Corpuscular Hemoglobin 22.1(L) 27.0 - 33.0 pg [facility] Mean Corpuscular HGB Conc 28.3(L) 31.0 - 36.0 g/dl [facility] Red Cell Distribution Width 14.7 11.0 - 16.0 % [facility] Platelet Count 187 160 - 400 X10*3/uL [facility] Mean Platelet Volume 11.4 9.4 - 12.4 fL [facility] Neutrophils Percent Auto 53.1 45 - 73 % [facility] Imm Gran Pct Auto 0.3 0.0 - 0.4 % [facility] Lymphocytes Percent Auto 34.7 20 - 40 % [facility] Monocytes Percent Auto 11.0 2 - 11 % [facility] Eosinophils Percent Auto 0.9 0 - 4 % [facility] Basophils Percent Auto 0.0 0 - 2 % [facility] NRBC Pct Auto 0.0 0.0 - 0.2 /100WBC [facility] Neutrophils Absolute Auto 1.8(L) 2.0 - 8.3 x10*3/uL [facility] Imm Gran Abs Auto 0.01 0.00 - 0.03 X10*3/uL [facility] Lymphocytes Absolute Auto 1.2 1.2 - 4.9 X10*3/uL [facility] Monocytes Absolute Auto 0.4 0.1 - 1.2 X10*3/uL [facility] Eosinophils Absolute Auto 0.0 0.0 - 0.4 X10*3/uL [facility] Basophils Absolute Auto 0.0 0.0 - 0.2 X10*3/uL [facility] NRBC Abs Auto 0.000 0.0 - 0.012 X10*3/uL [facility] 03/13/2025 2:21 PM EDT 03/13/2025 2:25 PM EDT Generic External Data Provider LAB BLOOD ORDERAB LES Final Result Performing Organization Address City/[facility]/ZIP Co de Phone Number [facility] [address] [place] [phone] * Partial Thromboplastin Time, Activated (APTT) (03/13/2025 2:21 PM EDT) Partial Thromboplastin Time 28.0 26.7 - 34.1 SEC [facility] 03/13/2025 2:21 PM EDT 03/13/2025 2:25 PM EDT us Generic External Data Provider LAB BLOOD ORDERAB LES Final Result Performing Organization Address [facility] Co de Phone Number [facility] [address] [place] [phone] * (ABNORMAL) Prothrombin Time-INR (03/13/2025 2:21 PM EDT) Prothrombin Time 12.6(H) 10.9 - 12.4 SEC [facility] INTERNATIONAL NORM RATIO 1.1 0.9 - 1.1 [facility] Comment:INTERNATIONAL NORMAL IZED RATIO (INR) REFERENCE RANGES Reference RangeFor patients not on anticoagulant therapy: 0.9 - 1.1INR ranges for oral anticoagulanttherapy:For prevention and treatment of venous thrombosis and pulmonary embolism: 2.0 - 3.0For acute myocardial infarction with aspirin therapy: 2.0 - 3.0For acute myocardial infarction without aspirin therapy: 3.0 - 4.0For patients with mechanical prosthetic heart valves: 2.5 - 3.5 03/13/2025 2:21 PM EDT 03/13/2025 2:25 PM EDT us Generic External Data Provider LAB BLOOD ORDERAB LES Final Result Performing Organization Address City/[facility]/ZIP Co de Phone Number [facility] [address] [place] [phone] * Magnesium (03/13/2025 2:21 PM EDT) Magnesium 2.3 1.6 - 2.6 mg/dL [facility] 03/13/2025 2:21 PM EDT 03/13/2025 2:25 PM EDT Generic External Data Provider LAB BLOOD ORDERAB LES Final Result Performing Organization Address [facility] Co de Phone Number [facility] [address] [place] [phone] * (ABNORMAL) Comprehensive Metabolic Panel (03/13/2025 2:21 PM EDT) Only the most recent of2 resultswithin the time period is included. Sodium 142 135 - 145 mmol/L [facility] Potassium 3.6 3.3 - 5.1 mmol/L [facility] Chloride 118(H) 96 - 108 mmol/L [facility] Carbon Dioxide 18(L) 22 - 29 mmol/L [facility] Anion Gap 10(L) 12 - 20 [facility] Urea Nitrogen (BUN) 10 9 - 16 mg/dL [facility] Creatinine, Serum 1.10 0.5 - 1.4 mg/dL [facility] Creatinine Clr Calc Pharmacy 69.2 [facility] Comment:eGFR (calculated fro m the MDRD study equation) and eCrCl(calculated from the Cockcroft-Gault equation) are based ondifferent parameters and may not yield comparable results.If eCrCl result is absurd, please check patient'sheight/weight. Estimated Glomerular Filt Rate >60 [facility] Comment:Chronic Kidney Disea se: Estimated GFR < 60 mL/min/1.39w8Ccfgnp Kidney Disease: Estimated GFR < 15 mL/min/1.73m2 Glucose 133(H) 60 - 115 mg/dL [facility] Calcium 8.0(L) 8.4 - 10.2 mg/dL [facility] Bilirubin, Total 0.3 0.0 - 1.0 mg/dL [facility] Aspartate Amino Transferase 33 5 - 37 U/L [facility] Alanine Aminotransferase 21 0 - 40 U/L [facility] Total Protein 5.8(L) 6.5 - 8.0 g/dL [facility] Albumin Level 3.7 3.5 - 5.0 g/dL [facility] Alkaline Phosphatase 86 39 - 117 U/L [facility] 03/13/2025 2:21 PM EDT 03/13/2025 2:25 PM EDT Generic External Data Provider LAB BLOOD ORDERAB LES Final Result Performing Organization Address City/[facility] Co de Phone Number [facility] [address] [place] [phone] * Pathologist Review - CBC (03/13/2025 11:23 AM EDT) Pathologist Review - CBC SEE NOTE [facility] Comment:Variably hypochromic mildly microcytic anemia; occasionaltargets are present. Please correlate with iron studies.- Milton Mcmillan M.D. Pathology 03/13/2025 11:2 3 AM EDT 03/13/2025 11:23 AM EDT us Generic External Data Provider LAB BLOOD ORDERAB LES Final Result Performing Organization Address [facility] Co de Phone Number [facility] [address] [place] [phone] * TSH with Reflex to Free T4 (03/13/2025 11:23 AM EDT) TSH reflex Free T4 0.75 0.32 - 4.0 uIU/mL [facility] 03/13/2025 11:2 3 AM EDT 03/13/2025 11:23 AM EDT us Generic External Data Provider LAB BLOOD ORDERAB LES Final Result Performing Organization Address City/State/[facility] de Phone Number [facility] [address] [place] [phone] * XR Shoulder 2+ Views Right (02/14/2025 6:47 AM EDT) Anatomical Region Laterality Modality Upper Extremities, Shoulder Right Radi ographic Imaging 02/14/2025 6:47 AM EDT Narrative 02/14/2025 8:00 AM EDT [address] [address] XRay Report Signed Patient: Trever Ledesma MR#: [id number] 048 : 1965 Acct:[id number] Age/Sex: 59 / M ADM Date: 02/14/25 Loc: .ED Attending Dr: Ordering Physician: Ronaldo Hicks MD Date of Service: 02/14/25 Procedure(s): XR shoulder RT min 2V Accession Number(s): [id number] cc: Ronaldo Hicks MD; Isabella Tony MD EXAMINATION: XR SHOULDER, RIGHT CLINICAL INFORMATION: right shoulder pain COMPARISON: None available. TECHNIQUE: AP external rotation, Grashey, scapular Y, and axillary views of the right shoulder. FINDINGS: Subchondral cyst formation and sclerotic margins along the articular surface of the inferior anterior glenoid right scapula. Mild degenerative changes in the acromioclavicular joint. No acute cortical disruption or malalignment. No lytic or blastic lesions. XR/XR shoulder RT min 2V IMPRESSION: Mild degenerative changes, glenohumeral joint and acromioclavicular joint. Electronically signed by: Richmond James MD 02/14/2025 07:57 AM EDT Dictated By: Richmond Soni MD Signed By: <Electronically signed by Richmond Nobles MD in OV> 02/14/25756 DD/ 6 TD/TT: 02/14/25750 Enterprise Application Developer: Procedure Note Connieter, Image - 02/14/[address] [address] XRay Report Signed Patient: Trever Ledesma AMR#: [id number] : 1965Acct:[id number] Age/Sex: 59 / MADM Date: 02/14/25 Loc: HO.ED Attending Dr: Ordering Physician: Ronaldo Hicks MD Date of Service: 02/14/25 Procedure(s): XR shoulder RT min 2V Accession Number(s): [id number] cc: Ronaldo Hicks MD; Isabella Tony MD EXAMINATION: XR SHOULDER, RIGHT CLINICAL INFORMATION: right shoulder pain COMPARISON: None available. TECHNIQUE: AP external rotation, Grashey, scapular Y, and axillary views of the right shoulder. FINDINGS: Subchondral cyst formation and sclerotic margins along the articular surface of the inferior anterior glenoid right scapula. Mild degenerative changes in the acromioclavicular joint. No acute cortical disruption or malalignment. No lytic or blastic lesions. XR/XR shoulder RT min 2V IMPRESSION: Mild degenerative changes, glenohumeral joint and acromioclavicular joint. Electronically signed by: Richmond James MD 02/14/2025 07:57 AM EDT Dictated By: Richmond Soni MD Signed By: <Electronically signed by Richmond Nobles MDin OV> 02/14/25756 DD/ 6 TD/TT: 02/14/25750 Enterprise Application Developer: us [facility] External Provider IMG XR PROCEDURES Final Result * Gross and Microscopic Level 3 (01/18/2025 12:20 PM EDT) 01/18/2025 12:2 0 PM EDT 01/18/2025 1:45 PM EDT [facility] - 01/19/2025 5:35 PM EDT ----- ------- Name: Trever Ledesma Age/Sex: 59/M : 1965 Unit#: [id number] Attend Dr: Efraín Jones MD Re01/18/25 Status: DEP REF Location: [facility] Disch: ----- ------- SPEC : [id number] RECD: 01/18/25 STATUS: ASHLEE DAVISDejon NUM: [id number] JESSICA: 01/18/25-[address] [facility] [address]: Efraín Jones MD ENTERED: 01/18/25 SP TYPE: Surgical OTHR DR: Isabella Tony MD ORDERED: Gross Micro L3 Diagnosis Skin, mid back, excision: Epidermal inclusion cyst. Clinical History Mid back EIC Microscopic Description Microscopic sections reviewed. Material Received Mid back EIC Gross Description Received in formalin labeled mid back is a 2.0 x 1.3 x 1.2 cm ruptured versus incised little-white cyst which exudes marte-white cheesy and keratotic material with an attached 0.8 x 0.3 cm ellipse of little skin. Sectioning reveals a thin-walled little-white cyst containing marte-white cheesy and keratotic material. Manager Information sections are submitted in a cassette labeled A1. CEDS IHC S/NG Disclaimer NOTE: Unless otherwise stated, all tissue is formalin-fixed and paraffin-embedded. Some or all of the immunohistochemical tests reported herein may have been developed and their performance characteristics determined by [facility]. They have not been cleared or approved by the U.S. Food and Drug Administration (FDA). However, the FDA has determined that such clearance or approval is not necessary. This laboratory is certified under the Clinical Laboratory Improvement Amendments of 1988 (CLIA) as qualified to perform high complexity clinical laboratory testing. Copies To: Efraín Jones MD [facility] [address] [place] [address] [phone] CONTINUED ON NEXT PAGE ----- ------- Name: Trever Ledesma Age/Sex: 59/M : 1965 Unit#: [id number] Attend Dr: Efraín Jones MD Re01/18/25 Status: DEP REF Location: HO.LNP Disch: ----- ------- SPEC : [id number] RECD: 01/18/25 STATUS: ASHLEE BLANC NUM: [id number] JESSICA: 01/18/25-[address] [facility] [address]: Efraín Jones MD ENTERED: 01/18/25 SP TYPE: Surgical OTHR DR: Isabella Tony MD ORDERED: Gross Micro L3 Copies To: (Continued) Isabella Tony MD [address] [place] [address] ----- ------- Signed (signature on file) Milton Mcmillan MD 01/19/25 1735 ----- ------- END OF REPORT Generic External Data Provider LAB CYTOLOGY ORDE RABLES Final Result [facility] [address] [place] [address] [phone] * POCT Rapid COVID Ag (01/09/2025 12:18 PM EDT) [facility] Rapid COVID Ag Negative QC Media Lot # Comment:[id number] Lot# Expiration Date Comment:02/17/2026 Swab 01/09/2025 12:1 8 PM EDT Felipa Rod VALVE AND REGULATOR REPAIRER POINT OF CARE TEST ENTER/EDIT ORDERABLES Final Result * Influenza B (ID NOW Rapid Molecular) (01/09/2025 12:17 PM EDT) [facility] Influenza B Negative Negative, Indeterminate [facility] QC Media Lot # [facility] Comment:[id number] Lot# Expiration Date [facility] Comment:08/26/2026 Swab 01/09/2025 12:1 7 PM EDT us Felipa Shruthio VALVE AND REGULATOR REPAIRER POINT OF CARE TEST ENTER/EDIT ORDERABLES Final Result Performing Organization Address City/[facility]/ZIP Co de Phone Number [facility] [address] [place] [address] [phone] * Influenza A (ID NOW Rapid Molecular) (01/09/2025 12:17 PM EDT) Influenza A Negative Negative, Indeterminate [facility] QC Media Lot # [facility] Comment:[id number] Lot# Expiration Date [facility] Comment:08/26/2026 Swab 01/09/2025 12:1 7 PM EDT us Felipa Shruthio VALVE AND REGULATOR REPAIRER POINT OF CARE TEST ENTER/EDIT ORDERABLES Final Result Performing Organization Address City/[facility]/ZIP Co de Phone Number [facility] [address] [place] [address] [phone] * (ABNORMAL) Lipid Panel, Standard (12/08/2024 8:19 AM EDT) Triglycerides 117 <150 mg/dL [facility] Comment:Desirable Triglyceri de: less than 150 mg/dLBorderline High Triglyceride 150-199 mg/dLHigh Triglyceride: 200-499 mg/dLVery High Triglyceride: greater than or equal to 5OO mg/dL Cholesterol 87 <200 mg/dL [facility] Comment:Desirable Cholestero l: less than 200 mg/dLBorderline High Cholesterol: 200-239 mg/dLHigh Cholesterol: greater than 239 mg/dL LDL Cholesterol Calculated 33 <100 mg/dL [facility] Comment:Desirable LDL: less than 100 mg/dLNear Optimal/Above Optimal LDL: 110- 129 mg/dLBorderline High LDL: 130-159 mg/dLHigh LDL: 160-189 mg/dLVery High LDL: greater than or equal to 190 mg/dL HDL Cholesterol 31(L) >40 mg/dL [facility] Comment:Desirable HDL: great er than 40 mg/dL Note: This HDL assay may give artificially low results in patients with liver disease. Blood Venous blood specimen / Unknown 12/08/2024 8:19 AM EDT 12/08/2024 12:05 PM EDT us Isabella Tony MD LAB BLOOD ORDERABLES Final Resul t [facility] [address] [place] [address] [phone] * Cologuard?? colon cancer screening (02/16/2024 8:20 AM EDT) Pathologist [facility] Cologuard Result Negative Negative 02/22/20 5:40 PM EDT [email or web address] (CLIA #:[id number]) Comment: NEGATIVE TEST RESULT. A negative Cologuard result indicates a low likelihood that a colorectal cancer (CRC) or advanced adenoma (adenomatous polyps with more advanced pre-malignant features) is present. The chance that a person with a negative Cologuard test has a colorectal cancer is less than 1 in 1500 (negative predictive value >99.9%) or has an advanced adenoma is less than 5.3% (negative predictive value 94.7%). These data are based on a prospective cross-sectional study of 10,000 individuals at average risk for colorectal cancer who were screened with both Cologuard and colonoscopy. (Carlos Sam et al, N Engl J Med 2014;370(14):9581-2672) The normal value (reference range) for this assay is negative. COLOGUARD RE-SCREENING RECOMMENDATION: Periodic colorectal cancer screening is an important part of preventive healthcare for asymptomatic individuals at average risk for colorectal cancer. Following a negative Cologuard result, the [place] Cancer Society and U.S. Multi-Society Task Force screening guidelines recommend a Cologuard re-screening interval of 3 years. References: [place] [employer] Guideline for Colorectal Cancer Screening: https://www.cancer.org/cancer/pyisp-bsmjdy-cftxwu/ryjqlvjgq-vghdyybmy-obsyvsx/ac s-rec ommendations.html.; Salvador ARGUETA, Tania HIGUERA, Parker GarciaK, Colorectal Cancer Screening: Recommendations for Physicians and Patients from the U.S. Multi-Society Task Force on Colorectal Cancer Screening , Am J Gastroenterology 2017; 112:8247-7671. TEST DESCRIPTION: Composite algorithmic analysis of stool DNA-biomarkers with hemoglobin immunoassay. Quantitative values of individual biomarkers are not [...] Sam et al, N Engl J Med 2014;370(14):4302-6859.) Cologuard may produce a false negative or false positive result (no colorectal cancer or precancerous polyp present at colonoscopy follow up). A negative Cologuard test result does not guarantee the absence of CRC or advanced adenoma (pre-cancer). The current Cologuard screening interval is every 3 years. ([place] Cancer Society and U.S. Multi-Society Task Force). Cologuard performance data in a 10,000 patient pivotal study using colonoscopy as the reference method can be accessed at the following location: www.[employer]/results. Additional description of the Cologuard test process, warnings and precautions can be found at www.[employer].com. Stool specimen (specimen) 02/16/2024 8:20 AM EDT 02/17/2024 1:43 PM EDT Isabella Tony MD LAB MOLECULAR DIAGNOSTICS ORDERA BLES Final Result [email or web address] (CLIA #:[id number]) [address] [place] [address], * HIV AB/AG (07/10/2020 9:18 AM EST) [facility] HIV AB/AG Nonreactive Nonreactive [facility] Comment: HIV-1 p24 Ag and/or HIV-1/HIV-2 Ab not detected. A test result that is nonreactive does not exclude the possibility of exposure to or infection with HIV-1 and/or HIV-2. Nonreactive results in this assay for individuals with prior exposure to HIV-1 and/or HIV-2 may be due to antigen and antibody levels that are below the limit of detection of this assay. The [employer] Production Engineer HIV Ag/Ab Combo assay result and supplemental assay results should be interpreted in conjunction with the patient's clinical presentation, history and other laboratory results. If the results are inconsistent with clinical evidence, additional testing is suggested to confirm the result. Hepatitis B Surface Antigen Negative Negative [facility] 07/10/2020 9:18 AM EST Isabella Tony MD HISTORICAL/NON ORDERABLE LABS Fi nal Result Performing Organization Address [facility] Co de Phone Number [facility] [address] from Last 3 Months or Most Recently Relevant to Health Maintenance Insurance [facility] C3 [place] AD[place] Care Teams Licensed Marine Engineer Relationship Specialty Start Date End Date Isabella Tony MD [address] [place] [phone] PCP - General Family Medicine 07/12/12 Mike Aldridge, RN [address] [place] [address] Registered Nurse Family Medicine 02/15/25 Chikis Lucero 02/15/25
--- OUTSIDE RECORDS SUMMARY | 2025-04-03 11:28 | XMS_ITS | Clinical Summary ---
Author Organization [facility] Facility Address [address] [address] Care Team Providers Care Patient Services Rep Name Role Phone Isabella Tony MD Primary Care Provider [phone] Social History Tobacco Use Types Packs/Day Years [...] Vaccine (#1) 2025 [place] [id number] [place] Care Teams Patient Services Rep Relationship Specialty Start Date End Date Isabella Tony MD [address] [place] [address] PCP - General Family Medicine 05/20/21
--- OUTSIDE RECORDS SUMMARY | 2025-04-03 11:28 | XMS_ITS | Encounter Summary ---
Author Organization [employer] Address [address] [facility] 7t [place] [address] Care Team Providers Care Technical Manager Name Role Phone Isabella Tony MD Primary Care Provider [phone] Mike Aldridge RN Unavailable [phone] Chikis Lucero Unavailable Reason for Visit * Reason Onset Date Comments chart prep 03/31/2025 Encounter Details Date Type Department Care Team ([facility] Contact Info) Description 03/31/2025 Telephone [facility] CHC MED & PEDS [address] [place], [place] [phone] Isabella Tony MD [address] [place] [address] chart prep Social History Tobacco Use Types Packs/Day Years [...] the past 12 months, has t he [employer], gas, oil or water company threatened to [...] encounter Miscellaneous Notes * Telephone Encounter - Layla Jean-Baptiste [place] - 03/31/2025 1:58 PM EDT Chart Prep Labs: done Images: done Referrals: appointment pending Vaccines due: Covid, Flu, PCV20, Hep B, and Zoster Screenings: not applicable Overdue care gaps: Not applicable documented in this encounter Plan of Treatment Upcoming Encounters Date Type Department Care Team (Late st Contact Info) Description 08/10/2025 10:00 AM EST Office Visit [facility] ADULT DENTAL [address] [place] [address] Kristyn Martinez documented as of this encounter Visit Diagnoses Not on filedocumented in this encounter Additional Health Concerns Assessment Noted Time PHQ-9 Depression Total Score: 5 03/01/20 25 9:25 AM EDT documented as of this encounter Care Teams Technical Manager Relationship Specialty Start Date End Date Isabella Tony MD [address] [place] [address] PCP - General Family Medicine 07/12/12 Mike Aldridge, RN [address] [place] [address] Registered Nurse Family Medicine 02/15/25 Chikis Lucero 02/15/25 documented as of this encounter
--- OUTSIDE RECORDS SUMMARY | 2025-04-03 11:28 | XMS_ITS | Encounter Summary ---
Author Organization [employer] Address [address] [facility] [address] [place] [address] Care Team Providers Care Pumper Gauger Apprentice Name Role Phone Isabella Tony MD Primary Care Provider [phone] Mike Aldridge RN Unavailable [phone] Chikis Lucero Unavailable Encounter Details Date Type Department Care Team ([facility] Contact Info) Description 01/13/2023 Orders Only [facility] MEDICINE [address] [place], [place] [phone] Rajwinder Taylor LPN Social History Tobacco Use [...] Description 08/10/2025 10:00 AM EST Office Visit [facility] CHC ADULT DENTAL [address] [place], [place] [phone] Kristyn Martinez documented as of this encounter Visit Diagnoses Not on filedocumented in this encounter Care Teams Pumper Gauger Apprentice Relationship Specialty Start Date End Date Isabella Tony MD [address] [place] [address] PCP - General Family Medicine 07/12/12 Mike Aldridge, EZEKIEL [address] [place] [address] Registered Nurse Family Medicine 02/15/25 Chikis Lucero 02/15/25 documented as of this encounter
--- OUTSIDE RECORDS SUMMARY | 2025-04-03 11:28 | XMS_ITS ---
Author Organization [employer] Address [address] [facility] 7t [place] [address] Care Team Providers Care Medical Records Director Name Role Phone Isabella Tony MD Primary Care Provider [phone] Mike Aldridge RN Unavailable [phone] Chikis Lucero Unavailable [facility] Status:Enrolled (Active) Start date:02/15/2025 Enrollment date:02/15/2025 Enrollment reason:ADT Feed Overview [facility] 02/14/25 Case Team Name Relationship Phone Chikis Lucero(Responsible Staff) Continued Care and Services Coordination
--- OUTSIDE RECORDS SUMMARY | 2025-04-03 11:28 | XMS_ITS | Encounter Summary ---
Author Organization [employer] Address [address] [facility] 7t [place] [address] Care Team Providers Care Department Director Name Role Phone Isabella Tony MD Primary Care Provider Mike Aldridge RN Unavailable [phone] Chikis Lucero Unavailable Reason for Visit * Reason Comments Med Refill Encounter Details Date Type Department Care Team ([facility] st Contact Info) Description 12/06/2024 Refill [facility] CHC MED & PEDS [address] [place], [place] [phone] Isabella Tony MD [address] [place] [address] Social History Tobacco Use Types Packs/Day Years [...] your housing situation today? I have zenaida hollie 10/19/[address] you li [...] 10:00 AM EST Office Visit [facility] ADULT DENTAL [address] [place] [address] Kristyn Martinez documented as of this encounter Visit Diagnoses Not on filedocumented in this encounter Additional Health Concerns Assessment Noted Time PHQ-9 Depression Total Score: 8 10/28/19 25 9:13 AM EDT documented as of this encounter Care Teams Department Director Relationship Specialty Start Date End Date Isabella Tony MD [address] [place] [address] PCP - General Family Medicine 07/12/12 Mike Aldridge, RN [address] [place] [address] Registered Nurse Family Medicine 02/15/25 Chikis Lucero 02/15/25 documented as of this encounter
--- OUTSIDE RECORDS SUMMARY | 2025-04-03 11:28 | XMS_ITS | Encounter Summary ---
Author Organization [employer] Address [address] [facility] [address]t [place] [address] Care Team Providers Care Small Brake Form Operator Name Role Phone Isabella Tony MD Primary Care Provider [phone] Mike Aldridge RN Unavailable [phone] Chikis Lucero Unavailable Reason for Visit * Reason Onset Date Comments Nurse Triage 05/04/2024 Encounter Details Date Type Department Care Team ([facility] st Contact Info) Description 05/04/[address] [facility] CHC MED & PEDS [address] [place], [place] [phone] Isabella Tony MD [address] [place], [place] [phone] Nurse Triage Social History Tobacco Use Types [...] 05/04/2024 10:57 AM EDT Triage call with [place] [employer] Research Technician [place] [id number] Pt reports some lumps on right arm where injections were given while at [facility] 05/02[place]. Pt was seen asfollow up for cardiac cath, stent placement which was done 04/20/24 report of 05/02/24 apt is on the chart. Pt does have hx of blood clots and didn't start aspirin and Brilinta as directed after this procedure. Pt informs selling underwriter that Pt is on the way to [facility] at this time to be seen by provider. Pt hasno apt there and is advised to come to [facility] instead for provider to see Pt. Pt agrees and informs selling underwriter that Pt is heading to [facility] at this time. Pt is alert, oriented, no difficulty breathing. Triage is ended. Advised Pt will send this report to [facility] now. Pt agrees. Protocol Used: No Contact [...] Description 08/10/2025 10:00 AM EST Office Visit [facility] CHC ADULT DENTAL [address] [place] [address] Kristyn Martinez documented as of this encounter Visit Diagnoses Not on filedocumented in this encounter Care Teams Small Brake Form Operator Relationship Specialty Start Date End Date Isabella Tony MD [address] [place] [address] PCP - General Family Medicine 07/12/12 Mike Aldridge, EZEKIEL [address] [place] [address] Registered Nurse Family Medicine 02/15/25 Chikis Lucero 02/15/25 documented as of this encounter
--- OUTSIDE RECORDS SUMMARY | 2025-04-03 11:28 | XMS_ITS | Encounter Summary ---
Author Organization [email or web address] Address [address] [facility] [address]t [place] [address] Care Team Providers Care Director Of Community Center Name Role Phone Isabella Tony MD Primary Care Provider [phone] Mike Aldridge RN Unavailable [phone] Chikis Lucero Unavailable Reason for Visit * Reason Onset Date Comments triage 09/30/2022 Encounter Details Date Type Department Care Team ([facility] st Contact Info) Description 09/30/2022 Telephone C CHC MED & PEDS [address] [place], [place] [phone] Isabella Tony MD [address] [place] [address] triage Social History Tobacco Use Types Packs/Day [...] 09/30/2022 3:12 PM EST Called pt. Via [employer] naval marine engineer [id number] Saleem. Pt. States that he has been [...] Pt. States that someone called him from [facility] to come into the office for a [...] if you want to have nurses in [facility] switch appt. At 915am on 10/02/22 to PCP. Please advise [facility] nurses if you want appt. Switched. Protocol [...] accepted this outcome Please contact pt at [phone] documented in this encounter Plan of Treatment Upcoming Encounters Date Type Department Care Team (Late st Contact Info) Description 08/10/2025 10:00 AM EST Office Visit [facility] ADULT DENTAL [address] [place] [address] Kristyn Martinez documented as of this encounter Visit Diagnoses Not on filedocumented in this encounter Care Teams Director Of Community Center Relationship Specialty Start Date End Date Isabella Tony MD [address] [place] [address] PCP - General Family Medicine 07/12/12 Mike Aldridge, EZEKIEL [address] [place] [address] Registered Nurse Family Medicine 02/15/25 Chikis Lucero 02/15/25 documented as of this encounter
--- OUTSIDE RECORDS SUMMARY | 2025-04-03 11:28 | XMS_ITS | Encounter Summary ---
Author Organization [employer] Address [address] [facility] 7t [place] [address] Care Team Providers Care Order Manager Name Role Phone Isabella Tony MD Primary Care Provider [phone] Mike Aldridge RN Unavailable [phone] Chikis Lucero Unavailable Reason for Visit * Reason Comments Care Coordination C3 -Rex altamirano telephone call outreach Encounter Details Date Type Department Care Team (Latest Contact Info) Description 03/31/2025 Patient Outreach [facility] MEDICINE [address] [place] [address] Isabella Tony MD [address] [place] [address] Care Coordination (C3 RONI Lucero telephone call outreach/) Social History Tobacco Use Types Packs/Day Years [...] as of this encounter Progress Notes * Chikis Lucero - 03/31/2025 2:34 PM EDT AZAEL Lucero placed outbound call to patient introducing herself from [facility] CM Department, in regards to remind patient of appt for 04/03/25 @ 9:30 AM. Patient's name and was confirmed. Patient is aware and confirmed will be available and has no barriers on attending this appointment. Patient verbalized understanding and agrees with plan. documented in this encounter Plan of Treatment Upcoming Encounters Date Type Department Care Team (Late st Contact Info) Description 08/10/2025 10:00 AM EST Office Visit [facility] ADULT DENTAL [address] [place] [address] Kristyn Martinez documented as of this encounter Visit Diagnoses Not on filedocumented in this encounter Additional Health Concerns Assessment Noted Time PHQ-9 Depression Total Score: 5 03/01/20 25 9:25 AM EDT documented as of this encounter Care Teams Order Manager Relationship Specialty Start Date End Date Isabella Tony MD [address] [place] [address] PCP - General Family Medicine 07/12/12 Mike Aldridge, RN [address] [place] [address] Registered Nurse Family Medicine 02/15/25 Chikis Lucero 02/15/25 documented as of this encounter
--- OUTSIDE RECORDS SUMMARY | 2025-04-03 11:28 | XMS_ITS | Encounter Summary ---
Author Organization [employer] Address [address] [facility] 7t [place] [address] Care Team Providers Care Waste Collection Driver Name Role Phone Isabella Tony MD Primary Care Provider [phone] Mike Aldridge RN Unavailable [phone] Chikis Lucero Unavailable Encounter Details Date Type Department Care Team (Late Contact Info) Description 07/14/2022 Orders Only [facility] MED & PEDS [address] [place] [address] Miguelina Arvizu LPN Social History Tobacco Use [...] Description 08/10/2025 10:00 AM EST Office Visit [facility] ADULT DENTAL [address] [place] [address] Kristyn Martinez documented as of this encounter Visit Diagnoses Not on filedocumented in this encounter Care Teams Waste Collection Driver Relationship Specialty Start Date End Date Isabella Tony MD [address] [place] [address] PCP - General Family Medicine 07/12/12 Mike Aldridge, RN [address] [place] [address] [place] [address] Registered Nurse Family Medicine 02/15/25 Chikis Lucero 02/15/25 documented as of this encounter
--- OUTSIDE RECORDS SUMMARY | 2025-04-03 11:28 | XMS_ITS | Encounter Summary ---
Author Organization [employer] Address [address] [facility] 7t [place] [address] Care Team Providers Care Box Toe Maker Name Role Phone Isabella Tony MD Primary Care Provider [phone] Mike Aldridge RN Unavailable [phone] Chikis Lucero Unavailable Encounter Details Date Type Department Care Team ([facility] Contact Info) Description 08/05/2023 Orders Only [facility] CHC MED & PEDS [address] [place], [place] [phone] LiceaCase Sweet MD [address] [place] [address] Social History Tobacco Use Types Packs/Day Years [...] Description 08/10/2025 10:00 AM EST Office Visit [facility] CH[facility] ADULT DENTAL [address] [place] [address] Kristyn Martinez documented as of this encounter Visit Diagnoses Not on filedocumented in this encounter Care Teams Box Toe Maker Relationship Specialty Start Date End Date Isabella Tony MD [address] [place] [address] PCP - General Family Medicine 07/12/12 Mike Aldridge, RN 505 [place] [address] Registered Nurse Family Medicine 02/15/25 Chikis Lucero 02/15/25 documented as of this encounter
--- OUTSIDE RECORDS SUMMARY | 2025-04-03 11:29 | XMS_ITS | Encounter Summary ---
Author Organization [employer] Address [address] [facility] 7t h Floor [address] Care Team Providers Care Head Screen Worker Name Role Phone Isabella Tony MD Primary Care Provider [phone] Mike Aldridge RN Unavailable [phone] Chikis Lucero Unavailable Reason for Visit * Reason Onset Date Comments FYI 04/13/2023 Encounter Details Date Type Department Care Team ([facility] st Contact Info) Description 04/13/2023 Telephone [facility] CHC MED & PEDS [address] [place], [place] [phone] Isabella Tony MD 505 [place] [address] FYI Social History Tobacco Use Types Packs/Day [...] Mishel Beckett - 04/13/2023 1:26 PM EDT Juan Jose [facility]mins [facility] calling to inform PCP that patient was getting BROOM STITCHER provided by them and has discharged himself out of the program since 04/10/23. documented in this encounter Plan of Treatment Upcoming Encounters Date Type Department Care Team (Late st Contact Info) Description 08/10/2025 10:00 AM EST Office Visit [facility] ADULT DENTAL [address] [place] [address] Kristyn Martinez documented as of this encounter Visit Diagnoses Not on filedocumented in this encounter Care Teams Head Screen Worker Relationship Specialty Start Date End Date Isabella Tony MD [address] [place] [address] PCP - General Family Medicine 07/12/12 Mike Aldridge, RN 505 [place] [address] Registered Nurse Family Medicine 02/15/25 Chikis Lucero 02/15/25 documented as of this encounter
--- OUTSIDE RECORDS SUMMARY | 2025-04-03 11:29 | XMS_ITS | Encounter Summary ---
Author Organization [employer] Address [address] [facility] [address] 7t [place] [address] Care Team Providers Care Water Proofer Name Role Phone Isabella Tony MD Primary Care Provider [phone] Mike Aldridge RN Unavailable [phone] Chikis Lucero Unavailable Encounter Details Date Type Department Care Team (Latest Contact Info) Description 04/03/2025 Travel Social History Tobacco Use Types Packs/Day Years [...] Description 08/10/2025 10:00 AM EST Office Visit [facility] ADULT DENTAL [address] [place] [address] Kristyn Martinez documented as of this encounter Visit Diagnoses Not on filedocumented in this encounter Additional Health Concerns Assessment Noted Time PHQ-9 Depression Total Score: 5 03/01/20 25 9:25 AM EDT documented as of this encounter Care Teams Water Proofer Relationship Specialty Start Date End Date Isabella Tony MD [address] [place] [address] PCP - General Family Medicine 07/12/12 Mike Aldridge, EZEKIEL [address] [place] [address] Registered Nurse Family Medicine 02/15/25 Chikis Lucero 02/15/25 documented as of this encounter
--- OUTSIDE RECORDS SUMMARY | 2025-04-03 11:29 | XMS_ITS | Encounter Summary ---
Author Organization [employer] Address [address] [facility] 7t [place] [address] Care Team Providers Care Sales Producer Name Role Phone Isabella Tony MD Primary Care Provider [phone] Mike Aldridge RN Unavailable [phone] Chikis Lucero Unavailable Reason for Visit * Reason Comments Med Refill Encounter Details Date Type Department Care Team ([facility] st Contact Info) Description 05/01/2023 Refill [facility] CHC MED & PEDS [address] [place], [place] [phone] Isabella Tony MD 505 [place], [place] [phone] Social History Tobacco Use Types Packs/Day Years [...] Description 08/10/2025 10:00 AM EST Office Visit [facility] CHC ADULT DENTAL 505 [place] [address] Kristyn Martinez documented as of this encounter Visit Diagnoses Not on filedocumented in this encounter Care Teams Sales Producer Relationship Specialty Start Date End Date Isabella Tony MD 230 [place] [address] PCP - General Family Medicine 07/12/12 Mike Aldridge, RN 505 [place] [address] Registered Nurse Family Medicine 02/15/25 Chikis Lucero 02/15/25 documented as of this encounter
--- OUTSIDE RECORDS SUMMARY | 2025-04-03 11:29 | XMS_ITS | Encounter Summary ---
Author Organization [employer] Address 75 [facility] 7t [place] [address] Care Team Providers Care Emd Teacher Name Role Phone Isabella Tony MD Primary Care Provider Mike Aldridge RN Unavailable [phone] Chikis Lucero Unavailable Reason for Visit * Reason Comments Med Refill Encounter Details Date Type Department Care Team (Late Contact Info) Description 04/06/2023 Refill [facility] MED & PEDS [address] [place] [address] Isabella Tony MD 505 [place] [address] Social History Tobacco Use Types Packs/Day Years [...] Description 08/10/2025 10:00 AM EST Office Visit [facility] ADULT DENTAL 505 [place] [address] Kristyn Martinez documented as of this encounter Visit Diagnoses Not on filedocumented in this encounter Care Teams Emd Teacher Relationship Specialty Start Date End Date Isabella Tony MD [address] [place] [address] PCP - General Family Medicine 07/12/12 Mike Aldridge, RN 505 [place] [address] Registered Nurse Family Medicine 02/15/25 Chikis Lucero 02/15/25 documented as of this encounter
[2025-04-03 14:56] LABS: MANUAL DIFF FLAG NO
[2025-04-03 15:20] LABS: Hematocrit 25.7 % (42.0-52.0); Hemoglobin 7.9 g/dl (14.0-18.0); Imm Gran Abs Auto 0.01 X10*3/uL (0.00-0.03); Imm Gran Pct Auto 0.3 % (0.0-0.4); Lymphocytes Absolute Auto 0.9 X10*3/uL (1.2-4.9); Mean Corpuscular HGB Conc 30.7 g/dl (31.0-36.0); Mean Corpuscular Hemoglobin 25.2 pg (27.0-33.0); Mean Corpuscular Volume 82.1 fL (80.0-98.0); NRBC Abs Auto 0.000 X10*3/uL (0.0-0.012); NRBC Pct Auto 0.0 /100WBC (0.0-0.2); Platelet Count 205 X10*3/uL (160-400); Red Blood Count 3.13 X10*6/uL (4.60-5.80); White Blood Count 3.2 X10*3/uL (4.8-10.8)
== END 2025-04-03 09:52 | disposition home or self-care (01) ==
LOC: HO.CHCLDS 09:51
PROVIDERS: Visit Provider Student in an Organized Health Care Education/Training Program
DX: D64.9 Anemia, unspecified (principal)
CPT/HCPCS: 36415; 85025

== ENCOUNTER 2025-05-19 09:45 | Outpatient (REF) | payer MEDICAID, SELFPAY ==
--- OUTSIDE RECORDS SUMMARY | 2025-05-19 09:00 | XMS_ITS | Encounter Summary ---
Author Organization [employer] Address 75 [facility] 7t [place] [address] Care Team Providers Care Beekeeper Name Role Phone Isabella Tony MD Primary Care Provider [phone] Mike Aldridge RN Unavailable [phone] Chikis Lucero Unavailable Reason for Visit * Reason Comments Headache Encounter Details Date Type Department Care Team ([facility] st Contact Info) Description 05/19/2025 9:00 AM EDT Office Visit [facility] MED & PEDS 505 [place], [place] [phone] Alan Escobar CNP 505 [place], [place] [phone] Anemia, unspecified type (Primary Dx); Chronic migraine without aura without status migrainosus, not intractable; Pain Social History Tobacco Use Types Packs/Day [...] Sign Reading Time Taken Comments Blood Pressure 129/83 05/19/2025 8:59 AM EDT Pulse 72 05/19/2025 8:59 AM EDT Temperature 36.4 C (97.5 F) 05/19/2025 8:59 AM EDT Respiratory Rate 16 05/19/2025 8:59 AM EDT Oxygen Saturation - - Inhaled Oxygen Concentration - - Weight 76.7 kg (169 lb) 05/19/2025 8:59 AM EDT Height 170.2 cm (5' 7 ) 05/19/2025 8:59 AM EDT Body Mass Index 26.47 05/19/2025 8:59 AM EDT documented in this encounter Progress Notes * Alan EscobarSANCHEZ - 05/19/2025 9:00 AM EDT Subjective Patient ID: Trever Ledesma is a 59 y.o. male who presents for an acute visit. HPI Interim History DUNG with PCP on 04/03/25 seen for HDF visit, discharge diagnosis : anemia. Pt treated with 3 units ofPRBC. Notably on DAPT for almost 1 year s/p cardiac stent, cardiology recommended to continue Brilinta and discontinue aspirin. At this visit pt reported malaise/fatigue and pallor PCP held aspirin and advised to continue Brilinta, f/u with GI 06/05/25. He was started on PO iron and labs ordered. Today - Headache ongoing for 2 days - No visual changes with headache, does report photosensitivity - Experiences irritability and prefers to stay home during headache episodes; feels people are laughing at him when attending congregation during headaches - History of recurrent migraines, sometimes lasting up to a week and requiring staying in darkness at home - Past hospitalization for severe migraine, required dark room; became aggressive when exposed to light - History of seizures - History of blood clot after a fall, onset of headaches and memory loss following the event - History of cirrhosis - History of low iron levels, previously improved with diet and iron supplement; stopped eating high-iron vegetables recently - Discontinued aspirin due to excessive bleeding and hospitalization - Concern about bleeding with medications; avoids ibuprofen - Currently taking iron supplement and other prescribed pills - No interest in neurologist referral Review of Systems Objective Vitals: 05/19/25 0859 BP: 129/83 Pulse: 72 Resp: 16 Temp: 97.5 ??F (36.4 ??C) Physical Exam Vitals reviewed. Constitutional: General: He is not in acute distress. Appearance: Normal appearance. He is not ill-appearing, toxic-appearing or diaphoretic. HENT: Head: Normocephalic and atraumatic. Cardiovascular: Rate and Rhythm: Normal rate and regular rhythm. Pulses: Normal pulses. Heart sounds: Normal heart sounds. No murmur heard. No friction rub. No gallop. Pulmonary: Effort: Pulmonary effort is normal. No respiratory distress. Breath sounds: Normal breath sounds. No stridor. No wheezing, rhonchi or rales. Chest: Chest wall: No tenderness. Musculoskeletal: Right lower leg: No edema. Left lower leg: No edema. Neurological: General: No focal deficit present. Mental Status: He is alert and oriented to person, place, and time. Mental status is at baseline. Psychiatric: Mood and Affect: Mood normal. Behavior: Behavior normal. Thought Content: Thought content normal. Judgment: Judgment normal. Assessment/Plan Problem List Items Addressed This Visit None Visit Diagnoses Anemia, unspecified type - Primary Relevant Medications ferrous gluconate (Fergon) 324 (37.5 Fe) MG tablet Other Relevant Orders CBC auto differential Iron And Total Iron Binding Capacity Ferritin Basic Metabolic Panel Recheck labs to monitor anemia Chronic migraine without aura without status migrainosus, not intractable Relevant Medications acetaminophen (Tylenol 8 Hour) 650 MG ER tablet Due to patients chronic conditions migraine treatment options are limited. I refilled tylenol to use PRN for headache Advised pt to rtc for any new neurological symptoms or any increase in frequency or severity Considered neurology referral for GAY pt declined. Pain Relevant Medications acetaminophen (Tylenol 8 Hour) 650 MG ER tablet documented in this encounter Plan of Treatment Upcoming Encounters Date Type Department Care Team (Late st Contact Info) Description 08/10/2025 10:00 AM EST Office Visit [facility] ADULT DENTAL [address] [place] [address] Kristyn Martinez Scheduled Orders Name Type Priority Associated Diagnoses Orde r Schedule CBC auto differential Lab Routine Anemia, unspecified type Expected: 05/19/2025 (Approximate), Expires: 05/19/2026 Iron And Total Iron Binding Capacity Lab Routine Anemia, unspecified type Expected: 05/19/2025, Expires: 05/19/2026 Ferritin Lab Routine Anemia, unspecified type Expected: 05/19/2025, Expires: 05/19/2026 Basic Metabolic Panel Lab Routine Anemia, unspecified type Expected: 05/19/2025 (Approximate), Expires: 05/19/2026 documented as of this encounter Visit Diagnoses Diagnosis Anemia, unspecified type- Primary Chronic migraine without aura without status migrainosus, not intractable Pain Generalized pain documented in this encounter Additional Health Concerns Assessment Noted Time PHQ-9 Depression Total Score: 5 03/01/20 25 9:25 AM EDT documented as of this encounter Care Teams Beekeeper Relationship Specialty Start Date End Date Isabella Tony MD [address] [place] [address] PCP - General Family Medicine 07/12/12 Mike Aldridge, EZEKIEL [address] [place] [address] Registered Nurse Family Medicine 02/15/25 Chikis Lucero 02/15/25 documented as of this encounter
--- OUTSIDE RECORDS SUMMARY | 2025-05-19 10:58 | XMS_ITS | Encounter Summary ---
Author Organization [employer] Address [address] [facility] [address] 7t [place] [address] Care Team Providers Care Spinning Frame Tender Name Role Phone Isabella Tony MD Primary Care Provider [phone] Mike Aldridge RN Unavailable [phone] Chikis Lucero Unavailable Reason for Visit * Reason Onset Date Comments Nurse Triage 07/21/2023 Encounter Details Date Type Department Care Team ([facility] st Contact Info) Description 07/21/2023 Telephone [facility] MEDICINE [address] [place] [address] Isabella Tony MD [address] [place], [place] [phone] Nurse Triage Social History Tobacco Use Types [...] want to go to walk in at [facility] today ot tomorrow. Pt. Wants televisit. Pt. Is speaking in clear sentences and denies SOB or wheezing at present. Advised if develops SOB to go to walk in at [facility] until 730pm tonight. Protocol Used: COVID-19 [...] Upcoming Encounters Date Type Department Care Team ([facility] st Contact Info) Description 08/10/2025 10:00 AM EST Office Visit [facility] CHC ADULT DENTAL 505 [place] [address] Kristyn Martinez documented as of this encounter Visit Diagnoses Diagnosis Mild persistent asthma, unspecified whether complicated documented in this encounter Care Teams Spinning Frame Tender Relationship Specialty Start Date End Date Isabella Tony MD 230 [place] [address] PCP - General Family Medicine 07/12/12 Mike Aldridge, RN 505 [place] [address] Registered Nurse Family Medicine 02/15/25 Chikis Lucero 02/15/25 documented as of this encounter
--- OUTSIDE RECORDS SUMMARY | 2025-05-19 10:58 | XMS_ITS ---
Author Organization [employer] Address 75 [facility] 7t [place] [address] Care Team Providers Care Camp Counselor Name Role Phone Isabella Tony MD Primary Care Provider [phone] Mike Aldridge RN Unavailable [phone] Chikis Lucero Unavailable [facility] Complex Status:Enrolled (Active) Start date:02/15/2025 Enrollment date:02/15/2025 Enrollment reason:ADT Feed Overview [facility] ED 02/14/25 Case Team Name Relationship Phone Chikis Lucero(Responsible Staff) Continued Care and Services Coordination
--- OUTSIDE RECORDS SUMMARY | 2025-05-19 10:58 | XMS_ITS | Encounter Summary ---
Author Organization [employer] Address [address] [facility] 7t [place] [address] Care Team Providers Care Kennel Staff Member Name Role Phone Isabella Tony MD Primary Care Provider [phone] Mike Aldridge RN Unavailable [phone] Chikis Lucero Unavailable Reason for Visit * Reason Comments Med Refill Encounter Details Date Type Department Care Team (Late st Contact Info) Description 09/10/2023 Refill [facility] MEDICINE [address] [place] [address] Isabella Tnoy MD [address] [place] [address] Seizure disorder (CMS/HCC) Social History Tobacco Use [...] Description 08/10/2025 10:00 AM EST Office Visit [facility] CHC ADULT DENTAL 505 [place] [address] Kristyn Martinez documented as of this encounter Visit Diagnoses Diagnosis Seizure disorder (CMS/HCC) (HCC) Unspecified epilepsy without mention of intractable epilepsy documented in this encounter Care Teams Kennel Staff Member Relationship Specialty Start Date End Date Isabella Tony MD [address] [place] [address] PCP - General Family Medicine 07/12/12 Mike Aldridge, RN 505 [place] [address] Registered Nurse Family Medicine 02/15/25 Chikis Lucero 02/15/25 documented as of this encounter
--- OUTSIDE RECORDS SUMMARY | 2025-05-19 10:58 | XMS_ITS ---
Author Organization [employer] Address [address] [facility] 7t [place] [address] Care Team Providers Care Sheet Metal Fabricator Name Role Phone Isabella Tony MD Primary Care Provider [phone] Mike Aldridge RN Unavailable [phone] Chikis Lucero Unavailable CM Complex Status:Enrolled (Active) Start date:02/15/2025 Enrollment date:02/28/2025 Enrollment reason:ADT Feed Overview [facility] ED 02/14/25 Case Team Name Relationship Phone Mike Aldridge RN(Responsible Staff) Registered N [facility] [phone] Continued Care and Services Coordination
--- OUTSIDE RECORDS SUMMARY | 2025-05-19 10:58 | XMS_ITS | Encounter Summary ---
Author Organization [employer] Address [address] [facility] 7t [place] [address] Care Team Providers Care Scientific Artist Name Role Phone Isabella Tony MD Primary Care Provider [phone] Mike Aldridge RN Unavailable [phone] Chikis Lucero Unavailable Encounter Details Date Type Department Care Team ([facility] Contact Info) Description 08/05/2023 Orders Only [facility] CHC MED & PEDS 505 [place], [place] [phone] LiceaCase Sweet MD [address] [place] [address] Social History Tobacco Use Types Packs/Day Years [...] Description 08/10/2025 10:00 AM EST Office Visit [facility] CHC ADULT DENTAL [address] [place] [address] Kristyn Martinez documented as of this encounter Visit Diagnoses Not on filedocumented in this encounter Care Teams Scientific Artist Relationship Specialty Start Date End Date Isabella Tony MD [address] [place] [address] PCP - General Family Medicine 07/12/12 Mike Aldridge, RN 505 [place] [address] Registered Nurse Family Medicine 02/15/25 Chikis Lucero 02/15/25 documented as of this encounter
--- OUTSIDE RECORDS SUMMARY | 2025-05-19 10:58 | XMS_ITS | Encounter Summary ---
Author Organization [employer] Address [address] [facility] [facility] [address] 7t [place] [address] Care Team Providers Care Supervisor Major Appliance Assembly Name Role Phone Isabella Tony MD Primary Care Provider [phone] Mike Aldridge RN Unavailable [phone] Chikis Lucero Unavailable Reason for Visit * Reason Onset Date Comments Dental Pain 09/03/2023 Encounter Details Date Type Department Care Team ([facility] st Contact Info) Description 09/03/2023 Telephone [facility] ADULT DENTAL [address] [place] [address] Roseanne Devries, VINCENT Dental Pain Social History [...] 10:00 AM EST Office Visit [facility] ADULT DENTAL [address] [place] [address] Kristyn Martinez documented as of this encounter Visit Diagnoses Not on filedocumented in this encounter Care Teams Supervisor Major Appliance Assembly Relationship Specialty Start Date End Date Isabella Tony MD [address] [place] [address] PCP - General Family Medicine 07/12/12 Mike Aldridge, RN [address] [place] [address] Registered Nurse Family Medicine 02/15/25 Chikis Lucero 02/15/25 documented as of this encounter
--- OUTSIDE RECORDS SUMMARY | 2025-05-19 10:59 | XMS_ITS | Encounter Summary ---
Author Organization [employer] Address [address]t [place] [address] Care Team Providers Care Call Out Clerk Name Role Phone Isabella Tony MD Primary Care Provider [phone] Mike Aldridge RN Unavailable [phone] Chikis Lucero Unavailable Encounter Details Date Type Department Care Team (Latest Contact Info) Description 05/19/2025 Travel Social History Tobacco Use Types Packs/Day [...] Description 08/10/2025 10:00 AM EST Office Visit [facility] ADULT DENTAL [address] [place] [address] Kristyn Martinez documented as of this encounter Visit Diagnoses Not on filedocumented in this encounter Additional Health Concerns Assessment Noted Time PHQ-9 Depression Total Score: 5 03/01/20 25 9:25 AM EDT documented as of this encounter Care Teams Call Out Clerk Relationship Specialty Start Date End Date Isabella Tony MD [address] [place] [address] PCP - General Family Medicine 07/12/12 Mike Aldridge, EZEKIEL [address] [place] [address] Registered Nurse Family Medicine 02/15/25 Chikis Lucero 02/15/25 documented as of this encounter
--- OUTSIDE RECORDS SUMMARY | 2025-05-19 10:59 | XMS_ITS | Clinical Summary ---
Author Organization [facility] Address [address] [place] [address] Care Team Providers Care Business Office Assistant Name Role Phone Unavailable Primary Care Provider [...] file Trever Ledesma Personal/Family Self 1965 [address] [address] [place] [address]
--- OUTSIDE RECORDS SUMMARY | 2025-05-19 10:59 | XMS_ITS | Encounter Summary ---
Author Organization [employer] Address [address] [facility] 7t [place] [address] Care Team Providers Care Spray Gunner Name Role Phone Isabella Tony MD Primary Care Provider [phone] Mike Aldridge RN Unavailable [phone] Chikis Lucero Unavailable Reason for Visit * Reason Comments Med Refill Encounter Details Date Type Department Care Team ([facility] st Contact Info) Description 05/01/[address] [facility] CHC MED & PEDS [address] [place], [place] [phone] Isabella Tony MD 505 [place], [place] [phone] Social History Tobacco Use Types Packs/Day Years [...] AM EST Office Visit [facility] CHC ADULT DENTAL [address] [place] [address] Kristyn Martinez documented as of this encounter Visit Diagnoses Not on filedocumented in this encounter Care Teams Spray Gunner Relationship Specialty Start Date End Date Isabella Tony MD [address] [place] [address] PCP - General Family Medicine 07/12/12 Mike Aldridge, RN 505 [place] [address] Registered Nurse Family Medicine 02/15/25 Chikis Lucero 02/15/25 documented as of this encounter
--- OUTSIDE RECORDS SUMMARY | 2025-05-19 10:59 | XMS_ITS | Encounter Summary ---
Author Organization [employer] Address [address] [facility] 7t [place] [address] Care Team Providers Care Account Planner Name Role Phone Isabella Tony MD Primary Care Provider [phone] Mike Aldridge RN Unavailable [phone] Chikis Lucero Unavailable Encounter Details Date Type Department Care Team (Late Contact Info) Description 07/30/2022 Orders Only [facility] MED & PEDS [address] [place] [address] Miguelina Arvizu LPN Social History Tobacco Use [...] 10:00 AM EST Office Visit [facility] ADULT DENTAL [address] [place] [address] Kristyn Martinez documented as of this encounter Visit Diagnoses Not on filedocumented in this encounter Care Teams Account Planner Relationship Specialty Start Date End Date Isabella Tony MD [address] [place] [id number] PCP - General Family Medicine 07/12/12 Mike Aldridge, RN [address] [place] [address] [place] [address] Registered Nurse Family Medicine 02/15/25 Chikis Lucero 02/15/25 documented as of this encounter
--- OUTSIDE RECORDS SUMMARY | 2025-05-19 10:59 | XMS_ITS | Encounter Summary ---
Author Organization [employer] Address 75 [facility] 7t [place] [address] Care Team Providers Care Plant Operations Vice President Name Role Phone Isabella Tony MD Primary Care Provider Mike Aldridge RN Unavailable [phone] Chikis Lucero Unavailable Reason for Visit * Reason Onset Date Comments FYI 04/13/2023 Encounter Details Date Type Department Care Team ([facility] st Contact Info) Description 04/13/2023 Telephone [facility] MED & PEDS [address] [place], [place] [phone] Isabella Tony MD [address] [place] [address] FYI Social History Tobacco Use Types Packs/Day [...] 04/13/2023 1:26 PM EDT Juan Jose cummins [facility] calling to inform PCP that patient was getting [employer] provided by them and has discharged himself out of the program since 04/10/23. documented in this encounter Plan of Treatment Upcoming Encounters Date Type Department Care Team (Late st Contact Info) Description 08/10/2025 10:00 AM EST Office Visit [facility] ADULT DENTAL [address] [place] [address] Kristyn Martinez documented as of this encounter Visit Diagnoses Not on filedocumented in this encounter Care Teams Plant Operations Vice President Relationship Specialty Start Date End Date Isabella Tony MD [address] [place] [address] PCP - General Family Medicine 07/12/12 Mike Aldridge, RN [address] [place] [address] Registered Nurse Family Medicine 02/15/25 Chikis Lucero 02/15/25 documented as of this encounter
--- OUTSIDE RECORDS SUMMARY | 2025-05-19 10:59 | XMS_ITS | Encounter Summary ---
Author Organization [employer] Address 75 [facility] 7t [place] [address] Care Team Providers Care Organ Grinder Name Role Phone Isabella Tony MD Primary Care Provider [phone] Mike Aldridge RN Unavailable [phone] Chikis Lucero Unavailable Reason for Visit * Reason Comments Med Refill Encounter Details Date Type Department Care Team ([facility] st Contact Info) Description 12/06/2024 Refill [facility] CHC MED & PEDS [address] [place], [place] [phone] Isabella Tony MD [address] [place] [address] Social History Tobacco Use Types Packs/Day Years [...] 08/10/2025 10:00 AM EST Office Visit [facility] ADULT DENTAL [address] [place] [address] Kristyn Martinez documented as of this encounter Visit Diagnoses Not on filedocumented in this encounter Additional Health Concerns Assessment Noted Time PHQ-9 Depression Total Score: 8 10/28/19 25 9:13 AM EDT documented as of this encounter Care Teams Organ Grinder Relationship Specialty Start Date End Date Isabella Tony MD [address] [place] [address] PCP - General Family Medicine 07/12/12 Mike Aldridge, RN [address] [place] [address] Registered Nurse Family Medicine 02/15/25 Chikis Lucero 02/15/25 documented as of this encounter
--- OUTSIDE RECORDS SUMMARY | 2025-05-19 10:59 | XMS_ITS | Encounter Summary ---
Author Organization [employer] Address 75 [facility] 7t [place] [address] Care Team Providers Care Oncology Account Specialist Name Role Phone Isabella Tony MD Primary Care Provider [phone] Mike Aldridge RN Unavailable [phone] Chikis Lucero Unavailable Reason for Visit * Reason Onset Date Comments triage 09/30/2022 Encounter Details Date Type Department Care Team ([facility] st Contact Info) Description 09/30/2022 Telephone [facility] MED & PEDS [address] [place], [place] [phone] Isabella Tony MD [address] [place] [address] triage Social History Tobacco Use Types Packs/Day [...] 09/30/2022 3:12 PM EST Called pt. Via [employer] account services analyst [id number] Saleem. Pt. States that he has been [...] Pt. States that someone called him from [facility] to come into the office for [...] if you want to have nurses in [facility] switch appt. At 915am on 10/02/22 to PCP. Please advise [facility] nurses if you want appt. Switched. [...] accepted this outcome Please contact pt at [phone] documented in this encounter Plan of Treatment Upcoming Encounters Date Type Department Care Team (Late st Contact Info) Description 08/10/2025 10:00 AM EST Office Visit [facility] ADULT DENTAL [address] [place] [address] Kristyn Martinez documented as of this encounter Visit Diagnoses Not on filedocumented in this encounter Care Teams Oncology Account Specialist Relationship Specialty Start Date End Date Isabella Tony MD [address] [place] [address] PCP - General Family Medicine 07/12/12 Mike Aldridge, EZEKIEL [address] [place] [address] Registered Nurse Family Medicine 02/15/25 Chikis Lucero 02/15/25 documented as of this encounter
--- OUTSIDE RECORDS SUMMARY | 2025-05-19 10:59 | XMS_ITS | Encounter Summary ---
Author Organization [employer] Address 75 [facility] [address] [place] [address] Care Team Providers Care Animal Therapist Name Role Phone Isabella Tony MD Primary Care Provider Mike Aldridge RN Unavailable [phone] Chikis Lucero Unavailable Reason for Visit * Reason Comments Med Refill Encounter Details Date Type Department Care Team (Late Contact Info) Description 04/06/2023 Refill [facility] MED & PEDS [address] [place] [address] Isabella Tony MD [address] [place] [address] Social History Tobacco Use Types Packs/Day Years [...] 08/10/2025 10:00 AM EST Office Visit [facility] ADULT DENTAL [address] [place] [address] Kristyn Martinez documented as of this encounter Visit Diagnoses Not on filedocumented in this encounter Care Teams Animal Therapist Relationship Specialty Start Date End Date Isabella Tony MD [address] [place] [address] PCP - General Family Medicine 07/12/12 Mike Aldridge, RN [address] [place] [address] Registered Nurse Family Medicine 02/15/25 Chikis Lucero 02/15/25 documented as of this encounter
--- OUTSIDE RECORDS SUMMARY | 2025-05-19 10:59 | XMS_ITS | Encounter Summary ---
Author Organization [employer] Address [address] [facility] 7t [place] [address] Care Team Providers Care Picking Crew Supervisor Name Role Phone Isabella Tony MD Primary Care Provider [phone] Mike Aldridge RN Unavailable [phone] Chikis Lucero Unavailable Reason for Visit * Reason Onset Date Comments Nurse Triage 05/04/2024 Encounter Details Date Type Department Care Team ([facility] st Contact Info) Description 05/04/[address] [facility] CHC MED & PEDS [address] [place], [place] [phone] Isabella Tony MD [address] [place], [place] [phone] Nurse Triage Social History Tobacco Use Types [...] 05/04/2024 10:57 AM EDT Triage call with [employer] Account Director ID [id number] Pt reports some lumps on right arm where injections were given while at [facility] 05/02/24. Pt was seen asfollow up for cardiac cath, stent placement which was done 04/20/24 report of 05/02/24 apt is on the chart. Pt does have hx of blood clots and didn't start aspirin and Brilinta as directed after this procedure. Pt informs engineering technical writer that Pt is on the way to [facility] at this time to be seen by provider. Pt hasno apt there and is advised to come to [facility] instead for provider to see Pt. Pt agrees and informs engineering technical writer that Pt is heading to [facility] at this time. Pt is alert, oriented, no difficulty breathing. Triage is ended. Advised Pt will send this report to [facility] now. Pt agrees. Protocol Used: [...] Description 08/10/2025 10:00 AM EST Office Visit [facility] CHC ADULT DENTAL [address] [place] [address] Kristyn Martinez documented as of this encounter Visit Diagnoses Not on filedocumented in this encounter Care Teams Picking Crew Supervisor Relationship Specialty Start Date End Date Isabella Tony MD [address] [place] [address] PCP - General Family Medicine 07/12/12 Mike Aldridge, EZEKIEL [address] [place] [address] Registered Nurse Family Medicine 02/15/25 Chikis Lucero 02/15/25 documented as of this encounter
--- OUTSIDE RECORDS SUMMARY | 2025-05-19 10:59 | XMS_ITS | Clinical Summary ---
Author Organization [employer] Address [address] [facility] [address] [place] [address] Care Team Providers Care Public Relations Player Name Role Phone Isabella Tony MD Primary Care Provider [phone] Mike Aldridge RN Unavailable [phone] Chikis Lucero Unavailable Allergies No known active [...] by mouth Once per day. 30 tablet 06/16/20 24 025 Active sertraline (Zoloft) 25 MG tablet Take 1 tablet (25 mg) by mouth Once per day. 30 tablet 06/16/20 24 025 Active Asmanex HFA 200 MCG/ACT aerosol INHALE ONE PUFF TWICE DAILY, RINSE MOUTH AFTER USE 13 g 11 08/02/19 25 Active Vaporizer miscIndications :Upper respiratory tract infection, unspecified type Use at night prn uri 1 each 08/17/19 25 Active Magnesium Glycinate 100 MG capsule Take 1 capsule (100 mg) by mouth at bedtime. 30 capsule 10/28/19 25 026 Active Mag-G 500 (27 Mg) MG tablet TAKE ONE TABLET TWICE DAILY IN THE MORNING AND AT BEDTIME 60 tablet 11 11/03/19 25 Active hydrOXYzine HCl (Atarax) 50 MG tabletIndicatio ns:Anxiety TAKE ONE TABLET EVERY NIGHT AT BEDTIME 60 tablet 3 11/24/19 25 Active Multiple Vitamin (Multivitamin) tabletIndicatio ns:Seizure disorder (CMS/HCC) ([facility]) TAKE ONE TABLET EVERY MORNING 90 tablet 1 11/26/19 25 Active thiamine (Vitamin B-1) 100 MG tabletIndicatio ns:Seizure disorder (CMS/HCC) ([facility]) TAKE ONE TABLET EVERY MORNING 90 tablet [...] 25 Active folic acid (Folvite) 1 MG tabletIndicatio ns:Alcoholism ([facility]) ([facility]) TAKE ONE TABLET EVERY MORNING 90 tablet 2 01/26/20 25 Active Ferrous Sulfate (iron) 325 (65 Fe) MG tabletIndicatio ns:Iron deficiency anemia secondary to inadequate dietary iron intake TAKE ONE TABLET EVERY MORNING 90 tablet 01/27/20 25 Active cholecalciferol (Vitamin D-3) 125 MCG (5000 UT) capsule TAKE ONE CAPSULE BY MOUTH ONCE WEEKLY ON THURSDAY MORNING 12 capsule 03/02/20 25 Active topiramate 50 MG tabletIndicatio ns:Seizure disorder (CMS/HCC) ([facility]) TAKE ONE TABLET EVERY NIGHT AT BEDTIME 30 tablet 5 03/28/20 25 Active Fluticasone-Jonathan meterol (Wixela Inhub) 100-50 MCG/ACT aerosol powder Inhale 1 puff 2 times daily. INHALE 1 PUFF BY MOUTH TWICE DAILY, RINSE MOUTH AFTER USE. 1 each 1 03/28/20 25 Active omeprazole (PriLOSEC) [address] capsuleIndicati ons:Seizure disorder (CMS/HCC) ([facility]) TAKE ONE CAPSULE EVERY MORNING BEFORE BREAKFAST 90 capsule 1 03/28/20 25 Active rosuvastatin (Crestor) 40 MG tablet take one tablet every night at bedtime 01/27/20 25 Active Brilinta 90 MG tablet TAKE ONE TABLET IN THE MORNING AND EVENING Active ferrous gluconate (Fergon) 324 (38 Fe) MG tablet Take 1 tablet (324 mg) by mouth with breakfast. 30 tablet 11 04/03/20 25 026 Active levETIRAcetam (Keppra) 500 MG tablet TAKE ONE TABLET TWICE DAILY IN THE MORNING AND AT BEDTIME 60 tablet 2 04/25/20 25 Active cetirizine (ZyrTEC) 10 MG tabletIndicatio ns:Seasonal allergies TAKE ONE TABLET EVERY MORNING 90 tablet 05/09/20 25 Active ferrous gluconate (Fergon) 324 (37.5 Fe) MG tablet Take 1 tablet by mouth in the morning. 04/03/20 25 Active acetaminophen (Tylenol 8 Hour) 650 MG ER tabletIndicatio ns:Pain Take 1 tablet (650 mg) by mouth every 8 (eight) hours if needed for headaches. Do not crush, chew, or split. 40 tablet 1 05/19/20 25 Active acetaminophen (Tylenol 8 Hour) 650 MG ER tabletIndicatio ns:Pain TAKE ONE TABLET EVERY 8 HOURS NEEDED FOR PAIN OR FOR FEVER 40 tablet 1 07/14/20 22 025 Discontinued(Re order (will not trigger notification to Pharmacy)) cetirizine (ZyrTEC) 10 MG tabletIndicatio ns:Seasonal allergies TAKE ONE TABLET EVERY MORNING 90 tablet 01/27/20 25 025 Discontinued levETIRAcetam (Keppra) 500 MG tablet TAKE ONE TABLET TWICE DAILY IN THE MORNING AND AT BEDTIME 60 tablet 2 01/27/20 25 025 Discontinued Hospital, Clinic, or Other Facility Administered Medication Ordered Dose Route Frequency Start Date End Date Status aspirin chewable tablet 325 mgIndications:Other chest pain 325 mg PO Once 03/31/2024 Active Active Problems Problem Noted Date Diagnosed Date Acute shoulder pain 05/12/2025 Chest pain 05/12/2025 Cirrhosis (CMS/HCC) 05/12/2025 Overview (05/12/2025): Being treated by [facility] currently on and anti-viral Colon cancer screening 05/12/2025 Overview (05/12/2025): 2022= hyperplastic polyp repeat in 10 years Coronary atherosclerosis 05/12/2025 Epidermal cyst 05/12/2025 Exertional angina 05/12/2025 High cholesterol 05/12/2025 Overview (05/12/2025): ? uncertain medical records from [facility] HTN (hypertension) 05/12/2025 On anticoagulant therapy 05/12/2025 Overview (05/12/2025): ??? unable to verify via patient aeb Palpitation 05/12/2025 H/O excision of epidermal inclusion cyst 025 S/P cardiac catheterization 05/12/2025 Overview (05/12/2025): 04/20/2024, left main normal, lad proximal 95% stenosis, high risk, angioplasty and KITTY placed, left circumflex normal, RCA normal Stented coronary artery 05/12/2025 Rhabdomyolysis 05/12/2025 Right foot pain 01/09/2025 Alcohol-induced chronic pancreatitis (CMS/HCC) 0 10/20/2024 Alcoholic cirrhosis of liver 10/20/2024 Portal hypertensive gastropathy (CMS/HCC) (CMS/H CC) 10/20/2024 Chronic hepatitis C (CMS/HCC) 10/20/2024 Overview (05/12/2025): Treated by [facility] Asthma 10/20/2024 Upper respiratory tract infection 08/17/2024 History of DVT (deep vein thrombosis) 09/19/2022 Alcohol abuse, in remission 09/19/2022 Moderate asthma without complication 08/15/2022 Non-traumatic rhabdomyolysis 08/15/2022 Seizure disorder (CMS/HCC) 08/15/2022 Viral hepatitis C 04/10/2014 Benign essential hypertension 03/20/2014 Hematemesis 03/04/2014 Encounters Date Type Department Care Team Description 05/19/2025 9:00 AM EDT Office Visit [facility] [address] [place] [address] Alan Escobar CNP Anemia, unspecified type (Primary Dx); Chronic migraine without aura without status migrainosus, not intractable; Pain 05/19/2025 Travel 05/19/2025 Refill [facility] [address] [place] [phone] Case Carrasco MD 05/12/2025 Telephone [facility] [address] [place] [address] Isabella Tony MD chart prep 05/09/2025 Telephone [facility] [address] [place] [address] Isabella Tony MD Chart Prep 05/08/2025 Refill [facility] [address] [place] [phone] Macarena Gomez MD Seasonal allergies 05/05/2025 Telephone [facility] [address] [place] [address] Isabella Tony MD Nurse Triage 04/24/2025 Refill [facility] [address] [place] [phone] Macarena Gomez MD 04/21/2025 Patient Outreach [address] [phone] Isabella Tony MD Care Coordination ([address] Chikis Lucero telephone call outreach) 04/12/2025 Telephone [facility] [address] [place] [address] Isabella Tony MD Durable Medical Equipment 04/04/2025 Results Follow-Up [facility] [address] [place] [address] Isabella Tony MD CBC auto differential 04/03/2025 9:30 AM EDT Office Visit [facility] [address] [place] [address] Isabella Tony MD Bleeding hemorrhoids (Primary Dx); Anemia, unspecified type; Benign essential hypertension 04/03/2025 Travel 03/31/2025 Patient Outreach [facility] [address] [place] [phone] Isabella Tony MD Care Coordination ([facility]3 -[facility] Chikis Lucero telephone call outreach/) 03/31/2025 Telephone [facility] [address] [place] [address] Isabella Tony MD chart prep 03/29/2025 Patient Outreach [facility] [address] [place] [phone] Isabella Tony MD Care Management (C3- F/U call # 1) 03/28/2025 Refill [facility] [address] [place] [address] Isabella Tony MD Seizure disorder ([facility]) 03/27/2025 Refill [facility] [address] [place] [address] Isabella Tony MD Seizure disorder ([facility]) 03/22/2025 Telephone [facility] [address] [place] [address] Isabella Tony MD ER Follow-up 03/13/2025 Telephone [facility] [address] [place] [address] Isabella Tony MD Results 03/13/2025 Orders Only GENERIC EXTERNAL DATA DEPARTMENT Provider, Generic External Data 03/08/2025 Patient Outreach [address] [address] Isabella Tony MD Care Coordination ([facility] -[facility] Chikis Lucero telephone call outreach) 03/02/2025 Plan of Care Documentation [facility] [address] [place] [phone] 03/02/2025 Refill [facility] [address] [place] [address] Isabella Tony MD 02/28/2025 Patient Outreach [facility] [address] [place] [phone] Isabella Tony MD Care Management (C3- Initial assessment/enrollme nt) 02/27/2025 Patient Outreach [facility] [address] [place] [phone] Isabella Tony MD Care Coordination (C3 -W Chikis Lucero telephone call outreach) 02/21/2025 9:30 AM EDT Office Visit [facility] [address] [place] [address] Taniya Munoz DDS 02/16/2025 Patient Outreach [facility] [address] [place] [address] Isabella Tony MD from Last 3 Months Immunizations Immunization Administration [...] your housing situation today? I have zenaida sing 10/19/[address] you li [...] 16 05/19/2025 8:59 AM EDT Oxygen Saturation 99% 01/09/2025 10:50 AM EDT Inhaled Oxygen Concentration - - Weight 76.7 kg (169 lb) 05/19/2025 8:59 AM EDT Height 170.2 cm (5' 7 ) 05/19/2025 8:59 AM EDT Body Mass Index 26.47 05/19/2025 8:59 AM EDT Plan of Treatment Upcoming Encounters Date Type Department Care Team (Late st Contact Info) Description 08/10/2025 10:00 AM EST Office Visit [facility] [address] [place], [place] [phone] Kristyn Martinez Health Maintenance Due Date Last Done Comments CT Colonography 1965 Colonoscopy 1965 FIT 1965 Sigmoidoscopy 1965 Hepatitis A Vaccines (1 of 2 - Risk 2-dose series) 1986 Hepatitis B Vaccines (1 of 3 - 19+ 3-dose series) 1986 Pneumococcal Vaccine: 50+ Years (1 of 2 - PCV) 1986 Zoster Vaccines (1 of 2) 2017 FOBT 02/15/2025 02/16/2024 Dental Oral Exam 06/29/2025 12/27/2024, , 12/30/2017, Additional history exists Dental Prophylaxis 08/03/2025 01/30/2025, 0 04/19/2024, 12/24/2016, Additional history exists Disability Screening 10/27/2025 10/27/2024 Dental X-Ray: Bitewings 12/28/2025 12/28/19 25, 04/19/2024, 07/30/2023, Additional history exists Influenza Vaccine (#1) 2026 , 05/17/2021, 06/29/2019, Additional history exists Postponed from 03/27/2025 (Patient Refused) SDOH Screening 02/15/2026 02/15/2025 Depression Screening 03/01/2026 03/01/2025, 03/01/20 DTaP/Tdap/Td Vaccines (2 - Td or Tdap) 04/11/2026 04/11/2016 Alcohol/Substance Use Screening 05/19/2026 05/19/2025 COVID-19 Vaccine ( season) 2026 08/07/2021, 12/13/2020, 11/15/2020 Postponed from 03/27/2025 (Patient Refused) Tobacco Screening 05/19/2026 05/19/2025 Colorectal Cancer Screening 02/15/2027 FIT DNA/Cologuard 02/15/2027 [...] Procedure Name Priority Date/Time Associated Diagnosis Comments CBC WITH AUTO DIFFERENTIAL Routine 04/03/2025 9:53 AM EDT Anemia, unspecified type US DUPLEX ARTERIAL VENOUS COMP Routine 03/15/2025 [...] SURF, ANTERIOR Routine 02/21/2025 9:30 AM EDT PROPHYLAXIS - ADULT Routine 01/30/2025 1 1:00 AM EDT BITEWINGS - 4 RADIOGRAPHIC IMAGES Routine 12/27/2024 [...] Recently Relevant to Health Maintenance Results * (ABNORMAL) CBC auto differential (04/03/2025 9:53 AM EDT) Only the most recent of3 resultswithin the time period is included. White Blood Count 3.2(L) 4.8 - 10.8 X10*3/uL [facility] Red Blood Count 3.13(L) 4.60 - 5.80 X10*6/uL [facility] Hemoglobin 7.9(L) 14.0 - 18.0 g/dl [facility] Hematocrit 25.7(L) 42.0 - 52.0 % [facility] Mean Corpuscular Volume 82.1 80.0 - 98.0 fL [facility] Mean Corpuscular Hemoglobin 25.2(L) 27.0 - 33.0 pg [facility] Mean Corpuscular HGB Conc 30.7(L) 31.0 - 36.0 g/dl [facility] Red Cell Distribution Width 18.5(H) 11.0 - 16.0 % [facility] Platelet Count 205 160 - 400 X10*3/uL [facility] Mean Platelet Volume 12.4 9.4 - 12.4 fL [facility] Neutrophils Percent Auto 62.1 45 - 73 % [facility] Imm Gran Pct Auto 0.3 0.0 - 0.4 % [facility] Lymphocytes Percent Auto 26.4 20 - 40 % [facility] Monocytes Percent Auto 9.3 2 - 11 % [facility] Eosinophils Percent Auto 1.6 0 - 4 % [facility] Basophils Percent Auto 0.3 0 - 2 % [facility] NRBC Pct Auto 0.0 0.0 - 0.2 /100WBC [facility] Neutrophils Absolute Auto 2.0 2.0 - 8.3 x10*3/uL [facility] Imm Gran Abs Auto 0.01 0.00 - 0.03 X10*3/uL [facility] Lymphocytes Absolute Auto 0.9(L) 1.2 - 4.9 X10*3/uL [facility] Monocytes Absolute Auto 0.3 0.1 - 1.2 X10*3/uL [facility] Eosinophils Absolute Auto 0.1 0.0 - 0.4 X10*3/uL [facility] Basophils Absolute Auto 0.0 0.0 - 0.2 X10*3/uL [facility] NRBC Abs Auto 0.000 0.0 - 0.012 X10*3/uL [facility] Blood Venous blood specimen / Unknown 04/03/2025 9:53 AM EDT 04/03/2025 2:52 PM EDT us Isabella Tony MD LAB BLOOD ORDERABLES Final Resul t [facility] [address] [place] [address] [phone] * US DUPLEX ARTERIAL VENOUS COMP (03/15/2025 12:16 PM EDT) Anatomical Region Laterality Modality Abdomen Ultrasound 03/15/2025 12:1 6 PM EDT Narrative 03/15/2025 12:38 PM EDT [address] [address] Ultrasound Report Signed Patient: Trever Ledesma MR#: [id number] : 1965 Acct:[id number] Age/Sex: 59 / M ADM Date: 03/13/25 Loc: .S3 352-[address]: Aquilino Murphy MD Ordering Physician: Felipa Krishna MD Date of Service: 03/15/25 Procedure(s): US duplex arterial venous comp Accession Number(s): [id number] cc: [facility]; Felipa Krishna MD EXAMINATION: US DOPPLER [...] 03/15/25 1235 DD/ 1216 TD/TT: 03/15/25 1219 Machine Cutter: Procedure Note Donotuseinterpreter, Image - 03/15/[address] [place] [address] Ultrasound Report Signed Patient: Trever Ledesma AMR#: [id number] : 1965Acct:[id number] Age/Sex: 59 / MADM Date: 03/13/25 Loc: HO.S3 352-[address]: Aquilino Murphy MD Ordering Physician: Felipa Krishna MD Date of Service: 03/15/25 Procedure(s): US duplex arterial venous comp Accession Number(s): [id number] cc: [facility]; Felipa Krishna MD EXAMINATION: US DOPPLER [...] 03/15/25 1235 DD/ 1216 TD/TT: 03/15/25 1219 Machine Cutter: us [facility] External Provider IMG US PROCEDURES Final Result * Red blood count (03/13/2025 2:35 PM EDT) Red Blood Cells: [id number] OP RC TRANSFUSED 03/13/25 1556 [facility] 03/13/2025 2:35 PM EDT 03/13/2025 2:40 PM EDT Generic External Data Provider LAB BLOOD ORDERAB LES Final Result [facility] [address] [place] [phone] * Type and screen (03/13/2025 2:35 PM EDT) Blood Type BP [facility] Antibody Screen NEGATIVE [facility] 03/13/2025 2:35 PM EDT 03/13/2025 2:40 PM EDT Narrative [facility] - 03/13/2025 4:19 PM EDT [...] 1430 by ALENA. Hgb < 7 gmYes us Generic External Data Provider LAB BLOOD BANK TE ST ORDERABLES Final Result Performing Organization Address City/[facility]/ZIP Co de Phone Number [facility] [address] [place] [phone] * OBSX1 (03/13/2025 2:27 PM EDT) OBS1 POSITIVE NEGATIVE [facility] 03/13/2025 2:27 PM EDT 03/13/2025 2:39 PM EDT Generic External Data Provider LAB BLOOD ORDERAB LES Final Result Performing Organization Address City/[facility]/ZIP Co de Phone Number [facility] [address] [place] [phone] * Partial Thromboplastin Time, Activated (APTT) (03/13/2025 2:21 PM EDT) Partial Thromboplastin Time 28.0 26.7 - 34.1 SEC [facility] 03/13/2025 2:21 PM EDT 03/13/2025 2:25 PM EDT Generic External Data Provider LAB BLOOD ORDERAB LES Final Result Performing Organization Address City/[facility]/ZIP Co de Phone Number [facility] [address] [place] [phone] [phone] * (ABNORMAL) Prothrombin Time-INR (03/13/2025 2:21 PM EDT) Prothrombin Time 12.6(H) 10.9 - 12.4 SEC [facility] INTERNATIONAL NORM RATIO 1.1 0.9 - 1.1 [facility] Comment:INTERNATIONAL NORMAL IZED RATIO (INR) [...] 2:21 PM EDT 03/13/2025 2:25 PM EDT [facility] External Data Provider LAB BLOOD ORDERAB LES Final Result Performing Organization Address [facility]/ZIP Co de Phone Number [facility] [address] [place] [phone] * Magnesium (03/13/2025 2:21 PM EDT) Magnesium 2.3 1.6 - 2.6 mg/dL [facility] 03/13/2025 2:21 PM EDT 03/13/2025 2:25 PM EDT us Generic External Data Provider LAB BLOOD ORDERAB LES Final Result [facility] [address] [place] [phone] * (ABNORMAL) Comprehensive Metabolic Panel (03/13/2025 2:21 PM EDT) Only the most recent of2 resultswithin the time period is included. Sodium 142 135 - 145 mmol/L [facility] Potassium 3.6 3.3 - 5.1 mmol/L [facility] Chloride 118(H) 96 - 108 mmol/L [facility] Carbon Dioxide 18(L) 22 - 29 mmol/L [facility] Anion Gap 10(L) 12 - 20 [facility] Urea Nitrogen (BUN) 10 9 - 16 mg/dL [facility] Creatinine, Serum 1.10 0.5 - 1.4 mg/dL [facility] Creatinine Clr Calc Pharmacy 69.2 [facility] Comment:eGFR (calculated fro m the MDRD study equation) and eCrCl(calculated from the Cockcroft-Gault equation) are based ondifferent parameters and may not yield comparable results.If eCrCl result is absurd, please check patient'sheight/weight. Estimated Glomerular Filt Rate >60 [facility] Comment:Chronic Kidney Disea se: Estimated GFR < 60 mL/min/[id number] Kidney Disease: Estimated GFR < 15 mL/min/1.73m2 Glucose 133(H) 60 - 115 mg/dL [facility] Calcium 8.0(L) 8.4 - 10.2 mg/dL [facility] Bilirubin, Total 0.3 0.0 - 1.0 mg/dL [facility] Aspartate Amino Transferase 33 5 - 37 U/L [facility] Alanine Aminotransferase 21 0 - 40 U/L [facility] Total Protein 5.8(L) 6.5 - 8.0 g/dL [facility] Albumin Level 3.7 3.5 - 5.0 g/dL [facility] Alkaline Phosphatase 86 39 - 117 U/L [facility] 03/13/2025 2:21 PM EDT 03/13/2025 2:25 PM EDT us Generic External Data Provider LAB BLOOD ORDERAB LES Final Result Performing Organization Address [facility]/ZIP Co de Phone Number [facility] [address] [place] [phone] * Pathologist Review - CBC (03/13/2025 11:23 AM EDT) Pathologist Review - CBC SEE NOTE [facility] Comment:Variably hypochromic mildly microcytic anemia; occasionaltargets are present. Please correlate with iron studies.- Milton Mcmillan M.D. Pathology 03/13/2025 11:2 3 AM EDT 03/13/2025 11:23 AM EDT us Generic External Data Provider LAB BLOOD ORDERAB LES Final Result Performing Organization Address [facility] Co de Phone Number [facility] [address] [phone] * TSH with Reflex to Free T4 (03/13/2025 11:23 AM EDT) TSH reflex Free T4 0.75 0.32 - 4.0 uIU/mL [facility] 03/13/2025 11:2 3 AM EDT 03/13/2025 11:23 AM EDT us Generic External Data Provider LAB BLOOD ORDERAB LES Final Result Performing Organization Address [facility] Co de Phone Number [facility] [address] [phone] * (ABNORMAL) Lipid Panel, Standard (12/08/2024 8:19 AM EDT) Triglycerides 117 <150 mg/dL [facility] Comment:Desirable Triglyceri de: less than 150 mg/dLBorderline High Triglyceride 150-199 mg/dLHigh Triglyceride: 200-499 mg/dLVery High Triglyceride: greater than or equal to 5OO mg/dL Cholesterol 87 <200 mg/dL [facility] Comment:Desirable Cholestero l: less than 200 mg/dLBorderline High Cholesterol: 200-239 mg/dLHigh Cholesterol: greater than 239 mg/dL LDL Cholesterol Calculated 33 <100 mg/dL [facility] Comment:Desirable LDL: less than 100 mg/dLNear Optimal/Above Optimal LDL: 110- 129 mg/dLBorderline High LDL: 130-159 mg/dLHigh LDL: 160-189 mg/dLVery High LDL: greater than or equal to 190 mg/dL HDL Cholesterol 31(L) >40 mg/dL [facility] Comment:Desirable HDL: great er than 40 mg/dL Note: This HDL assay may give artificially low results in patients with liver disease. Blood Venous blood specimen / Unknown 12/08/2024 8:19 AM EDT 12/08/2024 12:05 PM EDT us Isabella Tony MD LAB BLOOD ORDERABLES Final Resul t [facility] [address] [place] [phone] * Cologuard?? colon cancer screening (02/16/2024 8:20 AM EDT) Cologuard Result Negative Negative 02/22/20 5:40 PM EDT [facility] (CLIA #:[id number]) Comment: NEGATIVE TEST RESULT. A negative Cologuard [...] (Carlos Gonzales al, N Engl J Med 2014;370(14):2648-7602) The normal value (reference range) for this assay is negative. COLOGUARD RE-SCREENING RECOMMENDATION: Periodic colorectal cancer screening is an important part of preventive healthcare for asymptomatic individuals at average risk for colorectal cancer. Following a negative Cologuard result, the [place] Cancer Society and U.S. Multi-Society Task Force screening guidelines recommend a Cologuard re-screening interval of 3 years. References: [place] Cancer Society Guideline for Colorectal Cancer Screening: https://www.cancer.org/cancer/hsrzs-ugrarn-gjymcw/uezmdlhyn-rrbqslefl-zrpaewq/ac s-rec ommendations.html.; Salvador DK, Tania HIGUERA, Parker GarciaK, Colorectal Cancer Screening: Recommendations for Physicians and Patients from the U.S. Multi-Society Task Force on Colorectal Cancer Screening , Am J Gastroenterology 2017; 112:8213-1455. TEST DESCRIPTION: Composite algorithmic analysis of stool [...] screened with both Cologuard and colonoscopy. (Carlos Sr, N Engl J Med 2014;370(14):7573-6531.) Cologuard may produce a false negative or false positive result (no colorectal cancer or precancerous polyp present at colonoscopy follow up). A negative Cologuard test result does not guarantee the absence of CRC or advanced adenoma (pre-cancer). The current Cologuard screening interval is every 3 years. ([employer] Cancer Society and U.S. Multi-Society Task Force). Cologuard performance data in a 10,000 patient pivotal study using colonoscopy as the reference method can be accessed at the following location: www.[employer]/results. Additional description of the Cologuard test process, warnings and precautions can be found at www.[email or web address].com. Stool specimen (specimen) 02/16/2024 8:20 AM EDT 02/17/2024 1:43 PM EDT Isabella Tony MD LAB MOLECULAR DIAGNOSTICS [facility] Final Result [facility] (CLIA #:[id number]) [place] [address], * HIV AB/AG (07/10/2020 9:18 AM EST) Pathologist [facility] HIV AB/AG Nonreactive Nonreactive [facility] Comment: HIV-1 p24 Ag [...] of detection of this assay. The [employer] Supervisor HIV Ag/Ab Combo assay result and supplemental assay results should be interpreted in conjunction with the patient's clinical presentation, history and other laboratory results. If the results are inconsistent with clinical evidence, additional testing is suggested to confirm the result. Hepatitis B Surface Antigen Negative Negative [facility] 07/10/2020 9:18 AM EST us Isabella Tony MD HISTORICAL/NON ORDERABLE LABS Fi nal Result [facility] [address] from Last 3 Months or Most Recently Relevant to Health [place] [id number] Care Teams Public Relations Player Relationship Specialty Start Date End Date Isabella Tony MD [address] [place] [address] PCP - General Family Medicine 07/12/12 Mike Aldridge, EZEKIEL [address] [place] [address] Registered Nurse Family Medicine 02/15/25 Chikis Lucero 02/15/25
--- OUTSIDE RECORDS SUMMARY | 2025-05-19 10:59 | XMS_ITS | Encounter Summary ---
Author Organization [employer] Address [address] [facility] 7t [place] [address] Care Team Providers Care Sand Operator Name Role Phone Isabella Tony MD Primary Care Provider [phone] Mike Aldridge RN Unavailable [phone] Chikis Lucero Unavailable Reason for Visit * Reason Comments Med Refill Encounter Details Date Type Department Care Team (Late Contact Info) Description 04/08/2023 Refill [facility] MED & PEDS [address] [place] [address] Isabella Tony MD [address] [place] [address] Seizure disorder (CMS/HCC) Social History Tobacco Use [...] [facility] [address] [place] [address] Kristyn Martinez documented as of this encounter Visit Diagnoses Diagnosis Seizure disorder (CMS/HCC) (HCC) Unspecified epilepsy without mention of intractable epilepsy documented in this encounter Care Teams Sand Operator Relationship Specialty Start Date End Date Isabella Tony MD [address] [place] [address] PCP - General Family Medicine 07/12/12 Mike Aldridge, EZEKIEL [address] [place] [address] Registered Nurse Family Medicine 02/15/25 Chikis Lucero 02/15/25 documented as of this encounter
--- OUTSIDE RECORDS SUMMARY | 2025-05-19 10:59 | XMS_ITS | Clinical Summary ---
Author Organization [facility] Facility Address [address] [address] Care Team Providers Care Steam Room Attendant Name Role Phone Isabella Tony MD Primary Care Provider [phone] Social History Tobacco Use Types Packs/Day Years [...] Vaccine (#1) 2025 [place] [id number] [place] Care Teams Steam Room Attendant Relationship Specialty Start Date End Date Isabella Tony MD [address] [place] [address] PCP - General Family Medicine 05/20/21
--- OUTSIDE RECORDS SUMMARY | 2025-05-19 10:59 | XMS_ITS | Encounter Summary ---
Author Organization [employer] Address [address] [place] [address] Care Team Providers Care Mail Order Sorter Name Role Phone Isabella Tony MD Primary Care Provider [phone] Mike Aldridge RN Unavailable [phone] Chikis Lucero Unavailable Encounter Details Date Type Department Care Team ([facility] Contact Info) Description 01/13/[address] [facility] MEDICINE [address] [place], [place] [phone] Rajwinder Taylor LPN Social History Tobacco Use [...] Description 08/10/2025 10:00 AM EST Office Visit [facility] CHC ADULT DENTAL [address] [place], [place] [phone] Kristyn Martinez documented as of this encounter Visit Diagnoses Not on filedocumented in this encounter Care Teams Mail Order Sorter Relationship Specialty Start Date End Date Isabella Tony MD [address] [place] [address] PCP - General Family Medicine 07/12/12 Mike Aldridge, EZEKIEL [address] [place] [address] Registered Nurse Family Medicine 02/15/25 Chikis Lucero 02/15/25 documented as of this encounter
--- OUTSIDE RECORDS SUMMARY | 2025-05-19 10:59 | XMS_ITS | Encounter Summary ---
Author Organization [employer] Address [address] [facility] 7t [place] [address] Care Team Providers Care Ladies' Hat Trimmer Name Role Phone Isabella Tony MD Primary Care Provider [phone] Mike Aldridge RN Unavailable [phone] Chikis Lucero Unavailable Encounter Details Date Type Department Care Team (Late Contact Info) Description 07/14/2022 Orders Only [facility] MED & PEDS [address] [place] [address] Miguelina Arvizu LPN Social History Tobacco Use [...] [facility] [address] [place] [address] Kristyn Martinez documented as of this encounter Visit Diagnoses Not on filedocumented in this encounter Care Teams Ladies' Hat Trimmer Relationship Specialty Start Date End Date Isabella Tony MD [address] [place] [address] PCP - General Family Medicine 07/12/12 Mike Aldridge, RN [address] [place] [address] [place] [id number] Registered Nurse Family Medicine 02/15/25 Chikis Lucero 02/15/25 documented as of this encounter
--- OUTSIDE RECORDS SUMMARY | 2025-05-19 10:59 | XMS_ITS | Encounter Summary ---
Author Organization [employer] Address [address] [facility] [address] [place] [address] Care Team Providers Care Art Teacher Name Role Phone Isabella Tony MD Primary Care Provider [phone] Mike Aldridge RN Unavailable [phone] Chikis Lucero Unavailable Reason for Visit * Reason Comments Med Refill Encounter Details Date Type Department Care Team ([facility] st Contact Info) Description 05/19/2025 Refill [facility] CHC MED & PEDS [address] [place], [place] [phone] Case Carrasco MD [address] [place] [address] Social History Tobacco Use Types Packs/Day Years [...] the past 12 months, has t he [employer] gas, oil or water company threatened to [...] 08/10/2025 10:00 AM EST Office Visit [facility] ADULT DENTAL [address] [place] [address] Kristyn Martinez documented as of this encounter Visit Diagnoses Not on filedocumented in this encounter Additional Health Concerns Assessment Noted Time PHQ-9 Depression Total Score: 5 03/01/20 25 9:25 AM EDT documented as of this encounter Care Teams Art Teacher Relationship Specialty Start Date End Date Isabella Tony MD [address] [place] [address] PCP - General Family Medicine 07/12/12 Mike Aldridge, EZEKIEL [address] [place] [address] Registered Nurse Family Medicine 02/15/25 Chikis Lucero 02/15/25 documented as of this encounter
[2025-05-19 14:44] LABS: MANUAL DIFF FLAG NO
[2025-05-19 14:55] LABS: Hematocrit 32.2 % (42.0-52.0); Hemoglobin 9.2 g/dl (14.0-18.0); Imm Gran Abs Auto 0.01 X10*3/uL (0.00-0.03); Imm Gran Pct Auto 0.3 % (0.0-0.4); Lymphocytes Absolute Auto 0.9 X10*3/uL (1.2-4.9); Mean Corpuscular HGB Conc 28.6 g/dl (31.0-36.0); Mean Corpuscular Hemoglobin 22.0 pg (27.0-33.0); Mean Corpuscular Volume 77.0 fL (80.0-98.0); NRBC Abs Auto 0.000 X10*3/uL (0.0-0.012); NRBC Pct Auto 0.0 /100WBC (0.0-0.2); Platelet Count 167 X10*3/uL (160-400); Red Blood Count 4.18 X10*6/uL (4.60-5.80); White Blood Count 2.9 X10*3/uL (4.8-10.8)
[2025-05-19 15:18] LABS: Anion Gap 8 (12-20); Blood Urea Nitrogen 10 mg/dL (9-16); Calcium 8.8 mg/dL (8.4-10.2); Carbon Dioxide 21 mmol/L (22-29); Chloride 118 mmol/L (96-108); Estimated Glomerular Filt Rate 54; Iron 343 mcg/dL (45-160); Percent Iron Saturation 84 % (15-50); Potassium 3.9 mmol/L (3.3-5.1); Sodium 143 mmol/L (135-145); Total Iron Binding Capacity 408 mcg/dL (228-428); Unsaturated Iron Binding 65 ug/dL
[2025-05-19 15:24] LABS: Ferritin 17 ng/mL (20-250)
== END 2025-05-19 09:46 | disposition home or self-care (01) ==
LOC: HO.CHCLDS 09:45
DX: D64.9 Anemia, unspecified (principal)
CPT/HCPCS: 36415; 80048; 82728; 83540; 85025

== ENCOUNTER 2025-06-05 09:15 | Outpatient (AMB) | payer MEDICAID, SELFPAY ==
[2025-06-05 09:33] VITALS: BP 110/75; PULSE 69; BMI 25.5
--- NOTE | 2025-06-05 09:33 | A.OFFVIS_ITS ---
Vital Signs 06/05/25 09:33 Height 5 ft 7 in Weight 163 lb 2.273 oz BMI 25.5 BP 110/75 Blood Pressure Location Lt brachial Position Sitting Pulse 69 Intake Visit Reasons: Anemia Intake Note: Trever presents in the office as a follow up for anemia. CC: States that he is feeling okay today - a little unsure of the medication names he takes - meds at hoe! Publicity Director Required: No Allergies No Known Allergies Allergy (Verified 06/05/25 09:35) HPI Comments Details: This is a 60-year-old gentleman with past medical history of chronic hepatitis-C that has led to cirrhosis, coronary disease with PCI March 2024 on dual anti-platelet therapy who is being seen in follow up after recent hospitalization for severe anemia. To recap pt was seen in Feb 2025 for severe anemia and shortness of breath. Hemoglobin of 5.6 MCV of 79. This was in the absence of abd pain, N,V, melena or hematochezia. EGD Impressions:? * Normal esophagus * Normal stomach (biopsy) * Normal duodenum (biopsy) A. Duodenum, biopsy: Duodenal mucosa within normal limits; preserved villous architecture and no increased intraepithelial lymphocytes. B. Stomach, random, biopsy: Gastric body mucosa with PPI effect; negative for Helicobacter pylori, intestinal metaplasia and dysplasia Colonoscopy: 1. Normal colon mucosa 2. Polyp removed 3. Hemorrhoids 4. Diverticulosis Colon, sigmoid, polypectomy: Tubular adenoma; negative for high-grade dysplasia. Today, he reports no acute GI issues. No melena or hematochezia. He does report chest pain and pressure caridad on exertion or when he is bending down to sweep floors. In terms of anemia, he is on PO iron supplementation. Declined IV replacement as has previous hx of IVDU with significant trauma and would like to avoid any needles if possible. Most recent H/H with improvement. Remains on DAPT with ASA and brillinta. [facility] Medical History Epidermal cyst History of blood clot in brain On anticoagulant therapy Elevated cholesterol HTN (hypertension) Hepatitis C History of ETOH abuse Asthma Cirrhosis Surgical History History of cardiac cath History of esophagogastroduodenoscopy (EGD) Hx of colonoscopy Family History Family/Other HTN (hypertension) Asthma Diabetes Social History Household Members: None Housing: Apartment Are you a primary health care sanitary technician to a significant other at home: No Do you presently have visiting nurse or other home services: No Alcohol intake: never Patient Tobacco Use Status: Never used Tobacco e-Cigarette/Vaping Use: Never Used Second Hand Smoke Exposure: No service: No Current occupational status: unemployed and disabled Review of Systems Const All systems reviewed & are unremarkable except as noted in HPI and below Physical Exam Exam Exam: No apparent distress Nonicteric Abdomen soft, nondistended Alert and oriented x3, normal gait Vital Signs: Last Vital Signs Pulse 69 06/05/25 09:33 BP 110/75 06/05/25 09:33 BMI result Body Mass Index 25.5 Assessment & Plan Assessment & Plan (1) Anemia: Code(s): D64.9 - Anemia, unspecified Category: Medical (2) Cirrhosis: Code(s): K74.60 - Unspecified cirrhosis of liver Category: Medical (3) Exertional angina: Code(s): I20.89 - Other forms of angina pectoris Category: Medical Plan 1. Anemia likely 2/2 small bowel bleeding which appears to have been self limited. CBC continues to improve. REviewed with the pt that in the absence of ongoing GI sx and with anemia responsive to iron supplementation, will hold off small bowel eval. Plan: - Check CBC and ferritin x 2 months - If continues to improve will hold off small bowel eval. - If H/H plateaus or declines, will pursue VCE. - He was also advised to confirm if still needs to be on brillinta with his research methods instructor (PCI >12m ago) - Cont PPI until hes on DAPT 2. HCV cirrhosis s/p SVR. MELD 3.0: 16 No signs of CSPH. Plan: - No ascites or HE on exam today - US Abd ordered for HCC screening - EGD in 2 years or sooner if platelets < 100k - Avoid NSAIDs. Limit tylenol to 2g/day if needed - Comp cirrhosis with low MELD score, no indication for transplant eval for now 3. Chest pain Appears to have exertional angina. Pt has appt with research methods instructor next week. Msg sent to cardiology for further mgmt Follow up 6 months Orders: Orders US abdomen complete Today K74.60 - Unspecified cirrhosis of liver Complete Blood Count Auto Diff 2 Months D64.9 - Anemia, unspecified Ferritin 2 Months D64.9 - Anemia, unspecified Medications: New ferrous gluconate 324 mg PO DAILY 90 tabs 1RF 90 days Coding Level of Care Code Est Pt Level 5 (80208) Complex EM visit Add On G2211 Diagnoses Anemia D64.9 Cirrhosis K74.60 Exertional angina I20.89
--- OUTSIDE RECORDS SUMMARY | 2025-06-05 10:03 | XMS_ITS | Clinical Summary ---
Author Organization [employer] Address [address] [place] [address] Care Team Providers Care Casserole Preparer Name Role Phone Mike Aldridge RN Unavailable [phone] Chikis Lucero Unavailable Alan Escobar CNP Primary Care Provider [phone] Allergies No known active allergies Medications acetaminophen [...] EVERY MORNING 15 tablet 04/07/20 23 Active Asmanex HFA 200 MCG/ACT aerosol INHALE [...] BEDTIME 60 tablet 3 11/24/19 25 Active albuterol 108 (90 Base) MCG/ACT [...] folic acid (Folvite) 1 MG tabletIndicatio ns:Alcoholism ([facility]) ([facility]) TAKE ONE TABLET EVERY MORNING 90 tablet 2 01/26/20 25 Active Ferrous Sulfate (iron) 325 (65 Fe) MG tabletIndicatio ns:Iron deficiency anemia secondary to inadequate dietary iron intake TAKE ONE TABLET EVERY MORNING 90 tablet 01/27/20 25 Active topiramate 50 MG tabletIndicatio ns:Seizure disorder ([facility]) ([facility]) TAKE ONE TABLET EVERY NIGHT AT BEDTIME 30 tablet 5 03/28/20 25 Active omeprazole (PriLOSEC) [address] capsuleIndicati ons:Seizure disorder ([facility]) ([facility]) TAKE ONE CAPSULE EVERY MORNING BEFORE BREAKFAST [...] mouth in the morning. 04/03/20 25 Active cholecalciferol (Vitamin D-3) 125 MCG (5000 UT) capsule TAKE ONE CAPSULE ONCE WEEKLY ON THURSDAY MORNING 12 capsule 05/22/20 25 Active acetaminophen (Tylenol 8 Hour) 650 MG ER tabletIndicatio ns:Pain Take 1 tablet (650 mg) by mouth every 8 (eight) hours if needed for headaches. Do not crush, chew, or split. 40 tablet 1 05/19/20 25 Active lisinopril 5 MG tablet TAKE ONE TABLET EVERY MORNING 90 tablet 1 05/26/20 25 Active Multiple Vitamin (Multivitamin) tabletIndicatio ns:Seizure disorder (CMS/HCC) (HCC) TAKE ONE TABLET EVERY MORNING 90 tablet 1 05/26/20 25 Active thiamine (Vitamin B-1) 100 MG tabletIndicatio ns:Seizure disorder (CMS/HCC) (HCC) TAKE ONE TABLET EVERY MORNING 90 tablet 1 05/26/20 25 Active sertraline (Zoloft) 25 MG tablet TAKE ONE TABLET EVERY MORNING 30 tablet 11 06/02/20 25 Active Advair Diskus 100-50 MCG/ACT aerosol powder INHALE 1 PUFF TWICE DAILY. RINSE MOUTH AFTER USE 60 each 1 06/02/20 25 Active terbinafine (LamISIL) 1 % creamIndication s:Tinea pedis, unspecified laterality Apply topically 2 times daily. 42 g 06/03/20 25 Active acetaminophen (Tylenol 8 Hour) 650 MG ER tabletIndicatio ns:Pain TAKE ONE TABLET EVERY 8 HOURS NEEDED FOR PAIN OR FOR FEVER 40 tablet 1 07/14/20 22 025 Discontinued(Re order (will not trigger notification to Pharmacy)) lisinopril 5 MG tablet Take 1 tablet (5 mg) by mouth Once per day. 30 tablet 11 06/16/20 24 025 Discontinued sertraline (Zoloft) 25 MG tablet Take 1 tablet (25 mg) by mouth Once per day. 30 tablet 11 06/16/20 24 025 Discontinued Multiple Vitamin (Multivitamin) tabletIndicatio ns:Seizure disorder (CMS/HCC) (HCC) TAKE ONE TABLET EVERY MORNING 90 tablet 1 11/26/19 25 025 Discontinued thiamine (Vitamin B-1) 100 MG tabletIndicatio ns:Seizure disorder (CMS/HCC) (HCC) TAKE ONE TABLET EVERY MORNING 90 tablet 1 11/26/19 25 025 Discontinued cetirizine (ZyrTEC) 10 MG tabletIndicatio ns:Seasonal allergies TAKE ONE TABLET EVERY MORNING 90 tablet 01/27/20 25 025 Discontinued cholecalciferol (Vitamin D-3) 125 MCG (5000 UT) capsule TAKE ONE CAPSULE BY MOUTH ONCE WEEKLY ON THURSDAY MORNING 12 capsule 03/02/20 25 025 Discontinued Fluticasone-Jonathan meterol (Wixela Inhub) 100-50 MCG/ACT aerosol powder Inhale 1 puff 2 times daily. INHALE 1 PUFF BY MOUTH TWICE DAILY, RINSE MOUTH AFTER USE. 1 each 1 03/28/20 25 025 Discontinued Hospital, Clinic, or Other Facility Administered Medication Ordered Dose Route Frequency Start Date End Date Status aspirin chewable tablet 325 mgIndications:Other chest pain 325 mg PO Once 03/31/2024 Active Active Problems Problem Noted Date Diagnosed Date Acute shoulder pain 05/12/2025 Chest pain 05/12/2025 Cirrhosis (CMS/HCC) 05/12/2025 Overview (05/12/2025): Being treated by [facility] currently on and anti-viral Colon cancer screening 05/12/2025 Overview (05/12/2025): 2022= hyperplastic polyp repeat in 10 years Coronary atherosclerosis 05/12/2025 Epidermal cyst 05/12/2025 Exertional angina 05/12/2025 High cholesterol 05/12/2025 Overview (05/12/2025): ? uncertain medical records from [facility] HTN (hypertension) 05/12/2025 On anticoagulant therapy [...] of liver 10/20/2024 Portal hypertensive gastropathy (CMS/HCC) ([facility]/H CC) 10/20/2024 Chronic hepatitis C (CMS/HCC) 10/20/2024 Overview (05/12/2025): Treated by [facility] Asthma 10/20/2024 Upper respiratory tract infection 08/17/2024 History of DVT (deep vein thrombosis) 09/19/2022 Alcohol abuse, in remission 09/19/2022 Moderate asthma without complication 08/15/2022 Non-traumatic rhabdomyolysis 08/15/2022 Seizure disorder ([facility]/HCC) 08/15/2022 Viral hepatitis C 04/10/2014 Benign essential hypertension 03/20/2014 Hematemesis 03/04/2014 Encounters Date Type Department Care Team Description 06/03/2025 Orders Only [facility] [address] [place] [phone] Alan Escobar CNP Tinea pedis, unspecified laterality (Primary Dx) 06/02/2025 Patient Outreach [facility] [address] [place] [address] Alan Escobar CNP Care Management (C3CM- F/U call # 2) 06/02/2025 Refill [facility] [address] [place] [address] Isabella Tony MD 05/31/2025 Telephone [facility] [address] [place] [phone] Alan Escobar CNP Nurse Triage 05/26/2025 Refill [facility] [address] [place] [address] Isabella Tony MD Seizure disorder ([facility]/HCC) (HCC) 05/24/2025 Results Follow-Up [facility] [address] [place] [address] Alan Escobar CNP CBC auto differential, Iron And Total Iron Binding Capacity, Ferritin, Basic Metabolic Panel 05/19/2025 9:00 AM EDT Office Visit [facility] [address] [place] [address] Alan Escobar CNP Anemia, unspecified type (Primary Dx); Chronic migraine without aura without status migrainosus, not intractable; Pain 05/19/2025 Travel 05/19/2025 Refill [facility] [address] [place] [address] Case Carrasco MD 05/12/2025 Telephone [facility] [address] [place] [address] Isabella Tony MD chart prep 05/09/2025 Telephone [facility] [address] [place] [address] Isabella Tnoy MD Chart Prep 05/08/2025 Refill [facility] [address] [place] [phone] Macarena Gomez MD Seasonal allergies 05/05/2025 Telephone [facility] [address] [place] [address] Isabella Tony MD Nurse Triage 04/24/2025 Refill [facility] [address] [place] [address] Macarena Gomez MD 04/21/2025 Patient Outreach [facility] [address] [place] [phone] Isabella Tony MD Care Coordination ([address] Chikis Lucero telephone call outreach) 04/12/2025 Telephone [facility] [address] [place] [address] Isabella Tony MD Durable Medical Equipment 04/04/2025 Results Follow-Up [facility] [address] [place] [address] Isabella Tony MD CBC auto differential 04/03/2025 9:30 AM EDT Office Visit [facility] [address] [place] [address] Isabella Tony MD Bleeding hemorrhoids (Primary Dx); Anemia, unspecified type; Benign essential hypertension 04/03/2025 Travel 03/31/2025 Patient Outreach [facility] [address] [place] [phone] Isabella Tony MD Care Coordination ([facility] Chikis Lucero telephone call outreach/) 03/31/2025 Telephone [facility] [address] [place] [address] Isabella Tony MD chart prep 03/29/2025 Patient Outreach [address] [address] Isabella Tony MD Care Management (C3- F/U call # 1) 03/28/2025 Refill [facility] [address] [place] [address] Isabella Tony MD Seizure disorder ([facility]) 03/27/2025 Refill [facility] [address] [place] [address] Isabella Tony MD Seizure disorder ([facility]) 03/22/2025 Telephone [facility] [address] [place] [address] Isabella Tony MD ER Follow-up 03/13/2025 Telephone [facility] [address] [place] [address] Isabella Tony MD Results 03/13/2025 Orders Only GENERIC EXTERNAL DATA DEPARTMENT Provider, Generic External Data 03/08/2025 Patient Outreach [address] [address] Isabella Tony MD Care Coordination ([facility] Chikis Lucero telephone call outreach) from Last 3 Months Immunizations Immunization Administration [...] Upcoming Encounters Date Type Department Care Team ([facility] st Contact Info) Description 08/10/2025 10:15 AM EST Office Visit [facility] [address] [place] [address] Kristyn Martinez Health Maintenance Due Date Last [...] Procedure Name Priority Date/Time Associated Diagnosis Comments BASIC METABOLIC PANEL Routine 05/19/2025 9:46 AM EDT Anemia, unspecified type FERRITIN Routine 05/19/2025 9:46 AM EDT Anemia, unspecified type IRON AND TOTAL IRON BINDING CAPACITY Routine 05/19/2025 9:46 AM EDT Anemia, unspecified type CBC WITH AUTO DIFFERENTIAL Routine 05/19/2025 9:46 AM EDT Anemia, unspecified type CBC WITH AUTO DIFFERENTIAL Routine 04/03/2025 9:53 [...] AUTO DIFFERENTIAL Routine 03/13/2025 11:23 AM EDT PROPHYLAXIS - ADULT Routine 01/30/2025 [...] Maintenance Results * (ABNORMAL) CBC auto differential (05/19/2025 9:46 AM EDT) Only the most recent of4 resultswithin the time period is included. White Blood Count 2.9(L) 4.8 - 10.8 X10*3/uL [facility] Red Blood Count 4.18(L) 4.60 - 5.80 X10*6/uL [facility] Hemoglobin 9.2(L) 14.0 - 18.0 g/dl [facility] Hematocrit 32.2(L) 42.0 - 52.0 % [facility] Mean Corpuscular Volume 77.0(L) 80.0 - 98.0 fL [facility] Mean Corpuscular Hemoglobin 22.0(L) 27.0 - 33.0 pg [facility] Mean Corpuscular HGB Conc 28.6(L) 31.0 - 36.0 g/dl [facility] Red Cell Distribution Width 16.7(H) 11.0 - 16.0 % [facility] Platelet Count 167 160 - 400 X10*3/uL [facility] Neutrophils Percent Auto 57.3 45 - 73 % [facility] Imm Gran Pct Auto 0.3 0.0 - 0.4 % [facility] Lymphocytes Percent Auto 32.1 20 - 40 % [facility] Monocytes Percent Auto 9.3 2 - 11 % [facility] Eosinophils Percent Auto 0.7 0 - 4 % [facility] Basophils Percent Auto 0.3 0 - 2 % [facility] NRBC Pct Auto 0.0 0.0 - 0.2 /100WBC [facility] Neutrophils Absolute Auto 1.7(L) 2.0 - 8.3 x10*3/uL [facility] Imm Gran Abs Auto 0.01 0.00 - 0.03 X10*3/uL [facility] Lymphocytes Absolute Auto 0.9(L) 1.2 - 4.9 X10*3/uL [facility] Monocytes Absolute Auto 0.3 0.1 - 1.2 X10*3/uL [facility] Eosinophils Absolute Auto 0.0 0.0 - 0.4 X10*3/uL [facility] Basophils Absolute Auto 0.0 0.0 - 0.2 X10*3/uL [facility] NRBC Abs Auto 0.000 0.0 - 0.012 X10*3/uL [facility] Blood Venous blood specimen / Unknown 05/19/2025 9:46 AM EDT 05/19/2025 2:41 PM EDT [facility] LAB BLOOD ORDERABLES Marzena l Result [facility] [address] [place] [phone] * (ABNORMAL) Iron And Total Iron Binding Capacity (05/19/2025 9:46 AM EDT) Iron 343(H) 45 - 160 mcg/dL [facility] Total Iron Binding Capacity 408 228 - 428 mcg/dL [facility] Percent Iron Saturation 84(H) 15 - 50 % [facility] Unsaturated Iron Binding 65 ug/dL [facility] Blood Venous blood specimen / Unknown 05/19/2025 9:46 AM EDT 05/19/2025 2:20 PM EDT [facility] LAB BLOOD ORDERABLES Marzena l Result Performing Organization Address City/[facility]/ZIP Co de Phone Number [facility] [address] [place] [address] [phone] * (ABNORMAL) Ferritin (05/19/2025 9:46 AM EDT) Pathologist [facility] Ferritin 17(L) 20 - 250 ng/mL [facility] Blood Venous blood specimen / Unknown 05/19/2025 9:46 AM EDT 05/19/2025 2:20 PM EDT [facility] LAB BLOOD ORDERABLES Marzena l Result Performing Organization Address [facility] Co de Phone Number [facility] [address] [place] [phone] * (ABNORMAL) Basic Metabolic Panel (05/19/2025 9:46 AM EDT) Pathologist [facility] Sodium 143 135 - 145 mmol/L [facility] Potassium 3.9 3.3 - 5.1 mmol/L [facility] Chloride 118(H) 96 - 108 mmol/L [facility] Carbon Dioxide 21(L) 22 - 29 mmol/L [facility] Anion Gap 8(L) 12 - 20 [facility] Urea Nitrogen (BUN) 10 9 - 16 mg/dL [facility] Creatinine, Serum 1.35 0.5 - 1.4 mg/dL [facility] Estimated Glomerular Filt Rate 54 [facility] Comment:Chronic Kidney Disea se: Estimated GFR < 60 mL/min/1.40m6Mqarvd Kidney Disease: Estimated GFR < 15 mL/min/1.73m2 Glucose 109 60 - 115 mg/dL [facility] Calcium 8.8 8.4 - 10.2 mg/dL [facility] Blood Venous blood specimen / Unknown 05/19/2025 9:46 AM EDT 05/19/2025 2:20 PM EDT Alan Escobar [facility] LAB BLOOD ORDERABLES Marzena anderson Result [facility] [address] [place] [phone] * US DUPLEX ARTERIAL VENOUS COMP (03/15/2025 12:16 PM EDT) Anatomical Region Laterality Modality Abdomen Ultrasound 03/15/2025 12:1 6 PM EDT Narrative 03/15/2025 12:38 PM EDT [address] [address] Ultrasound Report Signed Patient: Trever Ledesma MR#: [id number] : 1965 Acct:[id number] Age/Sex: 59 / M ADM Date: 03/13/25 Loc: [facility] 352-[address]: Aquilino Murphy MD Ordering Physician: Felipa Krishna MD Date of Service: 03/15/25 Procedure(s): US duplex arterial venous comp Accession Number(s): [id number] cc: [facility]; Felipa Krishna MD EXAMINATION: US DOPPLER [...] 03/15/25 1235 DD/ 1216 TD/TT: 03/15/25 1219 Voice Data Communications Engineer: Procedure Note Donotuseinterpreter, Image - 03/15/[address] [address] Ultrasound Report Signed Patient: Trever Ledesma AMR#: [id number] : 1965Acct:[id number] Age/Sex: 59 / MADM Date: 03/13/25 Loc: [facility] 352-[address]: Aquilino Murphy MD Ordering Physician: Felipa Krishna MD Date of Service: 03/15/25 Procedure(s): US duplex arterial venous comp Accession Number(s): [id number] cc: [facility]; Felipa Krishna MD EXAMINATION: US DOPPLER [...] 03/15/25 1235 DD/ 1216 TD/TT: 03/15/25 1219 Voice Data Communications Engineer: [facility] External Provider IMG US PROCEDURES Final Result * Red blood count (03/13/2025 2:35 PM EDT) Red Blood Cells: [id number] OP RC TRANSFUSED 03/13/25 1556 [facility] 03/13/2025 2:35 PM EDT 03/13/2025 2:40 PM EDT Generic External Data Provider LAB BLOOD ORDERAB LES Final Result [facility] [address] [place] [address] [phone] * Type and screen (03/13/2025 2:35 PM EDT) [facility] Blood Type BP [facility] Antibody Screen NEGATIVE [facility] 03/13/2025 2:35 PM EDT 03/13/2025 2:40 PM EDT Narrative [facility] - 03/13/2025 4:19 PM EDT [...] ST ORDERABLES Final Result Performing Organization Address City/[facility]/ZIP Co de Phone Number [facility] [address] [place] [phone] * OBSX1 (03/13/2025 2:27 PM EDT) OBS1 POSITIVE NEGATIVE [facility] 03/13/2025 2:27 PM EDT 03/13/2025 2:39 PM EDT Generic External Data Provider LAB BLOOD ORDERAB LES Final Result Performing Organization Address [facility] Co de Phone Number [facility] [address] [place] [phone] * Partial Thromboplastin Time, Activated (APTT) (03/13/2025 2:21 PM EDT) Partial Thromboplastin Time 28.0 26.7 - 34.1 SEC [facility] 03/13/2025 2:21 PM EDT 03/13/2025 2:25 PM EDT us Generic External Data Provider LAB BLOOD ORDERAB LES Final Result Performing Organization Address [facility] de Phone Number [facility] [address] [place] [phone] * (ABNORMAL) Prothrombin Time-INR (03/13/2025 2:21 PM EDT) [facility] Prothrombin Time 12.6(H) 10.9 - 12.4 SEC [facility] INTERNATIONAL NORM RATIO 1.1 0.9 - 1.1 [facility] Comment:INTERNATIONAL NORMAL IZED RATIO (INR) [...] LES Final Result Performing Organization Address [facility] Co de Phone Number [facility] [address] [place] [phone] * Magnesium (03/13/2025 2:21 PM EDT) Magnesium 2.3 1.6 - 2.6 mg/dL [facility] 03/13/2025 2:21 PM EDT 03/13/2025 2:25 PM EDT us Generic External Data Provider LAB BLOOD ORDERAB LES Final Result [facility] [address] [place], [place] [phone] * (ABNORMAL) Comprehensive Metabolic Panel (03/13/2025 2:21 PM EDT) Only the most recent of2 resultswithin the time period is included. Pathologist [facility] Sodium 142 135 - 145 mmol/L [facility] Potassium 3.6 3.3 - 5.1 mmol/L [facility] Chloride 118(H) 96 - 108 mmol/L [facility] Carbon Dioxide 18(L) 22 - 29 mmol/L [facility] Anion Gap 10(L) 12 - 20 [facility] Urea Nitrogen (BUN) 10 9 - 16 mg/dL [facility] Creatinine, Serum 1.10 0.5 - 1.4 mg/dL [facility] Creatinine Clr Calc Pharmacy 69.2 [facility] Comment:eGFR (calculated fro m the MDRD study equation) and eCrCl(calculated from the Cockcroft-Gault equation) are based ondifferent parameters and may not yield comparable results.If eCrCl result is absurd, please check patient'sheight/weight. Estimated Glomerular Filt Rate >60 [facility] Comment:Chronic Kidney Disea se: Estimated GFR < 60 mL/min/1.29i7Rumogi Kidney Disease: Estimated GFR < 15 mL/min/1.73m2 Glucose 133(H) 60 - 115 mg/dL [facility] Calcium 8.0(L) 8.4 - 10.2 mg/dL [facility] Bilirubin, Total 0.3 0.0 - 1.0 mg/dL [facility] Aspartate Amino Transferase 33 5 - 37 U/L [facility] Alanine Aminotransferase 21 0 - 40 U/L [facility] Total Protein 5.8(L) 6.5 - 8.0 g/dL [facility] Albumin Level 3.7 3.5 - 5.0 g/dL [facility] Alkaline Phosphatase 86 39 - 117 U/L [facility] 03/13/2025 2:21 PM EDT 03/13/2025 2:25 PM EDT us Generic External Data Provider LAB BLOOD ORDERAB LES Final Result Performing Organization Address [facility] Co de Phone Number [facility] [address] [place] [phone] * Pathologist Review - CBC (03/13/2025 11:23 AM EDT) Pathologist Review - CBC SEE NOTE [facility] Comment:Variably hypochromic mildly microcytic anemia; occasionaltargets are present. Please correlate with iron studies.- Milton Mcmillan M.D. Pathology 03/13/2025 11:2 3 AM EDT 03/13/2025 11:23 AM EDT us Generic External Data Provider LAB BLOOD ORDERAB LES Final Result Performing Organization Address [facility] Co de Phone Number [facility] [address] [place] [phone] * TSH with Reflex to Free T4 (03/13/2025 11:23 AM EDT) TSH reflex Free T4 0.75 0.32 - 4.0 uIU/mL [facility] 03/13/2025 11:2 3 AM EDT 03/13/2025 11:23 AM EDT us Generic External Data Provider LAB BLOOD ORDERAB LES Final Result Performing Organization Address [facility] Co de Phone Number [facility] [address] [place] [phone] * (ABNORMAL) Lipid Panel, Standard (12/08/2024 8:19 AM EDT) Triglycerides 117 <150 mg/dL [facility] Comment:Desirable Triglyceri de: less than 150 mg/dLBorderline High Triglyceride 150-199 mg/dLHigh Triglyceride: 200-499 mg/dLVery High Triglyceride: greater than or equal to 5OO mg/dL Cholesterol 87 <200 mg/dL [facility] Comment:Desirable Cholestero l: less than 200 mg/dLBorderline High Cholesterol: 200-239 mg/dLHigh Cholesterol: greater than 239 mg/dL LDL Cholesterol Calculated 33 <100 mg/dL [facility] Comment:Desirable LDL: less than 100 mg/dLNear Optimal/Above Optimal LDL: 110- 129 mg/dLBorderline High LDL: 130-159 mg/dLHigh LDL: 160-189 mg/dLVery High LDL: greater than or equal to 190 mg/dL HDL Cholesterol 31(L) >40 mg/dL [facility] Comment:Desirable HDL: great er than 40 mg/dL Note: This HDL assay may give artificially low results in patients with liver disease. Blood Venous blood specimen / Unknown 12/08/2024 8:19 AM EDT 12/08/2024 12:05 PM EDT us Isabella Tony MD LAB BLOOD ORDERABLES Final Resul t [facility] [address] [place] [phone] * Cologuard?? colon cancer screening (02/16/2024 8:20 AM EDT) Cologuard Result Negative Negative 02/22/20 5:40 PM EDT [employer] (CLIA #:[id number]) Comment: NEGATIVE TEST RESULT. A negative Cologuard [...] (Carlos Gonzales al, N Engl J Med 2014;370(14):7797-9777) The normal value (reference range) for this assay is negative. COLOGUARD RE-SCREENING RECOMMENDATION: Periodic colorectal cancer screening is an important part of preventive healthcare for asymptomatic individuals at average risk for colorectal cancer. Following a negative Cologuard result, the [employer] [employer] and U.S. Multi-Society Task Force screening guidelines recommend a Cologuard re-screening interval of 3 years. References: [employer] [employer] Guideline for Colorectal Cancer Screening: https://www.cancer.org/cancer/ncudk-pparjl-mljibk/ovsymhkhe-nsrurnmja-musbaas/ac s-rec ommendations.html.; Salvador ARGUETA, Tania HIGUERA, Parker GarciaK, Colorectal Cancer Screening: Recommendations for Physicians and Patients from the U.S. Multi-Society Task Force on Colorectal Cancer Screening , Am J Gastroenterology 2017; 112:3886-0808. TEST DESCRIPTION: Composite algorithmic analysis of stool [...] (Carlos Gonzales al, N Engl J Med 2014;370(14):7344-8159.) Cologuard may produce a false negative or false positive result (no colorectal cancer or precancerous polyp present at colonoscopy follow up). A negative Cologuard test result does not guarantee the absence of CRC or advanced adenoma (pre-cancer). The current Cologuard screening interval is every 3 years. ([employer] [employer] and U.S. Multi-Society Task Force). Cologuard performance data in a 10,000 patient pivotal study using colonoscopy as the reference method can be accessed at the following location: www.[employer]/results. Additional description of the Cologuard test process, warnings and precautions can be found at www.[employer]. Stool specimen (specimen) 02/16/2024 8:20 AM EDT 02/17/2024 1:43 PM EDT Isabella Tony MD LAB MOLECULAR DIAGNOSTICS ORDERA BLES Final Result [employer] [facility] (CLIA #:[id number]) [place] [address], * HIV AB/AG (07/10/2020 9:18 AM EST) HIV AB/AG Nonreactive Nonreactive [facility] Comment: HIV-1 p24 Ag and/or HIV-1/HIV-2 [...] of detection of this assay. The [employer] HIV Ag/Ab Combo assay result and supplemental assay results should be interpreted in conjunction with the patient's clinical presentation, history and other laboratory results. If the results are inconsistent with clinical evidence, additional testing is suggested to confirm the result. Hepatitis B Surface Antigen Negative Negative [facility] 07/10/2020 9:18 AM EST us Isabella Tony MD HISTORICAL/NON ORDERABLE LABS Fi nal Result [facility] [address] [place] [address], from Last 3 Months or Most Recently Relevant to Health Maintenance Insurance [id number] DENTAL-[facility] [place] [id number] [place] [id number] Care Teams Casserole Preparer Relationship Specialty Start Date End Date Alan Escobar CNP 505 [place] [address] PCP - General Family Medicine 05/25/25 Mike Aldridge, RN 505 [place] [address] Registered Nurse Family Medicine 02/15/25 Chikis Lucero 02/15/25
--- OUTSIDE RECORDS SUMMARY | 2025-06-05 10:03 | XMS_ITS | Encounter Summary ---
Author Organization [employer] Address [address] [facility] 7t [place] [address] Care Team Providers Care Correctional Therapy Teacher Name Role Phone Isabella Tony MD Primary Care Provider [phone] Mike Aldridge RN Unavailable [phone] Chikis Lucero Unavailable Alan Escobar CNP Primary Care Provider [phone] Encounter Details Date Type Department Care Team (Late st Contact Info) Description 08/05/2023 Orders Only [facility] MED & PEDS [address] [place], [place] [phone] Case Carrasco MD 505 [place], [place] [phone] Social History Tobacco Use Types Packs/Day Years [...] Team (Late st Contact Info) Description 08/10/2025 10:15 AM EST Office Visit [facility] ADULT DENTAL [address] [place] [address] Kristyn Martinez documented as of this encounter Visit Diagnoses Not on filedocumented in this encounter Care Teams Correctional Therapy Teacher Relationship Specialty Start Date End Date Isabella Tony MD [address] [place] [address] PCP - General Family Medicine 07/12/12 05/24/25 Alan Escobar CNP 505 [place] [address] PCP - General Family Medicine 05/25/25 Mike lAdridge, RN 505 [place] [address] Registered Nurse Family Medicine 02/15/25 Chikis Lucero 02/15/25 documented as of this encounter
--- OUTSIDE RECORDS SUMMARY | 2025-06-05 10:03 | XMS_ITS | Encounter Summary ---
Author Organization [employer] Address 75 [facility] 7t [place] [address] Care Team Providers Care Patch Press Operator Name Role Phone Isabella Tony MD Primary Care Provider [phone] Mike Aldridge RN Unavailable [phone] Chikis Lucero Unavailable Alan Escobar CNP Primary Care Provider [phone] Reason for Visit * Reason Onset Date Comments triage 09/30/2022 Encounter Details Date Type Department Care Team (Late st Contact Info) Description 09/30/2022 Telephone [facility] CHC MED & PEDS [address] [place], [place] [phone] Isabella Tony MD 505 [place], [place] [phone] triage Social History Tobacco Use Types Packs/Day [...] Miscellaneous Notes * Telephone Encounter - Jessica Bryano - 10/06/2022 3:01 PM EDT Informed to [...] 09/30/2022 3:12 PM EST Called pt. Via [employer] cloth spreader [id number] Saleem. Pt. States that he has been [...] Pt. States that someone called him from [facility] to come into the office for [...] if you want to have nurses in [facility] switch appt. At 915am on 10/02/22 to PCP. Please advise [facility] nurses if you want appt. Switched. [...] accepted this outcome Please contact pt at [phone] documented in this encounter Plan of Treatment Upcoming Encounters Date Type Department Care Team (Late st Contact Info) Description 08/10/2025 10:15 AM EST Office Visit [facility] ADULT DENTAL 505 [place] [address] Kristyn Martinez documented as of this encounter Visit Diagnoses Not on filedocumented in this encounter Care Teams Patch Press Operator Relationship Specialty Start Date End Date Isabella Tony MD [address] [place] [address] PCP - General Family Medicine 07/12/12 05/24/25 Alan Escobar CNP 505 [place] [address] PCP - General Family Medicine 05/25/25 Mike Aldridge, RN [address] [place] [address] Registered Nurse Family Medicine 02/15/25 Chikis Lucero 02/15/25 documented as of this encounter
--- OUTSIDE RECORDS SUMMARY | 2025-06-05 10:03 | XMS_ITS ---
Author Organization [employer] Address [address] [facility] 7t [place] [address] Care Team Providers Care Bran Mixer Name Role Phone Mike Aldridge RN Unavailable [phone] Chikis Lucero Unavailable Alan Escobar CNP Primary Care Provider [phone] [facility] Status:Enrolled (Active) Start date:02/15/2025 Enrollment date:02/15/2025 Enrollment reason:ADT Feed Overview [facility] 02/14/25 Case Team Name Relationship Phone Chikis Lucero(Responsible Staff) Continued Care and Services Coordination
--- OUTSIDE RECORDS SUMMARY | 2025-06-05 10:03 | XMS_ITS | Encounter Summary ---
Author Organization [employer] Address [address] [facility] 7t [place] [address] Care Team Providers Care Lining Maker Name Role Phone Isabella Tony MD Primary Care Provider [phone] Mike Aldridge RN Unavailable [phone] Chikis Lucero Unavailable Alan Escobar CNP Primary Care Provider [phone] Encounter Details Date Type Department Care Team (Late st Contact Info) Description 07/14/2022 Orders Only [facility] MED & PEDS 505 [place] [address] Miguelina Arvizu LPN Social History Tobacco Use [...] Description 08/10/2025 10:15 AM EST Office Visit [facility] ADULT DENTAL 505 [place] [address] Kristyn Martinez documented as of this encounter Visit Diagnoses Not on filedocumented in this encounter Care Teams Lining Maker Relationship Specialty Start Date End Date Isabella Tony MD [address] [place] [address] PCP - General Family Medicine 07/12/12 05/24/25 Alan Escobar CNP [facility] [place] [address] PCP - General Family Medicine 05/25/25 Mike Aldridge RN 505 [place] [address] Registered Nurse Family Medicine 02/15/25 Chikis Lucero 02/15/25 documented as of this encounter
--- OUTSIDE RECORDS SUMMARY | 2025-06-05 10:03 | XMS_ITS | Encounter Summary ---
Author Organization [employer] Address 75 [facility] 7t [place] [address] Care Team Providers Care Social Media Intern Name Role Phone Isabella Tony MD Primary Care Provider [phone] Mike Aldridge RN Unavailable [phone] Chikis Lucero Unavailable Alan Escobar CNP Primary Care Provider [phone] Reason for Visit * Reason Onset Date Comments Nurse Triage 05/04/2024 Encounter Details Date Type Department Care Team (Late st Contact Info) Description 05/04/2024 Telephone [facility] CHC MED & PEDS 505 [place], [place] [phone] Isabella Tony MD 505 [place], [place] [phone] Nurse Triage Social History Tobacco Use Types [...] 05/04/2024 10:57 AM EDT Triage call with [place]fe Winding Inspector [place] [id number] Pt reports some lumps on right arm where injections were given while at [facility] 05/02/24. Pt was seen asfollow up for cardiac cath, stent placement which was done 04/20/24 report of 05/02/24 apt is on the chart. Pt does have hx of blood clots and didn't start aspirin and Brilinta as directed after this procedure. Pt informs director underwriter sales that Pt is on the way to [facility] at this time to be seen by provider. Pt hasno apt there and is advised to come to [facility] instead for provider to see Pt. Pt agrees and informs director underwriter sales that Pt is heading to [facility] at this time. Pt is alert, oriented, no difficulty breathing. Triage is ended. Advised Pt will send this report to [facility] now. Pt agrees. Protocol Used: No Contact or Duplicate Contact Call (Adult) Protocol-Based Disposition: No Contact Call Positive Triage Question: * Patient already left for the hospital/clinic * All higher-acuity triage questions were negative * Telephone Encounter - Hayley Jelly - 05/04/2024 10:17 AM EDT Symptom: Skin Lump Outcome: Schedule an appointment to be seen within 3 days Reason: Caller denied all higher acuity questions The caller accepted this outcome. documented in this encounter Plan of Treatment Upcoming Encounters Date Type Department Care Team (Late st Contact Info) Description 08/10/2025 10:15 AM EST Office Visit [facility] ADULT DENTAL 505 [place] [address] Kristyn Martinez documented as of this encounter Visit Diagnoses Not on filedocumented in this encounter Care Teams Social Media Intern Relationship Specialty Start Date End Date Isabella Tony MD [address] [place] [address] PCP - General Family Medicine 07/12/12 05/24/25 Alan Escobar CNP 505 [place] [address] PCP - General Family Medicine 05/25/25 Mike Aldridge, EZEKIEL 505 [place] [address] Registered Nurse Family Medicine 02/15/25 Chikis Lucero 02/15/25 documented as of this encounter
--- OUTSIDE RECORDS SUMMARY | 2025-06-05 10:03 | XMS_ITS | Clinical Summary ---
Author Organization [facility] Address [address] [address] Care Team Providers Care Iuss Analyst Name Role Phone Isabella Tony MD Primary Care Provider [phone] Social History Tobacco Use Types Packs/Day Years [...] Vaccine (#1) 2025 [place] [id number] [place] Care Teams Iuss Analyst Relationship Specialty Start Date End Date Isabella Tony MD [address] [place] [address] PCP - General Family Medicine 05/20/21
--- OUTSIDE RECORDS SUMMARY | 2025-06-05 10:03 | XMS_ITS | Encounter Summary ---
Author Organization [employer] Address [address] [facility] [address] 7t [place] [address] Care Team Providers Care Apprentice Plumber Name Role Phone Isabella Tony MD Primary Care Provider [phone] Mike Aldridge RN Unavailable [phone] Chikis Lucero Unavailable Alan Escobar CNP Primary Care Provider [phone] Reason for Visit * Reason Onset Date Comments Nurse Triage 07/21/2023 Encounter Details Date Type Department Care Team (Late st Contact Info) Description 07/21/2023 Telephone [facility] MEDICINE [address] [place] [address] Isabella Tony MD [address] [place], [place] [phone] Nurse Triage Social History Tobacco Use Types [...] want to go to walk in at [facility] today ot tomorrow. Pt. Wants televisit. Pt. Is speaking in clear sentences and denies SOB or wheezing at present. Advised if develops SOB to go to walk in at [facility] until 730pm tonight. Protocol Used: COVID-19 [...] Description 08/10/2025 10:15 AM EST Office Visit [facility] ADULT DENTAL 505 [place] [address] Kristyn Martinez documented as of this encounter Visit Diagnoses Diagnosis Mild persistent asthma, unspecified whether complicated documented in this encounter Care Teams Apprentice Plumber Relationship Specialty Start Date End Date Isabella Tony MD 230 [place] [address] PCP - General Family Medicine 07/12/12 05/24/25 Alan Escobar CNP 505 [place] [address] PCP - General Family Medicine 05/25/25 Mike Aldridge, EZEKIEL 505 [place] [address] Registered Nurse Family Medicine 02/15/25 Chikis Lucero 02/15/25 documented as of this encounter
--- OUTSIDE RECORDS SUMMARY | 2025-06-05 10:03 | XMS_ITS | Encounter Summary ---
Author Organization [employer] Address [address] [facility] 7t [place] [address] Care Team Providers Care Weatherization Operations Manager Name Role Phone Isabella Tony MD Primary Care Provider [phone] Mike Aldridge RN Unavailable [phone] Chikis Lucero Unavailable Alan Escobar CNP Primary Care Provider [phone] Reason for Visit * Reason Comments Med Refill Encounter Details Date Type Department Care Team ([facility] st Contact Info) Description 12/06/2024 Refill [facility] CHC MED & PEDS 505 [place], [place] [phone] Isabella Tony MD 505 [place], [place] [phone] Social History Tobacco Use Types Packs/Day Years [...] 10:15 AM EST Office Visit [facility] ADULT DENTAL 505 [place] [address] Kristyn Martinez documented as of this encounter Visit Diagnoses Not on filedocumented in this encounter Additional Health Concerns Assessment Noted Time PHQ-9 Depression Total Score: 8 10/28/19 25 9:13 AM EDT documented as of this encounter Care Teams Weatherization Operations Manager Relationship Specialty Start Date End Date Isabella Tony MD 230 [place] [address] PCP - General Family Medicine 07/12/12 05/24/25 Alan Escobar CNP 505 [place] [address] PCP - General Family Medicine 05/25/25 Mike Aldridge, EZEKIEL 505 [place] [address] Registered Nurse Family Medicine 02/15/25 Chikis Lucero 02/15/25 documented as of this encounter
--- OUTSIDE RECORDS SUMMARY | 2025-06-05 10:03 | XMS_ITS | Clinical Summary ---
Author Organization [facility] Address [address] [place] [address] Care Team Providers Care Umbrella Tipper Name Role Phone Unavailable Primary Care Provider [...] file Trever Ledesma Personal/Family Self 1965 [address] [address] [place] [address]
--- OUTSIDE RECORDS SUMMARY | 2025-06-05 10:03 | XMS_ITS | Encounter Summary ---
Author Organization [employer] Address [address] [facility] [address] 7t [place] [address] Care Team Providers Care Casting Cleaner Name Role Phone Isabella Tony MD Primary Care Provider [phone] Mike Aldridge RN Unavailable [phone] Chikis Lucero Unavailable Alan Escobar CNP Primary Care Provider [phone] Reason for Visit * Reason Onset Date Comments Dental Pain 09/03/2023 Encounter Details Date Type Department Care Team (Late st Contact Info) Description 09/03/2023 Telephone [facility] ADULT DENTAL [address] [place], [place] [phone] Roseanne Devries DMD Dental Pain Social History Tobacco Use Types [...] Description 08/10/2025 10:15 AM EST Office Visit [facility] ADULT DENTAL [address] [place] [address] Kristyn Martinez documented as of this encounter Visit Diagnoses Not on filedocumented in this encounter Care Teams Casting Cleaner Relationship Specialty Start Date End Date Isabella Tony MD [address] [place] [address] PCP - General Family Medicine 07/12/12 05/24/25 Alan Escobar CNP 505 [place] [address] PCP - General Family Medicine 05/25/25 Mike Aldridge, EZEKIEL 505 [place] [address] Registered Nurse Family Medicine 02/15/25 Chikis Lucero 02/15/25 documented as of this encounter
--- OUTSIDE RECORDS SUMMARY | 2025-06-05 10:03 | XMS_ITS | Encounter Summary ---
Author Organization [employer] Address 75 [facility] 7t [place] [address] Care Team Providers Care Pulp Grinder Name Role Phone Isabella Tony MD Primary Care Provider [phone] Mike Aldridge RN Unavailable [phone] Chikis Lucero Unavailable Alan Escobar CNP Primary Care Provider [phone] Encounter Details Date Type Department Care Team (Late st Contact Info) Description 07/30/2022 Orders Only [facility] MED & PEDS [address] [place] [address] Miguelina Arvizu LPN Social History Tobacco Use [...] Description 08/10/2025 10:15 AM EST Office Visit [facility] ADULT DENTAL [address] [place] [address] Kristyn Martinez documented as of this encounter Visit Diagnoses Not on filedocumented in this encounter Care Teams Pulp Grinder Relationship Specialty Start Date End Date Isabella Tony MD [address] [place] [address] PCP - General Family Medicine 07/12/12 05/24/25 Alan Escobar CNP 505 [facility] [place] [address] PCP - General Family Medicine 05/25/25 Mike Aldridge RN 505 [facility] [place] [address] Registered Nurse Family Medicine 02/15/25 Chikis Lucero 02/15/25 documented as of this encounter
--- OUTSIDE RECORDS SUMMARY | 2025-06-05 10:03 | XMS_ITS ---
Author Organization [employer] Address 75 [facility] 7t [place] [address] Care Team Providers Care Chief Growth Officer Name Role Phone Mike Aldridge RN Unavailable [phone] Chikis Lucero Unavailable Alan Escobar CNP Primary Care Provider [phone] Complex Status:Enrolled (Active) Start date:02/15/2025 Enrollment date:02/28/2025 Enrollment reason:ADT Feed Overview [facility] ED 02/14/25 Case Team Name Relationship Phone Mike Aldridge RN(Responsible Staff) Registered N siena [phone] Continued Care and Services Coordination
--- OUTSIDE RECORDS SUMMARY | 2025-06-05 10:03 | XMS_ITS | Encounter Summary ---
Author Organization [employer] Address [address] [facility] [address] 7t [place] [address] Care Team Providers Care Psychologist Engineering Name Role Phone Isabella Tony MD Primary Care Provider [phone] Mike Aldridge RN Unavailable [phone] Chikis Lucero Unavailable Alan Escobar CNP Primary Care Provider [phone] Reason for Visit * Reason Comments Med Refill Encounter Details Date Type Department Care Team (Late st Contact Info) Description 09/10/2023 Refill [facility] MEDICINE [address] [place] [address] Isabella Tony MD [address] [place], [place] [phone] Seizure disorder (CMS/HCC) Social History Tobacco Use [...] Description 08/10/2025 10:15 AM EST Office Visit [facility] CHC ADULT DENTAL 505 [place] [address] Kristyn Martinez documented as of this encounter Visit Diagnoses Diagnosis Seizure disorder (CMS/HCC) (HCC) Unspecified epilepsy without mention of intractable epilepsy documented in this encounter Care Teams Psychologist Engineering Relationship Specialty Start Date End Date Isabella Tony MD 230 [place] [address] PCP - General Family Medicine 07/12/12 05/24/25 Alan Escobar CNP 505 [place] [address] PCP - General Family Medicine 05/25/25 Mike Aldridge, RN 505 [place] [address] Registered Nurse Family Medicine 02/15/25 Chikis Lucero 02/15/25 documented as of this encounter
--- OUTSIDE RECORDS SUMMARY | 2025-06-05 10:04 | XMS_ITS | Encounter Summary ---
Author Organization [employer] Address [address] [facility] [address] 7t [place] [address] Care Team Providers Care Centrifugal Screen Tender Name Role Phone Mike Aldridge RN Unavailable [phone] Chikis Lucero Unavailable Alan Escobar CNP Primary Care Provider [phone] Encounter Details Date Type Department Care Team (Late st Contact Info) Description 06/03/2025 Orders Only [facility] [address] [place], [place] [phone] Alan Escobar CNP [address] [place], [place] [phone] Tinea pedis, unspecified laterality (Primary Dx) Social History Tobacco Use Types Packs/Day Years [...] the past 12 months, has t he [employer], gas, oil or water company threatened to [...] 08/10/2025 10:15 AM EST Office Visit [facility] ADULT DENTAL [address] [place] [address] Kristyn Martinez documented as of this encounter Visit Diagnoses Diagnosis Tinea pedis, unspecified laterality- Primary documented in this encounter Additional Health Concerns Assessment Noted Time PHQ-9 Depression Total Score: 5 03/01/20 25 9:25 AM EDT documented as of this encounter Care Teams Centrifugal Screen Tender Relationship Specialty Start Date End Date Alan Escobar CNP 505 [place] [address] PCP - General Family Medicine 05/25/25 Mike Aldridge, EZEKIEL 505 [place] [address] Registered Nurse Family Medicine 02/15/25 Chikis Lucero 02/15/25 documented as of this encounter
--- OUTSIDE RECORDS SUMMARY | 2025-06-05 10:04 | XMS_ITS | Encounter Summary ---
Author Organization [employer] Address 75 [facility] 7t [place] [address] Care Team Providers Care Screen Printing Press Operator Name Role Phone Isabella Tony MD Primary Care Provider [phone] Mike Aldridge RN Unavailable [phone] Chikis Lucero Unavailable Alan Escobar CNP Primary Care Provider [phone] Reason for Visit * Reason Comments Med Refill Encounter Details Date Type Department Care Team (Late Contact Info) Description 04/06/2023 Refill [facility] MED & PEDS 505 [place] [address] Isabella Toyn MD 505 [place] [address] Social History Tobacco Use Types Packs/Day Years [...] Care Team (Late Contact Info) Description 08/10/2025 10:15 AM EST Office Visit [facility] ADULT DENTAL [address] [place] [address] Kristyn Martinez documented as of this encounter Visit Diagnoses Not on filedocumented in this encounter Care Teams Screen Printing Press Operator Relationship Specialty Start Date End Date Isabella Tony MD 230 [place] [address] PCP - General Family Medicine 07/12/12 05/24/25 Alan Escobar CNP 505 [place] [address] PCP - General Family Medicine 05/25/25 Mike Aldridge RN 505 [place] [address] Registered Nurse Family Medicine 02/15/25 Chikis Lucero 02/15/25 documented as of this encounter
--- OUTSIDE RECORDS SUMMARY | 2025-06-05 10:04 | XMS_ITS | Encounter Summary ---
Author Organization [email or web address] Address 75 [facility] 7t [place] [address] Care Team Providers Care Print Buyer Name Role Phone Isabella Tony MD Primary Care Provider Mike Aldridge RN Unavailable [phone] Chikis Lucero Unavailable Alan Escobar CNP Primary Care Provider [phone] Reason for Visit * Reason Comments Med Refill Encounter Details Date Type Department Care Team (Late Contact Info) Description 04/08/2023 Refill [facility] 505 [place] [address] Isabella Tony MD 505 [place] [address] Seizure disorder (CMS/HCC) Social History Tobacco Use [...] 08/10/2025 10:15 AM EST Office Visit [facility] ADULT D[facility] 505 [place] [address] Kristyn Martinez documented as of this encounter Visit Diagnoses Diagnosis Seizure disorder (CMS/HCC) (HCC) Unspecified epilepsy without mention of intractable epilepsy documented in this encounter Care Teams Print Buyer Relationship Specialty Start Date End Date Isabella Tony MD [address] [place] [address] PCP - General Family Medicine 07/12/12 05/24/25 Alan Escobar CNP 505 [place] [address] PCP - General Family Medicine 05/25/25 Mike Aldridge RN [address] [place] [address] Registered Nurse Family Medicine 02/15/25 Chikis Lucero 02/15/25 documented as of this encounter
--- OUTSIDE RECORDS SUMMARY | 2025-06-05 10:04 | XMS_ITS | Encounter Summary ---
Author Organization [employer] Address [address] [facility] [address] 7t [place] [address] Care Team Providers Care Boxing Trainer Name Role Phone Isabella Tony MD Primary Care Provider [phone] Mike Aldridge RN Unavailable [phone] Chikis Lucero Unavailable Alan Escobar CNP Primary Care Provider [phone] Encounter Details Date Type Department Care Team ([facility] Contact Info) Description 01/13/2023 Orders Only [facility] MEDICINE [address] [place], [place] [phone] Rajwinder Taylor LPN Social History Tobacco Use [...] Upcoming Encounters Date Type Department Care Team ([facility] Contact Info) Description 08/10/2025 10:15 AM EST Office Visit [facility]C ADULT DENTAL [address] [place], [place] [phone] Kristyn Martinez documented as of this encounter Visit Diagnoses Not on filedocumented in this encounter Care Teams Boxing Trainer Relationship Specialty Start Date End Date Isabella Tony MD [address] [place] [address] PCP - General Family Medicine 07/12/12 05/24/25 Alan Escobar CNP 505 [place] [address] PCP - General Family Medicine 05/25/25 Mike Aldridge, EZEKIEL 505 [place] [address] Registered Nurse Family Medicine 02/15/25 Chikis Lucero 02/15/25 documented as of this encounter
--- OUTSIDE RECORDS SUMMARY | 2025-06-05 10:04 | XMS_ITS | Encounter Summary ---
Author Organization [employer] [facility] [employer] Address [address] [facility] 7t [place] [address] Care Team Providers Care Mathematics Department Chair Name Role Phone Isabella Tony MD Primary Care Provider [phone] Mike Aldridge RN Unavailable [phone] Chikis Lucero Unavailable Alan Escobar CNP Primary Care Provider [phone] Reason for Visit * Reason Onset Date Comments FYI 04/13/2023 Encounter Details Date Type Department Care Team (Late st Contact Info) Description 04/13/2023 Telephone [facility] CHC MED & PEDS [address] [place], [place] [phone] Isabella Tony MD [address] [place], [place] [phone] FYI Social History Tobacco Use Types Packs/Day [...] - 04/13/2023 1:26 PM EDT Tc placido [facility] at [facility] calling to inform PCP that 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 documented in this encounter Plan of Treatment Upcoming Encounters Date Type Department Care Team (Late st Contact Info) Description 08/10/2025 10:15 AM EST Office Visit [facility] CHC ADULT DENTAL [address] [place] [address] Kristyn Martinez documented as of this encounter Visit Diagnoses Not on filedocumented in this encounter Care Teams Mathematics Department Chair Relationship Specialty Start Date End Date Isabella Tony MD [address] [place] [address] PCP - General Family Medicine 07/12/12 05/24/25 Alan Escobar CNP 505 [place] [address] PCP - General Family Medicine 05/25/25 Mike Aldridge RN 505 [place] [address] Registered Nurse Family Medicine 02/15/25 Chikis Lucero 02/15/25 documented as of this encounter
--- OUTSIDE RECORDS SUMMARY | 2025-06-05 10:04 | XMS_ITS | Encounter Summary ---
Author Organization [employer] Address [address] [facility] 7t [place] [address] Care Team Providers Care Recenterer Name Role Phone Isabella Tony MD Primary Care Provider [phone] Mike Aldridge RN Unavailable [phone] Chikis Lucero Unavailable Alan Escobar CNP Primary Care Provider [phone] Reason for Visit * Reason Comments Med Refill Encounter Details Date Type Department Care Team ([facility] st Contact Info) Description 05/01/2023 Refill [facility] MED & PEDS [address] [place], [place] [phone] Isabella Tony MD [address] [place], [place] [phone] Social History Tobacco Use Types Packs/Day Years [...] 10:15 AM EST Office Visit [facility] ADULT DENTAL [address] [place] [address] Kristyn Martinez documented as of this encounter Visit Diagnoses Not on filedocumented in this encounter Care Teams Recenterer Relationship Specialty Start Date End Date Isabella Tony MD [address] [place] [address] PCP - General Family Medicine 07/12/12 05/24/25 Alan Escobar CNP 505 [place] [address] PCP - General Family Medicine 05/25/25 Mike Aldridge, EZEKIEL [address] [place] [address] Registered Nurse Family Medicine 02/15/25 Chikis Lucero 02/15/25 documented as of this encounter
--- OUTSIDE RECORDS SUMMARY | 2025-06-05 10:04 | XMS_ITS | Encounter Summary ---
Author Organization [employer] Address [address] [facility] 7t [place] [address] Care Team Providers Care Mold Carpenter Name Role Phone Mike Aldridge RN Unavailable [phone] Chikis Lucero Unavailable Alan Escobar CNP Primary Care Provider [phone] Reason for Visit * Reason Comments Med Refill Encounter Details Date Type Department Care Team ([facility] st Contact Info) Description 06/02/2025 Refill [facility] CHC MED & PEDS [address] [place], [place] [phone] Isabella Tony MD 505 [place] [address] Social History Tobacco Use Types Packs/Day Years [...] Upcoming Encounters Date Type Department Care Team ([facility] st Contact Info) Description 08/10/2025 10:15 AM EST Office Visit [facility] ADULT DENTAL [address] [place] [address] Kristyn Martinez documented as of this encounter Visit Diagnoses Not on filedocumented in this encounter Additional Health Concerns Assessment Noted Time PHQ-9 Depression Total Score: 5 03/01/20 25 9:25 AM EDT documented as of this encounter Care Teams Mold Carpenter Relationship Specialty Start Date End Date Alan Escobar CNP [address] [place] [address] PCP - General Family Medicine 05/25/25 Mike Aldridge, EZEKIEL [address] [place] [address] Registered Nurse Family Medicine 02/15/25 Chikis Lucero 02/15/25 documented as of this encounter
--- OUTSIDE RECORDS SUMMARY | 2025-06-05 10:04 | XMS_ITS | Encounter Summary ---
Author Organization [email or web address] Address [address] [facility] 7t [place] [address] Care Team Providers Care Cementer Hand Name Role Phone Isabella Tony MD Primary Care Provider [phone] Mike Aldridge RN Unavailable Chikis Lucero Unavailable Alan Escobar CNP Primary Care Provider [phone] Encounter Details Date Type Department Care Team (Late st Contact Info) Description 05/24/2025 Results Follow-Up [facility] CHC MED & PEDS [address] [place], [place] [phone] Alan Escobar CNP [address] [place], [place] [phone] CBC auto differential, Iron And Total Iron Binding Capacity, Ferritin, Basic Metabolic Panel Social History Tobacco Use Types Packs/Day Years [...] Description 08/10/2025 10:15 AM EST Office Visit [facility] ADULT DENTAL [address] [place] [address] Kristyn Martinez documented as of this encounter Visit Diagnoses Not on filedocumented in this encounter Additional Health Concerns Assessment Noted Time PHQ-9 Depression Total Score: 5 03/01/20 25 9:25 AM EDT documented as of this encounter Care Teams Cementer Hand Relationship Specialty Start Date End Date Isabella Tony MD [address] [place] [address] PCP - General Family Medicine 07/12/12 05/24/25 Alan Escobar CNP [address] [place] [address] PCP - General Family Medicine 05/25/25 iMke Aldridge, EZEKIEL [address] [place] [address] Registered Nurse Family Medicine 02/15/25 Chikis Lucero 02/15/25 documented as of this encounter
--- OUTSIDE RECORDS SUMMARY | 2025-06-05 10:04 | XMS_ITS | Encounter Summary ---
Author Organization [employer] Address [address] [facility] 7t [place] [address] Care Team Providers Care A And P Technician Name Role Phone Mike Aldridge RN Unavailable [phone] Chikis Lucero Unavailable Alan Escobar CNP Primary Care Provider [phone] Reason for Visit * Reason Comments Care Management C3CM- F/U call # 2 Encounter Details Date Type Department Care Team ([facility] st Contact Info) Description 06/02/2025 Patient Outreach [facility] CHC MED & PEDS [address] [place], [place] [phone] Alan Escobar CNP [address] [place], [place] [phone] Care Management (C3CM- F/U call # 2) Social History Tobacco Use Types Packs/Day Years [...] Progress Notes * Mike Aldridge RN - 06/02/2025 10:44 AM EST ANTOINETTE Aldridge RN placed outbound call to patient. Patient's name, and address confirmed. Patient states is doing well with no recent illnesses or emergency room visits. Pt requesting antifungal cream for his feet. CM will send medication request to PCP. Pt reports that he receives VNA visitsevery 2 weeks and that during those visits they check his VS. Pt reports that his BP readings have been controlled. Pt reports currently taking iron pills everyday in the afternoon and denies any S&S of anemia. Pt reports compliance to his medications and denies any side effects. Pt reports that he has only 7 days left of pills in his medbox. CM advised pt to call pharmacy a few days before running out to request refill. CM reminded pt of upcoming GI appointment at [facility] on 06/05/25 @ 10 AM. Pt reports that he received the shower chair. Pt reports that his asthma is controlled at this time.Pt denies any recent seizures. No further questions or concerns. CM reinforced direct contact information or CHW for any additional questions or concerns. Education provided on [facility] located in [facility] of [facility]. Patient provided with after-hours line for [facility], , which offer night time triage service and option to transfer to sports nutritionist provider if needed. Patient verbalizes understanding, and able to repeat back to food writer. A follow up call will be placed within 10 days, patientagrees with plan. * Alan Escobar CNP - 06/02/2025 10:44 AM EST Not a problem will send now thank you documented in this encounter Miscellaneous Notes * Care Plan - Mike Aldridge RN - 06/02/2025 10:44 AM EST Active Care Plan Care Plan Understanding (Progressing) Start: 03/02/25 Expected End: 05/31/25 Evaluate ongoing compliance with plan of care. (Completed) Start: 03/02/25 End: 06/02/25 Mike Aldridge RN Evaluate progress in meeting health care needs. (Completed) Start: 03/02/25 End: 06/02/25 Mike Aldridge RN Community Support Adequate Community Support (Progressing) Start: 03/02/25 Expected End: 05/31/25 Goal Note Pt reports that he received the shower chair. Coordination of Care Effectively coordinate care (Progressing) Start: 03/02/25 Expected End: 05/31/25 Goal Note CM reminded pt of upcoming GI appointment at [facility] on 06/05/25 @ 10 AM. Hypertension B/P at/or < Goal (Progressing) Start: 03/02/25 Expected End: 05/31/25 Goal Note Pt reports that he receives VNA visits every 2 weeks and that during those visits they check his VS. Pt reports that his BP readings have been controlled. Monitor Adherence to Medication Regimen (Completed) Start: 03/02/25 End: 06/02/25 Mike Aldridge RN Manage Hypertension (Progressing) Start: 03/02/25 Expected End: 05/31/25 Goal Note Pt reports that he receives VNA visits every 2 weeks and that during those visits they check his VS. Pt reports that his BP readings have been controlled. Evaluate compliance with independence in blood pressure monitoring, recording results and notifyingRN or physician or findings outside of target. (Completed) Start: 03/02/25 End: 06/02/25 Mike Aldridge RN Regularly Monitors Blood Pressure (Progressing) Start: 03/02/25 Expected End: 05/31/25 Goal Note Pt reports that he receives VNA visits every 2 weeks and that during those visits they check his VS. Pt reports that his BP readings have been controlled. Medication Concerns Improve Medication Access (Progressing) Start: 03/02/25 Expected End: 05/31/25 Goal Note Pt reports compliance to his medications and denies any side effects. Pt reports that he has only 7days left of pills in his medbox. CM advised pt to call pharmacy a few days before running out to request refill. Assess Medication Supply and Need For Refills. (Completed) Start: 03/02/25 End: 06/02/25 Mike Aldridge RN Improve Medication Adherence (Progressing) Start: 03/02/25 Expected End: 05/31/25 Goal Note Pt reports compliance to his medications and denies any side effects. Pt reports that he has only 7days left of pills in his medbox. CM advised pt to call pharmacy a few days before running out to request refill. Monitor Adherence to Medication Regimen (Completed) Start: 03/02/25 End: 06/02/25 Mike Aldridge RN Improve Medication Management (Progressing) Start: 03/02/25 Expected End: 05/31/25 Goal Note Pt reports compliance to his medications and denies any side effects. Pt reports that he has only 7days left of pills in his medbox. CM advised pt to call pharmacy a few days before running out to request refill. Assess for Medication Side Effects (Completed) Start: 03/02/25 End: 06/02/25 Mike Aldridge RN Neurological Neurological Stability (Progressing) Start: 03/02/25 Expected End: 05/31/25 Goal Note Pt denies any recent seizures. Assess neurological status. (Completed) Start: 03/02/25 End: 06/02/25 Mike Aldridge RN documented in this encounter Plan of Treatment Upcoming Encounters Date Type Department Care Team ([facility] st Contact Info) Description 08/10/2025 10:15 AM EST Office Visit [facility] ADULT DENTAL [address] [place] [address] Kristyn Martinez documented as of this encounter Visit Diagnoses Not on filedocumented in this encounter Additional Health Concerns Assessment Noted Time PHQ-9 Depression Total Score: 5 03/01/20 9:25 AM EDT documented as of this encounter Care Teams A And P Technician Relationship Specialty Start Date End Date Alan Escobar CNP [address] [place] [address] PCP - General Family Medicine 05/25/25 Mike Aldridge RN [address] [place] [address] Registered Nurse Family Medicine 02/15/25 Chikis Lucero 02/15/25 documented as of this encounter
--- OUTSIDE RECORDS SUMMARY | 2025-06-05 10:04 | XMS_ITS | Encounter Summary ---
Author Organization [employer] Address [address] [facility] 7t [place] [address] Care Team Providers Care Panel Instrument Repairer Name Role Phone Mike Aldridge RN Unavailable [phone] Chikis Lucero Unavailable Alan Escobar CNP Primary Care Provider [phone] Reason for Visit * Reason Onset Date Comments Nurse Triage 05/31/2025 Encounter Details Date Type Department Care Team (Late st Contact Info) Description 05/31/2025 Telephone [facility] MEDICINE [address] [place] [address] Alan Escobar CNP [address] [place], [place] [phone] Nurse Triage Social History Tobacco Use Types [...] the past 12 months, has t he [employer], [employer], oil or water [employer] threatened to shut off services in your [...] encounter Miscellaneous Notes * Telephone Encounter - Valerie Fernandez RN - 05/31/2025 4:06 PM EST TC placed to the pt and LVM to contact the office regarding triage call below * Telephone Encounter - Luis Angel Willoughby - 05/31/2025 2:22 PM EST Symptom: Foot or Ankle Pain - Not From Injury Outcome: Schedule an urgent appointment (within 1 hour) or talk to a nurse or provider soon Reason: Trouble walking Please contact pt at [phone] (Greek Speaker) documented in this encounter Plan of Treatment Upcoming Encounters Date Type Department Care Team ([facility] st Contact Info) Description 08/10/2025 10:15 AM EST Office Visit [facility] CHC ADULT DENTAL [address] [place] [address] Kristyn Martinez documented as of this encounter Visit Diagnoses Not on filedocumented in this encounter Additional Health Concerns Assessment Noted Time PHQ-9 Depression Total Score: 5 03/01/20 25 9:25 AM EDT documented as of this encounter Care Teams Panel Instrument Repairer Relationship Specialty Start Date End Date Alan Escobar CNP [address] [place] [address] PCP - General Family Medicine 05/25/25 Mike Aldridge, EZEKIEL [address] [place] [address] Registered Nurse Family Medicine 02/15/25 Chikis Lucero 02/15/25 documented as of this encounter
== END 2025-06-05 10:24 | disposition home or self-care (01) ==
LOC: HO.HGI 09:16
PROVIDERS: Visit Provider Internal Medicine
DX: K74.60 Unspecified cirrhosis of liver (principal); D64.9 Anemia, unspecified; I20.89 Other forms of angina pectoris
CPT/HCPCS: 99214

== ENCOUNTER → 2025-06-05 09:15 | Outpatient (BNVA) | payer MEDICAID, SELFPAY | PROVIDERS: Visit Provider Internal Medicine | DX: K74.60 Unspecified cirrhosis of liver (principal); I20.89 Other forms of angina pectoris; D64.9 Anemia, unspecified | CPT/HCPCS: 99212 ==

== ENCOUNTER 2025-06-09 09:56 | Outpatient (AMB) | payer MEDICAID, SELFPAY ==
--- NOTE | 2025-06-09 10:28 | A.OFFVIS_ITS ---
Vital Signs 06/09/25 10:30 Height 5 ft 7 in Weight 175 lb 7.807 oz BMI 27.5 BP 120/62 Blood Pressure Location Lt brachial Position Sitting Pulse 75 Pulse Source Monitor Intake Visit Reasons: f/u sooner per PCP Palpitation Intake Note: f/up- pcp-palpitations/ chest pain Deck Engineer Required: Yes Deck Engineer Language: Clinical Engineering Director Name: voyce/czech/kamari Accompanied by: Self / Same As Patient Allergies No Known Allergies Allergy (Verified 06/05/25 09:35) Medication List - Last Reconciled 06/09/25 by BENITEZ LassiterC acetaminophen 1,000 mg PO BEDTIME PRN albuterol sulfate 90 mcg/actuation (Ventolin HFA) 2 puffs inhalation Q4H PRN aspirin 81 mg PO QAM cetirizine 1 tab PO DAILY cholecalciferol (vitamin D3) 125 mcg PO TU@0900 ferrous gluconate 324 mg PO DAILY 90 days ferrous sulfate (FeroSul) 1 tab PO DAILY fluticasone propion-salmeterol 100-50 mcg/dose (Advair Diskus) 1 ea inhalation BID folic acid 1 tab PO DAILY hydrocortisone acetate (Anusol-HC) 25 mg CA DAILY hydroxyzine HCl 50 mg PO BEDTIME levetiracetam 500 mg PO BID lisinopril 5 mg PO DAILY magnesium gluconate (Mag-G) 27 mg PO DAILY multivitamin 1 tab PO DAILY omeprazole 1 cap PO DAILY@0630 rosuvastatin 40 mg PO BEDTIME 90 days sertraline 25 mg PO DAILY thiamine HCl (vitamin B1) 1 tab PO DAILY ticagrelor 90 mg PO BID topiramate 1 tab PO BEDTIME HPI HPI f/u sooner per PCP Palpitation: Details: Trever is a 60-year-old male with past medical history of hypertension, hyperlipidemia, chronic hep C, cirrhosis, CAD with LAD stent 04/20/2024 who was admitted to [facility] following last visit for GI bleed. He was given 3 units of pack cells and started on iron. EGD showed no significant abnormalities. Colonoscopy showed polyp and hemorrhoids. He was suspected to have small bowel bleeding. Initially his aspirin was held. At this time H&H has been stable. He now presents for follow-up. Today he reports that his fatigue and shortness of breath have improved. He is not having any signs of active bleeding. He admits now that prior to last visit he was having black and bloody stools. He will get a vague discomfort in the left chest region at times in the cold air. This is unlike his prior angina which was anterior chest discomfort. No shortness of breath, PND, orthopnea or edema. No lightheadedness, presyncope, syncope, falls. Taking all meds as directed. He is not doing any routine exercise. He takes care of birds as pets which keeps him busy. Certified home health care respiratory therapist used. [facility] Medical History Epidermal cyst History of blood clot in brain On anticoagulant therapy Elevated cholesterol HTN (hypertension) Hepatitis C History of ETOH abuse Asthma Cirrhosis Surgical History History of cardiac cath History of esophagogastroduodenoscopy (EGD) Hx of colonoscopy Family History Family/Other HTN (hypertension) Asthma Diabetes Social History Household Members: None Housing: Apartment Are you a primary nursing care attendant to a significant other at home: No Do you presently have visiting nurse or other home services: No Alcohol intake: never Patient Tobacco Use Status: Never used Tobacco e-Cigarette/Vaping Use: Never Used Second Hand Smoke Exposure: No service: No Current occupational status: unemployed and disabled Review of Systems Const All systems reviewed & are unremarkable except as noted in HPI and below Denies chills, Denies fatigue, Denies fever(s), Denies frequent falls, Denies weakness, Denies weight gain and Denies weight loss ENT Denies dizziness Card Details: Rapid heart beats Reports chest pain (left upper chest - tenderness to palpation), Reports chest pain at rest, Reports chest pain with activity (in cold air), Denies leg edema, Denies lightheadedness, Denies palpitations, Denies dyspnea and Denies dyspnea on exertion Resp Denies cough, Denies dyspnea and Denies dyspnea on exertion GI Denies hematochezia Musc Denies abnormal gait, Denies muscle weakness, Denies numbness, Denies radiating pain into limb and Denies tingling Neuro Denies abnormal gait, Denies dizziness, Denies frequent falls, Denies numbness, Denies tingling and Denies weakness Endo Denies fatigue and Denies palpitations Physical Exam Vital Signs: BMI result Body Mass Index 27.5 Const General: cooperative, comfortable and no acute distress Orientation/consciousness: patient oriented x3 Neck Neck: Yes normal visual inspection Resp Effort & Inspection: normal respiratory effort Auscultation: clear to auscultation bilaterally, no crackles, no rales, no rhonchi and no wheezes Cardio Rate: regular rate Rhythm: regular rhythm Heart sounds: S1 normal heart sound present, S2 normal heart sound present, no murmurs and no rubs Neuro General: patient oriented x3 Extrem General: Yes normal to inspection Psych Appearance: grossly normal Mental Status: mental status grossly normal Speech and movement: Normal speech and movement present Office Procedures EKG Details: Today - read by me, normal sinus rhythm, rate 75, Qtc 428ms [id number], Complete Assessment & Plan Assessment & Plan (1) Coronary atherosclerosis: Code(s): I25.10 - Atherosclerotic heart disease of [place] coronary artery without angina pectoris Category: Medical Plan: CAD with LAD stent 04/20/2024. Catheterization had shown proximal LAD 95% stenosis, KITTY was placed, other vessels normal. Last echocardiogram 04/11/2024 showed EF 60-65%, possible basal inferior septal and inferior hypokinesis. EKG today showing sinus rhythm with no acute ST or T-wave abnormalities, rate 75. He reports some atypical chest discomfort which is worse with palpation. Continue aspirin 81 mg daily. Will have him stop Brilinta as it has been over 1 year since his stent placement. He is not on beta-annette. Continue lisinopril 10 mg daily for good blood pressure control. Signs and symptoms of angina reviewed. Cardiology follow-up 6 months, sooner if needed. (2) S/P cardiac catheterization: Comment: 04/20/2024, left main normal, lad proximal 95% stenosis, high risk, angioplasty and KITTY placed, left circumflex normal, RCA normal Code(s): Z98.890 - Other specified postprocedural states Category: Surgical (3) Stented coronary artery: Comment: LAD sent 04/20/24 Code(s): Z95.5 - Presence of coronary angioplasty implant and graft Category: Surgical Plan: As above (4) Palpitation: Code(s): R00.2 - Palpitations Category: Medical Plan: Report of heart palpitations like his heart is beating rapid. EKG today normal. Will check Holter monitor to assess for arrhythmia. Plan I discussed with the patient the plan to order a heart monitor to evaluate his palpitations. I explained that if any abnormalities are detected, we will contact him. We also reviewed his current medications and the decision to discontinue Brilinta as it has been over a year since his stent placement. I advised him on the importance of monitoring his symptoms and to seek medical attention if they worsen. Orders: Orders ECG holter monitor 48 hour Today R00.2 - Palpitations Medications: Discontinued ticagrelor Discontinued Reason: Doctor's Order 90 mg PO BID 180 tabs 3RF Patient Instructions: - Continue taking prescribed medications as directed. - Monitor for any worsening symptoms and seek medical attention if needed. - Follow up with cardiology as scheduled. Patient was informed and verbally consented to the use of an ambient scribe for clinic note documentation during this visit. Visit time spent on chart review, interview, assessment, orders, documentation. Coding Level of Care Code Est Pt Level 4 (01630) Complex EM visit Add On G2211 Diagnoses Coronary atherosclerosis I25.10 S/P cardiac catheterization Z98.890 Stented coronary artery Z95.5 Palpitation R00.2 CPT Codes EKG - CPT: 43354-[id number], Complete ([id number]) Time Spent (min) 28
[2025-06-09 10:30] VITALS: BP 120/62; PULSE 75; BMI 27.5
--- OUTSIDE RECORDS SUMMARY | 2025-06-09 11:32 | XMS_ITS ---
Author Organization [employer] Address [address] [facility] 7t [place] [address] Care Team Providers Care Corporate Traffic Manager Name Role Phone Mike Aldridge RN Unavailable [phone] Chikis Lucero Unavailable Alan Escobar CNP Primary Care Provider [phone] CHW Complex Status:Enrolled (Active) Start date:02/15/2025 Enrollment date:02/15/2025 Enrollment reason:ADT Feed Overview [facility] ED 02/14/25 Case Team Name Relationship Phone Chikis Lucero(Responsible Staff) Continued Care and Services Coordination
--- OUTSIDE RECORDS SUMMARY | 2025-06-09 11:33 | XMS_ITS | Encounter Summary ---
Author Organization [employer] Address [address] [place] [address] Care Team Providers Care Systems Accountant Name Role Phone Isabella Tony MD Primary Care Provider [phone] Mike Aldridge RN Unavailable [phone] Chikis Lucero Unavailable Alan Escobar CNP Primary Care Provider [phone] Reason for Visit * Reason Onset Date Comments Dental Pain 09/03/2023 Encounter Details Date Type Department Care Team (Late st Contact Info) Description 09/03/2023 Telephone [facility] ADULT DENTAL [address] [place], [place] [id number] Roseanne Devries DMD Dental Pain Social History [...] Description 08/10/2025 10:15 AM EST Office Visit [facility] ADULT DENTAL [address] [place] [address] Kristyn Martinez documented as of this encounter Visit Diagnoses Not on filedocumented in this encounter Care Teams Systems Accountant Relationship Specialty Start Date End Date Isabella Tony MD [address] [place] [address] PCP - General Family Medicine 07/12/12 05/24/25 Alan Escobar CNP [address] [place] [address] PCP - General Family Medicine 05/25/25 Mike Aldridge, EZEKIEL [address] [place] [address] Registered Nurse Family Medicine 02/15/25 Chikis Lucero 02/15/25 documented as of this encounter
--- OUTSIDE RECORDS SUMMARY | 2025-06-09 11:33 | XMS_ITS | Encounter Summary ---
Author Organization [employer] Address [address] [place] [address] Care Team Providers Care Braiding Machine Operator Name Role Phone Isabella Tony MD Primary Care Provider [phone] Mike Aldridge RN Unavailable [phone] Chikis Lucero Unavailable Alan Escobar CNP Primary Care Provider [phone] Reason for Visit * Reason Comments Med Refill Encounter Details Date Type Department Care Team (Late st Contact Info) Description 09/10/[address] [facility] [address] [place] [address] Isabella Tony MD [address] [place], [place] [phone] Seizure disorder (CMS/HCC) Social History Tobacco Use [...] Description 08/10/2025 10:15 AM EST Office Visit [facility] ADULT DENTAL [address] [place] [address] Kristyn Martinez documented as of this encounter Visit Diagnoses Diagnosis Seizure disorder (CMS/HCC) (HCC) Unspecified epilepsy without mention of intractable epilepsy documented in this encounter Care Teams Braiding Machine Operator Relationship Specialty Start Date End Date Isabella Tony MD [address] [place] [address] PCP - General Family Medicine 07/12/12 05/24/25 Alan Escobar CNP [address] [place] [address] PCP - General Family Medicine 05/25/25 Mike Aldridge, RN [address] [place] [address] Registered Nurse Family Medicine 02/15/25 Chikis Lucero 02/15/25 documented as of this encounter
--- OUTSIDE RECORDS SUMMARY | 2025-06-09 11:33 | XMS_ITS | Encounter Summary ---
Author Organization [employer] Address [address] [facility] 7t [place] [address] Care Team Providers Care Quality Manager Name Role Phone Isabella Tony MD Primary Care Provider [phone] Mike Aldridge RN Unavailable [phone] Chikis Lucero Unavailable Alan Escobar CNP Primary Care Provider [phone] Encounter Details Date Type Department Care Team (Late st Contact Info) Description 08/05/2023 Orders Only [facility] MED & PEDS [address] [place], [place] [phone] Case Carrasco MD [address] [place], [place] [phone] Social History Tobacco Use Types Packs/Day Years [...] 10:15 AM EST Office Visit [facility] ADULT DENTAL [address] [place] [address] Kristyn Martinez documented as of this encounter Visit Diagnoses Not on filedocumented in this encounter Care Teams Quality Manager Relationship Specialty Start Date End Date Isabella Tony MD [address] [place] [address] PCP - General Family Medicine 07/12/12 05/24/25 Alan Escobar CNP [address] [place] [address] PCP - General Family Medicine 05/25/25 Mike Aldridge, RN [address] [place] [address] Registered Nurse Family Medicine 02/15/25 Chikis Lucero 02/15/25 documented as of this encounter
--- OUTSIDE RECORDS SUMMARY | 2025-06-09 11:33 | XMS_ITS | Encounter Summary ---
Author Organization [employer] Address [address] [place] [address] Care Team Providers Care Commissioned Fire Officer Name Role Phone Isabella Tony MD Primary Care Provider [phone] Mike Aldridge RN Unavailable [phone] Chikis Lucero Unavailable Alan Escobar CNP Primary Care Provider [phone] Reason for Visit * Reason Onset Date Comments Nurse Triage 07/21/2023 Encounter Details Date Type Department Care Team (Late st Contact Info) Description 07/21/2023 Telephone [facility] MEDICINE [address] [place] [address] Isabella Tony MD [address] [place], [place] [phone] Nurse Triage Social History Tobacco Use Types [...] want to go to walk in at [facility] today ot tomorrow. Pt. Wants televisit. Pt. Is speaking in clear sentences and denies SOB or wheezing at present. Advised if develops SOB to go to walk in at [facility] until 730pm tonight. Protocol Used: COVID-19 - [...] Description 08/10/2025 10:15 AM EST Office Visit [facility] ADULT DENTAL [address] [place] [address] Kristyn Martinez documented as of this encounter Visit Diagnoses Diagnosis Mild persistent asthma, unspecified whether complicated documented in this encounter Care Teams Commissioned Fire Officer Relationship Specialty Start Date End Date Isabella Tony MD [address] [place] [address] PCP - General Family Medicine 07/12/12 05/24/25 Alan Escobar CNP [address] [place] [address] PCP - General Family Medicine 05/25/25 Mike Aldridge, EZEKIEL [address] [place] [address] Registered Nurse Family Medicine 02/15/25 Chikis Lucero 02/15/25 documented as of this encounter
--- OUTSIDE RECORDS SUMMARY | 2025-06-09 11:33 | XMS_ITS ---
Author Organization [employer] Address [address] [facility] 7t [place] [address] Care Team Providers Care Casino Porter Name Role Phone Mike Aldridge RN Unavailable [phone] Chikis Lucero Unavailable Alan Escobar CNP Primary Care Provider [phone] Complex Status:Enrolled (Active) Start date:02/15/2025 Enrollment date:02/28/2025 Enrollment reason:ADT Feed Overview ADT- ED 02/14/25 Case Team Name Relationship Phone Mike Aldridge RN(Responsible Staff) Registered N siena [phone] Continued Care and Services Coordination
--- OUTSIDE RECORDS SUMMARY | 2025-06-09 11:34 | XMS_ITS | Encounter Summary ---
Author Organization [employer] Address [address] [facility] [address]t [place] [address] Care Team Providers Care Bonbon Dipper Name Role Phone Isabella Tony MD Primary Care Provider [phone] Mike Aldridge RN Unavailable [phone] Chikis Lucero Unavailable Alan Escobar CNP Primary Care Provider [phone] Reason for Visit * Reason Onset Date Comments Nurse Triage 05/04/2024 Encounter Details Date Type Department Care Team (Late st Contact Info) Description 05/04/2024 Telephone [facility] CHC MED & PEDS [address] [place], [place] [phone] Isabella Tony MD [address] [place], [place] [phone] Nurse Triage Social History Tobacco Use Types [...] 05/04/2024 10:57 AM EDT Triage call with [place] [employer] Examiner Machine ID [id number] Pt reports some lumps on right arm where injections were given [place] [facility] [place]. Pt was seen asfollow up for cardiac cath, stent placement which was done 04/20/24 report of 05/02/24 apt is on the chart. Pt does have hx of blood clots and didn't start aspirin and Brilinta as directed after this procedure. Pt informs video games storywriter that Pt is on the way to [facility] at this time to be seen by provider. Pt hasno apt there and is advised to come to [facility] instead for provider to see Pt. Pt agrees and informs video games storywriter that Pt is heading to [facility] at this time. Pt is alert, oriented, no difficulty breathing. Triage is ended. Advised Pt will send this report to [facility] now. Pt agrees. Protocol Used: No [...] Description 08/10/2025 10:15 AM EST Office Visit [facility] ADULT DENTAL [address] [place] [address] Kristyn Martinez documented as of this encounter Visit Diagnoses Not on filedocumented in this encounter Care Teams Bonbon Dipper Relationship Specialty Start Date End Date Isabella Tony MD [address] [place] [address] PCP - General Family Medicine 07/12/12 05/24/25 Alan Escobar CNP [address] [place] [address] PCP - General Family Medicine 05/25/25 Mike Aldridge, EZEKIEL [address] [place] [address] Registered Nurse Family Medicine 02/15/25 Chikis Lucero 02/15/25 documented as of this encounter
--- OUTSIDE RECORDS SUMMARY | 2025-06-09 11:34 | XMS_ITS | Clinical Summary ---
Author Organization [facility] Address [address] [place] [address] Care Team Providers Care Ticket Broker Name Role Phone Unavailable Primary Care Provider [...] file Trever Ledesma Personal/Family Self 1965 [address] [address] [place] [address]
--- OUTSIDE RECORDS SUMMARY | 2025-06-09 11:34 | XMS_ITS | Encounter Summary ---
Author Organization [employer] Address [address] [facility] 7t [place] [address] Care Team Providers Care Mate Fishing Vessel Name Role Phone Isabella Tony MD Primary Care Provider [phone] Mike Aldridge RN Unavailable [phone] Chikis Lucero Unavailable Alan Escobar CNP Primary Care Provider [phone] Encounter Details Date Type Department Care Team (Late st Contact Info) Description 07/30/2022 Orders Only [facility] MED & PEDS [address] [place] [address] Miguelina Arvizu LPN Social History Tobacco Use [...] 08/10/2025 10:15 AM EST Office Visit [facility] ADULT DENTAL [address] [place] [address] Kristyn Martinez documented as of this encounter Visit Diagnoses Not on filedocumented in this encounter Care Teams Mate Fishing Vessel Relationship Specialty Start Date End Date Isabella Tony MD [address] [place] [address] PCP - General Family Medicine 07/12/12 05/24/25 Alan Escobar CNP [address] [facility] [place] [address] PCP - General Family Medicine 05/25/25 Mike Aldridge RN [address] [place] [address] Registered Nurse Family Medicine 02/15/25 Chikis Lucero 02/15/25 documented as of this encounter
--- OUTSIDE RECORDS SUMMARY | 2025-06-09 11:34 | XMS_ITS | Clinical Summary ---
Author Organization [employer] Address [address] [place] [address] Care Team Providers Care Lever Miller Name Role Phone Mike Aldridge RN Unavailable Chikis Lucero Unavailable Alan Escobar CNP Primary Care Provider [phone] Allergies No known active allergies Medications acetaminophen [...] folic acid (Folvite) 1 MG tabletIndicatio ns:Alcoholism ([facility]) ([facility]) TAKE ONE TABLET EVERY MORNING 90 tablet 2 01/26/20 25 Active Ferrous Sulfate (iron) 325 (65 Fe) MG tabletIndicatio ns:Iron deficiency anemia secondary to inadequate dietary iron intake TAKE ONE TABLET EVERY MORNING 90 tablet 01/27/20 25 Active topiramate 50 MG tabletIndicatio ns:Seizure disorder ([facility]) ([facility]) TAKE ONE TABLET EVERY NIGHT AT BEDTIME 30 tablet 5 03/28/20 25 Active omeprazole (PriLOSEC) [address] capsuleIndicati ons:Seizure disorder ([facility]) ([facility]) TAKE ONE CAPSULE EVERY MORNING [...] 90 tablet 1 11/26/19 25 025 Discontinued cholecalciferol (Vitamin D-3) 125 MCG (5000 UT) capsule TAKE ONE CAPSULE BY MOUTH ONCE WEEKLY ON Thursday 12 capsule 03/02/20 025 Discontinued Fluticasone-Jonathan meterol (Wixela Inhub) 100-50 [...] (CMS/HCC) 05/12/2025 Overview (05/12/2025): Being treated by [facility] currently on and anti-viral Colon cancer screening 05/12/2025 Overview (05/12/2025): 2022= hyperplastic polyp repeat in 10 years Coronary atherosclerosis 05/12/2025 Epidermal cyst 05/12/2025 Exertional angina 05/12/2025 High cholesterol 05/12/2025 Overview (05/12/2025): ? uncertain medical records from [facility] HTN (hypertension) 05/12/2025 On anticoagulant therapy 05/12/2025 [...] C (CMS/HCC) 10/20/2024 Overview (05/12/2025): Treated by [facility] Asthma 10/20/2024 Upper respiratory tract infection 08/17/2024 History of DVT (deep vein thrombosis) 09/19/2022 Alcohol abuse, in remission 09/19/2022 Moderate asthma without complication 08/15/2022 Non-traumatic rhabdomyolysis 08/15/2022 Seizure disorder (CMS/HCC) 08/15/2022 Viral hepatitis C 04/10/2014 Benign essential hypertension 03/20/2014 Hematemesis 03/04/2014 Encounters Date Type Department Care Team Description 06/05/2025 Patient Outreach [facility] [address] [place] [phone] Alan Escobar CNP Care Coordination (C3 CM-CHW Chikis Lucero telephone call outreach) 06/03/2025 Orders Only [facility] [address] [place] [phone] Alan Escobar CNP Tinea pedis, unspecified laterality (Primary Dx) 06/02/2025 Patient Outreach [facility] [address] [place] [address] Alan Escobar CNP Care Management (C3CM- F/U call # 2) 06/02/2025 Refill [facility] [address] [place] [address] Isabella Tony MD 05/31/2025 Telephone [facility] [address] [place] [phone] Alan Escobar CNP Nurse Triage 05/26/2025 Refill [facility] [address] [place] [address] Isabella Tony MD Seizure disorder (CMS/HCC) (HCC) 05/24/2025 Results Follow-Up [facility] [address] [place] [address] Alan Escobar CNP CBC auto differential, Iron And Total Iron Binding Capacity, Ferritin, Basic Metabolic Panel 05/19/2025 9:00 AM EDT Office Visit [facility] [address] [place] [address] Yvon EscobarenrriqueSANCHEZ syed Anemia, unspecified type (Primary Dx); Chronic migraine without aura without status migrainosus, not intractable; Pain 05/19/2025 Travel 05/19/2025 Refill [facility] [address] [place] [address] Case Carrasco MD 05/12/2025 Telephone [facility] [address] [place] [address] Isabella Tony MD chart prep 05/09/2025 Telephone [facility] [address] [place], [place] [phone] Isabella Tony MD Chart Prep 05/08/2025 Refill [facility] [address] [place] [address] Macarena Gomez MD Seasonal allergies 05/05/2025 Telephone [facility] [address] [place] [address] Isabella Tony MD Nurse Triage 04/24/2025 Refill [facility] [address] [place] [address] Macarena Gomez MD 04/21/2025 Patient Outreach [facility] [address] [place] [phone] Isabella Tony MD Care Coordination ([address] Chikis Lucero telephone call outreach) 04/12/2025 Telephone [facility] [address] [place] [address] Isabella Tony MD Durable Medical Equipment 04/04/2025 Results Follow-Up [facility] [address] [place] [address] Isabella Tony MD CBC auto differential 04/03/2025 9:30 AM EDT Office Visit [facility] [address] [place] [address] Isabella Tony MD Bleeding hemorrhoids (Primary Dx); Anemia, unspecified type; Benign essential hypertension 04/03/2025 Travel 03/31/2025 Patient Outreach [facility] [address] [place] [phone] Isabella Tony MD Care Coordination (C3 -W Chikis Lucero telephone call outreach/) 03/31/2025 Telephone [facility] [address] [place] [address] Isabella Tony MD chart prep 03/29/2025 Patient Outreach [facility] [address] [place] [address] Isabella Tony MD Care Management (C3- F/U call # 1) 03/28/2025 Refill [facility] [address] [place] [address] Isabella Toyn MD Seizure disorder ([facility]) 03/27/2025 Refill [facility] [address] [place] [address] Isabella Tony MD Seizure disorder ([facility]) 03/22/2025 Telephone [facility] [address] [place] [address] Isabella Tony MD ER Follow-up 03/13/2025 Telephone [facility] [address] [place] [address] Isabella Tony MD Results 03/13/2025 Orders Only GENERIC EXTERNAL DATA DEPARTMENT Provider, Generic External Data from Last 3 Months Immunizations Immunization Administration [...] the past 12 months, has t he [facility], [employer], oil or water [employer] threatened to shut off services in your [...] Description 08/10/2025 10:15 AM EST Office Visit [facility] [address] [place] [address] Kristyn Martinez Health Maintenance Due Date Last Done Comments CT Colonography 1965 Colonoscopy 1965 FIT 1965 Sigmoidoscopy 1965 Hepatitis A Vaccines (1 of 2 - Risk 2-dose series) 1986 Hepatitis B Vaccines (1 of 3 - 19+ 3-dose series) 1986 Pneumococcal Vaccine: 50+ Years (1 of 2 - PCV) 1986 RSV Patients and Patients Aged 60 years or older (1 - Risk 50-74 years 1-dose series) 2017 Zoster Vaccines (1 of 2) 2017 FOBT 02/15/2025 02/16/2024 Dental Oral Exam 06/29/2025 12/27/2024, , 12/30/2017, Additional history exists Dental Prophylaxis 08/03/2025 01/30/2025, 0 04/19/2024, 12/24/2016, Additional history exists Disability Screening 10/27/2025 10/27/2024 Dental X-Ray: Bitewings 12/28/2025 12/28/19 25, 04/19/2024, 07/30/2023, Additional history exists Influenza Vaccine (#1) 2026 2, 05/17/2021, 06/29/2019, Additional history exists Postponed from [...] 12/08/2029 12/08/2024, 01/24, 10/14/2023, Additional history exists HIV Screening Completed 07/10/2020, 06/26, 07/10/2020, Additional [...] Blood Count 2.9(L) 4.8 - 10.8 X10*3/uL [facility] Red Blood Count 4.18(L) 4.60 - 5.80 X10*6/uL [facility] Hemoglobin 9.2(L) 14.0 - 18.0 g/dl [facility] Hematocrit 32.2(L) 42.0 - 52.0 % [facility] Mean Corpuscular Volume 77.0(L) 80.0 - 98.0 fL [facility] Mean Corpuscular Hemoglobin 22.0(L) 27.0 - 33.0 pg [facility] Mean Corpuscular HGB Conc 28.6(L) 31.0 - 36.0 g/dl [facility] Red Cell Distribution Width 16.7(H) 11.0 - 16.0 % [facility] Platelet Count 167 160 - 400 X10*3/uL [facility] Neutrophils Percent Auto 57.3 45 - 73 % [facility] Imm Gran Pct Auto 0.3 0.0 - 0.4 % [facility] Lymphocytes Percent Auto 32.1 20 - 40 % [facility] Monocytes Percent Auto 9.3 2 - 11 % [facility] Eosinophils Percent Auto 0.7 0 - 4 % [facility] Basophils Percent Auto 0.3 0 - 2 % [facility] NRBC Pct Auto 0.0 0.0 - 0.2 /100WBC [facility] Neutrophils Absolute Auto 1.7(L) 2.0 - 8.3 x10*3/uL [facility] Imm Gran Abs Auto 0.01 0.00 - 0.03 X10*3/uL [facility] Lymphocytes Absolute Auto 0.9(L) 1.2 - 4.9 X10*3/uL [facility] Monocytes Absolute Auto 0.3 0.1 - 1.2 X10*3/uL [facility] Eosinophils Absolute Auto 0.0 0.0 - 0.4 X10*3/uL [facility] Basophils Absolute Auto 0.0 0.0 - 0.2 X10*3/uL [facility] NRBC Abs Auto 0.000 0.0 - 0.012 X10*3/uL [facility] Blood Venous blood specimen / Unknown 05/19/2025 9:46 AM EDT 05/19/2025 2:41 PM EDT [facility] LAB BLOOD ORDERABLES Marzena l Result [facility] [address] [place], [place] [phone] * (ABNORMAL) Iron And Total Iron Binding Capacity (05/19/2025 9:46 AM EDT) Iron 343(H) 45 - 160 mcg/dL [facility] Total Iron Binding Capacity 408 228 - 428 mcg/dL [facility] Percent Iron Saturation 84(H) 15 - 50 % [facility] Unsaturated Iron Binding 65 ug/dL [facility] Blood Venous blood specimen / Unknown 05/19/2025 9:46 AM EDT 05/19/2025 2:20 PM EDT [facility] LAB BLOOD ORDERABLES Marzena l Result Performing Organization Address City/[facility]/ZIP Co de Phone Number [facility] [address] [place] [address] [phone] * (ABNORMAL) Ferritin (05/19/2025 9:46 AM EDT) Pathologist [facility] Ferritin 17(L) 20 - 250 ng/mL [facility] Blood Venous blood specimen / Unknown 05/19/2025 9:46 AM EDT 05/19/2025 2:20 PM EDT [facility] LAB BLOOD ORDERABLES Marzena l Result Performing Organization Address [facility] Co de Phone Number [facility] [address] [place] [phone] * (ABNORMAL) Basic Metabolic Panel (05/19/2025 9:46 AM EDT) [facility] Sodium 143 135 - 145 mmol/L [facility] Potassium 3.9 3.3 - 5.1 mmol/L [facility] Chloride 118(H) 96 - 108 mmol/L [facility] Carbon Dioxide 21(L) 22 - 29 mmol/L [facility] Anion Gap 8(L) 12 - 20 [facility] Urea Nitrogen (BUN) 10 9 - 16 mg/dL [facility] Creatinine, Serum 1.35 0.5 - 1.4 mg/dL [facility] Estimated Glomerular Filt Rate 54 [facility] Comment:Chronic Kidney Disea se: Estimated GFR < 60 mL/min/1.64y7Nwxkct Kidney Disease: Estimated GFR < 15 mL/min/1.73m2 Glucose 109 60 - 115 mg/dL [facility] Calcium 8.8 8.4 - 10.2 mg/dL [facility] Blood Venous blood specimen / Unknown 05/19/2025 9:46 AM EDT 05/19/2025 2:20 PM EDT [facility] LAB BLOOD ORDERABLES Marzena l Result [facility] [address] [place], [place] [phone] * US DUPLEX ARTERIAL VENOUS COMP (03/15/2025 12:16 PM EDT) Anatomical Region Laterality Modality Abdomen Ultrasound 03/15/2025 12:1 6 PM EDT Narrative 03/15/2025 12:38 PM EDT [place] [address] Ultrasound Report Signed Patient: Trever Ledesma MR#: [id number] : 1965 Acct:[id number] Age/Sex: 59 / M ADM Date: 03/13/25 Loc: HO.S3 352-[address]: Aquilino Murphy MD Ordering Physician: Felipa Krishna MD Date of Service: 03/15/25 Procedure(s): US duplex arterial venous comp Accession Number(s): [id number] cc: [facility]; Felipa Krishna MD EXAMINATION: US DOPPLER [...] 03/15/25 1235 DD/ 1216 TD/TT: 03/15/25 1219 [employer]: Procedure Note Donotuseinterpreter, Image - 03/15/[address] [address] Ultrasound Report Signed Patient: Trever Ledesma AMR#: [id number] : 1965Acct:[id number] Age/Sex: 59 / MADM Date: 03/13/25 Loc: .S3 352-[address]: Aquilino Murphy MD Ordering Physician: Felipa Krishna MD Date of Service: 03/15/25 Procedure(s): US duplex arterial venous comp Accession Number(s): [id number] cc: [facility]; Felipa Krishna MD EXAMINATION: US DOPPLER [...] 03/15/25 1235 DD/ 1216 TD/TT: 03/15/25 1219 [employer]: us [facility] External Provider IMG US PROCEDURES Final Result * Red blood count (03/13/2025 2:35 PM EDT) Red Blood Cells: [id number] OP RC TRANSFUSED 03/13/25 1556 [facility] 03/13/2025 2:35 PM EDT 03/13/2025 2:40 PM EDT Generic External Data Provider LAB BLOOD ORDERAB LES Final Result [facility] [address] [place] [address] [phone] * Type and screen (03/13/2025 2:35 PM EDT) Blood Type BP [facility] Antibody Screen NEGATIVE [facility] 03/13/2025 2:35 PM EDT 03/13/2025 2:40 PM EDT Narrative [facility] - 03/13/2025 4:19 PM EDT [...] HCT called to and read back by eMle 03/13/25 at 1430 by ALENA. Hgb < 7 gmYes us Generic External Data Provider LAB BLOOD BANK TE ST ORDERABLES Final Result [facility] [address] [place] [phone] * OBSX1 (03/13/2025 2:27 PM EDT) OBS1 POSITIVE NEGATIVE [facility] 03/13/2025 2:27 PM EDT 03/13/2025 2:39 PM EDT Generic External Data Provider LAB BLOOD ORDERAB LES Final Result [facility] [address] [place] [phone] * Partial Thromboplastin Time, Activated (APTT) (03/13/2025 2:21 PM EDT) Partial Thromboplastin Time 28.0 26.7 - 34.1 SEC [facility] 03/13/2025 2:21 PM EDT 03/13/2025 2:25 PM EDT Generic External Data Provider LAB BLOOD ORDERAB LES Final Result [facility] [address] [place] [phone] * (ABNORMAL) Prothrombin Time-INR (03/13/2025 2:21 PM EDT) Prothrombin Time 12.6(H) 10.9 - 12.4 SEC [facility] INTERNATIONAL NORM RATIO 1.1 0.9 - 1.1 [facility] Comment:INTERNATIONAL NORMAL IZED RATIO (INR) [...] 2:21 PM EDT 03/13/2025 2:25 PM EDT [employer] External Data Provider LAB BLOOD ORDERAB LES Final Result Performing Organization Address City/[facility]/ZIP Co de Phone Number [facility] [address] [place] [address] [phone] * Magnesium (03/13/2025 2:21 PM EDT) Magnesium 2.3 1.6 - 2.6 mg/dL [facility] 03/13/2025 2:21 PM EDT 03/13/2025 2:25 PM EDT us Generic External Data Provider LAB BLOOD ORDERAB LES Final Result [facility] [address] [place] [address] [phone] * (ABNORMAL) Comprehensive Metabolic Panel (03/13/2025 2:21 PM EDT) Only the most recent of2 resultswithin the time period is included. Sodium 142 135 - 145 mmol/L [facility] Potassium 3.6 3.3 - 5.1 mmol/L [facility] Chloride 118(H) 96 - 108 mmol/L [facility] Carbon Dioxide 18(L) 22 - 29 mmol/L [facility] Anion Gap 10(L) 12 - 20 [facility] Urea Nitrogen (BUN) 10 9 - 16 mg/dL [facility] Creatinine, Serum 1.10 0.5 - 1.4 mg/dL [facility] Creatinine Clr Calc Pharmacy 69.2 [facility] Comment:eGFR (calculated fro m the MDRD study equation) and eCrCl(calculated from the Cockcroft-Gault equation) are based ondifferent parameters and may not yield comparable results.If eCrCl result is absurd, please check patient'sheight/weight. Estimated Glomerular Filt Rate >60 [facility] Comment:Chronic Kidney Disea se: Estimated GFR < 60 mL/min/1.87u6Vudqvj Kidney Disease: Estimated GFR < 15 mL/min/1.73m2 Glucose 133(H) 60 - 115 mg/dL [facility] Calcium 8.0(L) 8.4 - 10.2 mg/dL [facility] Bilirubin, Total 0.3 0.0 - 1.0 mg/dL [facility] Aspartate Amino Transferase 33 5 - 37 U/L [facility] Alanine Aminotransferase 21 0 - 40 U/L [facility] Total Protein 5.8(L) 6.5 - 8.0 g/dL [facility] Albumin Level 3.7 3.5 - 5.0 g/dL [facility] Alkaline Phosphatase 86 39 - 117 U/L [facility] 03/13/2025 2:21 PM EDT 03/13/2025 2:25 PM EDT us Generic External Data Provider LAB BLOOD ORDERAB LES Final Result Performing Organization Address City/[facility]/ZIP Co de Phone Number [facility] [address] [place] [phone] * Pathologist Review - CBC (03/13/2025 11:23 AM EDT) Pathologist Review - CBC SEE NOTE [facility] Comment:Variably hypochromic mildly microcytic anemia; occasionaltargets are present. Please correlate with iron studies.- Milton Mcmillan M.D. Pathology 03/13/2025 11:2 3 AM EDT 03/13/2025 11:23 AM EDT us Generic External Data Provider LAB BLOOD ORDERAB LES Final Result Performing Organization Address [facility] Co de Phone Number [facility] [address] [place] [phone] * TSH with Reflex to Free T4 (03/13/2025 11:23 AM EDT) TSH reflex Free T4 0.75 0.32 - 4.0 uIU/mL [facility] 03/13/2025 11:2 3 AM EDT 03/13/2025 11:23 AM EDT Generic External Data Provider LAB BLOOD ORDERAB LES Final Result Performing Organization Address [facility] Co de Phone Number [facility] [address] [place] [phone] * (ABNORMAL) Lipid Panel, Standard (12/08/2024 8:19 AM EDT) Triglycerides 117 <150 mg/dL [facility] Comment:Desirable Triglyceri de: less than 150 mg/dLBorderline High Triglyceride 150-199 mg/dLHigh Triglyceride: 200-499 mg/dLVery High Triglyceride: greater than or equal to 5OO mg/dL Cholesterol 87 <200 mg/dL [facility] Comment:Desirable Cholestero l: less than 200 mg/dLBorderline High Cholesterol: 200-239 mg/dLHigh Cholesterol: greater than 239 mg/dL LDL Cholesterol Calculated 33 <100 mg/dL [facility] Comment:Desirable LDL: less than 100 mg/dLNear Optimal/Above Optimal LDL: 110- 129 mg/dLBorderline High LDL: 130-159 mg/dLHigh LDL: 160-189 mg/dLVery High LDL: greater than or equal to 190 mg/dL HDL Cholesterol 31(L) >40 mg/dL [facility] Comment:Desirable HDL: great er than 40 mg/dL Note: This HDL assay may give artificially low results in patients with liver disease. Blood Venous blood specimen / Unknown 12/08/2024 8:19 AM EDT 12/08/2024 12:05 PM EDT us Isabella Tony MD LAB BLOOD ORDERABLES Final Resul t [facility] [address] [place] [phone] * Cologuard?? colon cancer screening (02/16/2024 8:20 AM EDT) Cologuard Result Negative Negative 02/22/20 5:40 PM EDT [facility] (CLIA #:[id number]) Comment: NEGATIVE TEST RESULT. A negative Cologuard [...] (Carlos Gonzales al, N Engl J Med 2014;370(14):7365-4121) The normal value (reference range) for this assay is negative. COLOGUARD RE-SCREENING RECOMMENDATION: Periodic colorectal cancer screening is an important part of preventive healthcare for asymptomatic individuals at average risk for colorectal cancer. Following a negative Cologuard result, the [place] [employer] and U.S. Multi-Society Task Force screening guidelines recommend a Cologuard re-screening interval of 3 years. References: [place] [employer] Guideline for Colorectal Cancer Screening: https://www.cancer.org/cancer/smdwr-ufujpb-ambzid/vntdjajeh-gwvdibfof-ypurwjs/ac s-rec ommendations.html.; Salvador DK, Tania HIGUERA, Parker GarciaK, Colorectal Cancer Screening: Recommendations for Physicians and Patients from the U.S. Multi-Society Task Force on Colorectal Cancer Screening , Am J Gastroenterology 2017; 112:0704-6976. TEST DESCRIPTION: Composite algorithmic analysis of stool [...] colonoscopy. (Carlos Sr, N Engl J Med 2014;370(14):5991-2564.) Cologuard may produce a false negative or false positive result (no colorectal cancer or precancerous polyp present at colonoscopy follow up). A negative Cologuard test result does not guarantee the absence of CRC or advanced adenoma (pre-cancer). The current Cologuard screening interval is every 3 years. ([place] [employer] and U.S. Multi-Society Task Force). Cologuard performance data in a 10,000 patient pivotal study using colonoscopy as the reference method can be accessed at the following location: www.[email or web address]/results. Additional description of the Cologuard test process, warnings and precautions can be found at www.cologuard.com. Stool specimen (specimen) 02/16/2024 8:20 AM EDT 02/17/2024 1:43 PM EDT us Isabella Tony MD LAB MOLECULAR DIAGNOSTICS ORDERA [facility] Final Result [facility] (CLIA #:[id number]) [place] [address], * HIV AB/AG (07/10/2020 9:18 AM EST) [facility] HIV AB/AG Nonreactive Nonreactive [facility] Comment: HIV-1 p24 Ag and/or [...] of detection of this assay. The [employer] HIV Ag/Ab Combo assay result and supplemental assay results should be interpreted in conjunction with the patient's clinical presentation, history and other laboratory results. If the results are inconsistent with clinical evidence, additional testing is suggested to confirm the result. Hepatitis B Surface Antigen Negative Negative [facility] 07/10/2020 9:18 AM EST us Isabella Tony MD HISTORICAL/NON ORDERABLE LABS Fi nal Result [facility] [address] from Last 3 Months or Most Recently Relevant to [place] [address] Care Teams Lever Miller Relationship Specialty Start Date End Date Alan Escobar CNP [address] [facility] [place] [address] PCP - General Family Medicine 05/25/25 Mike Aldridge, EZEKIEL [address] [facility] [place] [address] Registered Nurse Family Medicine 02/15/25 Chikis Lucero 02/15/25
--- OUTSIDE RECORDS SUMMARY | 2025-06-09 11:34 | XMS_ITS | Encounter Summary ---
Author Organization [employer] Address [address] [facility] 7t [place] [address] Care Team Providers Care Machine Clerical Verifier Name Role Phone Isabella Tony MD Primary Care Provider [phone] Mike Aldridge RN Unavailable [phone] Chikis Lucero Unavailable Alan Escobar CNP Primary Care Provider [phone] Reason for Visit * Reason Comments Med Refill Encounter Details Date Type Department Care Team ([facility] st Contact Info) Description 12/06/[address] [facility] CHC MED & PEDS 505 [place], [place] [phone] Isabella Tony MD 505 [place], [place] [phone] Social History Tobacco Use Types Packs/Day Years [...] Description 08/10/2025 10:15 AM EST Office Visit [facility] ADULT DENTAL 505 [place] [address] Kristyn Martinez documented as of this encounter Visit Diagnoses Not on filedocumented in this encounter Additional Health Concerns Assessment Noted Time PHQ-9 Depression Total Score: 8 10/28/19 25 9:13 AM EDT documented as of this encounter Care Teams Machine Clerical Verifier Relationship Specialty Start Date End Date Isabella Tony MD 230 [place] [address] PCP - General Family Medicine 07/12/12 05/24/25 Alan Escobar CNP 505 [place] [address] PCP - General Family Medicine 05/25/25 Mike Aldridge, EZEKIEL 505 [place] [address] Registered Nurse Family Medicine 02/15/25 Chikis Lucero 02/15/25 documented as of this encounter
--- OUTSIDE RECORDS SUMMARY | 2025-06-09 11:34 | XMS_ITS | Encounter Summary ---
Author Organization [employer] Address [address] [facility] 7t [place] [address] Care Team Providers Care Community Leader Name Role Phone Isabella Tony MD Primary Care Provider [phone] Mike Aldridge RN Unavailable [phone] Chikis Lucero Unavailable Alan Escobar CNP Primary Care Provider [phone] Encounter Details Date Type Department Care Team (Late st Contact Info) Description 07/14/2022 Orders Only [facility] MED & PEDS 505 [place] [address] Miguelina Arvizu LPN Social History Tobacco Use [...] 10:15 AM EST Office Visit [facility] ADULT DENTAL 505 [place] [address] Kristyn Martinez documented as of this encounter Visit Diagnoses Not on filedocumented in this encounter Care Teams Community Leader Relationship Specialty Start Date End Date Isabella Tony MD [address] [place] [address] PCP - General Family Medicine 07/12/12 05/24/25 Alan Escobar CNP 505 [place] [address] PCP - General Family Medicine 05/25/25 Mike Aldridge RN 505 [place] [address] Registered Nurse Family Medicine 02/15/25 Chikis Lucero 02/15/25 documented as of this encounter
--- OUTSIDE RECORDS SUMMARY | 2025-06-09 11:34 | XMS_ITS | Encounter Summary ---
Author Organization [employer] Address 75 [facility] 7t [place] [address] Care Team Providers Care Senior Information Security Consultant Name Role Phone Isabella Tony MD Primary Care Provider Mike Aldridge RN Unavailable Chikis Lucero Unavailable Alan Escobar CNP Primary Care Provider [phone] Reason for Visit * Reason Onset Date Comments triage 09/30/2022 Encounter Details Date Type Department Care Team (Late st Contact Info) Description 09/30/2022 Telephone [facility] CHC MED & PEDS 505 [place], [place] [phone] Isabella Tony MD 505 [place], [place] [phone] triage Social History Tobacco Use Types Packs/Day [...] 09/30/2022 3:12 PM EST Called pt. Via [employer] merchant [id number] Saleem. Pt. States that he has been [...] Pt. States that someone called him from [facility] to come into the office for a [...] if you want to have nurses in [facility] switch appt. At 915am on 10/02/22 to PCP. Please advise [facility] nurses if you want appt. Switched. Protocol [...] accepted this outcome Please contact pt at [phone] documented in this encounter Plan of Treatment Upcoming Encounters Date Type Department Care Team (Late st Contact Info) Description 08/10/2025 10:15 AM EST Office Visit [facility] ADULT DENTAL 505 [place] [address] Kristyn Martinez documented as of this encounter Visit Diagnoses Not on filedocumented in this encounter Care Teams Senior Information Security Consultant Relationship Specialty Start Date End Date Isabella Tony MD 230 [place] [address] PCP - General Family Medicine 07/12/12 05/24/25 Alan Escobar CNP 505 [place] [address] PCP - General Family Medicine 05/25/25 Mike Aldridge, RN [address] [place] [address] Registered Nurse Family Medicine 02/15/25 Chikis Lucero 02/15/25 documented as of this encounter
--- OUTSIDE RECORDS SUMMARY | 2025-06-09 11:35 | XMS_ITS | Encounter Summary ---
Author Organization [employer] Address [address] [facility] [address] 7t [place] [address] Care Team Providers Care Engineering Project Designer Name Role Phone Isabella Tony MD Primary Care Provider [phone] Mike Aldridge RN Unavailable [phone] Chikis Lucero Unavailable Alan Escobar CNP Primary Care Provider [phone] Encounter Details Date Type Department Care Team ([facility] Contact Info) Description 01/13/2023 Orders Only [facility] MEDICINE 230 [place], [place] [phone] Rajwinder Taylor LPN Social History Tobacco Use [...] Upcoming Encounters Date Type Department Care Team ([facility] Contact Info) Description 08/10/2025 10:15 AM EST Office Visit [facility] CHC ADULT DENTAL [address] [place], [place] [phone] Kristyn Martinez documented as of this encounter Visit Diagnoses Not on filedocumented in this encounter Care Teams Engineering Project Designer Relationship Specialty Start Date End Date Isabella Tony MD [address] [place] [address] PCP - General Family Medicine 07/12/12 05/24/25 Alan Escobar CNP 505 [place] [address] PCP - General Family Medicine 05/25/25 Mike Aldridge, EZEKIEL [address] [place] [address] Registered Nurse Family Medicine 02/15/25 Chikis Lucero 02/15/25 documented as of this encounter
--- OUTSIDE RECORDS SUMMARY | 2025-06-09 11:35 | XMS_ITS | Encounter Summary ---
Author Organization [employer] Address [address] [facility] 7t [place] [address] Care Team Providers Care Shredding Machine Tender Name Role Phone Mike Aldridge RN Unavailable [phone] Chikis Lucero Unavailable Alan Escobar CNP Primary Care Provider [phone] Reason for Visit * Reason Comments Care Coordination [facility] Chikis altamirano telephone call outreach Encounter Details Date Type Department Care Team (Latest Contact Info) Description 06/05/2025 Patient Outreach [facility] MEDICINE 230 [place] [address] Alan Escobar CNP [address] [place] [address] Care Coordination ([facility] -AZAEL Lucero telephone call outreach) Social History Tobacco Use Types Packs/Day Years [...] the past 12 months, has t he [employer], gas, oil or water [employer] threatened to shut off services in your [...] encounter Progress Notes * Chikis Lucero - 06/05/2025 1:09 PM EST CHW Chikis Lucero placed outbound call to patient to follow up on SDOH needs. Patient's name, andaddress confirmed. Patient states is doing well. CHW spoke to patient he was not home he wanted me to call back tomorrow 06/06/25 to get his appts for PT 1 No further questions or concerns. CHW reinforced direct contact information or CM for any additional questions or concerns and extended clinic hours on Mondays and Wednesdays, and Walk-In Urgent Care Located in [facility] of [facility]. Patient provided with after-hours line for [facility], , which offer night time triage service and option to transfer to middleware consultant provider if needed. Patient verbalizes understanding, and able to repeat back to feature writer. A follow up call willbe placed within 10 days, patient agrees with plan. documented in this encounter Plan of Treatment Upcoming Encounters Date Type Department Care Team ([facility] st Contact Info) Description 08/10/2025 10:15 AM EST Office Visit [facility] ADULT DENTAL 505 [place] [address] Kristyn Martinez documented as of this encounter Visit Diagnoses Not on filedocumented in this encounter Additional Health Concerns Assessment Noted Time PHQ-9 Depression Total Score: 5 03/01/20 9:25 AM EDT documented as of this encounter Care Teams Shredding Machine Tender Relationship Specialty Start Date End Date Alan Escobar CNP 505 [place] [address] PCP - General Family Medicine 05/25/25 Mike Aldridge, RN 505 [place] [address] Registered Nurse Family Medicine 02/15/25 Chikis Lucero 02/15/25 documented as of this encounter
--- OUTSIDE RECORDS SUMMARY | 2025-06-09 11:35 | XMS_ITS | Encounter Summary ---
Author Organization [employer] Address [address] [facility] 7t [place] [address] Care Team Providers Care Hostel Parent Name Role Phone Isabella Tony MD Primary Care Provider [phone] Mkie Aldridge RN Unavailable [phone] Chikis Lucero Unavailable Alan Escobar CNP Primary Care Provider [phone] Reason for Visit * Reason Comments Med Refill Encounter Details Date Type Department Care Team (Late Contact Info) Description 04/06/2023 Refill [facility] MED & PEDS 505 [place] [address] Isabella Tony MD 505 [place] [address] Social History Tobacco Use Types Packs/Day Years [...] Description 08/10/2025 10:15 AM EST Office Visit [facility] ADULT DENTAL 505 [place] [address] Kristyn Martinez documented as of this encounter Visit Diagnoses Not on filedocumented in this encounter Care Teams Hostel Parent Relationship Specialty Start Date End Date Isabella Tony MD 230 [place] [address] PCP - General Family Medicine 07/12/12 05/24/25 Alan Escobar CNP 505 [place] [address] PCP - General Family Medicine 05/25/25 Mike Aldridge RN 505 [place] [address] Registered Nurse Family Medicine 02/15/25 Chikis Lucero 02/15/25 documented as of this encounter
--- OUTSIDE RECORDS SUMMARY | 2025-06-09 11:35 | XMS_ITS | Encounter Summary ---
Author Organization [employer] Address [address] [facility] 7t [place] [address] Care Team Providers Care Popped Corn Oven Attendant Name Role Phone Isabella Tony MD Primary Care Provider [phone] Mike Aldridge RN Unavailable [phone] Chikis Lucero Unavailable Alan Escobar CNP Primary Care Provider [phone] Reason for Visit * Reason Comments Med Refill Encounter Details Date Type Department Care Team (Late Contact Info) Description 04/08/2023 Refill [facility] MED & PEDS 505 [place] [address] Isabella Tony MD 505 [place] [address] Seizure disorder (CMS/HCC) Social History Tobacco Use [...] Description 08/10/2025 10:15 AM EST Office Visit [facility] ADULT DENTAL 505 [place] [address] Kristyn Martinez documented as of this encounter Visit Diagnoses Diagnosis Seizure disorder (CMS/HCC) (HCC) Unspecified epilepsy without mention of intractable epilepsy documented in this encounter Care Teams Popped Corn Oven Attendant Relationship Specialty Start Date End Date Isabella Tony MD [address] [place] [address] PCP - General Family Medicine 07/12/12 05/24/25 Alan Escobar CNP 505 [place] [address] PCP - General Family Medicine 05/25/25 Mike Aldridge RN [address] [place] [address] Registered Nurse Family Medicine 02/15/25 Chikis Lucero 02/15/25 documented as of this encounter
--- OUTSIDE RECORDS SUMMARY | 2025-06-09 11:35 | XMS_ITS | Encounter Summary ---
Author Organization [employer] Address 75 [facility] 7t [place] [address] Care Team Providers Care Adjunct Faculty Mathematics Department Name Role Phone Isabella Tony MD Primary Care Provider [phone] Mike Aldridge RN Unavailable [phone] Chikis Lucero Unavailable Alan Escobar CNP Primary Care Provider [phone] Encounter Details Date Type Department Care Team (Late st Contact Info) Description 05/24/2025 Results Follow-Up [facility] CHC MED & PEDS 505 [place], [place] [phone] Alan Escobar CNP 505 [place], [place] [phone] CBC auto differential, Iron And Total Iron [...] 08/10/2025 10:15 AM EST Office Visit [facility] ADULT DENTAL [address] [place] [address] Kristyn Martinez documented as of this encounter Visit Diagnoses Not on filedocumented in this encounter Additional Health Concerns Assessment Noted Time PHQ-9 Depression Total Score: 5 03/01/20 25 9:25 AM EDT documented as of this encounter Care Teams Adjunct Faculty Mathematics Department Relationship Specialty Start Date End Date Isabella Tony MD 230 [place] [address] PCP - General Family Medicine 07/12/12 05/24/25 Alan Escobar CNP 505 [place] [address] PCP - General Family Medicine 05/25/25 Mike Aldridge, EZEKIEL 505 [place] [address] Registered Nurse Family Medicine 02/15/25 Chikis Lucero 02/15/25 documented as of this encounter
--- OUTSIDE RECORDS SUMMARY | 2025-06-09 11:35 | XMS_ITS | Encounter Summary ---
Author Organization [employer] Address [address] [facility] 7t [place] [address] Care Team Providers Care Amphibious Operations Officer Name Role Phone Isabella Tony MD Primary Care Provider [phone] Mike Aldridge RN Unavailable [phone] Chikis Lucero Unavailable Alan Escobar CNP Primary Care Provider [phone] Reason for Visit * Reason Comments Med Refill Encounter Details Date Type Department Care Team ([facility] st Contact Info) Description 05/01/2023 Refill [facility] CHC MED & PEDS 505 [place], [place] [phone] Isabella Tony MD 505 [place], [place] [phone] Social History Tobacco Use Types Packs/Day Years [...] Visit [facility] ADULT DENTAL 505 [place] [address] Kristyn Martinez documented as of this encounter Visit Diagnoses Not on filedocumented in this encounter Care Teams Amphibious Operations Officer Relationship Specialty Start Date End Date Isabella Tony MD [address] [place] [address] PCP - General Family Medicine 07/12/12 05/24/25 Alan Escobar CNP 505 [place] [address] PCP - General Family Medicine 05/25/25 Mike Aldridge, EZEKIEL 505 [place] [address] Registered Nurse Family Medicine 02/15/25 Chikis Lucero 02/15/25 documented as of this encounter
--- OUTSIDE RECORDS SUMMARY | 2025-06-09 11:35 | XMS_ITS | Encounter Summary ---
Author Organization [employer] Address [address] [facility] 7t [place] [address] Care Team Providers Care Machine Joint Cutter Name Role Phone Isabella Tony MD Primary Care Provider [phone] Mike Aldridge RN Unavailable [phone] Chikis Lucero Unavailable Alan Escobar CNP Primary Care Provider [phone] Reason for Visit * Reason Onset Date Comments FYI 04/13/2023 Encounter Details Date Type Department Care Team (Late st Contact Info) Description 04/13/2023 Telephone [facility] CHC MED & PEDS 505 [place], [place] [phone] Isabella Tony MD 505 [place], [place] [phone] FYI Social History Tobacco Use Types Packs/Day [...] - 04/13/2023 1:26 PM EDT Tc [facility] calling to inform PCP that 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 documented in this encounter Plan of Treatment Upcoming Encounters Date Type Department Care Team (Late st Contact Info) Description 08/10/2025 10:15 AM EST Office Visit [facility] CHC ADULT DENTAL 505 [place] [address] Kristyn Martinez documented as of this encounter Visit Diagnoses Not on filedocumented in this encounter Care Teams Machine Joint Cutter Relationship Specialty Start Date End Date Isabella Tony MD [address] [place] [address] PCP - General Family Medicine 07/12/12 05/24/25 Alan Escobar CNP 505 [place] [address] PCP - General Family Medicine 05/25/25 Mike Aldridge RN 505 [place] [address] Registered Nurse Family Medicine 02/15/25 Chikis Lucero 02/15/25 documented as of this encounter
== END 2025-06-09 11:01 | disposition home or self-care (01) ==
LOC: HO.HCS 09:56
PROVIDERS: Visit Provider Nurse Practitioner Family
DX: I25.10 Atherosclerotic heart disease of native coronary artery without angina pectoris (principal); Z98.890 Other specified postprocedural states; Z95.5 Presence of coronary angioplasty implant and graft; R00.2 Palpitations
CPT/HCPCS: 93010; 99214

== ENCOUNTER → 2025-06-09 09:56 | Outpatient (BNVA) | payer MEDICAID, SELFPAY | PROVIDERS: Visit Provider Nurse Practitioner Family | DX: I25.10 Atherosclerotic heart disease of native coronary artery without angina pectoris (principal); R00.2 Palpitations; Z95.5 Presence of coronary angioplasty implant and graft | CPT/HCPCS: 93005; 99212 ==

== ENCOUNTER → 2025-06-20 10:53 | Outpatient (REF) | payer MEDICAID, SELFPAY ==
--- OUTSIDE RECORDS SUMMARY | 2025-06-20 14:12 | XMS_ITS | Encounter Summary ---
Author Organization [employer] Address 75 [facility] 7t [place] [address] Care Team Providers Care Physical Testing Supervisor Name Role Phone Isabella Tony MD Primary Care Provider [phone] Mike Aldridge RN Unavailable [phone] Chikis Lucero Unavailable Alan Escobar CNP Primary Care Provider [phone] Reason for Visit * Reason Onset Date Comments Nurse Triage 05/04/2024 Encounter Details Date Type Department Care Team (Late st Contact Info) Description 05/04/2024 Telephone [facility] CHC MED & PEDS 505 [place], [place] [phone] Isabella Tony MD 505 [place], [place] [phone] Nurse Triage Social History Tobacco Use Types [...] 05/04/2024 10:57 AM EDT Triage call with Stokes Scientist/Engineer ID [id number] Pt reports some lumps on right arm where injections were given while at [facility] 05/02/24. Pt was seen asfollow up for cardiac cath, stent placement which was done 04/20/24 report of 05/02/24 apt is on the chart. Pt does have hx of blood clots and didn't start aspirin and Brilinta as directed after this procedure. Pt informs feature writer that Pt is on the way to [facility] at this time to be seen by provider. Pt hasno apt there and is advised to come to [facility] instead for provider to see Pt. Pt agrees and informs feature writer that Pt is heading to [facility] at this time. Pt is alert, oriented, no difficulty breathing. Triage is ended. Advised Pt will send this report to [facility] now. Pt agrees. Protocol Used: [...] 10:15 AM EST Office Visit [facility] ADULT DENTAL 505 [place] [address] Kristyn Martinez documented as of this encounter Visit Diagnoses Not on filedocumented in this encounter Care Teams Physical Testing Supervisor Relationship Specialty Start Date End Date Isabella Tony MD [address] [place] [address] PCP - General Family Medicine 07/12/12 05/24/25 Alan Escobar CNP 505 [place] [address] PCP - General Family Medicine 05/25/25 Mike Aldridge, EZEKIEL 505 [place] [address] Registered Nurse Family Medicine 02/15/25 Chikis Lucero 02/15/25 documented as of this encounter
--- OUTSIDE RECORDS SUMMARY | 2025-06-20 14:12 | XMS_ITS | Clinical Summary ---
Author Organization [facility] Address [address] [address] Care Team Providers Care Manager Community Outreach Name Role Phone Isabella Tony MD Primary Care Provider [phone] Social History Tobacco Use Types Packs/Day Years [...] Vaccine (#1) 2025 [place] [address] [place] Care Teams Manager Community Outreach Relationship Specialty Start Date End Date Isabella Tony MD [address] [place] [address] PCP - General Family Medicine 05/20/21
--- OUTSIDE RECORDS SUMMARY | 2025-06-20 14:12 | XMS_ITS | Encounter Summary ---
Author Organization [employer] Address [address] [facility] 7t [place] [address] Care Team Providers Care Accounting Manager Cpa Name Role Phone Isabella Tony MD Primary Care Provider [phone] Mike Aldridge RN Unavailable [phone] Chikis Lucero Unavailable Alan Escobar CNP Primary Care Provider [phone] Reason for Visit * Reason Onset Date Comments triage 09/30/2022 Encounter Details Date Type Department Care Team (Late st Contact Info) Description 09/30/2022 Telephone [facility] CHC MED & PEDS 505 [place], [place] [phone] Isabella Tony MD 505 [place], [place] [phone] triage Social History Tobacco Use Types Packs/Day [...] 09/30/2022 3:12 PM EST Called pt. Via [employer] cotton ball bagger [id number] Saleem. Pt. States that he has been [...] Pt. States that someone called him from [facility] to come into the office for [...] if you want to have nurses in [facility] switch appt. At 915am on 10/02/22 to PCP. Please advise [facility] nurses if you want appt. Switched. [...] accepted this outcome Please contact pt at [phone] documented in this encounter Plan of Treatment Upcoming Encounters Date Type Department Care Team (Late st Contact Info) Description 08/10/2025 10:15 AM EST Office Visit [facility] ADULT DENTAL 505 [place] [address] Kristyn Martinez documented as of this encounter Visit Diagnoses Not on filedocumented in this encounter Care Teams Accounting Manager Cpa Relationship Specialty Start Date End Date Isabella Tony MD 230 [place] [address] PCP - General Family Medicine 07/12/12 05/24/25 Alan Escobar CNP 505 [place] [address] PCP - General Family Medicine 05/25/25 Mike Aldridge, RN [address] [place] [address] Registered Nurse Family Medicine 02/15/25 Chikis Lucero 02/15/25 documented as of this encounter
--- OUTSIDE RECORDS SUMMARY | 2025-06-20 14:12 | XMS_ITS | Encounter Summary ---
Author Organization [employer] Address 75 [facility] 7t [place] [address] Care Team Providers Care Hide House Supervisor Name Role Phone Isabella Tony MD Primary Care Provider [phone] Mike Aldridge RN Unavailable [phone] Chikis Lucero Unavailable Alan Escobar CNP Primary Care Provider [phone] Encounter Details Date Type Department Care Team (Late st Contact Info) Description 07/30/2022 Orders Only [facility] MED & PEDS [address] [place], [place] [phone] Miguelina Arvizu LPN Social History Tobacco Use [...] [facility] ADULT DENTAL [address] [place] [address] Kristyn Martinez documented as of this encounter Visit Diagnoses Not on filedocumented in this encounter Care Teams Hide House Supervisor Relationship Specialty Start Date End Date Isabella Tony MD [address] [place] [address] PCP - General Family Medicine 07/12/12 05/24/25 Alan Escobar CNP 505 [facility] [place] [address] PCP - General Family Medicine 05/25/25 Mike Aldridge RN 505 [facility] [place] [address] Registered Nurse Family Medicine 02/15/25 Chikis Lucero 02/15/25 documented as of this encounter
--- OUTSIDE RECORDS SUMMARY | 2025-06-20 14:12 | XMS_ITS | Encounter Summary ---
Author Organization [employer] Address [address] [facility] 7t [place] [address] Care Team Providers Care Director Hair Name Role Phone Isabella Tony MD Primary Care Provider Mike Aldridge RN Unavailable [phone] Chikis Lucero Unavailable Alan Escobar CNP Primary Care Provider [phone] Reason for Visit * Reason Comments Med Refill Encounter Details Date Type Department Care Team (Late st Contact Info) Description 09/10/2023 Refill [facility] MEDICINE [address] [place] [address] Isabella Tony MD [address] [place], [place] [phone] Seizure disorder (CMS/HCC) Social History Tobacco Use [...] Description 08/10/2025 10:15 AM EST Office Visit [facility] CHC ADULT DENTAL [address] [place] [address] Kristyn Martinez documented as of this encounter Visit Diagnoses Diagnosis Seizure disorder (CMS/HCC) (HCC) Unspecified epilepsy without mention of intractable epilepsy documented in this encounter Care Teams Director Hair Relationship Specialty Start Date End Date Isabella Tony MD [address] [place] [address] PCP - General Family Medicine 07/12/12 05/24/25 Alan Escobar CNP 505 [place] [address] PCP - General Family Medicine 05/25/25 Mike Aldridge, RN [address] [place] [address] Registered Nurse Family Medicine 02/15/25 Chikis Lucero 02/15/25 documented as of this encounter
--- OUTSIDE RECORDS SUMMARY | 2025-06-20 14:12 | XMS_ITS | Clinical Summary ---
Author Organization [facility] Address [address] [place] [address] Care Team Providers Care Champagne Maker Name Role Phone Unavailable Primary Care Provider [...] file Trever Ledesma Personal/Family Self 1965 [address] [address] [place] [address]
--- OUTSIDE RECORDS SUMMARY | 2025-06-20 14:12 | XMS_ITS | Encounter Summary ---
Author Organization [employer] Address [address] [facility] 7t [place] [address] Care Team Providers Care Batcher Operator Name Role Phone Isabella Tony MD Primary Care Provider [phone] Mike Aldridge RN Unavailable [phone] Chikis Lucero Unavailable Alan Escobar CNP Primary Care Provider [phone] Reason for Visit * Reason Comments Med Refill Encounter Details Date Type Department Care Team ([facility] st Contact Info) Description 12/06/2024 Refill [facility] CHC MED & PEDS [address] [place], [place] [phone] Isabella Tony MD [address] [place], [place] [phone] Social History Tobacco Use Types Packs/Day Years [...] [facility] AD[facility] [address] [place] [address] Kristyn Martinez documented as of this encounter Visit Diagnoses Not on filedocumented in this encounter Additional Health Concerns Assessment Noted Time PHQ-9 Depression Total Score: 8 10/28/19 25 9:13 AM EDT documented as of this encounter Care Teams Batcher Operator Relationship Specialty Start Date End Date Isabella Tony MD [address] [place] [address] PCP - General Family Medicine 07/12/12 05/24/25 Alan sEcobar CNP 505 [place] [address] PCP - General Family Medicine 05/25/25 Mike Aldridge, EZEKIEL 505 [place] [address] Registered Nurse Family Medicine 02/15/25 Chikis Lucero 02/15/25 documented as of this encounter
--- OUTSIDE RECORDS SUMMARY | 2025-06-20 14:12 | XMS_ITS | Encounter Summary ---
Author Organization [employer] Address [address] [facility] [address] 7t [place] [address] Care Team Providers Care Portfolio Lead Name Role Phone Isabella Tony MD Primary Care Provider [phone] Mike Aldridge RN Unavailable [phone] Chikis Lucero Unavailable Alan Escobar CNP Primary Care Provider [phone] Reason for Visit * Reason Onset Date Comments Nurse Triage 07/21/2023 Encounter Details Date Type Department Care Team (Late st Contact Info) Description 07/21/2023 Telephone [facility] MEDICINE [address] [place] [address] Isabella Tony MD [address] [place], [place] [phone] Nurse Triage Social History Tobacco Use Types [...] want to go to walk in at [facility] today ot tomorrow. Pt. Wants televisit. Pt. Is speaking in clear sentences and denies SOB or wheezing at present. Advised if develops SOB to go to walk in at [facility] until 730pm tonight. Protocol Used: COVID-19 [...] [facility] [address] [place] [address] Kristyn Martinez documented as of this encounter Visit Diagnoses Diagnosis Mild persistent asthma, unspecified whether complicated documented in this encounter Care Teams Portfolio Lead Relationship Specialty Start Date End Date Isabella Tony MD [address] [place] [address] PCP - General Family Medicine 07/12/12 05/24/25 Alan Escobar CNP 505 [place] [address] PCP - General Family Medicine 05/25/25 Mike Aldridge, EZEKIEL 505 [place] [address] Registered Nurse Family Medicine 02/15/25 Chikis Lucero 02/15/25 documented as of this encounter
--- OUTSIDE RECORDS SUMMARY | 2025-06-20 14:12 | XMS_ITS ---
Author Organization [employer] Address 75 [facility] 7t [place] [address] Care Team Providers Care Lumber Tallier Name Role Phone Mike Aldridge RN Unavailable [phone] Chikis Lucero Unavailable Alan Escobar CNP Primary Care Provider [phone] [facility] Complex Status:Enrolled (Active) Start date:02/15/2025 Enrollment date:02/15/2025 Enrollment reason:ADT Feed Overview ADT-[facility] ED 02/14/25 Case Team Name Relationship Phone Chikis Lucero(Responsible Staff) Continued Care and Services Coordination
--- OUTSIDE RECORDS SUMMARY | 2025-06-20 14:12 | XMS_ITS ---
Author Organization [employer] Address [address] [facility] 7t [place] [address] Care Team Providers Care Electrical Wiring Lineman Name Role Phone Mike Aldridge RN Unavailable [phone] Chikis Lucero Unavailable Alan Escobar CNP Primary Care Provider [phone] Complex Status:Enrolled (Active) Start date:02/15/2025 Enrollment date:02/28/2025 Enrollment reason:ADT Feed Overview ADT-[facility] ED 02/14/25 Case Team Name Relationship Phone Mike Aldridge RN(Responsible Staff) Registered N siena [phone] Continued Care and Services Coordination
--- OUTSIDE RECORDS SUMMARY | 2025-06-20 14:12 | XMS_ITS | Encounter Summary ---
Author Organization [email or web address] Address [address] [facility] 7t [place] [address] Care Team Providers Care Enterprise Manager Name Role Phone Isabella Tony MD Primary Care Provider [phone] Mike Aldridge RN Unavailable [phone] Chikis Lucero Unavailable Alan Escobar CNP Primary Care Provider [phone] Encounter Details Date Type Department Care Team (Late st Contact Info) Description 08/05/2023 Orders Only [facility] CHC MED & PEDS [address] [place], [place] [phone] Case Carrasco MD 505 [place], [place] [phone] Social History Tobacco Use Types Packs/Day Years [...] Office Visit [facility] ADULT DENTAL [address] [place] [address] Kristyn Martinez documented as of this encounter Visit Diagnoses Not on filedocumented in this encounter Care Teams Enterprise Manager Relationship Specialty Start Date End Date Isabella Tony MD [address] [place] [address] PCP - General Family Medicine 07/12/12 05/24/25 Alan Escobar CNP 505 [place] [address] PCP - General Family Medicine 05/25/25 Mike Aldridge, RN [address] [place] [address] Registered Nurse Family Medicine 02/15/25 Chikis Lucero 02/15/25 documented as of this encounter
--- OUTSIDE RECORDS SUMMARY | 2025-06-20 14:12 | XMS_ITS | Encounter Summary ---
Author Organization [employer] Address 75 [facility] 7t [place] [address] Care Team Providers Care Sample Color Maker Name Role Phone Isabella Tony MD Primary Care Provider [phone] Mike Aldridge RN Unavailable [phone] Chikis Lucero Unavailable Alan Escobar CNP Primary Care Provider [phone] Encounter Details Date Type Department Care Team (Late st Contact Info) Description 07/14/2022 Orders Only [facility] MED & PEDS [address] [place] [address] Miguelina Arvizu LPN Social History Tobacco Use [...] Visit [facility] ADULT DENTAL [address] [place] [address] Kristyn Martinez documented as of this encounter Visit Diagnoses Not on filedocumented in this encounter Care Teams Sample Color Maker Relationship Specialty Start Date End Date Isabella Tony MD [address] [place] [address] PCP - General Family Medicine 07/12/12 05/24/25 Alan Escobar CNP [facility] [address] PCP - General Family Medicine 05/25/25 Mike Aldridge RN 505 [place] [address] Registered Nurse Family Medicine 02/15/25 Chikis Lucero 02/15/25 documented as of this encounter
--- OUTSIDE RECORDS SUMMARY | 2025-06-20 14:12 | XMS_ITS | Encounter Summary ---
Author Organization [employer] Address [address] [facility] [address] 7[address] [place] [address] Care Team Providers Care Road Driver Name Role Phone Isabella Tony MD Primary Care Provider [phone] Mike Aldridge RN Unavailable [phone] Chikis Lucero Unavailable Alan Escobar CNP Primary Care Provider [phone] Reason for Visit * Reason Onset Date Comments Dental Pain 09/03/2023 Encounter Details Date Type Department Care Team (Late st Contact Info) Description 09/03/2023 Telephone [facility] ADULT DENTAL [address] [place], [place] [phone] Roseanne Devries DMD Dental Pain Social History [...] EST Office Visit [facility] ADULT DENTAL [address] [place] [address] Kristyn Martinez documented as of this encounter Visit Diagnoses Not on filedocumented in this encounter Care Teams Road Driver Relationship Specialty Start Date End Date Isabella Tony MD 230 [place] [address] PCP - General Family Medicine 07/12/12 05/24/25 Alan Escobar CNP 505 [place] [address] PCP - General Family Medicine 05/25/25 Mike Aldridge, EZEKIEL 505 [place] [address] Registered Nurse Family Medicine 02/15/25 Chikis Lucero 02/15/25 documented as of this encounter
--- OUTSIDE RECORDS SUMMARY | 2025-06-20 14:13 | XMS_ITS | Encounter Summary ---
Author Organization [employer] Address [address] [facility] [address] 7t [place] [address] Care Team Providers Care Pipe Setter Name Role Phone Isabella Tony MD Primary Care Provider [phone] Mike Aldridge RN Unavailable [phone] Chikis Lucero Unavailable Alan Escobar CNP Primary Care Provider [phone] Encounter Details Date Type Department Care Team ([facility] Contact Info) Description 01/13/2023 Orders Only [facility] MEDICINE [address] [place], [place] [phone] Rajwinder Taylor LPN Social History Tobacco Use [...] Upcoming Encounters Date Type Department Care Team ([facility] Contact Info) Description 08/10/2025 10:15 AM EST Office Visit [facility] CHC ADULT DENTAL [address] [place], [place] [phone] Kristyn Martinez documented as of this encounter Visit Diagnoses Not on filedocumented in this encounter Care Teams Pipe Setter Relationship Specialty Start Date End Date Isabella Tony MD [address] [place] [address] PCP - General Family Medicine 07/12/12 05/24/25 Alan Escobar CNP 505 [place] [address] PCP - General Family Medicine 05/25/25 Mike Aldridge, EZEKIEL 505 [place] [address] Registered Nurse Family Medicine 02/15/25 Chikis Lucero 02/15/25 documented as of this encounter
--- OUTSIDE RECORDS SUMMARY | 2025-06-20 14:13 | XMS_ITS | Encounter Summary ---
Author Organization [employer] Address [address] [facility] 7t [place] [address] Care Team Providers Care Grocery Shopper Name Role Phone Isabella Tony MD Primary Care Provider [phone] Mike Aldridge RN Unavailable [phone] Chikis Lucero Unavailable Alan Escobar CNP Primary Care Provider [phone] Reason for Visit * Reason Comments Med Refill Encounter Details Date Type Department Care Team (Late Contact Info) Description 04/08/2023 Refill [facility] MED & PEDS [address] [place] [address] Isabella Tony MD [address] [place] [address] Seizure disorder (CMS/HCC) Social History Tobacco Use [...] [facility] ADULT DENTAL [address] [place] [address] Kristyn Martinez documented as of this encounter Visit Diagnoses Diagnosis Seizure disorder (CMS/HCC) (HCC) Unspecified epilepsy without mention of intractable epilepsy documented in this encounter Care Teams Grocery Shopper Relationship Specialty Start Date End Date Isabella Tony MD [address] [place] [address] PCP - General Family Medicine 07/12/12 05/24/25 Alan Escobar CNP 505 [place] [address] PCP - General Family Medicine 05/25/25 Mike Aldridge RN [address] [place] [address] Registered Nurse Family Medicine 02/15/25 Chikis Lucero 02/15/25 documented as of this encounter
--- OUTSIDE RECORDS SUMMARY | 2025-06-20 14:13 | XMS_ITS | Encounter Summary ---
Author Organization [employer] Address 75 [facility] 7t [place] [address] Care Team Providers Care Architecture Technician Name Role Phone Isabella Tony MD Primary Care Provider [phone] Mike Aldridge RN Unavailable [phone] Chikis Lucero Unavailable Alan Escobar CNP Primary Care Provider [phone] Reason for Visit * Reason Onset Date Comments FYI 04/13/2023 Encounter Details Date Type Department Care Team (Late st Contact Info) Description 04/13/2023 Telephone [facility] CHC MED & PEDS [address] [place], [place] [phone] Isabella Tony MD 505 [place], [place] [phone] FYI Social History Tobacco Use Types Packs/Day [...] - 04/13/2023 1:26 PM EDT [facility] calling to inform PCP that patient was getting PHOTOGRAPHIC EDITOR provided by them and has discharged himself out of the program since 04/10/23. documented in this encounter Plan of Treatment Upcoming Encounters Date Type Department Care Team (Late st Contact Info) Description 08/10/2025 10:15 AM EST Office Visit [facility] CHC ADULT DENTAL [address] [place] [address] Kristyn Martinez documented as of this encounter Visit Diagnoses Not on filedocumented in this encounter Care Teams Architecture Technician Relationship Specialty Start Date End Date Isabella Tony MD [address] [place] [address] PCP - General Family Medicine 07/12/12 05/24/25 Alan Escobar CNP 505 [place] [address] PCP - General Family Medicine 05/25/25 Mike Aldridge RN [address] [place] [address] Registered Nurse Family Medicine 02/15/25 Chikis Lucero 02/15/25 documented as of this encounter
--- OUTSIDE RECORDS SUMMARY | 2025-06-20 14:13 | XMS_ITS | Clinical Summary ---
Author Organization [employer] Address [address] [facility] 7t [place] [address] Care Team Providers Care Day Care Assistant Name Role Phone Mike Aldridge RN Unavailable [phone] Chikis Lucero Unavailable Alan Escobar CNP Primary Care Provider [phone] Allergies No known active allergies Medications acetaminophen [...] MORNING AND AT BEDTIME 60 tablet 11 5 4:02 PM EST 11/03/19 25 Active hydrOXYzine HCl (Atarax) 50 MG tabletIndicatio ns:Anxiety TAKE ONE TABLET EVERY NIGHT AT BEDTIME 60 tablet 3 5 4:02 PM EST 11/24/19 25 Active albuterol 108 (90 Base) [...] acid (Folvite) 1 MG tabletIndicatio ns:Alcoholism (CMS/HCC) ([facility]) TAKE ONE TABLET EVERY MORNING 90 tablet 2 01/26/20 25 Active Ferrous Sulfate (iron) 325 (65 Fe) MG tabletIndicatio ns:Iron deficiency anemia secondary to inadequate dietary iron intake TAKE ONE TABLET EVERY MORNING 90 tablet 01/27/20 25 Active topiramate 50 MG tabletIndicatio ns:Seizure disorder (CMS/HCC) ([facility]) TAKE ONE TABLET EVERY NIGHT AT BEDTIME 30 tablet 5 03/28/20 25 Active omeprazole (PriLOSEC) [address] capsuleIndicati ons:Seizure disorder (CMS/HCC) ([facility]) TAKE ONE CAPSULE EVERY MORNING BEFORE BREAKFAST [...] MORNING AND AT BEDTIME 60 tablet 2 5 4:02 PM EST 04/25/20 25 Active cetirizine (ZyrTEC) 10 MG tabletIndicatio ns:Seasonal allergies TAKE ONE TABLET EVERY MORNING 90 tablet 05/09/20 25 Active ferrous gluconate (Fergon) 324 (37.5 Fe) MG tablet Take 1 tablet by mouth in the morning. 04/03/20 25 Active cholecalciferol (Vitamin D-3) 125 MCG (5000 UT) capsule TAKE ONE CAPSULE ONCE WEEKLY ON Thursday capsule 5 4:02 PM EST 05/22/20 25 Active acetaminophen (Tylenol 8 Hour) 650 MG ER tabletIndicatio ns:Pain Take 1 tablet (650 mg) by mouth every 8 (eight) hours if needed for headaches. Do not crush, chew, or split. 40 tablet 1 05/19/20 25 Active lisinopril 5 MG tablet TAKE ONE TABLET EVERY MORNING 90 tablet 1 5 4:02 PM EST 05/26/20 25 Active Multiple Vitamin (Multivitamin) tabletIndicatio ns:Seizure disorder (CMS/HCC) ([facility]) TAKE ONE TABLET EVERY MORNING 90 tablet 1 5 4:02 PM EST 05/26/20 25 Active thiamine (Vitamin B-1) 100 MG tabletIndicatio ns:Seizure disorder (CMS/HCC) (HCC) TAKE ONE TABLET EVERY MORNING 90 tablet 1 5 4:02 PM EST 05/26/20 25 Active sertraline (Zoloft) 25 MG tablet TAKE ONE TABLET EVERY MORNING 30 tablet 11 5 4:02 PM EST 06/02/20 25 Active Advair Diskus 100-50 MCG/ACT aerosol powder INHALE 1 PUFF TWICE DAILY. RINSE MOUTH AFTER USE 60 each 1 5 4:02 PM EST 06/02/20 25 Active terbinafine (LamISIL) 1 % creamIndication s:Tinea pedis, unspecified laterality Apply topically 2 times daily. 42 g 5 4:02 PM EST 06/03/20 25 Active lisinopril 5 MG tablet Take 1 [...] ONCE WEEKLY ON Thursday 12 capsule 03/02/20 25 025 Discontinued Fluticasone-Jonathan [...] (CMS/HCC) 05/12/2025 Overview (05/12/2025): Being treated by [facility] currently on and anti-viral Colon cancer screening 05/12/2025 Overview (05/12/2025): 2022= hyperplastic polyp repeat in 10 years Coronary atherosclerosis 05/12/2025 Epidermal cyst 05/12/2025 Exertional angina 05/12/2025 High cholesterol 05/12/2025 Overview (05/12/2025): ? uncertain medical records from [facility] HTN (hypertension) 05/12/2025 On anticoagulant therapy 05/12/2025 [...] of liver 10/20/2024 Portal hypertensive gastropathy (CMS/HCC) ([facility]/H CC) 10/20/2024 Chronic hepatitis C (CMS/HCC) 10/20/2024 Overview (05/12/2025): Treated by [facility] Asthma 10/20/2024 Upper respiratory tract infection 08/17/2024 History of DVT (deep vein thrombosis) 09/19/2022 Alcohol abuse, in remission 09/19/2022 Moderate asthma without complication 08/15/2022 Non-traumatic rhabdomyolysis 08/15/2022 Seizure disorder (CMS/HCC) 08/15/2022 Viral hepatitis C 04/10/2014 Benign essential hypertension 03/20/2014 Hematemesis 03/04/2014 Encounters Date Type Department Care Team Description 06/05/2025 Patient Outreach [facility] MEDICINE [address] [place] [phone] Alan Escobar CNP Care Coordination (C3 -W Chikis Lucero telephone call outreach) 06/03/2025 Orders Only [facility] [address] [place] [phone] Alan Escobar CNP Tinea pedis, unspecified laterality (Primary Dx) 06/02/2025 Patient Outreach [facility] [address] [place] [address] Alan Escobar CNP Care Management (C3CM- F/U call # 2) 06/02/2025 Refill [facility] [address] [place] [address] Isabella Tony MD 05/31/2025 Telephone [facility] [address] [place] [address] Alan Escobar CNP Nurse Triage 05/26/2025 Refill [facility] [address] [place] [address] Isabella Tony MD Seizure disorder ([facility]/HCC) (HCC) 05/24/2025 Results Follow-Up [facility] [address] [place] [address] Alan Escobar, SAP HANA DEVELOPER CBC auto differential, Iron And Total Iron Binding Capacity, Ferritin, Basic Metabolic Panel 05/19/2025 9:00 AM EDT Office Visit [facility] [address] [place] [address] Yvon EscobarenrriquekunalSANCHEZ Anemia, unspecified type (Primary Dx); Chronic migraine without aura without status migrainosus, not intractable; Pain 05/19/2025 Travel 05/19/2025 Refill [facility] [address] [place] [address] Case Carrasco MD 05/12/2025 Telephone [facility] [address] [place] [address] Isabella Tony MD chart prep 05/09/2025 Telephone [facility] [address] [place] [address] Isabella Tony MD Chart Prep 05/08/2025 Refill [facility] [address] [place] [address] Macarena Gomez MD Seasonal allergies 05/05/2025 Telephone [facility] [address] [place] [address] Isabella Tony MD Nurse Triage 04/24/2025 Refill [facility] [address] [place] [address] Macarena Gomez MD 04/21/2025 Patient Outreach [facility] [address] [place] [address] Isabella Tony MD Care Coordination (C3 -[facility] Chikis Lucero telephone call outreach) 04/12/2025 Telephone [facility] [address] [place] [address] Isabella Tony MD Durable Medical Equipment 04/04/2025 Results Follow-Up [facility] [address] [place] [address] Isabella Tony MD CBC auto differential 04/03/2025 9:30 AM EDT Office Visit [facility] [address] [place] [address] Isabella Tony MD Bleeding hemorrhoids (Primary Dx); Anemia, unspecified type; Benign essential hypertension 04/03/2025 Travel 03/31/2025 Patient Outreach [facility] [address] [place] [phone] Isabella Tony MD Care Coordination (C3 -CHW Chikis Lucero telephone call outreach/) 03/31/2025 Telephone [facility] [address] [place] [address] Isabella Tony MD chart prep 03/29/2025 Patient Outreach [facility] [address] [place] [phone] Isabella Tony MD Care Management (C3- F/U call # 1) 03/28/2025 Refill [facility] [address] [place] [address] Isabella Tony MD Seizure disorder ([facility]/HCC) 03/27/2025 Refill [facility] [address] [place] [address] Isabella Tony MD Seizure disorder ([facility]/HCC) 03/22/2025 Telephone [facility] [address] [place] [address] Isabella Tony MD ER Follow-up from Last 3 Months Immunizations Immunization Administration [...] the past 12 months, has t he [employer], gas, oil or water company threatened to [...] 10:15 AM EST Office Visit [facility] [address] [place] [address] Kristyn Martinez Health Maintenance Due Date Last Done Comments CT Colonography 1967 FIT 1967 Sigmoidoscopy 1965 Hepatitis A [...] 03/27/2025 (Patient Refused) Tobacco Screening 05/19/2026 05/19/2025 FIT DNA/Cologuard 02/15/2027 02/16/2024 Dental X-Ray: Full Mouth 04/20/2027 024, 05/15/2021, 04/21/2016 Lipid Panel 12/08/2029 12/08/2024, 01/24, 10/14/2023, Additional history exists Colonoscopy 04/21/2033 04/21/2023 Colorectal Cancer Screening 04/21/2033 HIV Screening Completed 07/10/2020, 06/26, 07/10/2020, Additional [...] 04/03/2025 9:53 AM EDT Anemia, unspecified type PROPHYLAXIS - ADULT Routine 01/30/2025 1 1:00 [...] 9:46 AM EDT) Only the most recent of2 resultswithin the time period is included. White Blood Count 2.9(L) 4.8 - 10.8 X10*3/uL [facility] Red Blood Count 4.18(L) 4.60 - 5.80 X10*6/uL [facility] Hemoglobin 9.2(L) 14.0 - 18.0 g/dl [facility] Hematocrit 32.2(L) 42.0 - 52.0 % [facility] Mean Corpuscular Volume 77.0(L) 80.0 - 98.0 fL [facility] Mean Corpuscular Hemoglobin 22.0(L) 27.0 - 33.0 pg [facility] Mean Corpuscular HGB Conc 28.6(L) 31.0 - 36.0 g/dl [facility] Red Cell Distribution Width 16.7(H) 11.0 - 16.0 % [facility] Platelet Count 167 160 - 400 X10*3/uL [facility] Neutrophils Percent Auto 57.3 45 - 73 % [facility] Imm Gran Pct Auto 0.3 0.0 - 0.4 % [facility] Lymphocytes Percent Auto 32.1 20 - 40 % [facility] Monocytes Percent Auto 9.3 2 - 11 % [facility] Eosinophils Percent Auto 0.7 0 - 4 % [facility] Basophils Percent Auto 0.3 0 - 2 % [facility] NRBC Pct Auto 0.0 0.0 - 0.2 /100WBC [facility] Neutrophils Absolute Auto 1.7(L) 2.0 - 8.3 x10*3/uL [facility] Imm Gran Abs Auto 0.01 0.00 - 0.03 X10*3/uL [facility] Lymphocytes Absolute Auto 0.9(L) 1.2 - 4.9 X10*3/uL [facility] Monocytes Absolute Auto 0.3 0.1 - 1.2 X10*3/uL [facility] Eosinophils Absolute Auto 0.0 0.0 - 0.4 X10*3/uL [facility] Basophils Absolute Auto 0.0 0.0 - 0.2 X10*3/uL [facility] NRBC Abs Auto 0.000 0.0 - 0.012 X10*3/uL [facility] Blood Venous blood specimen / Unknown 05/19/2025 9:46 AM EDT 05/19/2025 2:41 PM EDT Alan Escobar SAP HANA DEVELOPER LAB BLOOD ORDERABLES Marzena l Result [facility] [address], [place] [phone] * (ABNORMAL) Iron And Total Iron Binding Capacity (05/19/2025 9:46 AM EDT) Pathologist [facility] Iron 343(H) 45 - 160 mcg/dL [facility] Total Iron Binding Capacity 408 228 - 428 mcg/dL [facility] Percent Iron Saturation 84(H) 15 - 50 % [facility] Unsaturated Iron Binding 65 ug/dL [facility] Blood Venous blood specimen / Unknown 05/19/2025 9:46 AM EDT 05/19/2025 2:20 PM EDT [facility] LAB BLOOD ORDERABLES Marzena l Result Performing Organization Address [facility]/ZIP Co de Phone Number [facility] [address] [place] [phone] * (ABNORMAL) Ferritin (05/19/2025 9:46 AM EDT) Pathologist [facility] Ferritin 17(L) 20 - 250 ng/mL [facility] Blood Venous blood specimen / Unknown 05/19/2025 9:46 AM EDT 05/19/2025 2:20 PM EDT [facility] LAB BLOOD ORDERABLES Marzena l Result Performing Organization Address [facility] Co de Phone Number [facility] [address] [place] [phone] * (ABNORMAL) Basic Metabolic Panel (05/19/2025 9:46 AM EDT) Pathologist [facility] Sodium 143 135 - 145 mmol/L [facility] Potassium 3.9 3.3 - 5.1 mmol/L [facility] Chloride 118(H) 96 - 108 mmol/L [facility] Carbon Dioxide 21(L) 22 - 29 mmol/L [facility] Anion Gap 8(L) 12 - 20 [facility] Urea Nitrogen (BUN) 10 9 - 16 mg/dL [facility] Creatinine, Serum 1.35 0.5 - 1.4 mg/dL [facility] Estimated Glomerular Filt Rate 54 [facility] Comment:Chronic Kidney Disea se: Estimated GFR < 60 mL/min/1.45g6Wttycu Kidney Disease: Estimated GFR < 15 mL/min/1.73m2 Glucose 109 60 - 115 mg/dL [facility] Calcium 8.8 8.4 - 10.2 mg/dL [facility] Blood Venous blood specimen / Unknown 05/19/2025 9:46 AM EDT 05/19/2025 2:20 PM EDT [facility] LAB BLOOD ORDERABLES Marzena l Result [facility] [address] [place] [phone] [phone] * (ABNORMAL) Lipid Panel, Standard (12/08/2024 8:19 AM EDT) Triglycerides 117 <150 mg/dL [facility] Comment:Desirable Triglyceri de: less than 150 mg/dLBorderline High Triglyceride 150-199 mg/dLHigh Triglyceride: 200-499 mg/dLVery High Triglyceride: greater than or equal to 5OO mg/dL Cholesterol 87 <200 mg/dL [facility] Comment:Desirable Cholestero l: less than 200 mg/dLBorderline High Cholesterol: 200-239 mg/dLHigh Cholesterol: greater than 239 mg/dL LDL Cholesterol Calculated 33 <100 mg/dL [facility] Comment:Desirable LDL: less than 100 mg/dLNear Optimal/Above Optimal LDL: 110- 129 mg/dLBorderline High LDL: 130-159 mg/dLHigh LDL: 160-189 mg/dLVery High LDL: greater than or equal to 190 mg/dL HDL Cholesterol 31(L) >40 mg/dL [facility] Comment:Desirable HDL: great er than 40 mg/dL Note: This HDL assay may give artificially low results in patients with liver disease. Blood Venous blood specimen / Unknown 12/08/2024 8:19 AM EDT 12/08/2024 12:05 PM EDT us Isabella Tony MD LAB BLOOD ORDERABLES Final Resul t [facility] [address], [place] [phone] * Cologuard?? colon cancer screening (02/16/2024 8:20 AM EDT) Cologuard Result Negative Negative 02/22/20 5:40 PM EDT [facility] (CLIA #:[id number]) Comment: NEGATIVE TEST RESULT. A negative Cologuard [...] screened with both Cologuard and colonoscopy. (Carlos Melton. et al, N Engl J Med 2014;370(14):8801-6400) The normal value (reference range) for this assay is negative. COLOGUARD RE-SCREENING RECOMMENDATION: Periodic colorectal cancer screening is an important part of preventive healthcare for asymptomatic individuals at average risk for colorectal cancer. Following a negative Cologuard result, the [place] [employer] and U.S. Multi-Society Task Force screening guidelines recommend a Cologuard re-screening interval of 3 years. References: [place] [employer] Guideline for Colorectal Cancer Screening: https://www.cancer.org/cancer/dclja-qchygj-dshpxf/somwseqzy-atkgkoqxy-wuosyjg/ac s-rec ommendations.html.; Salvador ARGUETA, Tania CR, Parker GarciaK, Colorectal Cancer Screening: Recommendations for Physicians and Patients from the U.S. Multi-Society Task Force on Colorectal Cancer Screening , Am J Gastroenterology 2017; 112:0916-8637. TEST DESCRIPTION: Composite algorithmic analysis of stool [...] Sam et al, N Engl J Med 2014;370(14):6961-8301.) Cologuard may produce a false negative or false positive result (no colorectal cancer or precancerous polyp present at colonoscopy follow up). A negative Cologuard test result does not guarantee the absence of CRC or advanced adenoma (pre-cancer). The current Cologuard screening interval is every 3 years. ([place] [employer] and U.S. Multi-Society Task Force). Cologuard performance data in a 10,000 patient pivotal study using colonoscopy as the reference method can be accessed at the following location: www.[employer]/results. Additional description of the Cologuard test process, warnings and precautions can be found at www.[employer].com. Stool specimen (specimen) 02/16/2024 8:20 AM EDT 02/17/2024 1:43 PM EDT us Isabella Tony MD LAB MOLECULAR DIAGNOSTICS ORDERA BLES Final Result [facility] (CLIA #:[id number]) [place] [address] [place] [address], * HIV AB/AG (07/10/2020 9:18 AM EST) Pathologist [facility] HIV AB/AG Nonreactive Nonreactive [facility] Comment: HIV-1 p24 Ag and/or [...] of detection of this assay. The Richter Plasma Table Operator HIV Ag/Ab Combo assay result and supplemental assay results should be interpreted in conjunction with the patient's clinical presentation, history and other laboratory results. If the results are inconsistent with clinical evidence, additional testing is suggested to confirm the result. Hepatitis B Surface Antigen Negative Negative [facility] 07/10/2020 9:18 AM EST us Isabella Tony MD HISTORICAL/NON ORDERABLE LABS Fi nal Result Performing Organization Address City/State/[facility] Co de Phone Number [facility] [address] from Last 3 Months or Most Recently Relevant to Health Maintenance Insurance [facility] C3 DENTAL-[facility] [place] [address] Care Teams Day Care Assistant Relationship Specialty Start Date End Date Alan Escobar CNP [address] [facility] [place] [address] PCP - General Family Medicine 05/25/25 Mike Aldridge, RN [address] [facility] [address] Registered Nurse Family Medicine 02/15/25 Chikis Lucero 02/15/25
--- OUTSIDE RECORDS SUMMARY | 2025-06-20 14:13 | XMS_ITS | Encounter Summary ---
Author Organization [employer] Address [address] [facility] 7t [place] [address] Care Team Providers Care Bellmaker Name Role Phone Isbaella Tony MD Primary Care Provider [phone] Mike Aldridge RN Unavailable [phone] Chikis Lucero Unavailable Alan Escobar CNP Primary Care Provider [phone] Reason for Visit * Reason Comments Med Refill Encounter Details Date Type Department Care Team ([facility] st Contact Info) Description 05/01/2023 Refill [facility] [address] [place], [place] [phone] Isabella Tony MD [address] [place], [place] [phone] Social History Tobacco Use Types Packs/Day Years [...] Description 08/10/2025 10:15 AM EST Office Visit [facility] [address] [place] [address] Kristyn Martinez documented as of this encounter Visit Diagnoses Not on filedocumented in this encounter Care Teams Bellmaker Relationship Specialty Start Date End Date Isabella Tony MD [address] [place] [address] PCP - General Family Medicine 07/12/12 05/24/25 Alan Escobar CNP [address] [place] [address] PCP - General Family Medicine 05/25/25 Mike Aldridge, EZEKIEL [address] [place] [address] Registered Nurse Family Medicine 02/15/25 Chikis Lucero 02/15/25 documented as of this encounter
--- OUTSIDE RECORDS SUMMARY | 2025-06-20 14:13 | XMS_ITS | Encounter Summary ---
Author Organization [employer] Address [address] [facility] 7t [place] [address] Care Team Providers Care Material Chaser Name Role Phone Isabella Tony MD Primary Care Provider [phone] Mike Aldridge RN Unavailable [phone] Chikis Lucero Unavailable Alan Escobar CNP Primary Care Provider [phone] Reason for Visit * Reason Comments Med Refill Encounter Details Date Type Department Care Team (Late Contact Info) Description 04/06/2023 Refill [facility] [address] [place] [address] Isabella Tony MD [address] [place] [address] Social History Tobacco Use Types Packs/Day Years [...] [facility] [address] [place] [address] Kristyn Martinez documented as of this encounter Visit Diagnoses Not on filedocumented in this encounter Care Teams Material Chaser Relationship Specialty Start Date End Date Isabella Tony MD [address] [place] [address] PCP - General Family Medicine 07/12/12 05/24/25 Alan Escobar CNP [address] [place] [address] PCP - General Family Medicine 05/25/25 Mike Aldridge RN [address] [place] [address] Registered Nurse Family Medicine 02/15/25 Chikis Lucero 02/15/25 documented as of this encounter
--- OUTSIDE RECORDS SUMMARY | 2025-06-20 14:13 | XMS_ITS | Encounter Summary ---
Author Organization [employer] Address [address] [facility] 7t [place] [address] Care Team Providers Care Paralegal Specialist Name Role Phone Isabella Tony MD Primary Care Provider [phone] Mike Aldridge RN Unavailable [phone] Chikis Lucero Unavailable Alan Escobar CNP Primary Care Provider [phone] Encounter Details Date Type Department Care Team (Late st Contact Info) Description 05/24/2025 Results Follow-Up [facility] [address] [place], [place] [phone] Alan Escobar CNP [address] [place], [place] [phone] CBC auto differential, Iron And Total Iron [...] [facility] [address] [place] [address] Kristyn Martinez documented as of this encounter Visit Diagnoses Not on filedocumented in this encounter Additional Health Concerns Assessment Noted Time PHQ-9 Depression Total Score: 5 03/01/20 25 9:25 AM EDT documented as of this encounter Care Teams Paralegal Specialist Relationship Specialty Start Date End Date Isabella Tony MD [address] [place] [address] PCP - General Family Medicine 07/12/12 05/24/25 Alan Escobar CNP [address] [place] [address] PCP - General Family Medicine 05/25/25 Mike Aldridge, EZEKIEL [address] [place] [address] Registered Nurse Family Medicine 02/15/25 Chikis Lucero 02/15/25 documented as of this encounter
== END ==
LOC: HO.CARD 10:53
PROVIDERS: Visit Provider Nurse Practitioner Family
DX: R00.2 Palpitations (principal)
CPT/HCPCS: 93225

== ENCOUNTER → 2025-06-20 10:55 | Outpatient (BNV) | payer MEDICAID, SELFPAY | PROVIDERS: Visit Provider Internal Medicine | DX: I49.3 Ventricular premature depolarization (principal); I49.49 Other premature depolarization | CPT/HCPCS: 93244 ==

== ENCOUNTER 2025-07-25 08:55 | Outpatient (REF) | payer MEDICAID, SELFPAY ==
--- NOTE | ~2025-07-25 | US_ITS ---
CLINICAL HISTORY: K74.60 - Unspecified cirrhosis of liver US abdomen complete Comparison: 03/15/2025 12:13 PM EDT: US Findings: The visualized pancreas is normal. The aorta and inferior vena cava are normal caliber. The appearance of the liver suggests fatty infiltration. There is no intrahepatic bile duct dilatation. The common duct is 3.8 mm in diameter. There are gallstones. The gallbladder is otherwise normal. There is no sonographic Salcedo sign. The main portal vein is antegrade. The right kidney is 11.5 cm in length. The left kidney is 9.9 cm in length. The spleen is normal. No ascites. There is a ventral abdominal hernia. IMPRESSION: 1. Hepatic steatosis. 2. Cholelithiasis. 3. Ventral abdominal wall hernia. This document has been electronically signed by: Alhaji Medina MD on 07/26/2025 10:42:21
--- OUTSIDE RECORDS SUMMARY | 2025-07-25 11:04 | XMS_ITS | Clinical Summary ---
Author Organization [employer] Address [address] [facility] 7t [place] [address] Care Team Providers Care Baker Pie Name Role Phone Mike Aldridge RN Unavailable [phone] Chikis Lucero Unavailable Alan Escobar CNP Primary Care Provider [phone] Allergies No known active allergies Medications acetaminophen (Tylenol 8 Hour) 650 MG ER tablet take 1 Tablet by oral route every 8 hours as needed for Pain And/Or Fever 2 Active fluticasone (Flonase) 50 MCG/ACT nasal spray INHALE 1 - 2 SPRAYS IN EACH NOSTRIL ONCE DAILY NEEDED 2 Active tadalafil (Cialis) 5 MG tablet TAKE ONE TABLET EVERY MORNING 15 tablet 3 Active Asmanex HFA 200 MCG/ACT aerosol INHALE ONE PUFF TWICE DAILY, RINSE MOUTH AFTER USE 13 g 11 5 Active Vaporizer miscIndications: Upper respiratory tract infection, unspecified type Use at night prn uri 1 each 5 Active Magnesium Glycinate 100 MG capsule Take 1 capsule (100 mg) by mouth at bedtime. 30 capsule 11 5 10/28/19 26 Active Mag-G 500 (27 Mg) MG tablet TAKE ONE TABLET TWICE DAILY IN THE MORNING AND AT BEDTIME 60 tablet 11 07/10/2025 8:22 AM EST 5 Active hydrOXYzine HCl (Atarax) 50 MG tabletIndication s:Anxiety TAKE ONE TABLET EVERY NIGHT AT BEDTIME 60 tablet 3 06/13/2025 4:02 PM EST 5 Active albuterol 108 (90 Base) MCG/ACT inhaler Inhale 2 puffs every 4 (four) hours if needed for wheezing. 18 g 5 01/10/20 26 Active albuterol (Ventolin HFA) 108 (90 Base) MCG/ACT inhalerIndicatio ns:Mild persistent asthma, unspecified whether complicated INHALE TWO PUFFS EVERY 4 HOURS NEEDED FOR WHEEZING OR SHORTNESS OF BREATH 18 g 1 5 Active folic acid (Folvite) 1 MG tabletIndication s:Alcoholism ([facility]) ([facility]) TAKE ONE TABLET EVERY MORNING 90 tablet 2 5 Active Ferrous Sulfate (iron) 325 (65 Fe) MG tabletIndication s:Iron deficiency anemia secondary to inadequate dietary iron intake TAKE ONE TABLET EVERY MORNING 90 tablet 5 Active topiramate 50 MG tabletIndication s:Seizure disorder ([facility]) ([facility]) TAKE ONE TABLET EVERY NIGHT AT BEDTIME 30 tablet 5 5 Active omeprazole (PriLOSEC) [address] capsuleIndicatio ns:Seizure disorder ([facility]) ([facility]) TAKE ONE CAPSULE EVERY MORNING BEFORE BREAKFAST 90 capsule 1 07/10/2025 8:22 AM EST 5 Active rosuvastatin (Crestor) 40 MG tablet take one tablet every night at bedtime 5 Active Brilinta 90 MG tablet TAKE ONE TABLET IN THE MORNING AND EVENING Active ferrous gluconate (Fergon) 324 (38 Fe) MG tablet Take 1 tablet (324 mg) by mouth with breakfast. 30 tablet 11 5 04/03/20 26 Active levETIRAcetam (Keppra) 500 MG tablet TAKE ONE TABLET TWICE DAILY IN THE MORNING AND AT BEDTIME 60 tablet 2 07/10/2025 8:22 AM EST 5 Active cetirizine (ZyrTEC) 10 MG tabletIndication s:Seasonal allergies TAKE ONE TABLET EVERY MORNING 90 tablet 5 Active ferrous gluconate (Fergon) 324 (37.5 Fe) MG tablet Take 1 tablet by mouth in the morning. 5 Active cholecalciferol (Vitamin D-3) 125 MCG (5000 UT) capsule TAKE ONE CAPSULE ONCE WEEKLY ON THURSDAY MORNING 12 capsule 06/13/2025 4:02 PM EST Active acetaminophen (Tylenol 8 Hour) 650 MG ER tabletIndication s:Pain Take 1 tablet (650 mg) by mouth every 8 (eight) hours if needed for headaches. Do not crush, chew, or split. 40 tablet 1 5 Active lisinopril 5 MG tablet TAKE ONE TABLET EVERY MORNING 90 tablet 1 06/13/2025 4:02 PM EST Active Multiple Vitamin (Multivitamin) tabletIndication s:Seizure disorder (CMS/HCC) ([facility]) TAKE ONE TABLET EVERY MORNING 90 tablet 1 06/13/2025 4:02 PM EST Active thiamine (Vitamin B-1) 100 MG tabletIndication s:Seizure disorder (CMS/HCC) (HCC) TAKE ONE TABLET EVERY MORNING 90 tablet 1 06/13/2025 4:02 PM EST Active sertraline (Zoloft) 25 MG tablet TAKE ONE TABLET EVERY MORNING 30 tablet 11 07/10/2025 8:22 AM EST Active Advair Diskus 100-50 MCG/ACT aerosol powder INHALE 1 PUFF TWICE DAILY. RINSE MOUTH AFTER USE 60 each 1 07/10/2025 8:22 AM EST Active terbinafine (LamISIL) 1 % creamIndications :Tinea pedis, unspecified laterality Apply topically 2 times daily. 42 g 06/13/2025 4:02 PM EST Active Hospital, Clinic, or Other Facility Administered Medication Ordered Dose Route Frequency Start Date End Date Status aspirin chewable tablet 325 mgIndications:Other chest pain 325 mg PO Once 03/31/2024 Active Active Problems Problem Noted Date Diagnosed Date Acute shoulder pain 05/12/2025 Chest pain 05/12/2025 Cirrhosis (CMS/HCC) 05/12/2025 Overview (05/12/2025): Being treated by [facility] currently on and anti-viral Colon cancer screening 05/12/2025 Overview (05/12/2025): 2022= hyperplastic polyp repeat in 10 years Coronary atherosclerosis 05/12/2025 Epidermal cyst 05/12/2025 Exertional angina 05/12/2025 High cholesterol 05/12/2025 Overview (05/12/2025): ? uncertain medical records from [facility] HTN (hypertension) 05/12/2025 On anticoagulant therapy [...] C (CMS/HCC) 10/20/2024 Overview (05/12/2025): Treated by [facility] Asthma 10/20/2024 Upper respiratory tract infection 08/17/2024 History of DVT (deep vein thrombosis) 09/19/2022 Alcohol abuse, in remission 09/19/2022 Moderate asthma without complication 08/15/2022 Non-traumatic rhabdomyolysis 08/15/2022 Seizure disorder (CMS/HCC) 08/15/2022 Viral hepatitis C 04/10/2014 Benign essential hypertension 03/20/2014 Hematemesis 03/04/2014 Encounters Date Type Department Care Team Description 06/05/2025 Patient Outreach [facility] [address] [place] [id number] Alan Escobar CNP Care Coordination (C3 -W Chikis Lucero telephone call outreach) 06/03/2025 Orders Only [facility] [address] [place] [address] Alan Escobar CNP Tinea pedis, unspecified laterality (Primary Dx) 06/02/2025 Patient Outreach [facility] [address] [place] [address] Alan Escobar CNP Care Management (C3CM- F/U call # 2) 06/02/2025 Refill [facility] [address] [place], [place] [phone] Isabella Tony MD 05/31/2025 Telephone [facility] [address] [place] [address] Alan Escobar CNP Nurse Triage 05/26/2025 Refill [facility] [address] [place], [place] [phone] Isabella Tony MD Seizure disorder (CMS/HCC) (HCC) 05/24/2025 Results Follow-Up [facility] [address] [place], [place] [phone] Alan Escobar CNP CBC auto differential, Iron And Total Iron Binding Capacity, Ferritin, Basic Metabolic Panel 05/19/2025 9:00 AM EDT Office Visit [facility] [address] [place] [address] Alan Escobar CNP Anemia, unspecified type (Primary Dx); Chronic migraine without aura without status migrainosus, not intractable; Pain 05/19/2025 Travel 05/19/2025 Refill [facility] [address] [place] [address] Case Carrasco MD 05/12/2025 Telephone [facility] [address] [place] [address] Isabella Tony MD chart prep 05/09/2025 Telephone [facility] [address] [place] [address] Isabella Tony MD Chart Prep 05/08/2025 Refill [facility] [address] [place] [address] Macarena Gomez MD Seasonal allergies 05/05/2025 Telephone [facility] [address] [place] [address] Isabella Tony MD Nurse Triage from Last [...] 10:15 AM EST Office Visit [facility] [address] [place], [place] [phone] Kristyn Martinez Health Maintenance Due Date Last [...] 02/15/2026 02/15/2025 Depression Screening 03/01/2026 03/01/2025, 03/01/20 25 DTaP/Tdap/Td [...] 05/19/2025 9:46 AM EDT Anemia, unspecified type PROPHYLAXIS - [...] CBC auto differential (05/19/2025 9:46 AM EDT) White Blood Count 2.9(L) 4.8 - 10.8 X10*3/uL [facility] Red Blood Count 4.18(L) 4.60 - 5.80 X10*6/uL [facility] Hemoglobin 9.2(L) 14.0 - 18.0 g/dl [facility] Hematocrit 32.2(L) 42.0 - 52.0 % [facility] Mean Corpuscular Volume 77.0(L) 80.0 - 98.0 fL [facility] Mean Corpuscular Hemoglobin 22.0(L) 27.0 - 33.0 pg [facility] Mean Corpuscular HGB Conc 28.6(L) 31.0 - 36.0 g/dl [facility] Red Cell Distribution Width 16.7(H) 11.0 - 16.0 % [facility] Platelet Count 167 160 - 400 X10*3/uL [facility] Neutrophils Percent Auto 57.3 45 - 73 % [facility] Imm Gran Pct Auto 0.3 0.0 - 0.4 % [facility] Lymphocytes Percent Auto 32.1 20 - 40 % [facility] Monocytes Percent Auto 9.3 2 - 11 % [facility] Eosinophils Percent Auto 0.7 0 - 4 % [facility] Basophils Percent Auto 0.3 0 - 2 % [facility] NRBC Pct Auto 0.0 0.0 - 0.2 /100WBC [facility] Neutrophils Absolute Auto 1.7(L) 2.0 - 8.3 x10*3/uL [facility] Imm Gran Abs Auto 0.01 0.00 - 0.03 X10*3/uL [facility] Lymphocytes Absolute Auto 0.9(L) 1.2 - 4.9 X10*3/uL [facility] Monocytes Absolute Auto 0.3 0.1 - 1.2 X10*3/uL [facility] Eosinophils Absolute Auto 0.0 0.0 - 0.4 X10*3/uL [facility] Basophils Absolute Auto 0.0 0.0 - 0.2 X10*3/uL [facility] NRBC Abs Auto 0.000 0.0 - 0.012 X10*3/uL [facility] Blood Venous blood specimen / Unknown 05/19/2025 9:46 AM EDT 05/19/2025 2:41 PM EDT [facility] LAB BLOOD ORDERABLES Marzena l Result Performing Organization Address City/[facility]/ZIP Co de Phone Number [facility] [address] [place] [phone] * (ABNORMAL) Iron And Total Iron Binding Capacity (05/19/2025 9:46 AM EDT) Iron 343(H) 45 - 160 mcg/dL [facility] Total Iron Binding Capacity 408 228 - 428 mcg/dL [facility] Percent Iron Saturation 84(H) 15 - 50 % [facility] Unsaturated Iron Binding 65 ug/dL [facility] Blood Venous blood specimen / Unknown 05/19/2025 9:46 AM EDT 05/19/2025 2:20 PM EDT Result [facility] LAB BLOOD ORDERABLES Marzena l Result Performing Organization Address [facility]/ZIP Co de Phone Number [facility] [address] [place] [phone] * (ABNORMAL) Ferritin (05/19/2025 9:46 AM EDT) Ferritin 17(L) 20 - 250 ng/mL [facility] Blood Venous blood specimen / Unknown 05/19/2025 9:46 AM EDT 05/19/2025 2:20 PM EDT Result [facility] LAB BLOOD ORDERABLES Marzena l Result Performing Organization Address City/[facility]/ZIP Co de Phone Number [facility] [address] [place] [phone] * (ABNORMAL) Basic Metabolic Panel (05/19/2025 9:46 AM EDT) Pathologist [facility] Sodium 143 135 - 145 mmol/L [facility] Potassium 3.9 3.3 - 5.1 mmol/L [facility] Chloride 118(H) 96 - 108 mmol/L [facility] Carbon Dioxide 21(L) 22 - 29 mmol/L [facility] Anion Gap 8(L) 12 - 20 [facility] Urea Nitrogen (BUN) 10 9 - 16 mg/dL [facility] Creatinine, Serum 1.35 0.5 - 1.4 mg/dL [facility] Estimated Glomerular Filt Rate 54 [facility] Comment:Chronic Kidney Disea se: Estimated GFR < 60 mL/min/1.12p0Wteves Kidney Disease: Estimated GFR < 15 mL/min/1.73m2 Glucose 109 60 - 115 mg/dL [facility] Calcium 8.8 8.4 - 10.2 mg/dL [facility] Blood Venous blood specimen / Unknown 05/19/2025 9:46 AM EDT 05/19/2025 2:20 PM EDT [facility] BLOOD ORDERABLES Marzena l Result [facility] [address] [place] [phone] * (ABNORMAL) Lipid Panel, Standard (12/08/2024 8:19 AM EDT) Triglycerides 117 <150 mg/dL [facility] Comment:Desirable Triglyceri de: less than 150 mg/dLBorderline High Triglyceride 150-199 mg/dLHigh Triglyceride: 200-499 mg/dLVery High Triglyceride: greater than or equal to 5OO mg/dL Cholesterol 87 <200 mg/dL [facility] Comment:Desirable Cholestero l: less than 200 mg/dLBorderline High Cholesterol: 200-239 mg/dLHigh Cholesterol: greater than 239 mg/dL LDL Cholesterol Calculated 33 <100 mg/dL [facility] Comment:Desirable LDL: less than 100 mg/dLNear Optimal/Above Optimal LDL: 110- 129 mg/dLBorderline High LDL: 130-159 mg/dLHigh LDL: 160-189 mg/dLVery High LDL: greater than or equal to 190 mg/dL HDL Cholesterol 31(L) >40 mg/dL [facility] Comment:Desirable HDL: great er than 40 mg/dL Note: This HDL assay may give artificially low results in patients with liver disease. Blood Venous blood specimen / Unknown 12/08/2024 8:19 AM EDT 12/08/2024 12:05 PM EDT us Isabella Tony MD LAB BLOOD ORDERABLES Final Resul t [facility] [address] [place] [phone] * Cologuard?? colon cancer screening (02/16/2024 8:20 AM EDT) Cologuard Result Negative Negative 02/22/20 24 5:40 PM EDT [facility] (CLIA #:[id number]) Comment: NEGATIVE TEST RESULT. A negative Cologuard [...] (Carlos Gonzales al, N Engl J Med 2014;370(14):9537-5621) The normal value (reference range) for this assay is negative. COLOGUARD RE-SCREENING RECOMMENDATION: Periodic colorectal cancer screening is an important part of preventive healthcare for asymptomatic individuals at average risk for colorectal cancer. Following a negative Cologuard result, the [place] Cancer Society and U.S. Multi-Society Task Force screening guidelines recommend a Cologuard re-screening interval of 3 years. References: [place] [employer] Guideline for Colorectal Cancer Screening: https://www.cancer.org/cancer/jzvxl-zfvjcy-zwubsl/jgolcfqmv-sojbyklrh-svrbwij/ac s-rec ommendations.html.; Salvador DK, Tania CR, Parker GarciaK, Colorectal Cancer Screening: Recommendations for Physicians and Patients from the U.S. Multi-Society Task Force on Colorectal Cancer Screening , Am J Gastroenterology 2017; 112:6706-8258. TEST DESCRIPTION: Composite algorithmic analysis of stool [...] (Carlos Gonzales al, N Engl J Med 2014;370(14):8793-3678.) Cologuard may produce a false negative or false positive result (no colorectal cancer or precancerous polyp present at colonoscopy follow up). A negative Cologuard test result does not guarantee the absence of CRC or advanced adenoma (pre-cancer). The current Cologuard screening interval is every 3 years. ([place] Cancer Society and U.S. Multi-Society Task Force). Cologuard performance data in a 10,000 patient pivotal study using colonoscopy as the reference method can be accessed at the following location: www.[employer]/results. Additional description of the Cologuard test process, warnings and precautions can be found at www.[employer].com. Stool specimen (specimen) 02/16/2024 8:20 AM EDT 02/17/2024 1:43 PM EDT Isabella Tony MD LAB MOLECULAR DIAGNOSTICS ORDERA BLES Final Result [facility] (CLIA #:[id number]) [address] [place] [address], * HIV AB/AG (07/10/2020 9:18 AM EST) [facility] HIV AB/AG Nonreactive Nonreactive [facility] Comment: HIV-1 p24 Ag and/or [...] of detection of this assay. The [employer] HIV Ag/Ab Combo assay result and supplemental assay results should be interpreted in conjunction with the patient's clinical presentation, history and other laboratory results. If the results are inconsistent with clinical evidence, additional testing is suggested to confirm the result. Hepatitis B Surface Antigen Negative Negative [employer] [facility] 07/10/2020 9:18 AM EST us Isabella Tony MD HISTORICAL/NON ORDERABLE LABS Fi nal Result Performing Organization Address City/[facility]/ZIP Co de Phone Number [employer] [employer] [address] from Last 3 Months or Most Recently Relevant to Health Maintenance Insurance [facility] C3 Care Teams Baker Pie Relationship Specialty Start Date End Date Alan Escobar CNP [address] [place], [place] PCP - General Family Medicine 05/25/25 Mike Aldridge, EZEKIEL [address] [place], [place] Registered Nurse Family Medicine 02/15/25 Chikis Lucero 02/15/25
--- OUTSIDE RECORDS SUMMARY | 2025-07-25 11:04 | XMS_ITS | Encounter Summary ---
Author Organization [employer] Address [address] [facility] 7t [place] [address] Care Team Providers Care Food Services Manager Name Role Phone Isabella Tony MD Primary Care Provider [phone] Mike Aldridge RN Unavailable [phone] Chikis Lucero Unavailable Alan Escobar CNP Primary Care Provider [phone] Encounter Details Date Type Department Care Team (Late st Contact Info) Description 08/05/2023 Orders Only [facility] [address] [place], [place] [phone] Case Carrasco MD [address] [place], [place] [phone] Social History Tobacco Use Types Packs/Day Years [...] Description 08/10/2025 10:15 AM EST Office Visit [facility] [address] [place] [address] Kristyn Martinez documented as of this encounter Visit Diagnoses Not on filedocumented in this encounter Care Teams Food Services Manager Relationship Specialty Start Date End Date Isabella Tony MD [address] [place] [address] PCP - General Family Medicine 07/12/12 05/24/25 Alan Escobar CNP [address] [place] [address] PCP - General Family Medicine 05/25/25 Mike Aldridge, RN [address] [place] [address] Registered Nurse Family Medicine 02/15/25 Chikis Lucero 02/15/25 documented as of this encounter
--- OUTSIDE RECORDS SUMMARY | 2025-07-25 11:04 | XMS_ITS | Clinical Summary ---
Author Organization [facility] Prior to 12/24/[address] [place] [address] Care Team Providers Care Drilling Machine Operator Name Role Phone Unavailable Primary Care Provider [...] on file Trever Ledesma Personal/Family Self [address] [address]
--- OUTSIDE RECORDS SUMMARY | 2025-07-25 11:04 | XMS_ITS | Encounter Summary ---
Author Organization [employer] Address [address] [facility] 7t [place] [address] Care Team Providers Care Assistant Manager Bilingual Name Role Phone Isabella Tony MD Primary Care Provider [phone] Mike Aldridge RN Unavailable [phone] Chikis Lucero Unavailable Alan Escobar CNP Primary Care Provider [phone] Encounter Details Date Type Department Care Team (Late st Contact Info) Description 07/30/2022 Orders Only [facility] [address] [place], [place] [phone] Miguelina Arvizu LPN Social History Tobacco Use [...] [facility] [address] [place] [address] Kristyn Martinez documented as of this encounter Visit Diagnoses Not on filedocumented in this encounter Care Teams Assistant Manager Bilingual Relationship Specialty Start Date End Date Isabella Tony MD [address] [place] [address] PCP - General Family Medicine 07/12/12 05/24/25 Alan Escobar CNP [address] [place] [address] PCP - General Family Medicine 05/25/25 Mike Aldridge RN 505 [place] [address] Registered Nurse Family Medicine 02/15/25 Chikis Lucero 02/15/25 documented as of this encounter
--- OUTSIDE RECORDS SUMMARY | 2025-07-25 11:04 | XMS_ITS ---
Author Organization [employer] Address [address] [facility] 7t [place] [address] Care Team Providers Care Web Software Engineer Name Role Phone Mike Aldridge RN Unavailable [phone] Chikis Lucero Unavailable Alan Escobar CNP Primary Care Provider [phone] CM Complex Status:Enrolled (Active) Start date:02/15/2025 Enrollment date:02/28/2025 Enrollment reason:ADT Feed Overview [facility] ED 02/14/25 Case Team Name Relationship Phone Mike Aldridge RN(Responsible Staff) Registered N siena [phone] Continued Care and Services Coordination
--- OUTSIDE RECORDS SUMMARY | 2025-07-25 11:04 | XMS_ITS | Clinical Summary ---
Author Organization [facility] Address [address] [address] Care Team Providers Care Test Driller Name Role Phone Isabella Tony MD Primary Care Provider [phone] Social History Tobacco Use Types Packs/Day Years [...] Vaccine (#1) 2025 [place] [id number] [place] Care Teams Test Driller Relationship Specialty Start Date End Date Isabella Tony MD [address] [place] [address] PCP - General Family Medicine 05/20/21
--- OUTSIDE RECORDS SUMMARY | 2025-07-25 11:04 | XMS_ITS | Encounter Summary ---
Author Organization [employer] Address [address] [facility] 7t [place] [address] Care Team Providers Care Regional Account Executive Name Role Phone Isabella Tony MD Primary Care Provider [phone] Mike Aldridge RN Unavailable [phone] Chikis Lucero Unavailable Alan Escobar CNP Primary Care Provider [phone] Reason for Visit * Reason Comments Med Refill Encounter Details Date Type Department Care Team (Late Contact Info) Description 04/08/2023 Refill [facility] [address] [place] [address] Isabella Tony MD [address] [place] [address] Seizure disorder (CMS/HCC) Social History Tobacco Use [...] Office Visit [facility] [address] [place] [address] Kristyn Martinez documented as of this encounter Visit Diagnoses Diagnosis Seizure disorder (CMS/HCC) (HCC) Unspecified epilepsy without mention of intractable epilepsy documented in this encounter Care Teams Regional Account Executive Relationship Specialty Start Date End Date Isabella Tony MD [address] [place] [address] PCP - General Family Medicine 07/12/12 05/24/25 Alan Escobar CNP [address] [place] [address] PCP - General Family Medicine 05/25/25 Mike Aldridge RN [address] [place] [address] Registered Nurse Family Medicine 02/15/25 Chikis Lucero 02/15/25 documented as of this encounter
--- OUTSIDE RECORDS SUMMARY | 2025-07-25 11:04 | XMS_ITS | Encounter Summary ---
Author Organization [employer] Address [address] [facility] [address] 7[address] [place] [address] Care Team Providers Care Director Music Name Role Phone Isabella Tony MD Primary Care Provider [phone] Mike Aldridge RN Unavailable [phone] Chikis Lucero Unavailable Alan Escobar CNP Primary Care Provider [phone] Reason for Visit * Reason Onset Date Comments Nurse Triage 07/21/2023 Encounter Details Date Type Department Care Team (Late st Contact Info) Description 07/21/2023 Telephone [facility] [address] [place] [address] Isabella Tony MD [address] [place], [place] [phone] Nurse Triage Social History Tobacco Use Types [...] want to go to walk in at [facility] today ot tomorrow. Pt. Wants televisit. Pt. Is speaking in clear sentences and denies SOB or wheezing at present. Advised if develops SOB to go to walk in at [facility] until 730pm tonight. Protocol Used: COVID-19 [...] 08/10/2025 10:15 AM EST Office Visit [facility] [address] [place] [address] Kristyn Martinez documented as of this encounter Visit Diagnoses Diagnosis Mild persistent asthma, unspecified whether complicated documented in this encounter Care Teams Director Music Relationship Specialty Start Date End Date Isabella Tony MD [address] [place] [address] PCP - General Family Medicine 07/12/12 05/24/25 Alan Escobar CNP [address] [place] [address] PCP - General Family Medicine 05/25/25 Mike Aldridge, EZEKIEL [address] [place] [address] Registered Nurse Family Medicine 02/15/25 Chikis Lucero 02/15/25 documented as of this encounter
--- OUTSIDE RECORDS SUMMARY | 2025-07-25 11:04 | XMS_ITS | Encounter Summary ---
Author Organization [employer] Address 75 [facility] 7t [place] [address] Care Team Providers Care Regional Director Of Finance Name Role Phone Isabella Tony MD Primary Care Provider [phone] Mike Aldridge RN Unavailable [phone] Chikis Lucero Unavailable Alan Escobar CNP Primary Care Provider [phone] Reason for Visit * Reason Comments Med Refill Encounter Details Date Type Department Care Team ([facility] st Contact Info) Description 05/01/[address] [facility] CHC MED & PEDS [address] [place], [place] [phone] Isabella Tony MD 505 [place], [place] [phone] Social History Tobacco Use Types Packs/Day Years [...] Description 08/10/2025 10:15 AM EST Office Visit [facility] ADULT DENTAL 505 [place] [address] Kristyn Martinez documented as of this encounter Visit Diagnoses Not on filedocumented in this encounter Care Teams Regional Director Of Finance Relationship Specialty Start Date End Date Isabella Tony MD [address] [place] [address] PCP - General Family Medicine 07/12/12 05/24/25 Alan Escobar CNP 505 [place] [address] PCP - General Family Medicine 05/25/25 Mike Aldridge, EZEKIEL 505 [place] [address] Registered Nurse Family Medicine 02/15/25 Chikis Lucero 02/15/25 documented as of this encounter
--- OUTSIDE RECORDS SUMMARY | 2025-07-25 11:04 | XMS_ITS ---
Author Organization [employer] Address 75 [facility] 7t [place] [address] Care Team Providers Care Financial Sales Advisor Name Role Phone Mike Aldridge RN Unavailable [phone] Chikis Lucero Unavailable Alan Escobar CNP Primary Care Provider [phone] [facility] Status:Enrolled (Active) Start date:02/15/2025 Enrollment date:02/15/2025 Enrollment reason:ADT Feed Overview ADT-[facility] ED 02/14/25 Case Team Name Relationship Phone Chikis Lucero(Responsible Staff) Continued Care and Services Coordination
--- OUTSIDE RECORDS SUMMARY | 2025-07-25 11:04 | XMS_ITS | Encounter Summary ---
Author Organization [employer] Address [address] [facility] 7t [place] [address] Care Team Providers Care Change Booth Attendant Name Role Phone Isabella Tony MD Primary Care Provider [phone] Mike Aldridge RN Unavailable [phone] Chikis Lucero Unavailable Alan Escobar CNP Primary Care Provider [phone] Reason for Visit * Reason Onset Date Comments FYI 04/13/2023 Encounter Details Date Type Department Care Team (Late st Contact Info) Description 04/13/2023 Telephone [facility] CHC MED & PEDS [address] [place], [place] [phone] Isabella Tony MD 505 [place], [place] [phone] FYI Social History Tobacco Use Types Packs/Day [...] [facility] calling to inform PCP that patient was getting CARE TRANSITION COORDINATOR provided by them and has discharged himself out of the program since 04/10/23. documented in this encounter Plan of Treatment Upcoming Encounters Date Type Department Care Team (Late st Contact Info) Description 08/10/2025 10:15 AM EST Office Visit [facility] CHC ADULT DENTAL [address] [place] [address] Kristyn Martinez documented as of this encounter Visit Diagnoses Not on filedocumented in this encounter Care Teams Change Booth Attendant Relationship Specialty Start Date End Date Isabella Tony MD [address] [place] [address] PCP - General Family Medicine 07/12/12 05/24/25 Alan Escobar CNP 505 [place] [address] PCP - General Family Medicine 05/25/25 Mike Aldridge RN 505 [place] [address] Registered Nurse Family Medicine 02/15/25 Chikis Lucero 02/15/25 documented as of this encounter
--- OUTSIDE RECORDS SUMMARY | 2025-07-25 11:04 | XMS_ITS | Encounter Summary ---
Author Organization [employer] Address 75 [facility] 7t [place] [address] Care Team Providers Care Finisher Brush Name Role Phone Isabella Tony MD Primary Care Provider [phone] Mike Aldridge RN Unavailable [phone] Chikis Lucero Unavailable Alan Escobar CNP Primary Care Provider [phone] Encounter Details Date Type Department Care Team (Late st Contact Info) Description 05/24/2025 Results Follow-Up [facility] CHC MED & PEDS 505 [place], [place] [phone] Alan Escobar CNP 505 [place], [place] [phone] CBC auto differential, Iron And Total Iron [...] 08/10/2025 10:15 AM EST Office Visit [facility] ADULT D[facility]AL [address] [place] [address] Kristyn Martinez documented as of this encounter Visit Diagnoses Not on filedocumented in this encounter Additional Health Concerns Assessment Noted Time PHQ-9 Depression Total Score: 5 03/01/20 25 9:25 AM EDT documented as of this encounter Care Teams Finisher Brush Relationship Specialty Start Date End Date Isabella Tony MD [address] [place] [address] PCP - General Family Medicine 07/12/12 05/24/25 Alan Escobar CNP 505 [place] [address] PCP - General Family Medicine 05/25/25 Mike Aldridge, EZEKIEL 505 [place] [address] Registered Nurse Family Medicine 02/15/25 Chikis Lucero 02/15/25 documented as of this encounter
--- OUTSIDE RECORDS SUMMARY | 2025-07-25 11:04 | XMS_ITS | Encounter Summary ---
Author Organization [employer] Address 75 [facility] 7t [place] [address] Care Team Providers Care Market Research Manager Name Role Phone Isabella Tony MD Primary Care Provider [phone] Mike Aldridge RN Unavailable [phone] Chikis Lucero Unavailable Alan Escobar CNP Primary Care Provider [phone] Reason for Visit * Reason Comments Med Refill Encounter Details Date Type Department Care Team ([facility] st Contact Info) Description 12/06/2024 Refill [facility] CHC MED & PEDS 505 [place], [place] [phone] Isabella Tony MD 505 [place], [place] [phone] Social History Tobacco Use Types Packs/Day Years [...] 08/10/2025 10:15 AM EST Office Visit [facility] ADULT DENTAL 505 [place] [address] Kristyn Martinez documented as of this encounter Visit Diagnoses Not on filedocumented in this encounter Additional Health Concerns Assessment Noted Time PHQ-9 Depression Total Score: 8 10/28/19 25 9:13 AM EDT documented as of this encounter Care Teams Market Research Manager Relationship Specialty Start Date End Date Isabella Tony MD 230 [place] [address] PCP - General Family Medicine 07/12/12 05/24/25 Alan Escobar CNP 505 [place] [address] PCP - General Family Medicine 05/25/25 Mike Aldridge, EZEKIEL 505 [place] [address] Registered Nurse Family Medicine 02/15/25 Chikis Lucero 02/15/25 documented as of this encounter
--- OUTSIDE RECORDS SUMMARY | 2025-07-25 11:04 | XMS_ITS | Encounter Summary ---
Author Organization [employer] Address 75 [facility] 7t [place] [address] Care Team Providers Care Employment Assistant Name Role Phone Isabella Tony MD Primary Care Provider [phone] Mike Aldridge RN Unavailable [phone] Chikis Lucero Unavailable Alan Escobar CNP Primary Care Provider [phone] Reason for Visit * Reason Onset Date Comments Nurse Triage 05/04/2024 Encounter Details Date Type Department Care Team (Late st Contact Info) Description 05/04/2024 Telephone [facility] CHC MED & PEDS 505 [place], [place] [phone] Isabella Tony MD 505 [place], [place] [phone] Nurse Triage Social History Tobacco Use Types [...] 05/04/2024 10:57 AM EDT Triage call with [place] [employer] [place] [id number] Pt reports some lumps on right arm where injections were given while at [facility] [place]02[place]. Pt was seen asfollow up for cardiac cath, stent placement which was done 04/20/24 report of 05/02/24 apt is on the chart. Pt does have hx of blood clots and didn't start aspirin and Brilinta as directed after this procedure. Pt informs newswriter that Pt is on the way to [place] at this time to be seen by provider. Pt hasno apt there and is advised to come to [facility] instead for provider to see Pt. Pt agrees and informs newswriter that Pt is heading to [facility] at this time. Pt is alert, oriented, no difficulty breathing. Triage is ended. Advised Pt will send this report to [facility] now. Pt agrees. Protocol Used: No [...] 08/10/2025 10:15 AM EST Office Visit [facility] ADULT DENTAL 505 [place] [address] Kristyn Martinez documented as of this encounter Visit Diagnoses Not on filedocumented in this encounter Care Teams Employment Assistant Relationship Specialty Start Date End Date Isabella Tony MD [address] [place] [address] PCP - General Family Medicine 07/12/12 05/24/25 Alan Escobar CNP 505 [place] [address] PCP - General Family Medicine 05/25/25 Mike Aldridge, EZEKIEL 505 [place] [address] Registered Nurse Family Medicine 02/15/25 Chikis Lucero 02/15/25 documented as of this encounter
--- OUTSIDE RECORDS SUMMARY | 2025-07-25 11:04 | XMS_ITS | Encounter Summary ---
Author Organization [employer] Address 75 [facility] 7t [place] [address] Care Team Providers Care Biomass Power Plant Manager Name Role Phone Isabella Tony MD Primary Care Provider [phone] Mike Aldridge RN Unavailable [phone] Chikis Lucero Unavailable Alan Escobar CNP Primary Care Provider [phone] Reason for Visit * Reason Comments Med Refill Encounter Details Date Type Department Care Team (Late Contact Info) Description 04/06/2023 Refill [facility] MED & PEDS 505 [place] [address] Isabella Tony MD 505 [place] [address] Social History Tobacco Use Types Packs/Day Years [...] [facility] 505 [place] [address] Kristyn Martinez documented as of this encounter Visit Diagnoses Not on filedocumented in this encounter Care Teams Biomass Power Plant Manager Relationship Specialty Start Date End Date Isabella Tony MD 230 [place] [address] PCP - General Family Medicine 07/12/12 05/24/25 Alan Escobar CNP 505 [place] [address] PCP - General Family Medicine 05/25/25 Mike Aldridge RN 505 [place] [address] Registered Nurse Family Medicine 02/15/25 Chikis Lucero 02/15/25 documented as of this encounter
--- OUTSIDE RECORDS SUMMARY | 2025-07-25 11:04 | XMS_ITS | Encounter Summary ---
Author Organization [employer] Address 75 [facility] 7t [place] [address] Care Team Providers Care Retail Field Representative Name Role Phone Isabella Tony MD Primary Care Provider [phone] Mike Aldridge RN Unavailable [phone] Chikis Lucero Unavailable Alan Escobar CNP Primary Care Provider [phone] Encounter Details Date Type Department Care Team (Late st Contact Info) Description 07/14/2022 Orders Only [facility] [address] [place] [address] Miguelina Arvizu LPN Social History Tobacco Use [...] [facility] ADULT D[facility]AL 505 [place] [address] Kristyn Martinez documented as of this encounter Visit Diagnoses Not on filedocumented in this encounter Care Teams Retail Field Representative Relationship Specialty Start Date End Date Isabella Tony MD [address] [place] [address] PCP - General Family Medicine 07/12/12 05/24/25 Alan Escobar CNP 505 [facility] [place] [address] PCP - General Family Medicine 05/25/25 Mike Aldridge RN 505 [facility] [place] [address] Registered Nurse Family Medicine 02/15/25 Chikis Lucero 02/15/25 documented as of this encounter
--- OUTSIDE RECORDS SUMMARY | 2025-07-25 11:04 | XMS_ITS | Encounter Summary ---
Author Organization [employer] Address [address] [facility] [address] 7t [place] [address] Care Team Providers Care Motor Expert Name Role Phone Isabella Tony MD Primary Care Provider [phone] Mike Aldridge RN Unavailable [phone] Chikis Lucero Unavailable Alan Escobar CNP Primary Care Provider [phone] Reason for Visit * Reason Comments Med Refill Encounter Details Date Type Department Care Team (Late st Contact Info) Description 09/10/2023 Refill [facility] MEDICINE [address] [place] [address] Isabella Tony MD [address] [place], [place] [phone] Seizure disorder (CMS/HCC) Social History Tobacco Use [...] Description 08/10/2025 10:15 AM EST Office Visit [facility] CHC ADULT DENTAL 505 [place] [address] Kristyn Martinez documented as of this encounter Visit Diagnoses Diagnosis Seizure disorder (CMS/HCC) (HCC) Unspecified epilepsy without mention of intractable epilepsy documented in this encounter Care Teams Motor Expert Relationship Specialty Start Date End Date Isabella Tony MD 230 [place] [address] PCP - General Family Medicine 07/12/12 05/24/25 Alan Escobar CNP 505 [place] [address] PCP - General Family Medicine 05/25/25 Mike Aldridge, RN 505 [place] [address] Registered Nurse Family Medicine 02/15/25 Chikis Lucero 02/15/25 documented as of this encounter
--- OUTSIDE RECORDS SUMMARY | 2025-07-25 11:04 | XMS_ITS | Encounter Summary ---
Author Organization [employer] Address [address] [facility] [address] 7t [place] [address] Care Team Providers Care Program Advisor Name Role Phone Isabella Tony MD Primary Care Provider [phone] Mike Aldridge RN Unavailable Chikis Lucero Unavailable Alan Escobar CNP Primary Care Provider [phone] Encounter Details Date Type Department Care Team ([facility] Contact Info) Description 01/13/2023 Orders Only [facility] MEDICINE [address] [place], [place] [phone] Rajwinder Taylor LPN Social History Tobacco Use [...] Upcoming Encounters Date Type Department Care Team ([facility] Contact Info) Description 08/10/2025 10:15 AM EST Office Visit [facility] CHC ADULT DENTAL [address] [place], [place] [phone] Kristyn Martinez documented as of this encounter Visit Diagnoses Not on filedocumented in this encounter Care Teams Program Advisor Relationship Specialty Start Date End Date Isabella Tony MD [address] [place] [address] PCP - General Family Medicine 07/12/12 05/24/25 Alan Escobar CNP 505 [place] [address] PCP - General Family Medicine 05/25/25 Mike Aldridge, EZEKIEL 505 [place] [address] Registered Nurse Family Medicine 02/15/25 Chikis Lucero 02/15/25 documented as of this encounter
--- OUTSIDE RECORDS SUMMARY | 2025-07-25 11:04 | XMS_ITS | Encounter Summary ---
Author Organization [employer] Address 75 [facility] 7t [place] [address] Care Team Providers Care Tension Worker Name Role Phone Isabella Tony MD Primary Care Provider [phone] Mike Aldridge RN Unavailable [phone] Chikis Lucero Unavailable Alan Escobar CNP Primary Care Provider [phone] Reason for Visit * Reason Onset Date Comments triage 09/30/2022 Encounter Details Date Type Department Care Team (Late st Contact Info) Description 09/30/2022 Telephone [facility] CHC MED & PEDS 505 [place], [place] [phone] Isabella Tony MD 505 [place], [place] [phone] triage Social History Tobacco Use Types Packs/Day [...] 09/30/2022 3:12 PM EST Called pt. [employer] informatic[employer] architect [id number] [place]. Pt. States that he has been [...] that someone called him from [facility] to come into the office for a [...] want to have nurses in [facility] switch appt. At 915am on 10/02/22 to PCP. Please advise [facility] nurses if you want appt. Switched. Protocol [...] accepted this outcome Please contact pt at [phone] documented in this encounter Plan of Treatment Upcoming Encounters Date Type Department Care Team (Late st Contact Info) Description 08/10/2025 10:15 AM EST Office Visit [facility] ADULT DENTAL 505 [place] [address] Kristyn Martinez documented as of this encounter Visit Diagnoses Not on filedocumented in this encounter Care Teams Tension Worker Relationship Specialty Start Date End Date Isabella Tony MD 230 [place] [address] PCP - General Family Medicine 07/12/12 05/24/25 Alan Escobar CNP 505 [place] [address] PCP - General Family Medicine 05/25/25 Mike Aldridge, RN [address] [place] [address] Registered Nurse Family Medicine 02/15/25 Chikis Lucero 02/15/25 documented as of this encounter
--- OUTSIDE RECORDS SUMMARY | 2025-07-25 11:04 | XMS_ITS | Encounter Summary ---
Author Organization [employer] Address [address] [facility] [address] 7t [place] [address] Care Team Providers Care Levi Maker Name Role Phone Isabella Tony MD Primary Care Provider [phone] Mike Aldridge RN Unavailable [phone] Chikis Lucero Unavailable Alan Escobar CNP Primary Care Provider [phone] Reason for Visit * Reason Onset Date Comments Dental Pain 09/03/2023 Encounter Details Date Type Department Care Team (Late st Contact Info) Description 09/03/2023 Telephone [facility] [address] [place], [place] [phone] Roseanne Devries DMD Dental Pain Social History [...] [facility] ADULT [facility] 505 [place] [address] Kristyn Martinez documented as of this encounter Visit Diagnoses Not on filedocumented in this encounter Care Teams Levi Maker Relationship Specialty Start Date End Date Isabella Tony MD 230 [place] [address] PCP - General Family Medicine 07/12/12 05/24/25 Alan Escobar CNP 505 [place] [address] PCP - General Family Medicine 05/25/25 Mike Aldridge, EZEKIEL 505 [place] [address] Registered Nurse Family Medicine 02/15/25 Chikis Lucero 02/15/25 documented as of this encounter
== END 2025-07-25 08:56 ==
LOC: HO.US 08:55
PROVIDERS: Visit Provider Internal Medicine
DX: K74.60 Unspecified cirrhosis of liver (principal)
CPT/HCPCS: 76700

== ENCOUNTER → 2025-07-25 08:57 | Outpatient (BNV) | payer MEDICAID, SELFPAY | PROVIDERS: Visit Provider Specialist | DX: K74.60 Unspecified cirrhosis of liver (principal); K76.0 Fatty (change of) liver, not elsewhere classified; K80.20 Calculus of gallbladder without cholecystitis without obstruction; K43.9 Ventral hernia without obstruction or gangrene | CPT/HCPCS: 76700 ==